=== PATIENT | female | born 1945 | race Caucasian/White ===

== ENCOUNTER 2017-01-01 14:25 | Emergency (ER) | payer OTHER, MEDICARE ==
[~2017-01-01] VITALS: Ht 162.6 cm; Wt 93.3 kg
[~2017-01-01 14:25] MED LIST: ALBINS/ INH; ATV5 PO; AZIT500T26 PO; BECL0.072 INH; BUME1TAB PO; CHOL100027 PO; CYAN10004 PO; DICL50TA3 PO; HYDR5SYP11 PO; LISI-725 PO; METO25TA31 PO; POTA550T4 PO; SIMV10TA5 PO; SNG10 PO
[2017-01-01 14:29] VITALS: TEMP 36.4; Ht 162.6 cm; Wt 93.3 kg
[2017-01-01] MEDS ORDERED: ALBUTEROL 0.083% NEBU SOLN 3 ML VIAL INH STA (15:18)
[2017-01-01] MEDS ORDERED: BENZONATATE 100MG CAP PO ONE (15:30)
--- NOTE | 2017-01-01 15:35 | DIAGNOSTIC IMAGING REPORT ---
SINGLE VIEW CHEST CLINICAL HISTORY: Cough. FINDINGS: An AP, portable, upright chest radiograph is compared to study dated 08/08/2016. Correlation is made with chest CT dated 12/31/2011. The examination is degraded by portable technique and patient rotation. The cardiomediastinal silhouette is unremarkable. There is atherosclerotic calcification of the thoracic aorta. Numerous pulmonary nodules are unchanged in appearance during back to 2011. Chronic interstitial thickening is observed. No airspace consolidation or pleural effusion is identified. No pneumothorax is seen. The skeletal structures are osteopenic. The bony thorax is grossly intact. IMPRESSION: 1. There is no acute cardiopulmonary abnormality. 2. Chronic peripheral changes and multifocal pulmonary nodules have not significantly changed dating back to 2011. Electronically signed by: Rodrigo Alvarenga M.D. 01/01/2017 3:33 PM Dictated Date/Time: 01/01/2017 3:32 PM
[2017-01-01 15:48] VITALS: O2SAT 99
[2017-01-01 16:16] LABS: BUN/CREATININE RATIO 16.6 (10-20); CALCIUM 8.8 mg/dl (8.5-10.1); CREATININE 1.2 mg/dl (0.60-1.20); POTASSIUM 3.9 mmol/L (3.5-5.1)
[2017-01-01] MEDS ORDERED: PRAV20TA PO (16:25)
[2017-01-01] MEDS ORDERED: PANT40TA PO (16:26)
[2017-01-01 16:35] LABS: HEMATOCRIT 36.6 % (37-47); MEAN CELL VOLUME 83.9 fL (80-100); MEAN CORPUSCULAR HEMOGLOBIN 28.2 pg (25-34); MEAN CORPUSCULAR HGB CONC 33.6 g/dl (32-36); PLATELET COUNT 48 K/uL (130-400); RED BLOOD COUNT 4.36 M/uL (4.2-5.4); WHITE BLOOD COUNT 1.68 K/uL (4.8-10.8)
[2017-01-01 16:39] LABS: BASO % 0.6 %; BASO ABS # 0.01 K/uL (0-0.2); COMPLETE YES; EOS % 1.2 %; GIANT PLATELETS 1+; LYMPH % 28.6 %; LYMPH ABS # 0.48 K/uL (1.2-3.4); MONO % 8.9 %; NEUT % 60.7 %
[2017-01-01] MEDS ORDERED: DOXYCYCLINE HYCLATE 100 MG CAP PO STA (17:05)
[2017-01-01] MEDS ORDERED: BENZ100C18 PO (17:08)
[2017-01-01] MEDS ORDERED: PRED20TA PO (17:08)
[2017-01-01] MEDS ORDERED: DOXY100C PO (17:08)
[2017-01-01 17:36] VITALS: BP 158/77; PULSE 103; O2SAT 95
--- NOTE | 2017-01-01 17:38 | EMERGENCY ROOM VISIT NOTE ---
History Report prepared by Kelsi: Davida Roach Under the Supervision of: Dr. Shar Butts D.O. First contact with patient: 15:06 Chief Complaint: RESPIRATORY PROBLEMS Stated Complaint: SEVERE COUGH, RATTLING IN CHEST Nursing Triage Summary: Cough productive of white phlegm. "I have a crackling in my chest when I breathe." per pt. Denies CP. Hx of asthma. History of Present Illness The patient is a 71 year old female who presents to the Emergency Room with complaints of persistent shortness of breath starting 3 days ago. This has been present for the past 3 days and has been associated with a cough with white mucus production. She also has a runny nose and has felt slightly tired. 5-6 days ago she had her pain but this has resolved. She states that she can feel crackles in her chest. She has worsening difficulty breathing with lying down and exertion. She also complains of a runny nose and some tiredness. Pt denies headache, change in vision, fevers, sore throat, chest pain, nausea, vomiting, diarrhea, pain with urination, and melena. She has chronic lower extremity edema. The patient's granddaughter recently had pneumonia with similar symptoms. She received her pneumonia vaccine in August 2016. She has a history of asthma. No recent swelling of her calf. Source of History: patient Onset: 3 days ago Position: other (global) Quality: other (shortness of breath) Timing: other (persistent) Modifying Factors (Worsening): exertion, other (lying down) Associated Symptoms: + cough, No chest pain, No diarrhea, No fevers, No headache, No nausea, No sorethroat, No vomiting Review of Systems See HPI for pertinent positives & negatives. A total of 10 systems reviewed and were otherwise negative. Past Medical & Surgical Medical Problems: (1) Asthma (2) GERD (gastroesophageal reflux disease) (3) Gout (4) HTN (hypertension) (5) Hyperlipidemia (6) Hypertension (7) Lower extremity weakness (8) Lower extremity weakness (9) Osteoarthritis (10) Splenomegaly Family History Patient reports no known family medical history. Social History Smoking Status: Never Smoker Alcohol Use: none Marital Status: Housing Status: lives with family Occupation Status: retired Current/Historical Medications Scheduled Albuterol Sulf (Proventil 0.083% 2.5MG/3ML), 2.5 MG INH PRN Beclomethasone Dipropionate (Qvar), 2 PUFFS INH BID Benzonatate (Tessalon Perles), 1 CAP PO TID Cholecalciferol (Vitamin D 1000 Unit), 2,000 INTER.UNIT PO DAILY Cyanocobalamin (Vitamin B-12 1000 Mcg), 1,000 MCG PO DAILY Doxycycline Hyclate (Vibramycin), 100 MG PO BID Lisinopril (Zestril), 20 MG PO DAILY Lorazepam (Ativan *), 0.5 MG PO TID PRN Metoprolol Tartrate (Metoprolol), 25 MG PO BID Montelukast (Singulair *), 10 MG PO DAILY Pantoprazole (Protonix), 40 MG PO DAILY Pravastatin (Pravachol ), 20 MG PO DAILY Prednisone (Prednisone), 2 TAB PO DAILY Scheduled PRN Bumetanide (Bumex), 1 MG PO DAILY PRN for SWELLING Diclofenac (Voltaren), 50 MG PO BID/UD PRN for GOUT Allergies Coded Allergies: Ciprofloxacin (Unverified Allergy, Unknown, NAUSEA, 08/08/16) Naproxen (Verified Allergy, Unknown, hives, 08/08/16) Physical Exam Vital Signs Date Time Temp Pulse Resp B/P Pulse Ox O2 Delivery O2 Flow Rate FiO2 01/01/17 17:36 103 21 158/77 95 01/01/17 16:59 103 21 158/77 95 Room Air 01/01/17 16:18 104 01/01/17 15:48 99 Room Air 01/01/17 14:31 94 Room Air 01/01/17 14:29 36.4 101 20 150/84 94 Room Air Physical Exam GENERAL: Sitting up at the edge of bed, able to talk in full sentences, in no acute distress, nontoxic. EYE EXAM: normal conjunctiva, PERRL and EOM's grossly intact OROPHARYNX: no exudate, no erythema, lips, buccal mucosa, and tongue normal and mucous membranes are moist NECK: supple, no nuchal rigidity, no adenopathy, non-tender. No JVD. LUNGS: Diffuse wheezing bilaterally. Normal chest wall mechanics HEART: no murmurs, S1 normal and S2 normal ABDOMEN: abdomen soft, non-tender, normo-active bowel sounds, no masses, no rebound or guarding. BACK: Back is symmetrical on inspection and there is no deformity, no midline tenderness, no CVA tenderness. SKIN: no rashes and no bruising UPPER EXTREMITIES: upper extremities are grossly normal. LOWER EXTREMITIES: No pitting edema. Calves are equal bilaterally. NEURO EXAM: Normal sensorium, cranial nerves II-XII grossly intact, normal speech, no gross weakness of arms, no gross weakness of legs. Medical Decision & Procedures ER Provider Diagnostic Interpretation: Xray results per the radiologist and my interpretation. SINGLE VIEW CHEST CLINICAL HISTORY: Cough. FINDINGS: An AP, portable, upright chest radiograph is compared to study dated 08/08/2016. Correlation is made with chest CT dated 12/31/2011. The examination is degraded by portable technique and patient rotation. The cardiomediastinal silhouette is unremarkable. There is atherosclerotic calcification of the thoracic aorta. Numerous pulmonary nodules are unchanged in appearance during back to 2011. Chronic interstitial thickening is observed. No airspace consolidation or pleural effusion is identified. No pneumothorax is seen. The skeletal structures are osteopenic. The bony thorax is grossly intact. IMPRESSION: 1. There is no acute cardiopulmonary abnormality. 2. Chronic peripheral changes and multifocal pulmonary nodules have not significantly changed dating back to 2011. Electronically signed by: Rodrigo Alvarenga M.D. 01/01/2017 3:33 PM Dictated Date/Time: 01/01/2017 3:32 PM Laboratory Results 01/01/17 15:45 Red Blood Count 4.36, Mean Corpuscular Volume 83.9, Mean Corpuscular Hemoglobin 28.2, Mean Corpuscular Hemoglobin Concent 33.6, Mean Platelet Volume 11.0, Neutrophils (%) (Auto) 60.7, Lymphocytes (%) (Auto) 28.6, Monocytes (%) (Auto) 8.9, Eosinophils (%) (Auto) 1.2, Basophils (%) (Auto) 0.6, Neutrophils # (Auto) 1.02, Lymphocytes # (Auto) 0.48, Monocytes # (Auto) 0.15, Eosinophils # (Auto) 0.02, Basophils # (Auto) 0.01 01/01/17 15:45 Test 01/01/17 15:41 01/01/17 15:45 Influenza Type A Antigen Neg for Influ A (NEG) Influenza Type B Antigen Neg for Influ B (NEG) White Blood Count 1.68 K/uL (4.8-10.8) Red Blood Count 4.36 M/uL (4.2-5.4) Hemoglobin 12.3 g/dL (12.0-16.0) Hematocrit 36.6 % (37-47) Mean Corpuscular Volume 83.9 fL (80-100) Mean Corpuscular Hemoglobin 28.2 pg (25-34) Mean Corpuscular Hemoglobin Concent 33.6 g/dl (32-36) Platelet Count 48 K/uL (130-400) Mean Platelet Volume 11.0 fL (7.4-10.4) Neutrophils (%) (Auto) 60.7 % Lymphocytes (%) (Auto) 28.6 % Monocytes (%) (Auto) 8.9 % Eosinophils (%) (Auto) 1.2 % Basophils (%) (Auto) 0.6 % Neutrophils # (Auto) 1.02 K/uL (1.4-6.5) Lymphocytes # (Auto) 0.48 K/uL (1.2-3.4) Monocytes # (Auto) 0.15 K/uL (0.11-0.59) Eosinophils # (Auto) 0.02 K/uL (0-0.5) Basophils # (Auto) 0.01 K/uL (0-0.2) RDW Standard Deviation 46.8 fL (36.4-46.3) RDW Coefficient of Variation 15.1 % (11.5-14.5) Immature Granulocyte % (Auto) 0.0 % Immature Granulocyte # (Auto) 0.00 K/uL (0.00-0.02) Giant Platelets 1+ Anion Gap 10.0 mmol/L (3-11) Est Creatinine Clear Calc Drug Dose 49.0 ml/min Estimated GFR () 53.4 Estimated GFR (Non- 46.1 BUN/Creatinine Ratio 16.6 (10-20) Calcium Level 8.8 mg/dl (8.5-10.1) Laboratory results per my review. Medications Administered Medications (Trade) Dose Ordered Sig/Daria Route Start Time Stop Time Status Last Admin Dose Admin Albuterol Sulfate (Ventolin 0.083% 2.5MG/3ML Neb) 2.5 mg NOW STAT INH 01/01/17 15:18 01/01/17 15:19 DC 01/01/17 15:41 2.5 MG Benzonatate (Tessalon Perles Cap) 100 mg NOW ONCE PO 01/01/17 15:30 01/01/17 15:31 DC 01/01/17 15:41 100 MG Doxycycline Hyclate (Vibramycin Cap) 100 mg NOW STAT PO 01/01/17 17:05 01/01/17 17:06 DC 01/01/17 17:25 100 MG Prednisone (PredniSONE TAB) 20 mg NOW STAT PO 01/01/17 17:05 01/01/17 17:06 DC 01/01/17 17:25 20 MG ECG Indication: SOB/dyspnea Rate (beats per minute): 95 Rhythm: sinus rhythm Findings: RBBB (incomplete), other (normal axis) Comparison ECG Date: August 08, 2016 Change: no significant change ED Course ED COURSE: Vital signs were reviewed and showed tachycardic. The patients medical record was reviewed The above diagnostic studies were performed and reviewed. ED treatments and interventions as stated above. 1506: The patient was evaluated in room A04B. A complete history and physical examination was performed. 1518: Albuterol Sulfate 2.5 mg INH 1530: Benzonatate 100 mg PO 1700: Upon reevaluation, the patient is resting comfortably. She ambulated to the bathroom without difficulty, and wheezing has improved. I discussed my findings with the patient and she understands and agrees with the treatment plan. Based on the patients age, coexisting illnesses, exam and lab findings the decision to treat as an outpatient was made. The patient remained stable while under my care. The patient appeared well at the time of discharge. 1705: Prednisone 20 mg PO, Vibramycin Cap 100 mg PO Medical Decision Differential diagnoses includes but is not limited to pneumonia, bronchitis, COPD/Asthma exacerbation, pneumothorax, pulmonary embolism, congestive heart failure, acute coronary syndrome Patient is a 71-year-old female who presents the ER for productive cough associated with shortness of breath. She also admits to a runny nose and recent ear pain which has resolved. Patient does have sick contacts in the house. She denies any swelling of the legs. There is no JVD. No crackles. She does have diffuse wheezing. She is given a neb treatment with improvement. She has a history of asthma. As her symptoms improved with the neb treatment I did elect treat her with steroids, Tessalon Perles and doxycycline as her EKG did have QT prolongation. EKG was unchanged from her previous. Patient was updated at bedside and was able to ambulate without difficulty. Labs did show a chronic leukopenia and thrombocytopenia which patient notes has been there for several years. Upon review of her chart confirms this. Again I did consider CHF but she had no crackles, no JVD, or no pitting edema. Discussed with Pt concerning signs and symptoms to watch out for. Pt was instructed to follow up with their PCP and discussed with the patient their option to return to the ED at anytime for persistent or worsening symptoms. The appropriate anticipatory guidance and out-patient management, including indications for return to the emergency department, were explained at length to the patient and understood. Impression Primary Impression: Bronchitis Additional Impressions: Chronic leukopenia Chronic idiopathic thrombocytopenia Scribe Attestation The scribe's documentation has been prepared under my direction and personally reviewed by me in its entirety. I confirm that the note above accurately reflects all work, treatment, procedures, and medical decision making performed by me. Departure Information Dispostion Home / Self-Care Prescriptions Doxycycline Hyclate (VIBRAMYCIN) 100 Mg Cap 100 MG PO BID for 7 Days, #14 CAP Prov: Shar Butts, DO 01/01/17 Benzonatate (TESSALON PERLES) 100 Mg Cap 1 CAP PO TID for 10 Days, #30 CAP Prov: Shar Butts, DO 01/01/17 Prednisone (Prednisone) 20 Mg Tab 2 TAB PO DAILY for 5 Days, TAB Prov: Shar Butts, DO 01/01/17 Referrals No Doctor, Assigned (PCP) Forms HOME CARE DOCUMENTATION FORM, IMPORTANT VISIT INFORMATION, WORK / SCHOOL INSTRUCTIONS Patient Instructions My [facility] Additional Instructions Please follow up with your primary care doctor with in the next 24 hours. Any worsening of your symptoms, please return to the ED immediately. This includes any fevers greater than 100.4, worsening shortness breath, passing out, coughing up blood, or any other concerning signs or symptoms from your standpoint. Please take steroids as prescribed. Please take the antibiotics with food. Problem Qualifiers
== END 2017-01-01 17:39 | disposition home or self-care (01) ==
LOC: C.EDB 14:26 → C.EDA 17:39
DX: J40 Bronchitis, not specified as acute or chronic (principal); D72.819 Decreased white blood cell count, unspecified; D69.3 Immune thrombocytopenic purpura; I10 Essential (primary) hypertension; E78.5 Hyperlipidemia, unspecified; K21.9 Gastro-esophageal reflux disease without esophagitis; M10.9 Gout, unspecified; J45.909 Unspecified asthma, uncomplicated; M19.90 Unspecified osteoarthritis, unspecified site; Z79.899 Other long term (current) drug therapy; Z88.2 Allergy status to sulfonamides; Z88.8 Allergy status to other drugs, medicaments and biological substances

== ENCOUNTER → 2017-03-13 | Outpatient (CLI) | payer OTHER, MEDICARE ==
[~2017-03-13] MED LIST changes: -AZIT500T26 PO; -HYDR5SYP11 PO; +PANT40TA PO; -POTA550T4 PO; +PRAV20TA PO; -SIMV10TA5 PO
[2017-03-13 12:21] LABS: INR 1.1 (0.9-1.1); PROTHROMBIN TIME (PATIENT) 12.2 SECONDS (9.0-12.0)
[2017-03-13 12:28] LABS: HEMATOCRIT 36.4 % (37-47); MEAN CELL VOLUME 83.9 fL (80-100); MEAN CORPUSCULAR HEMOGLOBIN 27.6 pg (25-34); MEAN PLATELET VOLUME 11.7 fL (7.4-10.4); PLATELET COUNT 44 K/uL (130-400); RED BLOOD COUNT 4.34 M/uL (4.2-5.4); WHITE BLOOD COUNT 1.32 K/uL (4.8-10.8)
[2017-03-13 13:14] LABS: ANISOCYTOSIS PRESENT; BASO % 0.8 %; BASO ABS # 0.01 K/uL (0-0.2); COMPLETE YES; EOS % 1.5 %; LYMPH % 32.6 %; LYMPH ABS # 0.43 K/uL (1.2-3.4); MONO % 8.3 %; NEUT % 56.8 %; PLT ESTIMATE DECREASED; POIKILOCYTOSIS PRESENT; SMUDGE CELLS PRESENT
[2017-03-13 13:19] LABS: BLOOD UREA NITROGEN 17 mg/dl (7-18); BUN/CREATININE RATIO 15.8 (10-20); CARBON DIOXIDE 27 mmol/L (21-32); CHLORIDE 107 mmol/L (98-107); GLUCOSE 96 mg/dl (70-99); POTASSIUM 3.8 mmol/L (3.5-5.1); SODIUM 142 mmol/L (136-145)
[2017-03-13 13:42] LABS: ALB/GLOB RATIO 0.9 (0.9-2); ALKALINE PHOSPHATASE 72 U/L (45-117); ALT/SGPT 24 U/L (12-78); AST/SGOT 33 U/L (15-37); CHOLESTEROL 170 mg/dl (0-200); CHOLESTEROL/HDL RATIO 3.2; HDL CHOLESTEROL 53 mg/dl; LDL CHOLESTEROL CALCULATED 99 mg/dl; TRIGLYCERIDES 91 mg/dl (0-150); VERY LOW DENSITY LIPOPROT CALC 18 mg/dl
[2017-03-13 13:45] LABS: ESTIMATED AVERAGE GLUCOSE 88 mg/dl; HA1C FLAG Normal (Normal)
[2017-03-13 13:55] LABS: CALCIUM 8.9 mg/dl (8.5-10.1)
== END | disposition home or self-care (01) ==
LOC: C.LABBFT 09:14
PROVIDERS: ATTEND Internal Medicine
DX: D61.818 Other pancytopenia (principal); R73.01 Impaired fasting glucose; E78.00 Pure hypercholesterolemia, unspecified; K74.60 Unspecified cirrhosis of liver

== ENCOUNTER → 2017-03-20 | Outpatient (CLI) | payer OTHER, MEDICARE ==
--- NOTE | 2017-03-20 09:24 | DIAGNOSTIC IMAGING REPORT ---
BILIARY ULTRASOUND CLINICAL HISTORY: Liver disease COMPARISON STUDY: 04/18/2016 FINDINGS: The pancreas appears sonographically normal. The liver demonstrates a coarsened echotexture with a serrated serosal margin. The findings are consistent with cirrhosis. The gallbladder surgically absent. Common bile duct measures 3 mm. There is no right-sided hydronephrosis. There is a 2 cm nodule adjacent kidney likely representing an adrenal nodule. IMPRESSION: 1. Surgically absent gallbladder 2. No evidence of ductal dilatation 3. Cirrhotic morphology of the liver. 4. No focal hepatic masses 5. 2 cm right adrenal nodule Electronically signed by: David Valle M.D. 03/20/2017 9:22 AM Dictated Date/Time: 03/20/2017 9:20 AM
== END | disposition home or self-care (01) ==
LOC: C.ULTR 08:35
PROVIDERS: ATTEND Registered Nurse
DX: K76.9 Liver disease, unspecified (principal); Z90.49 Acquired absence of other specified parts of digestive tract

== ENCOUNTER → 2017-09-16 | Outpatient (CLI) | payer OTHER, MEDICARE ==
--- NOTE | 2017-09-16 10:08 | DIAGNOSTIC IMAGING REPORT ---
ULTRASOUND RIGHT UPPER QUADRANT ABDOMEN CLINICAL HISTORY: Chronic liver disease. COMPARISON STUDY: Abdominal ultrasound dated 03/20/2017. Chest CT dated 12/31/2011. TECHNIQUE: Real-time, grayscale, and color flow sonography of the right upper quadrant of the abdomen was performed. Images are reviewed in the transverse and longitudinal planes. FINDINGS: Liver: The liver is cirrhotic in morphology and heterogeneous in echotexture. There is nodularity of the hepatic surface contour. There is no sonographic evidence of hepatic mass. There is no intrahepatic biliary ductal dilatation. The main portal vein is patent. Gallbladder: The gallbladder is surgically absent. The common bile duct measures up to 0.7 cm in diameter. Pancreas: Visualized portions of the pancreatic head and body are normal in appearance. The splenic vein is patent. Right kidney: Survey images of the right kidney demonstrate mild cortical atrophy. There is no hydronephrosis. There is a 2.0 cm right adrenal nodule. This was characterized as a fat-containing adenoma by chest CT on 12/31/2011. Ascites: None. IMPRESSION: 1. The liver is cirrhotic in morphology and heterogeneous in echotexture. 2. No acute sonographic abnormality is identified. 3. Status post cholecystectomy. 4. There is no sonographic evidence of hepatic mass. Electronically signed by: Rodrigo Alvarenga M.D. 09/16/2017 10:06 AM Dictated Date/Time: 09/16/2017 10:04 AM
== END | disposition home or self-care (01) ==
LOC: C.ULTR 09:23
PROVIDERS: ATTEND Registered Nurse
DX: K76.9 Liver disease, unspecified (principal)

== ENCOUNTER → 2018-03-16 | Outpatient (CLI) | payer OTHER, MEDICARE ==
[~2018-03-16] MED LIST changes: +BENZ100C18 PO; +DOXY100C PO; +FURO-85 PO; +PLMINS25 INH; +PRED20TA PO; +PRFINS INH; +PRLSR20 PO
--- NOTE | 2018-03-16 10:38 | DIAGNOSTIC IMAGING REPORT ---
ABDOMINAL ULTRASOUND, RIGHT UPPER QUADRANT HISTORY: CHRONIC LIVER DISEASE. COMPARISON: Abdominal ultrasound 09/16/2017. FINDINGS: Pancreas: The pancreatic tail is obscured by overlying bowel gas. The remaining portions of the pancreas are within normal limits. Liver: Heterogeneous with a slightly nodular contour consistent with cirrhosis. No hepatic masses identified. Gallbladder: The gallbladder is surgically absent. CBD: 4 mm. Right kidney: No hydronephrosis. No change in 1.9 cm right adrenal gland nodule. IMPRESSION: 1. Cirrhotic liver. 2. Cholecystectomy. 3. No change in 1.9 cm right adrenal gland nodule. Electronically signed by: Avinash Lynn M.D. 03/16/2018 10:37 AM Dictated Date/Time: 03/16/2018 10:36 AM
== END | disposition home or self-care (01) ==
LOC: C.ULTR 09:36
PROVIDERS: ATTEND Registered Nurse
DX: K74.60 Unspecified cirrhosis of liver (principal); K76.9 Liver disease, unspecified; E27.9 Disorder of adrenal gland, unspecified; Z90.49 Acquired absence of other specified parts of digestive tract

== ENCOUNTER 2018-03-25 08:35 | Emergency (ER) | payer OTHER, MEDICARE ==
[~2018-03-25] VITALS: Ht 162.6 cm; Wt 86.3 kg
[~2018-03-25 08:35] MED LIST changes: -BENZ100C18 PO; -DOXY100C PO; -FURO-85 PO; -PLMINS25 INH; -PRED20TA PO; -PRFINS INH; -PRLSR20 PO
[2018-03-25 08:37] VITALS: TEMP 36.7; Ht 162.6 cm; Wt 86.3 kg
[2018-03-25] MEDS ORDERED: ALBUTEROL 0.083% NEBU SOLN 3 ML VIAL INH STA (08:59)
[2018-03-25] MEDS ORDERED: BENZONATATE 100MG CAP PO ONE (09:00)
[2018-03-25] MEDS ORDERED: PRLSR20 PO (09:19)
[2018-03-25] MEDS ORDERED: PRFINS INH (09:19)
[2018-03-25] MEDS ORDERED: PLMINS25 INH (09:19)
[2018-03-25] MEDS ORDERED: FURO-85 PO (09:19)
--- NOTE | 2018-03-25 09:42 | DIAGNOSTIC IMAGING REPORT ---
CHEST ONE VIEW PORTABLE HISTORY: cough COMPARISON: Chest 01/01/2017. FINDINGS: No pneumothorax. No pleural effusions. The heart is stable in size. Coarse interstitial thickening and multiple small scattered nodules are not significantly changed. No new focal lung consolidations to suggest pneumonia. No evidence for pulmonary edema. IMPRESSION: Overall, no significant change compared to the prior study. Diffuse interstitial thickening and scattered pulmonary nodules are again noted. No new focal lung consolidations. Electronically signed by: Avinash Lynn M.D. 03/25/2018 9:41 AM Dictated Date/Time: 03/25/2018 9:39 AM
[2018-03-25 09:47] LABS: HEMATOCRIT 34.3 % (37-47); HEMOGLOBIN 11.5 g/dL (12.0-16.0); MEAN CELL VOLUME 85.5 fL (80-100); MEAN CORPUSCULAR HEMOGLOBIN 28.7 pg (25-34); MEAN CORPUSCULAR HGB CONC 33.5 g/dl (32-36); PLATELET COUNT 32 K/uL (130-400); RED CELL DISTRIBUTION WIDTH CV 15.2 % (11.5-14.5); RED CELL DISTRIBUTION WIDTH SD 47.8 fL (36.4-46.3); WHITE BLOOD COUNT 0.85 K/uL (4.8-10.8)
[2018-03-25 09:50] LABS: CALCIUM 8.5 mg/dl (8.5-10.1); POTASSIUM 3.9 mmol/L (3.5-5.1)
[2018-03-25 10:20] LABS: BASO % 1.2 %; BASO ABS # 0.01 K/uL (0-0.2); EOS % 2.4 %; EOS ABS # 0.02 K/uL (0-0.5); LYMPH % 38.8 %; LYMPH ABS # 0.33 K/uL (1.2-3.4); MONO % 11.8 %; NEUT % 45.8 %; NEUT ABS # 0.39 K/uL (1.4-6.5)
[2018-03-25 10:43] LABS: INFLUENZA B ANTIGEN Neg for Influ B (NEG)
[2018-03-25 10:58] VITALS: BP 137/76; PULSE 103; O2SAT 93
[2018-03-25] MEDS ORDERED: BENZ100C18 PO (11:15)
[2018-03-25] MEDS ORDERED: PRED20TA PO (11:15)
[2018-03-25] MEDS ORDERED: DOXYCYCLINE HYCLATE 100 MG CAP PO ONE (11:15)
[2018-03-25] MEDS ORDERED: DOXY100C PO (11:15)
--- NOTE | 2018-03-25 13:32 | EMERGENCY ROOM VISIT NOTE ---
History Report prepared by Kelsi: Guilherme Rutherford Under the Supervision of: Dr. Shar Butts D.O. First contact with patient: 08:42 Chief Complaint: COUGH Stated Complaint: COUGH,RUNNY NOSE,CHEST HURTS WHEN COUGHING Nursing Triage Summary: Patient c/o of dry cough, nasal congestion, sorethroat and ear pain since Friday. Hx. of asthma. History of Present Illness The patient is a 72 year old female who presents to the Emergency Room with complaints of a persistent cough that began yesterday. The patient states that her symptoms began with a cough yesterday, and she now feels like she is wheezing and she can hear "crackling" when she breathes. She does describe some discomfort in the center of her chest, which is only present with the cough. She currently has no pain as she is not coughing. She also complains of a sorethroat and some pain in her left ear. The patient does have a history of asthma. She denies headache, change in vision, fevers, chest pain, shortness of breath, nausea, vomiting, diarrhea, pain with urination, and melena. Source of History: patient Onset: Yesterday Position: chest Quality: other (cough) Timing: other (persistent) Associated Symptoms: + sorethroat, + chest pain (with cough) Note: Pain in left ear. Review of Systems See HPI for pertinent positives & negatives. A total of 10 systems reviewed and were otherwise negative. Past Medical & Surgical Medical Problems: (1) Asthma (2) GERD (gastroesophageal reflux disease) (3) Gout (4) HTN (hypertension) (5) Hyperlipidemia (6) Hypertension (7) Lower extremity weakness (8) Lower extremity weakness (9) Osteoarthritis (10) Splenomegaly Family History Patient reports no known family medical history. Social History Smoking Status: Never Smoker Alcohol Use: none Marital Status: Housing Status: lives with family Occupation Status: retired Current/Historical Medications Scheduled Benzonatate (Tessalon Perles), 100 MG PO TID Budesonide (Budesonide), 1 DOSE INH Q12 Cholecalciferol (Vitamin D 1000 Unit), 2,000 INTER.UNIT PO DAILY Cyanocobalamin (Vitamin B-12 1000 Mcg), 1,000 MCG PO DAILY Doxycycline Hyclate (Vibramycin), 100 MG PO BID Formoterol Fumarate (Perforomist), 1 DOSE INH Q12 Furosemide (Lasix), 20 MG PO DAILY Lisinopril (Zestril), 20 MG PO DAILY Lorazepam (Ativan *), 0.5 MG PO TID PRN Omeprazole (Prilosec), 20 MG PO DAILY Pantoprazole (Protonix), 40 MG PO DAILY Pravastatin (Pravachol ), 20 MG PO DAILY Prednisone (Prednisone), 1 TAB PO DAILY Scheduled PRN Diclofenac (Voltaren), 50 MG PO BID/UD PRN for GOUT Allergies Coded Allergies: Ciprofloxacin (Unverified Allergy, Unknown, NAUSEA, 03/25/18) Naproxen (Verified Allergy, Unknown, hives, 03/25/18) Physical Exam Vital Signs Date Time Temp Pulse Resp B/P (MAP) Pulse Ox O2 Delivery O2 Flow Rate FiO2 03/25/18 10:58 103 18 137/76 93 03/25/18 08:50 91 Room Air 03/25/18 08:37 36.7 88 18 149/79 91 Room Air Physical Exam GENERAL: Sitting up in bed, alert, with dry cough, talking in full sentences, well appearing, well nourished, no distress, non-toxic EYE EXAM: normal conjunctiva. OROPHARYNX: no exudate, no erythema, lips, buccal mucosa, and tongue normal and mucous membranes are moist NECK: supple, no nuchal rigidity, no adenopathy, non-tender LUNGS: Diffuse wheezing bilaterally. Normal chest wall mechanics HEART: no murmurs, S1 normal and S2 normal ABDOMEN: abdomen soft, non-tender, normo-active bowel sounds, no masses, no rebound or guarding. BACK: Back is symmetrical on inspection and there is no deformity, no midline tenderness, no CVA tenderness. SKIN: no rashes and no bruising UPPER EXTREMITIES: upper extremities are grossly normal. LOWER EXTREMITIES: No pitting edema. Calves are equal bilaterally. NEURO EXAM: Normal sensorium, cranial nerves II-XII grossly intact, normal speech, no gross weakness of arms, no gross weakness of legs. Medical Decision & Procedures ER Provider Diagnostic Interpretation: Radiology results as stated below per my review and the radiologist's interpretation: CHEST ONE VIEW PORTABLE HISTORY: cough COMPARISON: Chest 01/01/2017. FINDINGS: No pneumothorax. No pleural effusions. The heart is stable in size. Coarse interstitial thickening and multiple small scattered nodules are not significantly changed. No new focal lung consolidations to suggest pneumonia. No evidence for pulmonary edema. IMPRESSION: Overall, no significant change compared to the prior study. Diffuse interstitial thickening and scattered pulmonary nodules are again noted. No new focal lung consolidations. Electronically signed by: Avinash Lynn M.D. 03/25/2018 9:41 AM Dictated Date/Time: 03/25/2018 9:39 AM Laboratory Results 03/25/18 09:20 Red Blood Count 4.01, Mean Corpuscular Volume 85.5, Mean Corpuscular Hemoglobin 28.7, Mean Corpuscular Hemoglobin Concent 33.5, Mean Platelet Volume 10.0, Neutrophils (%) (Auto) 45.8, Lymphocytes (%) (Auto) 38.8, Monocytes (%) (Auto) 11.8, Eosinophils (%) (Auto) 2.4, Basophils (%) (Auto) 1.2, Neutrophils # (Auto ) 0.39, Lymphocytes # (Auto) 0.33, Monocytes # (Auto) 0.10, Eosinophils # (Auto ) 0.02, Basophils # (Auto) 0.01 03/25/18 09:20 Test 03/25/18 09:15 03/25/18 09:20 Influenza Type A Antigen Neg for Influ A (NEG) Influenza Type B Antigen Neg for Influ B (NEG) White Blood Count 0.85 K/uL (4.8-10.8) Red Blood Count 4.01 M/uL (4.2-5.4) Hemoglobin 11.5 g/dL (12.0-16.0) Hematocrit 34.3 % (37-47) Mean Corpuscular Volume 85.5 fL (80-100) Mean Corpuscular Hemoglobin 28.7 pg (25-34) Mean Corpuscular Hemoglobin Concent 33.5 g/dl (32-36) Platelet Count 32 K/uL (130-400) Mean Platelet Volume 10.0 fL (7.4-10.4) Neutrophils (%) (Auto) 45.8 % Lymphocytes (%) (Auto) 38.8 % Monocytes (%) (Auto) 11.8 % Eosinophils (%) (Auto) 2.4 % Basophils (%) (Auto) 1.2 % Neutrophils # (Auto) 0.39 K/uL (1.4-6.5) Lymphocytes # (Auto) 0.33 K/uL (1.2-3.4) Monocytes # (Auto) 0.10 K/uL (0.11-0.59) Eosinophils # (Auto) 0.02 K/uL (0-0.5) Basophils # (Auto) 0.01 K/uL (0-0.2) RDW Standard Deviation 47.8 fL (36.4-46.3) RDW Coefficient of Variation 15.2 % (11.5-14.5) Immature Granulocyte % (Auto) 0.0 % Immature Granulocyte # (Auto) 0.00 K/uL (0.00-0.02) Large Platelets 1+ Anion Gap 4.0 mmol/L (3-11) Est Creatinine Clear Calc Drug Dose 55.7 ml/min Estimated GFR () 66.1 Estimated GFR (Non- 57.0 BUN/Creatinine Ratio 13.3 (10-20) Calcium Level 8.5 mg/dl (8.5-10.1) Laboratory results per my review. Medications Administered Medications (Trade) Dose Ordered Sig/Daria Route Start Time Stop Time Status Last Admin Dose Admin Benzonatate (Tessalon Perles Cap) 100 mg NOW ONCE PO 03/25/18 09:00 03/25/18 09:01 DC 03/25/18 09:13 100 MG Albuterol Sulfate (Ventolin 0.083% 2.5MG/3ML Neb) 2.5 mg NOW STAT INH 03/25/18 08:59 03/25/18 09:01 DC 03/25/18 09:13 2.5 MG Doxycycline Hyclate (Vibramycin Cap) 100 mg ONE ONCE PO 03/25/18 11:15 03/25/18 11:16 DC 03/25/18 11:27 100 MG Prednisone (PredniSONE TAB) 20 mg NOW STAT PO 03/25/18 11:12 03/25/18 11:14 DC 03/25/18 11:27 20 MG ED Course ED COURSE: Vital signs were reviewed and showed hypertensive vitals. The patients medical record was reviewed The above diagnostic studies were performed and reviewed. ED treatments and interventions as stated above. 0854: The patient was evaluated in room A9B. A complete history and physical examination was performed. 0859: Ordered Albuterol Sulfate 2.5 mg INH, Benzonatate 100 mg PO. 1112: Ordered Prednisone 20 mg PO. 1115: Ordered Doxycycline 100 mg PO. 1121: Upon reevaluation, the patient is resting comfortably.I discussed my findings with the patient and she understands and agrees with the treatment plan. Based on the patients age, coexisting illnesses, exam and lab findings the decision to treat as an outpatient was made. The patient remained stable while under my care. The patient appeared well at the time of discharge. Medical Decision Differential diagnoses includes but is not limited to pneumonia, bronchitis, COPD/Asthma exacerbation, pneumothorax, pulmonary embolism, congestive heart failure, acute coronary syndrome. Patient is a 72-year-old female who presents the ER for productive cough associated with wheezing and mild shortness of breath. She does have a history of asthma, leukopenia and thrombocytopenia. No fevers. Labs are remarkable for neutropenia of 400 with a WBC of 850. Does have the persistent thrombocytopenia. White count is not far off of her baseline. BMP was unremarkable. She notes that her white count and thrombocytopenia secondary to liver disease but she was not a drinker. She has had this worked up before in the past. Chest x-ray was unremarkable. Vitals are stable. Based on symptoms I do favor that this likely a bronchitis. She was given steroids and neb treatment. She did feel significant better. She was discharged to follow-up with PCP as an outpatient with antibiotic, Tessalon Perles and steroids. Discussed with Pt concerning signs and symptoms to watch out for. Pt was instructed to follow up with their PCP and discussed with the patient their option to return to the ED at anytime for persistent or worsening symptoms. The appropriate anticipatory guidance and out-patient management, including indications for return to the emergency department, were explained at length to the patient and understood. Medication Reconcilliation Current Medication List: was personally reviewed by me Blood Pressure Screening Patient's blood pressure: Elevated blood pressure Blood pressure disposition: Elevated BP felt to be situational Impression Primary Impression: Upper respiratory infection Additional Impressions: Chronic idiopathic thrombocytopenia Chronic leukopenia Scribe Attestation The scribe's documentation has been prepared under my direction and personally reviewed by me in its entirety. I confirm that the note above accurately reflects all work, treatment, procedures, and medical decision making performed by me. Departure Information Dispostion Home / Self-Care Prescriptions Prednisone (Prednisone) 20 Mg Tab 1 TAB PO DAILY for 5 Days, #5 TAB Prov: Shar Butts, DO 03/25/18 Doxycycline Hyclate (VIBRAMYCIN) 100 Mg Cap 100 MG PO BID for 7 Days, #14 CAP Prov: Shar Butts, DO 03/25/18 Benzonatate (TESSALON PERLES) 100 Mg Cap 100 MG PO TID for 7 Days, #21 CAP Prov: Shar Butts, DO 03/25/18 Referrals Kvng Pereira M.D. (PCP) Forms HOME CARE DOCUMENTATION FORM, IMPORTANT VISIT INFORMATION Patient Instructions My [facility] Additional Instructions Please follow up with your primary care doctor with in the next 24 hours. Any worsening of your symptoms, please return to the ED immediately. This includes any fevers greater than 100.4, worsening pain, chest pain, shortness breath, persistent nausea, vomiting, unable to eat or drink, or any other concerning signs or symptoms from your standpoint. You were given medications during this visit that will inhibit your ability to drive, operate machinery and work. Please do NOT drive, operate machinery, drink alcohol or work for the next 12hrs. Please take the antibiotics as prescribed. Please take the steroids as prescribed. Please continue to use your inhaler as previously prescribed to help improve your breathing. Please follow-up with your PCP in regards to your chronic leukopenia/low white blood cell count. Problem Qualifiers Primary Impression: Upper respiratory infection URI type: unspecified URI Qualified Codes: J06.9 - Acute upper respiratory infection, unspecified
== END 2018-03-25 11:31 | disposition home or self-care (01) ==
LOC: C.EDB 08:36 → C.EDA 11:31
DX: J06.9 Acute upper respiratory infection, unspecified (principal); D69.3 Immune thrombocytopenic purpura; D72.819 Decreased white blood cell count, unspecified; J45.909 Unspecified asthma, uncomplicated; K21.9 Gastro-esophageal reflux disease without esophagitis; M10.9 Gout, unspecified; I10 Essential (primary) hypertension; E78.5 Hyperlipidemia, unspecified; M19.90 Unspecified osteoarthritis, unspecified site; Z79.899 Other long term (current) drug therapy; Z88.1 Allergy status to other antibiotic agents; Z88.6 Allergy status to analgesic agent

== ENCOUNTER 2018-03-27 13:09 | Emergency (ER) | payer OTHER, MEDICARE ==
[~2018-03-27] VITALS: Ht 162.6 cm; Wt 86.4 kg
[~2018-03-27 13:09] MED LIST changes: +BENZ100C18 PO; +DOXY100C PO; +FURO-85 PO; +PLMINS25 INH; +PRED20TA PO; +PRFINS INH; +PRLSR20 PO
[2018-03-27 13:13] VITALS: TEMP 36.6; Ht 162.6 cm; Wt 86.4 kg
[2018-03-27] MEDS ORDERED: ALBUT/IPRATROP 3MG/0.5MG NEB 3 ML VIAL INH ONE (13:30)
[2018-03-27] MEDS ORDERED: METHYLPREDNISOLONE 125 MG VIAL IV STA (13:30)
[2018-03-27] MEDS ORDERED: LORA-741 PO (13:31)
[2018-03-27 13:46] VITALS: PULSE 78; O2SAT 96
--- NOTE | 2018-03-27 15:07 | DIAGNOSTIC IMAGING REPORT ---
CHEST 2 VIEWS ROUTINE CLINICAL HISTORY: Persistent cough dyspnea COMPARISON STUDY: 03/25/2018 FINDINGS: Unchanged exam without diffuse increase in ankle markings in the mid to lower lung regions bilaterally. Underlying nodular component is stable. Diaphragms are smooth. There are no consolidative infiltrates. IMPRESSION: 1. No change in the prior exam. 2. Unchanging parenchymal infiltrative and nodular change of the mid to lower lung regions bilaterally. The above report was generated using voice recognition software. It may contain grammatical, syntax or spelling errors. Electronically signed by: Olivier Lopez M.D. 03/27/2018 3:06 PM Dictated Date/Time: 03/27/2018 3:05 PM
[2018-03-27] MEDS ORDERED: HYDR5SYP11 PO (15:35)
[2018-03-27] MEDS ORDERED: PRED20TA2 PO (15:35)
[2018-03-27] MEDS ORDERED: GUAI10TA PO (15:35)
--- NOTE | 2018-03-27 15:36 | EMERGENCY ROOM VISIT NOTE ---
History First contact with patient: 13:17 Chief Complaint: COUGH Stated Complaint: COUGH,NOT EATING MUCH Nursing Triage Summary: Pt reports she was here Friday for Bronchitis. Pt reports worsening congestion in chest and productive cough. Denies fevers. pt states she is taking her inhaler, prednisone, antibiotic, and tesselon perles per order, not eating and "just don't feel better". audible rattling inspirations. pt reports she is coughing up large amounts of phlem. History of Present Illness The patient is a 72 year old female who presents to the Emergency Room with complaints of persistent cough and "rattling in her chest". The patient does have a history of lung disease for which she is on multiple inhalers. She states that she has been using inhalers since being seen in here 3 days ago for the same symptoms. The patient states she is also taking the antibiotics, Tessalon Perles and prednisone as prescribed. The patient states that she has not been able to sleep because she can hear herself "rattling". She thinks she should be feeling better by now. The patient is requesting to be admitted. The patient denies any increased shortness of breath, fevers, head congestion, nausea or vomiting. She states her appetite is decreased. Review of Systems 10 system review was performed and was negative unless stated otherwise history of present illness. Past Medical/Surgical History Medical Problems: (1) Asthma (2) GERD (gastroesophageal reflux disease) (3) Gout (4) HTN (hypertension) (5) Hyperlipidemia (6) Hypertension (7) Lower extremity weakness (8) Lower extremity weakness (9) Osteoarthritis (10) Splenomegaly Family History Patient reports no known family medical history. Social History Smoking Status: Never Smoker Alcohol Use: none Marital Status: Housing Status: lives with family Occupation Status: retired Current/Historical Medications Scheduled Benzonatate (Tessalon Perles), 100 MG PO TID Budesonide (Budesonide), 1 DOSE INH Q12 Cholecalciferol (Vitamin D 1000 Unit), 2,000 INTER.UNIT PO DAILY Cyanocobalamin (Vitamin B-12 1000 Mcg), 1,000 MCG PO DAILY Doxycycline Hyclate (Vibramycin), 100 MG PO BID Formoterol Fumarate (Perforomist), 1 DOSE INH Q12 Furosemide (Lasix), 20 MG PO DAILY Lisinopril (Zestril), 20 MG PO DAILY Omeprazole (Prilosec), 20 MG PO DAILY Pantoprazole (Protonix), 40 MG PO DAILY Pravastatin (Pravachol ), 20 MG PO DAILY Prednisone (Prednisone), 1 TAB PO DAILY Scheduled PRN Diclofenac (Voltaren), 50 MG PO BID/UD PRN for GOUT Lorazepam (Ativan), 0.5 MG PO TID PRN for Anxiety Physical Exam Vital Signs Date Time Temp Pulse Resp B/P (MAP) Pulse Ox O2 Delivery O2 Flow Rate FiO2 03/27/18 15:07 72 22 129/74 93 Room Air 03/27/18 13:46 78 18 96 Room Air 03/27/18 13:23 96 Room Air 03/27/18 13:13 36.6 85 20 134/74 96 Room Air Physical Exam GENERAL: 72-year-old white female appears older than stated age. She is in no acute distress. MENTAL Status: Alert and oriented 3. NECK: Supple, no lymphadenopathy noted. No carotid bruits noted. LUNGS: Patient has diffuse rhonchi and crackles noted throughout both lung deras. CARDIAC: Regular rate and rhythm without murmur. Pulses is full and equal throughout. LOWER EXTREMITIES: No cyanosis or edema noted. Medical Decision & Procedures ER Provider Diagnostic Interpretation: CHEST 2 VIEWS ROUTINE CLINICAL HISTORY: Persistent cough dyspnea COMPARISON STUDY: 03/25/2018 FINDINGS: Unchanged exam without diffuse increase in ankle markings in the mid to lower lung regions bilaterally. Underlying nodular component is stable. Diaphragms are smooth. There are no consolidative infiltrates. IMPRESSION: 1. No change in the prior exam. 2. Unchanging parenchymal infiltrative and nodular change of the mid to lower lung regions bilaterally. The above report was generated using voice recognition software. It may contain grammatical, syntax or spelling errors. Electronically signed by: Olivier Lopez M.D. 03/27/2018 3:06 PM Medications Administered Medications (Trade) Dose Ordered Sig/Daria Route Start Time Stop Time Status Last Admin Dose Admin Methylprednisolone Sodium Succinate (Solu-Medrol IV) 125 mg NOW STAT IV 03/27/18 13:30 03/27/18 13:32 DC 03/27/18 13:44 125 MG Albuterol/ Ipratropium (Duoneb) 12 ml ONE ONCE INH 03/27/18 13:30 03/27/18 13:32 DC 03/27/18 13:45 12 ML ED Course Patient was evaluated. The patient's EMR medication list were reviewed. The patient was just seen here 3 days ago. At that time she had a chest x-ray which revealed no acute findings. Labs were reviewed and were baseline for the patient. IV access was obtained. The patient was given Solu-Medrol 125 mg IV. She was given an hour DuoNeb. Repeat chest x-ray was ordered and interpreted by the radiologist as above no change from prior chest x-ray.. Patient stated she was feeling slightly better after the DuoNeb. On re-auscultation of the patient's lung she was much improved. She still had mild bilateral crackles and rhonchi. I informed her of the x-ray findings. The patient's case was discussed with Dr. garcia who independently evaluated the patient. The patient was discharged home in stable condition. Medical Decision The patient is already on antibiotics and on a low dose of steroids for her current symptoms. I also feel that she needs to discontinue the Tessalon Perles since this is suppressing her cough during the day I feel she needs to expectorate the sputum to help with her chest symptoms. I will increase her steroids and discontinue the Tessalon Perles as well as place the patient on some guaifenesin as an expectorant. I feel this will help her symptoms. [place] Drug Monitoring Program Search Results: patient reviewed within database Medication Reconcilliation Current Medication List: was personally reviewed by me Impression Primary Impression: Upper respiratory infection Additional Impression: Chronic obstructive pulmonary disease Departure Information Dispostion Home / Self-Care Condition GOOD Prescriptions Hydrocodone W/ Homatropine (HYCODAN 5/1.5MG 5 ML) 1 Syp Syp 5-10 ML PO qhs for 10 Days, #100 ML Prov: Galina Lopez PA-C 03/27/18 Guaifenesin (Guaifenesin ER) 1,200 Mg Tab 1 TAB PO BID for 7 Days, #14 TABS Prov: Galina Lopez PA-C 03/27/18 Prednisone (Prednisone Tab) 20 Mg Tab 3 TAB PO DAILY for 5 Days, #15 TAB FOR 4 DAYS Prov: Galina Lopez PA-C 03/27/18 Referrals Kvng Pereira M.D. (PCP) Forms HOME CARE DOCUMENTATION FORM, IMPORTANT VISIT INFORMATION [facility] Instructions [facility] Additional Instructions Continue all your inhalers as prescribed. Discontinue the Tessalon Perles. Discontinue your current dosing of prednisone. Take 60 mg of prednisone daily for 5 days. Take guaifenesin twice daily as directed. This will help you cough up the sputum. Take the Hycodan syrup at night for cough. Do not suppress her cough during the day. Sleep with head elevated. Follow-up with your family doctor next week for recheck. Problem Qualifiers Primary Impression: Upper respiratory infection URI type: unspecified viral URI Qualified Codes: J06.9 - Acute upper respiratory infection, unspecified Additional Impression: Chronic obstructive pulmonary disease COPD type: COPD with acute exacerbation Qualified Codes: J44.1 - Chronic obstructive pulmonary disease with (acute) exacerbation
[2018-03-27 16:00] VITALS: BP 127/65; PULSE 100; O2SAT 92
--- NOTE | 2018-03-27 16:07 | EMERGENCY ROOM VISIT NOTE ---
ED Visit Note First contact with patient: 13:17 I reviewed the patient's past medical history, medications, and visit nursing notes. I discussed the case with the physician scheduling assistant and agree with the findings and plan as documented in the physician assistants note.
== END 2018-03-27 16:01 | disposition home or self-care (01) ==
LOC: C.EDB 13:10
DX: J06.9 Acute upper respiratory infection, unspecified (principal); J44.1 Chronic obstructive pulmonary disease with (acute) exacerbation; J45.909 Unspecified asthma, uncomplicated; K21.9 Gastro-esophageal reflux disease without esophagitis; M10.9 Gout, unspecified; I10 Essential (primary) hypertension; E78.5 Hyperlipidemia, unspecified; M19.90 Unspecified osteoarthritis, unspecified site; Z79.899 Other long term (current) drug therapy

== ENCOUNTER → 2018-04-20 | Outpatient (CLI) | payer OTHER, MEDICARE ==
[~2018-04-20] MED LIST changes: -ALBINS/ INH; -ATV5 PO; -BECL0.072 INH; -BENZ100C18 PO; -BUME1TAB PO; -DOXY100C PO; +GUAI10TA PO; +LORA-741 PO; -METO25TA31 PO; -PRED20TA PO; -SNG10 PO
--- NOTE | 2018-04-21 13:17 | MAMMOGRAPHY REPORT ---
BILATERAL DIGITAL SCREENING MAMMOGRAM TOMOSYNTHESIS WITH CAD: 04/20/2018 CLINICAL HISTORY: Routine screening. Patient has no complaints. TECHNIQUE: Breast tomosynthesis in addition to standard 2D mammography was performed. Current study was also evaluated with a Computer Aided Detection (CAD) system. COMPARISON: Outside mammograms from [facility] dated 03/05/2011, 03/14/2016, 10/08/2016, 04/15/2017 . BREAST COMPOSITION: There are scattered areas of fibroglandular density in both breasts. FINDINGS: There are stable metallic biopsy marker clips in each breast. Scattered rodlike, coarse an d punctate microcalcifications are stable bilaterally. No new suspicious mass, architectural distort ion or cluster of microcalcifications is seen. IMPRESSION: ACR BI-RADS CATEGORY 1: NEGATIVE There is no mammographic evidence of malignancy. A 1 year screening mammogram is recommended. The pa tient will receive written notification of the results. Approximately 10% of breast cancers are not detected with mammography. A negative mammographic report should not delay biopsy if a clinically suggestive mass is present. Colette Portillo M.D. ay/:04/20/2018 15:35:10 Lottery Sales Clerk: Benita CAMEJO(R)([place])([place]), [facility] letter sent: Normal 1/2 BI-RADS Code: ACR BI-RADS Category 1: Negative
== END | disposition home or self-care (01) ==
LOC: C.MAMM 13:30
PROVIDERS: ATTEND Internal Medicine
DX: Z12.31 Encounter for screening mammogram for malignant neoplasm of breast (principal)

== ENCOUNTER 2020-04-16 17:47 | Inpatient (IN) ==
--- NOTE | 2020-04-16 18:52 | Emergency Department Note ---
History of Present Illness General Chief complaint: Back Injury/Pain Stated complaint: BACK PAIN Time Seen by Provider: 04/16/20 18:25 Source: patient Mode of arrival: ambulatory Limitations: no limitations History of Present Illness Provider complaint: sob, chest pain Onset (ago): day(s) 3 Location: chest and back Radiation: non-radiation Severity: moderate Pain Consistency: + constant Maximum Pain Intensity: 10 Current Pain Intensity: 10 Quality: + stabbing Relieved By: + other Exacerbated By: + movement Associated symptoms: no cough, no diaphoresis, no fever/chills, no headaches, no loss of appetite, no nausea/vomiting and no syncope Treatments prior to arrival: heat therapy This is a 74-year-old female presenting from home who states that 3 days ago she began having pain in her right shoulder blade. States yesterday the pain was still there despite applying heat to the area and applying BenGay. Patient states today the pain felt like it was radiating around her side and under her right breast. No overlying rash or sores. Patient denies any recent trauma or change in activity. Patient states she has not been taking her diuretics as prescribed because if she is out of the house there is no place that is open for her to use the restroom. Patient states she has chronic bilateral lower extremity edema, she feels this is unchanged and not worsening. Patient states with the increasing pain she is felt increasingly short of breath as well. Patient denies any dizziness, nausea or vomiting. Patient states she did have a fever Friday evening when the pain first started, however has not had any since. Patient states the pain does feel similar to many years ago when she had pleurisy. Patient denies any other recent cough or cold symptoms. Patient denies any sick contacts or any contact with a known coronavirus positive individual. Patient states she does have a history of asthma, does have MDIs at home. Pt seen during a time of high acuity and national emergency pandemic while wearing PPE. Home Medications Home Medications Medication Instructions Recorded Confirmed Type nebulizer accessories #1 ea 06/05/19 01/05/20 History bumetanide 1 mg tablet 1 mg PO DAILY #90 tab 01/05/20 04/16/20 Rx metoprolol tartrate 25 mg tablet 25 mg PO BID #180 tab 01/05/20 04/16/20 Rx omeprazole 20 mg capsule,delayed 20 mg PO DAILY #90 cap 01/05/20 04/16/20 Rx release pramipexole 0.25 mg tablet 0.25 mg PO DAILY #90 tab 01/05/20 04/16/20 Rx pravastatin 20 mg tablet 20 mg PO HS #90 tab 01/05/20 04/16/20 Rx spironolactone 25 mg tablet 25 mg PO BID #180 tab 01/05/20 04/16/20 Rx albuterol sulfate 2.5 mg INH BID PRN #90 ml 01/20/20 04/16/20 Rx acetaminophen [Tylenol Extra 1,000 mg PO Q6H PRN 04/16/20 04/16/20 History Strength] fluticasone propion-salmeterol 1 inh INHALATION BID 04/16/20 04/16/20 History [Wixela Inhub] Saccharomyces boulardii 250 mg PO DAILY 7 Days #7 cap 04/19/20 Rx cefdinir 300 mg PO BID 7 Days #14 cap 04/19/20 Rx prednisone 10 mg PO DIRECTED #5 tab 04/19/20 Rx Allergies Allergy/AdvReac Type Severity Reaction Status Date / Time ciprofloxacin AdvReac Intermediate Nausea Verified 04/16/20 19:24 naproxen AdvReac Intermediate Hives Verified 04/16/20 19:24 Past Med/Surg History Medical History Asthma (Chronic) C. difficile colitis (Inactive) Chronic idiopathic thrombocytopenia (Acute) Chronic leukopenia (Acute) GERD (gastroesophageal reflux disease) (Resolved) Gout (Resolved) History of postmenopausal bleeding (Inactive) Hyperlipidemia (Chronic) Hypertension (Chronic) Osteoarthritis (Chronic) Splenomegaly (Resolved) Surgical History History of hysterectomy Family History Other Family history non-contributory Denies family history of Crohn's disease Kidney disease Colorectal cancer Social History Preferred Language: [place]an Communication Ability: Effective Resident Care Spec Required: No Beliefs That Will Affect Care: None marital status: Current Living Situation: Spouse and Family current occupational status: retired Feels Safe at Home: Yes Smoking Status: Never smoker Second Hand Exposure: No ; Hx Alcohol Use: No Hx Substance Use: No Review of Systems See HPI for pertinent positives & negatives. and A total of 10 systems reviewed and were otherwise negative Physical Exam Vital Signs Vital Signs - 24 hr 04/16/20 17:54 04/16/20 18:13 04/16/20 18:30 Temperature 37.0 C Temperature Source Oral Pulse Rate 94 H 105 H Pulse Rate [Exercises] Pulse Rate [Recovery] Pulse Rate [Right Finger] Pulse Rate from SpO2 Sensor Pulse Rhythm Regular Pulse Strength Normal Respiratory Rate 20 22 23 Respiratory Rate [Exercises] Respiratory Rate [Recovery] Respiratory Effort / Characteristics Non-Labored Respiratory Depth Shallow Respiratory Pattern Regular Blood Pressure 175/112 H Blood Pressure [Right Arm] Blood Pressure Mean 133 Blood Pressure Mean [Right Arm] Blood Pressure Position Sitting Pulse Oximetry 97 96 98 Pulse Oximetry [Exercises] Pulse Oximetry [Recovery] Oxygen Delivery Method Room Air Sepsis Recent Fever Within 48 Hours No Sepsis Action Taken by Nursing No Action Required 04/16/20 19:00 04/16/20 19:30 04/16/20 20:00 Temperature Temperature Source Pulse Rate 102 H 101 H Pulse Rate [Exercises] Pulse Rate [Recovery] Pulse Rate [Right Finger] Pulse Rate from SpO2 Sensor 101 H Pulse Rhythm Pulse Strength Respiratory Rate 20 23 18 Respiratory Rate [Exercises] Respiratory Rate [Recovery] Respiratory Effort / Characteristics Respiratory Depth Respiratory Pattern Blood Pressure Blood Pressure [Right Arm] Blood Pressure Mean Blood Pressure Mean [Right Arm] Blood Pressure Position Pulse Oximetry 98 98 Pulse Oximetry [Exercises] Pulse Oximetry [Recovery] Oxygen Delivery Method Sepsis Recent Fever Within 48 Hours Sepsis Action Taken by Nursing 04/16/20 20:30 04/16/20 20:51 04/16/20 21:00 Temperature Temperature Source Pulse Rate 102 H 112 H 113 H Pulse Rate [Exercises] 130 H Pulse Rate [Recovery] 96 H Pulse Rate [Right Finger] 96 H Pulse Rate from SpO2 Sensor 102 H 113 H 113 H Pulse Rhythm Pulse Strength Respiratory Rate 19 22 19 Respiratory Rate [Exercises] 26 H Respiratory Rate [Recovery] 18 Respiratory Effort / Characteristics Respiratory Depth Respiratory Pattern Blood Pressure 187/91 H Blood Pressure [Right Arm] 187/91 H Blood Pressure Mean 132 Blood Pressure Mean [Right Arm] 123 Blood Pressure Position Pulse Oximetry 98 98 97 Pulse Oximetry [Exercises] 96 Pulse Oximetry [Recovery] 96 Oxygen Delivery Method Room Air Sepsis Recent Fever Within 48 Hours Sepsis Action Taken by Nursing 04/16/20 21:30 04/16/20 22:00 04/16/20 22:10 Temperature Temperature Source Pulse Rate 105 H 101 H 102 H Pulse Rate [Exercises] Pulse Rate [Recovery] Pulse Rate [Right Finger] Pulse Rate from SpO2 Sensor 105 H 101 H Pulse Rhythm Pulse Strength Respiratory Rate 18 20 20 Respiratory Rate [Exercises] Respiratory Rate [Recovery] Respiratory Effort / Characteristics Respiratory Depth Respiratory Pattern Blood Pressure Blood Pressure [Right Arm] Blood Pressure Mean Blood Pressure Mean [Right Arm] Blood Pressure Position Pulse Oximetry 95 94 95 Pulse Oximetry [Exercises] Pulse Oximetry [Recovery] Oxygen Delivery Method Sepsis Recent Fever Within 48 Hours Sepsis Action Taken by Nursing 04/16/20 22:20 04/16/20 22:30 04/16/20 22:40 Temperature Temperature Source Pulse Rate 106 H 105 H 108 H Pulse Rate [Exercises] Pulse Rate [Recovery] Pulse Rate [Right Finger] Pulse Rate from SpO2 Sensor Pulse Rhythm Pulse Strength Respiratory Rate 18 21 26 H Respiratory Rate [Exercises] Respiratory Rate [Recovery] Respiratory Effort / Characteristics Respiratory Depth Respiratory Pattern Blood Pressure Blood Pressure [Right Arm] Blood Pressure Mean Blood Pressure Mean [Right Arm] Blood Pressure Position Pulse Oximetry Pulse Oximetry [Exercises] Pulse Oximetry [Recovery] Oxygen Delivery Method Sepsis Recent Fever Within 48 Hours Sepsis Action Taken by Nursing 04/16/20 22:50 04/16/20 23:00 04/16/20 23:10 Temperature Temperature Source Pulse Rate 103 H 113 H 112 H Pulse Rate [Exercises] Pulse Rate [Recovery] Pulse Rate [Right Finger] Pulse Rate from SpO2 Sensor Pulse Rhythm Pulse Strength Respiratory Rate 19 26 H 24 Respiratory Rate [Exercises] Respiratory Rate [Recovery] Respiratory Effort / Characteristics Respiratory Depth Respiratory Pattern Blood Pressure Blood Pressure [Right Arm] Blood Pressure Mean Blood Pressure Mean [Right Arm] Blood Pressure Position Pulse Oximetry Pulse Oximetry [Exercises] Pulse Oximetry [Recovery] Oxygen Delivery Method Sepsis Recent Fever Within 48 Hours Sepsis Action Taken by Nursing 04/16/20 23:20 04/16/20 23:30 Temperature Temperature Source Pulse Rate 107 H 116 H Pulse Rate [Exercises] Pulse Rate [Recovery] Pulse Rate [Right Finger] Pulse Rate from SpO2 Sensor 107 H 114 H Pulse Rhythm Pulse Strength Respiratory Rate 17 17 Respiratory Rate [Exercises] Respiratory Rate [Recovery] Respiratory Effort / Characteristics Respiratory Depth Respiratory Pattern Blood Pressure Blood Pressure [Right Arm] Blood Pressure Mean Blood Pressure Mean [Right Arm] Blood Pressure Position Pulse Oximetry 95 94 Pulse Oximetry [Exercises] Pulse Oximetry [Recovery] Oxygen Delivery Method Sepsis Recent Fever Within 48 Hours Sepsis Action Taken by Nursing GENERAL: alert, well appearing, well nourished, no distress, non-toxic EYE EXAM: normal conjunctiva, PERRL and EOM's grossly intact OROPHARYNX: no exudate, no erythema, lips, buccal mucosa, and tongue normal and mucous membranes are moist NECK: supple, no nuchal rigidity, no adenopathy, non-tender LUNGS: Clear to auscultation. Normal chest wall mechanics, no w/r/r HEART: no murmurs, S1 normal and S2 normal, no reproducible chest pain with palpation, no overlying rash or sores ABDOMEN: abdomen soft, non-tender, normo-active bowel sounds, no masses, no rebound or guarding. BACK: Back is symmetrical on inspection and there is no deformity, no midline tenderness, no CVA tenderness. SKIN: no rashes and no bruising, no petechiae UPPER EXTREMITIES: upper extremities are grossly normal. FROM, nml pulses b/l. LOWER EXTREMITIES: 2+ bilateral pitting edema, worst at the ankle and dorsum of the foot. FROM, nml pulses b/l. NEURO EXAM: Normal sensorium, cranial nerves II-XII grossly intact, normal speech, no gross weakness of arms, no gross weakness of legs. Gross sensation intact. Course Course 2201: Pt updated on all results. Pt states she felt very uncomfortable with walking and doesn't feel safe going home. No hypoxia during ambulatory trial though she was tachycardic and tachypneic. 2250: I called and updated the patient's family including daughter Keya, . Administered Medications Discontinued Medications Acetaminophen (Tylenol) 1,000 mg PO Q6H PRN PRN Reason: Pain Stop: 05/17/20 01:29 Last Admin: 04/19/20 00:27 Dose: 1,000 mg Documented by: [id number] Bumetanide (Bumex) 1 mg PO DAILY@0800 RAJI Stop: 05/19/20 07:59 Last Admin: 04/19/20 07:58 Dose: 1 mg Documented by: [id number] Fluticasone/Vilanterol (Breo Ellipta 100/25 Mcg Inh) 1 puffs INH DAILY RAJI Stop: 05/17/20 08:59 Last Admin: 04/17/20 09:29 Dose: 1 puffs Documented by: [id number] Fluticasone/Vilanterol (Breo Ellipta 100/25 Mcg Inh) 1 puffs INH DAILY@0800 RAJI Stop: 05/18/20 07:59 Last Admin: 04/19/20 07:59 Dose: 1 puffs Documented by: [id number] Admin: 04/18/20 07:58 Dose: 1 puffs Documented by: [id number] Guaifenesin (Mucinex) 1,200 mg PO Q12 RAJI Stop: 05/17/20 10:24 Last Admin: 04/17/20 11:33 Dose: Not Given Documented by: [id number] Guaifenesin (Mucinex) 1,200 mg PO Q12H RAJI Stop: 05/17/20 19:59 Last Admin: 04/19/20 07:58 Dose: 1,200 mg Documented by: [id number] Admin: 04/18/20 19:20 Dose: 1,200 mg Documented by: [id number] Admin: 04/18/20 07:59 Dose: Not Given Documented by: [id number] Admin: 04/17/20 20:35 Dose: Not Given Documented by: [id number] Acetaminophen (Ofirmev) 1,000 mg in 100 mls @ 400 mls/hr IV NOW STA Stop: 04/16/20 20:49 Last Infusion: 04/16/20 21:09 Dose: 0 mls/hr Documented by: [id number] Admin: 04/16/20 20:53 Dose: 400 mls/hr Documented by: [id number] Bumetanide 1 mg/ Syringe 4 mls @ 4 mls/min IV NOW RAJI Stop: 05/16/20 21:44 Last Admin: 04/16/20 22:21 Dose: 4 mls/min Documented by: [id number] Bumetanide 1 mg/ Syringe 4 mls @ 4 mls/min IV DAILY RAJI Stop: 05/17/20 08:59 Last Admin: 04/17/20 09:26 Dose: 4 mls/min Documented by: [id number] Methylprednisolone 40 mg/ (Syringe) 0.64 mls @ 1.5 mls/min IV Q12H RAJI Stop: 05/17/20 10:59 Last Admin: 04/18/20 12:08 Dose: 1.5 mls/min Documented by: [id number] Admin: 04/17/20 23:34 Dose: 1.5 mls/min Documented by: [id number] Admin: 04/17/20 12:20 Dose: 1.5 mls/min Documented by: [id number] Bumetanide 1 mg/ Syringe 4 mls @ 4 mls/min IV Q24H RAJI Stop: 05/18/20 07:59 Last Admin: 04/18/20 07:58 Dose: 4 mls/min Documented by: [id number] Ioversol (Optiray 320 125ml) 120 ml IV ONCE PRN PRN Reason: Interaction Checking Stop: 04/23/20 11:58 Last Admin: 04/19/20 11:59 Dose: 120 ml Documented by: [id number] Metoprolol Tartrate (Lopressor) 25 mg PO BID RAJI Stop: 05/17/20 08:59 Last Admin: 04/17/20 09:25 Dose: 25 mg Documented by: [id number] Metoprolol Tartrate (Lopressor) 25 mg PO BID@0800,1999 [facility] Stop: 05/17/20 19:59 Last Admin: 04/19/20 07:58 Dose: 25 mg Documented by: [id number] Admin: 04/18/20 19:20 Dose: 25 mg Documented by: [id number] Admin: 04/18/20 08:01 Dose: 25 mg Documented by: [id number] Admin: 04/17/20 20:35 Dose: 25 mg Documented by: [id number] Pantoprazole Sodium (Protonix) 40 mg PO DAILY RAJI Stop: 05/17/20 08:59 Last Admin: 04/17/20 09:25 Dose: 40 mg Documented by: [id number] Pantoprazole Sodium (Protonix) 40 mg PO DAILY@0800 RAJI Stop: 05/18/20 07:59 Last Admin: 04/19/20 07:59 Dose: 40 mg Documented by: [id number] Admin: 04/18/20 08:00 Dose: 40 mg Documented by: [id number] Pramipexole Dihydrochloride (Mirapex) 0.25 mg PO DAILY [facility] Stop: 05/17/20 08:59 Last Admin: 04/17/20 09:25 Dose: 0.25 mg Documented by: [id number] Pramipexole Dihydrochloride (Mirapex) 0.25 mg PO DAILY@0800 [facility] Stop: 05/18/20 07:59 Last Admin: 04/19/20 07:59 Dose: 0.25 mg Documented by: [id number] Admin: 04/18/20 08:00 Dose: 0.25 mg Documented by: [id number] Pravastatin Sodium (Pravachol) 20 mg PO HS@2000 [facility] Stop: 05/17/20 19:59 Last Admin: 04/18/20 19:20 Dose: 20 mg Documented by: [id number] Admin: 04/17/20 20:34 Dose: 20 mg Documented by: [id number] Prednisone (Prednisone) 30 mg PO DAILY@0800 [facility] Stop: 05/19/20 07:59 Last Admin: 04/19/20 07:58 Dose: 30 mg Documented by: [id number] Spironolactone (Aldactone) 25 mg PO BID17 [facility] Stop: 05/17/20 08:59 Last Admin: 04/17/20 09:25 Dose: 25 mg Documented by: [id number] Spironolactone (Aldactone) 25 mg PO BID@0800,1600 [facility] Stop: 05/17/20 15:59 Last Admin: 04/19/20 07:59 Dose: 25 mg Documented by: [id number] Admin: 04/18/20 15:55 Dose: 25 mg Documented by: [id number] Admin: 04/18/20 08:01 Dose: 25 mg Documented by: [id number] Admin: 04/17/20 17:10 Dose: 25 mg Documented by: [id number] Medical Decision Making Differential Diagnosis Differential diagnoses includes but is not limited to acute coronary syndrome, myocardial infarction, pericarditis, pulmonary embolus, aortic dissection, pneumonia, pneumothorax, musculoskeletal, shingles, esophageal, bronchitis, COPD/Asthma exacerbation, pneumothorax, or congestive heart failure. Medical Records Attestation: I reviewed the patient's medical records. Home Medications Current Medication List: was personally reviewed by me Laboratory Data Attestation: I reviewed the patient's lab results. Result diagrams: 04/19/20 05:45 04/19/20 05:45 Lab Results 04/16/20 04/16/20 04/16/20 Range/Units 19:15 19:15 19:15 WBC 1.87 L (4.8-10.8) K/uL RBC 4.04 L (4.2-5.4) M/uL Hgb 11.3 L (12.0-16.0) g/dL Hct 35.2 L (37-47) % MCV 87.1 (80-100) fL MCH 28.0 (25-34) pg MCHC 32.1 (32-36) g/dL RDW Std Deviation 51.2 H (36.4-46.3) fL RDW Coeff of Flower 15.9 H (11.5-14.5) % Plt Count 47 L (130-400) K/uL MPV 11.9 H (7.4-10.4) fL Immature Gran % (Auto) 0.5 % Neut % (Auto) 68.0 % Lymph % (Auto) 21.4 % [place] % (Auto) 7.5 % Eos % (Auto) 2.1 % Baso % (Auto) 0.5 % Immature Gran # (Auto) 0.01 (0.00-0.02) K/uL Neut # (Auto) 1.27 L (1.4-6.5) K/uL Lymph # (Auto) 0.40 L (1.2-3.4) K/uL [place]verse # (Auto) 0.14 (0.11-0.59) K/uL Eos # (Auto) 0.04 (0-0.5) K/uL Baso # (Auto) 0.01 (0-0.2) K/uL PT 12.4 H (9.0-12.0) Seconds INR 1.2 H (0.9-1.1) Sodium 142 (136-145) mmol/L Potassium 3.8 (3.5-5.1) mmol/L Chloride 107 (98-107) mmol/L Carbon Dioxide 27 (21-32) mmol/L Anion Gap 8.0 (3-11) BUN 16 (7-18) mg/dl Creatinine 0.96 (0.6-1.2) mg/dl Est Cr Clr Drug Dosing 58.3 ml/min Est GFR ( Amer) 68.5 Est GFR (Non-Af Amer) 59.1 BUN/Creatinine Ratio 17.0 (10-20) Glucose 97 (70-99) mg/dl Calcium 8.9 (8.5-10.1) mg/dl Magnesium 1.9 (1.8-2.4) mg/dl Total Bilirubin 1.4 H (0.2-1) mg/dl AST 37 (15-37) U/L ALT 31 (12-78) U/L Alkaline Phosphatase 96 (45-117) U/L Troponin I < 0.015 (0-0.045) ng/ml NT-Pro-B Natriuret Pep 144 (0-900) pg/ml Total Protein 7.4 (6.4-8.2) gm/dl Albumin 2.9 L (3.4-5.0) gm/dl Globulin 4.5 H (2.5-4.0) gm/dl Albumin/Globulin Ratio 0.6 L (0.9-2) Lipase 122 (73-393) U/L Imaging Data Radiologist's Impression: XR chest 1V portable HISTORY: 74 years-old Female sob acute shortness of breath COMPARISON: Chest radiograph 03/21/2019 TECHNIQUE: Portable AP view of the chest FINDINGS: Cardiac silhouette is enlarged, unchanged. Prominence of the bilateral pulmonary arteries suggestive of pulmonary artery hypertension. Pulmonary vascular congestion with mild interstitial coarsening. Trace pleural effusions with mild bibasilar densities. No pneumothorax. Degenerative changes of the shoulders and spine. IMPRESSION: 1. Cardiomegaly with pulmonary vascular congestion and interstitial coarsening suggestive of pulmonary edema. 2. Trace pleural effusions with mild bibasilar densities favoring atelectasis. ACT 112: Negative or not required by law. The above report was generated using voice recognition software. It may contain grammatical, syntax or spelling errors. Electronically signed by: Dwayne Manley M.D. 04/16/2020 7:02 PM ECG Data Attestation: I personally reviewed and interpreted this ECG as follows: Indication: + chest pain Rate (beats per minute): 103 Rhythm: + normal sinus ECG Intervals/blocks: + Right Bundle branch block and + Prolonged QT ECG [place]: + Normal ECG ST segments: + Nonspecific ST abnormalities Comparison ECG Date: from Change: no significant change Blood Pressure Blood Pressure Findings: Elevated blood pressure Blood Pressure Disposition: further management by hospitalist MDM Narrative Pt well appearing at rest despite c/o chest pain and SMITH. Pt with complicated PMHx. Labs sent and reassuring. CXR with possible early CHF. VS stable at rest, but during ambulatory trial pt with significant tachycardia and dyspnea/tachypnea despite no overt hypoxia. 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 Pt admits to noncompliance with diuretics which likely are contributing to symptoms. Pt with leukopenia and thrombocytopenia, but are improved compared to prior. No acute electrolyte abnormalities. I do not suspect infectious etiology. No evidence of ACS. Pt concerned about symptoms and in agreement with the plan for additional evaluation. Pt with stable VS, hypertension noted. I do not suspect hypertensive urgency/emergency. An order was placed for continuous cardiac monitoring. The monitor shows a rate of _70_ with normal sinus rhythm. Impression & Plan Chest pain, Hypertension, Acute dyspnea, Non-compliance Discharge Plan Visit Data *Final* Discharge Date/Time: 04/17/20 00:42 Chief Complaint: Back Injury/Pain Stated Complaint: BACK PAIN ED Provider: Elenita Ratliff Discharge Problem: Chest pain, Hypertension, Acute dyspnea, Non-compliance Patient Disposition: Admitted As Inpatient Discharge Instructions Interventions: ED Discharge Assessment Last Done: 04/17/20 00:42 Discharge Problem: Chest pain Qualifiers: Chest pain type: unspecified Qualified Code(s): R07.9 - Chest pain, unspecified Hypertension Qualifiers: Hypertension type: essential hypertension Qualified Code(s): I10 - Essential (primary) hypertension
--- NOTE | 2020-04-16 19:04 | XRay Report ---
XR chest 1V portable HISTORY: 74 years-old Female sob acute shortness of breath COMPARISON: Chest radiograph 03/21/2019 TECHNIQUE: Portable AP view of the chest FINDINGS: Cardiac silhouette is enlarged, unchanged. Prominence of the bilateral pulmonary arteries suggestive of pulmonary artery hypertension. Pulmonary vascular congestion with mild interstitial coarsening. Tr victoria pleural effusions with mild bibasilar densities. No pneumothorax. Degenerative changes of the sarah ulders and spine. IMPRESSION: 1. Cardiomegaly with pulmonary vascular congestion and interstitial coarsening suggestive of pulmonar y edema. 2. Trace pleural effusions with mild bibasilar densities favoring atelectasis. ACT 112: Negative or not required by law. The above report was generated using voice recognition software. It may contain grammatical, syntax o r spelling errors. Electronically signed by: Dwayne Manley M.D. 04/16/2020 7:02 PM
[2020-04-16 19:48] LABS: INR 1.2 (0.9-1.1); Prothrombin Time 12.4 Seconds (9.0-12.0)
[2020-04-16 19:56] LABS: Alanine Aminotransferase 31 U/L (12-78); Albumin Level 2.9 gm/dl (3.4-5.0); Aspartate Aminotransferase 37 U/L (15-37); Blood Urea Nitrogen 16 mg/dl (7-18); Calcium 8.9 mg/dl (8.5-10.1); Carbon Dioxide 27 mmol/L (21-32); Chloride 107 mmol/L (98-107); Creatinine Clr Calc Pharmacy 58.3 ml/min; Est GFR (African American) 68.5; Est GFR (Non-African American) 59.1; Glucose 97 mg/dl (70-99); Lipase 122 U/L (73-393); Magnesium 1.9 mg/dl (1.8-2.4); Potassium 3.8 mmol/L (3.5-5.1); Sodium 142 mmol/L (136-145)
[2020-04-16 20:01] LABS: Albumin Globulin Ratio 0.6 (0.9-2); Alkaline Phosphatase 96 U/L (45-117); Bilirubin,Total 1.4 mg/dl (0.2-1); Globulin 4.5 gm/dl (2.5-4.0); Hematocrit (blood only) 35.2 % (37-47); Hemoglobin 11.3 g/dL (12.0-16.0); Mean Corpuscular Hgb Conc 32.1 g/dL (32-36); Mean Corpuscular Volume 87.1 fL (80-100); Mean Platelet Volume 11.9 fL (7.4-10.4); NT Pro B Type Natriuretic Pept 144 pg/ml (0-900); Platelet Count 47 K/uL (130-400); RDW Coefficient of Variation 15.9 % (11.5-14.5); RDW Standard Deviation 51.2 fL (36.4-46.3); Red Blood Count 4.04 M/uL (4.2-5.4); Total Protein 7.4 gm/dl (6.4-8.2); Troponin I < 0.015 ng/ml (0-0.045); White Blood Count 1.87 K/uL (4.8-10.8)
[2020-04-16 20:02] LABS: Basophils # (auto) 0.01 K/uL (0-0.2); Basophils % (auto) 0.5 %; Eosinophils # (auto) 0.04 K/uL (0-0.5); Eosinophils % (auto) 2.1 %; Immature Granulocytes # (auto) 0.01 K/uL (0.00-0.02); Immature Granulocytes % (auto) 0.5 %; Lymphocytes % (auto) 21.4 %; Monocytes # (auto) 0.14 K/uL (0.11-0.59); Monocytes % (auto) 7.5 %; Neutrophils # (auto) 1.27 K/uL (1.4-6.5)
[2020-04-16] MEDS ORDERED: ACETAMINOPHEN 1,000 MG/100 ML VIAL IV STA (20:35)
[2020-04-16] MEDS ORDERED: BUMETANIDE 1 MG in SYRINGE 0 ML IV SCH (21:45)
--- NOTE | 2020-04-17 00:26 | History & Physical Report ---
Date of Service April 17, 2020 Assessment & Plan (1) Chest pain: Patient with discomfort in right back radiating under her right breast, worse with deep breathing. States that discomfort is similar to when she had pleurisy. Troponin x 1 negative, EKG with no acute ischemic changes. CXR with bilateral airspace disease, effusions, most likely secondary to volume overload -Cardiac monitoring -Repeat troponin -Tylenol PRN -Heat PRN Present on Admission?: Yes (2) Acute dyspnea: Patient with worsening dyspnea and SOB in setting of medication noncompliance. Per Dr. Pereira's documentation patient had a 2D echo performed in 03/2018 which showed mild and an EF of 65-70%. CXR with possible volume overload. BNP is not elevated and patient's weight is stable. Some concern given recent fever. Patient states that her granddaughter was recently tested for Covid and was negative, states that her granddaughter was not feeling ill. She denies sick contacts or recent travel. -Check SARS-CoV-2 - low clinical suspicion for Covid-19, however, given report of recent fevers, CXR findings as well as minor lab abnormalities will check -Check Pro-calcitonin -Bumex 1mg IV given in ER with increased UOP -Continue Bumex 1mg IV daily -Daily weights -Strict intake/output monitoring -Continue Spirononlactone -Monitor BUN/Cr/electrolytes and UOP Present on Admission?: Yes (3) Hypertension: Blood pressure elevated at present -Continue diuresis as above -Continue Metoprolol 25mg po BID -Continue to monitor Present on Admission?: Yes (4) Anemia: Patient with normochromic/normocytic anemia. Stable H/H with no active bleeding -Continue to monitor CBC Present on Admission?: Yes (5) Chronic kidney disease, stage III (moderate): Near baseline -Continue to monitor BUN/Cr and electrolytes with diuresis -Avoid nephrotoxin -Renal dosing where needed Present on Admission?: Yes (6) Chronic liver disease: Stable. Tbili=1.4, INR=1.2 -Repeat labs in AM -Continue Spironolactone, Bumex Present on Admission?: Yes (7) GERD (gastroesophageal reflux disease): Chronic -Continue Omeprazole 20mg po daily Present on Admission?: Yes (8) Hyperlipidemia: Chronic -Continue Pravastatin Present on Admission?: Yes (9) Chronic idiopathic thrombocytopenia: Chronic. Stable -Continue to monitor CBC Present on Admission?: Yes (10) Chronic leukopenia: Chronic. Stable -Continue to monitor F/E/N - Diuresis as above, monitor electrolytes, Heart Healthy/Low Na diet Ppx - SCDs due to thrombocytopenia Code -Full Dispo - Admit to medical floor with telemetry Present on Admission?: Yes Admission and Anticipated Discharge Date Admission Date: 04/17/20 Anticipated date of discharge: 04/19/20 History of Present Illness Chief Complaint: back pain, SOB Primary Care Provider: Kvng Pereira MD Angelica Calabrese is a pleasant 74yo C female with history of HTN, HLP, mild , GERD, MOBLEY and bicytopenia presenting with right shoulder pain radiating under her right breast x 3 days. Pain is worsened by deep breathing. She has a cough productive for clear phlegm as well as SOB/SMITH/Orthopnea. She had two days of fever, last febrile two days ago, possibly as high as 104 but she is not certain if her thermometer at home is accurate. Patient has used heat and [place] to the area with minimal improvement in pain. She is currently taking Bumex and Spironolactone for her underlying liver disease but has not had these medications for the last 1-2 weeks. She is uncertain if she has gained any weight. She has chronic bilateral LE edema which she states is near baseline. No additional complaints at this time. ER Course: Bumex 1mg IV, Tylenol Allergies Allergy/AdvReac Type Severity Reaction Status Date / Time ciprofloxacin AdvReac Intermediate Nausea Verified 04/16/20 19:24 naproxen AdvReac Intermediate Hives Verified 04/16/20 19:24 Home Medications Home Medications Medication Instructions Recorded Confirmed Type nebulizer accessories #1 ea 06/05/19 01/05/20 History bumetanide 1 mg tablet 1 mg PO DAILY #90 tab 01/05/20 04/16/20 Rx metoprolol tartrate 25 mg tablet 25 mg PO BID #180 tab 01/05/20 04/16/20 Rx omeprazole 20 mg capsule,delayed 20 mg PO DAILY #90 cap 01/05/20 04/16/20 Rx release pramipexole 0.25 mg tablet 0.25 mg PO DAILY #90 tab 01/05/20 04/16/20 Rx pravastatin 20 mg tablet 20 mg PO HS #90 tab 01/05/20 04/16/20 Rx spironolactone 25 mg tablet 25 mg PO BID #180 tab 01/05/20 04/16/20 Rx albuterol sulfate 2.5 mg INH BID PRN #90 ml 01/20/20 04/16/20 Rx acetaminophen [Tylenol Extra 1,000 mg PO Q6H PRN 04/16/20 04/16/20 History Strength] fluticasone propion-salmeterol 1 inh INHALATION BID 04/16/20 04/16/20 History [Wixela Inhub] Past Med/Surg History Medical History Asthma (Chronic) C. difficile colitis (Inactive) Chronic idiopathic thrombocytopenia (Acute) Chronic leukopenia (Acute) GERD (gastroesophageal reflux disease) (Resolved) Gout (Resolved) History of postmenopausal bleeding (Inactive) Hyperlipidemia (Chronic) Hypertension (Chronic) Osteoarthritis (Chronic) Splenomegaly (Resolved) Surgical History History of hysterectomy Family History Other Family history non-contributory Denies family history of Crohn's disease Kidney disease Colorectal cancer Social History Preferred Language: Greenlandic marital status: Current Living Situation: Spouse current occupational status: retired Feels Safe at Home: Yes Smoking Status: Never smoker Review of Systems Review of Systems: All systems reviewed & are unremarkable except as noted in HPI & below Physical Exam Physical Exam: General: patient resting comfortably, NAD, non-toxic in appearance, AA&O x 4 Skin: warm, dry, intact, no rashes or lesions HEENT: NC/AT, PERRL, EOMI, anicteric sclera, conjunctiva without injection, external ear normal to inspection and nontender, nares patent, moist mucus membranes, dentition intact, no oropharyngeal lesions, neck supple, trachea midline, no LAD, no thyromegaly, no JVD Heart: +S1/S2, regular, no m/r/g Lungs: equal air entry bilaterally, no rales/rhonchi/wheezes, slightly diminished in the bases Abd: +BS, soft, NT/ND, no masses/organomegaly/ascites Ext: warm, 2+ pulses in UE/LE bilaterally, no clubbing/cyanosis, 2+ edema of bilateral LE Neuro: nonfocal, patient AA&O x 4, speech intact, no facial droop, moving all extremities on command with equal strength 5/5 Results & Data Results & Data ([facility]) Vital Signs (Past 12 Hours) Vital Signs Temp Pulse Pulse Pulse Pulse Resp Resp 04/17/20 00:03 115 H 24 04/16/20 23:30 116 H 17 04/16/20 23:20 107 H 17 04/16/20 23:10 112 H 24 04/16/20 23:00 113 H 26 H 04/16/20 22:50 103 H 19 04/16/20 22:40 108 H 26 H 04/16/20 22:30 105 H 21 04/16/20 22:20 106 H 18 04/16/20 22:10 102 H 20 04/16/20 22:00 101 H 20 04/16/20 21:30 105 H 18 04/16/20 21:00 113 H 19 04/16/20 20:51 112 H 130 H 96 H 96 H 22 26 H 04/16/20 20:30 102 H 19 04/16/20 20:00 101 H 18 04/16/20 19:30 102 H 23 04/16/20 19:00 20 04/16/20 18:30 23 04/16/20 18:13 105 H 22 04/16/20 17:54 37.0 C 94 H 20 Resp BP BP Pulse Ox Pulse Ox Pulse Ox 04/17/20 00:03 183/107 H 94 04/16/20 23:30 94 04/16/20 23:20 95 04/16/20 23:10 04/16/20 23:00 04/16/20 22:50 04/16/20 22:40 04/16/20 22:30 04/16/20 22:20 04/16/20 22:10 95 04/16/20 22:00 94 04/16/20 21:30 95 04/16/20 21:00 97 04/16/20 20:51 18 187/91 H 187/91 H 98 96 96 04/16/20 20:30 98 04/16/20 20:00 98 04/16/20 19:30 98 04/16/20 19:00 04/16/20 18:30 98 04/16/20 18:13 96 04/16/20 17:54 175/112 H 97 Laboratory Results Lab Results 04/16/20 04/16/20 04/16/20 Range/Units 19:15 19:15 19:15 WBC 1.87 L (4.8-10.8) K/uL RBC 4.04 L (4.2-5.4) M/uL Hgb 11.3 L (12.0-16.0) g/dL Hct 35.2 L (37-47) % MCV 87.1 (80-100) fL MCH 28.0 (25-34) pg MCHC 32.1 (32-36) g/dL RDW Std Deviation 51.2 H (36.4-46.3) fL RDW Coeff of Flower 15.9 H (11.5-14.5) % Plt Count 47 L (130-400) K/uL MPV 11.9 H (7.4-10.4) fL Immature Gran % (Auto) 0.5 % Neut % (Auto) 68.0 % Lymph % (Auto) 21.4 % [place] % (Auto) 7.5 % Eos % (Auto) 2.1 % Baso % (Auto) 0.5 % Immature Gran # (Auto) 0.01 (0.00-0.02) K/uL Neut # (Auto) 1.27 L (1.4-6.5) K/uL Lymph # (Auto) 0.40 L (1.2-3.4) K/uL Baldwin # (Auto) 0.14 (0.11-0.59) K/uL Eos # (Auto) 0.04 (0-0.5) K/uL Baso # (Auto) 0.01 (0-0.2) K/uL PT 12.4 H (9.0-12.0) Seconds INR 1.2 H (0.9-1.1) Sodium 142 (136-145) mmol/L Potassium 3.8 (3.5-5.1) mmol/L Chloride 107 (98-107) mmol/L Carbon Dioxide 27 (21-32) mmol/L Anion Gap 8.0 (3-11) BUN 16 (7-18) mg/dl Creatinine 0.96 (0.6-1.2) mg/dl Est Cr Clr Drug Dosing 58.3 ml/min Est GFR ( Amer) 68.5 Est GFR (Non-Af Amer) 59.1 BUN/Creatinine Ratio 17.0 (10-20) Glucose 97 (70-99) mg/dl Calcium 8.9 (8.5-10.1) mg/dl Magnesium 1.9 (1.8-2.4) mg/dl Total Bilirubin 1.4 H (0.2-1) mg/dl AST 37 (15-37) U/L ALT 31 (12-78) U/L Alkaline Phosphatase 96 (45-117) U/L Troponin I < 0.015 (0-0.045) ng/ml NT-Pro-B Natriuret Pep 144 (0-900) pg/ml Total Protein 7.4 (6.4-8.2) gm/dl Albumin 2.9 L (3.4-5.0) gm/dl Globulin 4.5 H (2.5-4.0) gm/dl Albumin/Globulin Ratio 0.6 L (0.9-2) Lipase 122 (73-393) U/L Diagnostic Findings XR chest 1V portable HISTORY: 74 years-old Female sob acute shortness of breath COMPARISON: Chest radiograph 03/21/2019 TECHNIQUE: Portable AP view of the chest FINDINGS: Cardiac silhouette is enlarged, unchanged. Prominence of the bilateral pulmonary arteries suggestive of pulmonary artery hypertension. Pulmonary vascular congestion with mild interstitial coarsening. Trace pleural effusions with mild bibasilar densities. No pneumothorax. Degenerative changes of the shoulders and spine. IMPRESSION: 1. Cardiomegaly with pulmonary vascular congestion and interstitial coarsening suggestive of pulmonary edema. 2. Trace pleural effusions with mild bibasilar densities favoring atelectasis. ACT 112: Negative or not required by law. The above report was generated using voice recognition software. It may contain grammatical, syntax or spelling errors. Electronically signed by: Dwayne Manley M.D. 04/16/2020 7:02 PM Dictated: 04/16/201900 Transcribed: 05/17/20 1901 ECG Additional Comments: The study shows ST at 103, normal axis, QE=119, AWV=766 with RBBB, QLp=444, no acute ischemic changes, no change from prior study Code Status & VTE Plan Code Status FULL VTE Prophylaxis Plan VTE Prophylaxis will be ordered: Yes PG Care Time/CCT Total # of Minutes Spent Total Time Spent with Patient: Total time spent is greater than 50% in coordi nation of care (as documented) at patient's floor/unit and/or counseling patient: Coding Level of Care Code 97046 Initial Inpt Care Lvl 3 Diagnoses Chest pain R07.9 Chest pain type: unspecified Acute dyspnea R06.00 Hypertension I10 Hypertension type: essential hypertension Anemia D64.9 Anemia type: unspecified type Chronic kidney disease, stage III (moderate) N18.3 Chronic liver disease K76.9 GERD (gastroesophageal reflux disease) K21.9 Esophagitis presence: esophagitis presence not specified Hyperlipidemia E78.5 Hyperlipidemia type: unspecified Chronic idiopathic thrombocytopenia D69.3 Chronic leukopenia D72.819 (1) Chest pain Chest pain type: unspecified Qualified Code(s): R07.9 - Chest pain, unspecified (2) Hypertension Hypertension type: essential hypertension Qualified Code(s): I10 - Essential (primary) hypertension (3) Anemia Anemia type: unspecified type Qualified Code(s): D64.9 - Anemia, unspecified (4) GERD (gastroesophageal reflux disease) Esophagitis presence: esophagitis presence not specified Qualified Code(s): K21.9 - Gastro-esophageal reflux disease without esophagitis (5) Hyperlipidemia Hyperlipidemia type: unspecified Qualified Code(s): E78.5 - Hyperlipidemia, unspecified
[2020-04-17] MEDS ORDERED: ACETAMINOPHEN 500 MG TAB PO PRN (01:30)
[2020-04-17] MEDS ORDERED: DOCUSATE SODIUM 100 MG CAP PO PRN (01:30)
[2020-04-17] MEDS ORDERED: ALBUTEROL HFA 8 GM INHALER INH PRN (03:06)
[2020-04-17 07:58] LABS: Hematocrit (blood only) 32.3 % (37-47); Hemoglobin 10.3 g/dL (12.0-16.0); Mean Corpuscular Hemoglobin 27.4 pg (25-34); Mean Corpuscular Hgb Conc 31.9 g/dL (32-36); Mean Corpuscular Volume 85.9 fL (80-100); RDW Coefficient of Variation 15.7 % (11.5-14.5); RDW Standard Deviation 48.8 fL (36.4-46.3); Red Blood Count 3.76 M/uL (4.2-5.4); White Blood Count 1.37 K/uL (4.8-10.8)
[2020-04-17 08:07] LABS: Mean Platelet Volume 10.6 fL (7.4-10.4); Platelet Count 35 K/uL (130-400)
[2020-04-17 08:21] LABS: Basophils # (auto) 0.01 K/uL (0-0.2); Basophils % (auto) 0.7 %; Eosinophils # (auto) 0.04 K/uL (0-0.5); Eosinophils % (auto) 2.9 %; Giant Platelets 1+; Immature Granulocytes # (auto) 0.01 K/uL (0.00-0.02); Immature Granulocytes % (auto) 0.7 %; Lymphocytes # (auto) 0.28 K/uL (1.2-3.4); Lymphocytes % (auto) 20.4 %; Monocytes # (auto) 0.11 K/uL (0.11-0.59); Neutrophils # (auto) 0.92 K/uL (1.4-6.5); Neutrophils % (auto) 67.3 %
[2020-04-17 08:25] LABS: Alanine Aminotransferase 24 U/L (12-78); Albumin Level 2.5 gm/dl (3.4-5.0); Aspartate Aminotransferase 28 U/L (15-37); BUN Creatinine Ratio 20.7 (10-20); Bilirubin Direct 0.5 mg/dl (0-0.2); Blood Urea Nitrogen 17 mg/dl (7-18); Calcium 8.4 mg/dl (8.5-10.1); Carbon Dioxide 27 mmol/L (21-32); Chloride 107 mmol/L (98-107); Creatinine Clr Calc Pharmacy 68.7 ml/min; Est GFR (African American) 84.1; Est GFR (Non-African American) 72.6; Glucose 91 mg/dl (70-99); Potassium 3.5 mmol/L (3.5-5.1); Sodium 142 mmol/L (136-145)
[2020-04-17 08:29] LABS: Alkaline Phosphatase 71 U/L (45-117); Bilirubin,Total 1.7 mg/dl (0.2-1); Total Protein 6.3 gm/dl (6.4-8.2); Troponin I < 0.015 ng/ml (0-0.045)
[2020-04-17] MEDS ORDERED: PRAMIPEXOLE DIHYDROCHLO 0.25 MG TAB PO SCH (09:00)
[2020-04-17] MEDS ORDERED: METOPROLOL TARTRATE 25 MG TAB PO SCH (09:00)
[2020-04-17] MEDS ORDERED: PANTOprazole 40 MG TAB PO SCH (09:00)
[2020-04-17] MEDS ORDERED: BUMETANIDE 1 MG in SYRINGE 0 ML IV SCH (09:00)
[2020-04-17] MEDS ORDERED: FLUTICASONE/VILANTEROL 100/25MCG 14 PUFFS/INHALER INH SCH (09:00)
[2020-04-17] MEDS ORDERED: SPIRONOLACTONE 25 MG TAB PO SCH (09:00)
[2020-04-17] MEDS ORDERED: guaiFENesin 600 MG TABCR PO SCH (10:25)
--- NOTE | 2020-04-17 10:25 | Hospitalist Progress Note ---
Date of Service April 17, 2020 Assessment & Plan (1) Asthma with exacerbation: Pt has wheezing. This is either asthma exacerbation/bronchitis and/or wheezing due to pulmonary edema. Will Rx for asthma exacerbation (and pleuritic pain) with solumedrol 40mg IV q12h. Schedule combivent 1 puff QID. Add mucinex. Incentive roya and flutter valve. Diurese. of note - due to recent reported fevers at home a COVID-19 test has been sent. keep in airborne isolation until results have come back. (2) Chest pain: This pain is likely pleuritic. D-dimer checked and elevated but unable to obtain CTA chest due to unknown COVID status. Platelets too low to empirically start heparin IV safely. I repeated her chest x-rays today along with right-sided rib films - latter neg for fracture. CXR w/o pneumonia - shows ongoing pulmonary edema. Cont to diurese. Treat pain. CTA chest when able. Trops were neg x 3 - this is not ischemic pain. (3) Acute dyspnea: Likely asthma exacerbation/bronchitis along with pulmonary edema. See above. (4) Hypertension: Cont home BP meds & adjust as needed (5) Anemia: in setting of pancytopenia B12/folate checked - both normal TSH wnl 01/2020 likely due to cirrhosis (6) Chronic kidney disease, stage III (moderate): BMP daily while diuresing Cr thus far stable (7) Chronic liver disease: Suspect due to MOBLEY no prior heavy etoh use no evidence of hepatic encephalopathy cont aldactone BID cont bumex IV for volume overload/decompensation (8) GERD (gastroesophageal reflux disease): cont PPI (9) Hyperlipidemia: Continue Pravastatin (10) Pancytopenia: chronic, likely due to cirrhosis of liver has associated neutropenia - precautions in place cbc in am for stability b12/folate/tsh wnl (11) DVT prophylaxis: SCDs would not use chemical means due to current platelet level attempted to call family - no answer cont airborne isolation; await COVID 19 test Admission and Anticipated Discharge Date Admission Date: April 17, 2020 Subjective patient confirms she had fever at home for a few days late last week but the thermometer she was using was giving variable readings. she has had cough - minimal sputum production at times. also with dyspnea particularly with exertion. teenage grand-daughter was tested for COVID-19 about 2 weeks ago and was negative. denies loss of taste or smell. she reports having stopped her diuretics 2 weeks ago and subsequently developed significant LE edema. has known cirrhosis. appetite has been fair. no travel of late. main complaint is that of right axillary chest pain with deep breaths. initially was in right scapular region, then moved to right axillary region. she had pleurisy years ago and this feels similar. no substernal pain. no left-sided pain. Review of Systems Constitutional: no chills, no body aches and no fatigue Respiratory: + cough and + pain on inspiration Cardiovascular: as per Subjective / HPI and + edema; no orthopnea Gastrointestinal: no abdominal pain, no nausea and no vomiting Physical Exam Constitutional: + acute distress (with coughing she clutches her right axillary area ); no altered mental status ENMT: external ear and nose normal, oropharynx normal Respiratory: no respiratory distress Auscultation: + diminished lung sounds (bases), + crackles (bases, fine) and + wheezes Cardiovascular: Rate/Rhythm: regular rate and regular rhythm Heart Sounds: normal S1 and normal S2; no murmur Vessels: + JVD (mild), posterior tibial pulses present and dorsalis pedis pulses present Extremities: + edema (2+ b/l legs ) Chest (Breasts): Additional Comments: no tenderness over right axillary region to palpation Gastrointestinal (Abdomen): normal bowel sounds, soft, nontender, no hepatosplenomegaly Musculoskeletal: no tenderness over right shoulder or right scapula to palpation Skin: no rash right axillary area Psychiatric: A+Ox3, euthymic affect Results & Data Results & Data ([facility]) Vital Signs (Past 12 Hours) Vital Signs Temp Pulse Pulse Resp BP Pulse Ox 04/17/20 08:00 36.9 C 99 H 16 168/89 H 95 04/17/20 01:00 36.5 C 99 H 20 178/80 H 96 04/17/20 00:42 116 H 24 94 04/17/20 00:03 115 H 24 183/107 H 94 04/16/20 23:30 116 H 17 94 04/16/20 23:20 107 H 17 95 04/16/20 23:10 112 H 24 04/16/20 23:00 113 H 26 H 04/16/20 22:50 103 H 19 05/17/20 22:40 108 H 26 H 04/16/20 22:30 105 H 21 Laboratory Results Laboratory Results - last 24 hr 04/16/20 04/16/20 04/17/20 19:15 19:15 07:48 WBC 1.87 L 1.37 L RBC 4.04 L 3.76 L Hgb 11.3 L 10.3 L Hct 35.2 L 32.3 L MCV 87.1 85.9 MCH 28.0 27.4 MCHC 32.1 31.9 L RDW Std Deviation 51.2 H 48.8 H RDW Coeff of Flower 15.9 H 15.7 H Plt Count 47 L 35 L MPV 11.9 H 10.6 H Immature Gran % (Auto) 0.5 0.7 Neut % (Auto) 68.0 67.3 Lymph % (Auto) 21.4 20.4 [place] % (Auto) 7.5 8.0 Eos % (Auto) 2.1 2.9 Baso % (Auto) 0.5 0.7 Immature Gran # (Auto) 0.01 0.01 Neut # (Auto) 1.27 L 0.92 L* Lymph # (Auto) 0.40 L 0.28 L [place] # (Auto) 0.14 0.11 Eos # (Auto) 0.04 0.04 Baso # (Auto) 0.01 0.01 Giant Platelets 1+ D-Dimer Sodium 142 Potassium 3.8 Chloride 107 Carbon Dioxide 27 Anion Gap 8.0 BUN 16 Creatinine 0.96 Est Cr Clr Drug Dosing 58.3 Est GFR ( Amer) 68.5 Est GFR (Non-Af Amer) 59.1 BUN/Creatinine Ratio 17.0 Glucose 97 Calcium 8.9 Magnesium 1.9 Total Bilirubin 1.4 H Direct Bilirubin AST 37 ALT 31 Alkaline Phosphatase 96 Troponin I < 0.015 C-Reactive Protein NT-Pro-B Natriuret Pep 144 Total Protein 7.4 Albumin 2.9 L Globulin 4.5 H Albumin/Globulin Ratio 0.6 L Lipase 122 Vitamin B12 Folate Procalcitonin SARS-CoV-2 RNA (RT-PCR) 04/17/20 04/17/20 04/17/20 07:48 07:48 13:55 WBC RBC Hgb Hct MCV MCH MCHC RDW Std Deviation RDW Coeff of Flower Plt Count MPV Immature Gran % (Auto) Neut % (Auto) Lymph % (Auto) [place] % (Auto) Eos % (Auto) Baso % (Auto) Immature Gran # (Auto) Neut # (Auto) Lymph # (Auto) [place] # (Auto) Eos # (Auto) Baso # (Auto) Giant Platelets D-Dimer 1350 H* Sodium 142 Potassium 3.5 Chloride 107 Carbon Dioxide 27 Anion Gap 8.0 BUN 17 Creatinine 0.81 Est Cr Clr Drug Dosing 68.7 Est GFR ( Amer) 84.1 Est GFR (Non-Af Amer) 72.6 BUN/Creatinine Ratio 20.7 H Glucose 91 Calcium 8.4 L Magnesium Total Bilirubin 1.7 H Direct Bilirubin 0.5 H AST 28 ALT 24 Alkaline Phosphatase 71 Troponin I < 0.015 C-Reactive Protein NT-Pro-B Natriuret Pep Total Protein 6.3 L Albumin 2.5 L Globulin Albumin/Globulin Ratio Lipase Vitamin B12 Folate Procalcitonin 0.21 SARS-CoV-2 RNA (RT-PCR) 04/17/20 04/17/20 04/17/20 13:55 13:55 Unknown WBC RBC Hgb Hct MCV MCH MCHC RDW Std Deviation RDW Coeff of Flower Plt Count MPV Immature Gran % (Auto) Neut % (Auto) Lymph % (Auto) [place] % (Auto) Eos % (Auto) Baso % (Auto) Immature Gran # (Auto) Neut # (Auto) Lymph # (Auto) [place] # (Auto) Eos # (Auto) Baso # (Auto) Giant Platelets D-Dimer Sodium Potassium Chloride Carbon Dioxide Anion Gap BUN Creatinine Est Cr Clr Drug Dosing Est GFR ( Amer) Est GFR (Non-Af Amer) BUN/Creatinine Ratio Glucose Calcium Magnesium Total Bilirubin Direct Bilirubin AST ALT Alkaline Phosphatase Troponin I < 0.015 C-Reactive Protein 4.52 H NT-Pro-B Natriuret Pep Total Protein Albumin Globulin Albumin/Globulin Ratio Lipase Vitamin B12 656 Folate 14.13 Procalcitonin SARS-CoV-2 RNA (RT-PCR) Cancelled 04/17/20 Unknown WBC RBC Hgb Hct MCV MCH MCHC RDW Std Deviation RDW Coeff of Flower Plt Count MPV Immature Gran % (Auto) Neut % (Auto) Lymph % (Auto) [place] % (Auto) Eos % (Auto) Baso % (Auto) Immature Gran # (Auto) Neut # (Auto) Lymph # (Auto) [place] # (Auto) Eos # (Auto) Baso # (Auto) Giant Platelets D-Dimer Sodium Potassium Chloride Carbon Dioxide Anion Gap BUN Creatinine Est Cr Clr Drug Dosing Est GFR ( Amer) Est GFR (Non-Af Amer) BUN/Creatinine Ratio Glucose Calcium Magnesium Total Bilirubin Direct Bilirubin AST ALT Alkaline Phosphatase Troponin I C-Reactive Protein NT-Pro-B Natriuret Pep Total Protein Albumin Globulin Albumin/Globulin Ratio Lipase Vitamin B12 Folate Procalcitonin SARS-CoV-2 RNA (RT-PCR) Pending PG Care Time/CCT Total # of Minutes Spent Total Time Spent with Patient: Total time spent is greater than 50% in coordination of care (as documented) at patient's floor/unit and/or counseling patient: Coding Level of Care Code 42039 Subseq Hosp Care Lvl 3 Diagnoses Asthma with exacerbation J45.901 Asthma severity: unspecified severity Asthma persistence: unspecified Chest pain R07.9 Chest pain type: unspecified Acute dyspnea R06.00 Hypertension I10 Hypertension type: essential hypertension Anemia D64.9 Anemia type: unspecified type Chronic kidney disease, stage III (moderate) N18.3 Chronic liver disease K76.9 GERD (gastroesophageal reflux disease) K21.9 Esophagitis presence: esophagitis presence not specified Hyperlipidemia E78.5 Hyperlipidemia type: unspecified Pancytopenia D61.818 DVT prophylaxis Z29.9 (1) Anemia Anemia type: unspecified type Qualified Code(s): D64.9 - Anemia, unspecified (2) Hyperlipidemia Hyperlipidemia type: unspecified Qualified Code(s): E78.5 - Hyperlipidemia, unspecified (3) GERD (gastroesophageal reflux disease) Esophagitis presence: esophagitis presence not specified Qualified Code(s): K21.9 - Gastro-esophageal reflux disease without esophagitis (4) Chest pain Chest pain type: unspecified Qualified Code(s): R07.9 - Chest pain, unspecified (5) Hypertension Hypertension type: essential hypertension Qualified Code(s): I10 - Essential (primary) hypertension (6) Asthma with exacerbation Asthma severity: unspecified severity Asthma persistence: unspecified Qualified Code(s): J45.901 - Unspecified asthma with (acute) exacerbation
[2020-04-17] MEDS ORDERED: HYDROCODONE/ACETAMOPHEN 5/325MG TAB PO PRN (10:26)
[2020-04-17] MEDS ORDERED: IPRATROPIUM BROMIDE HFA INHALER INH PRN (10:45)
[2020-04-17] MEDS: methylPREDNISolone 40 MG in SYRINGE 0 ML IV SCH ×2 (12:20→23:34)
[2020-04-17 14:31] LABS: C Reactive Protein 4.52 mg/dl (0-0.29); Troponin I < 0.015 ng/ml (0-0.045)
[2020-04-17 14:42] LABS: Folate (Folic Acid) 14.13 ng/ml (>5.38)
[2020-04-17 14:47] LABS: D Dimer 1350 ug/L FEU (0-500)
--- NOTE | 2020-04-17 16:52 | Electrocardiogram Report ---
Test Reason : Blood Pressure : / mmHG Vent. Rate : 103 BPM Atrial Rate : 103 BPM P-R Int : 162 ms QRS Dur : 128 ms QT Int : 380 ms P-R-T Axes : 049 072 041 degrees QTc Int : 497 ms Poor data quality, interpretation may be adversely affected Sinus tachycardia Right bundle branch block Abnormal ECG When compared with ECG of 21-MAR-2019 16:02, No significant change was found Confirmed by Romero Quach ([id number]) on 04/17/2020 4:51:25 PM Referred By: REFERRED SELF Confirmed By:Wil Quach
[2020-04-17] MEDS: SPIRONOLACTONE 25 MG TAB PO SCH (17:10)
--- NOTE | 2020-04-17 18:53 | XRay Report ---
AP CHEST WITH RIGHT-SIDED RIB SERIES CLINICAL HISTORY: Dyspnea. Wheezing. Right-sided pleuritic pain. FINDINGS: An AP upright chest radiograph with 4 additional views from a right-sided rib series is com pared to study dated 04/16/2020 and correlated with chest CT dated 12/31/2011. The AP views degraded by patient rotation. The heart is enlarged noting atherosclerotic calcification of the thoracic aorta. There is pulmonary vascular congestion with mild interstitial edema. Scarring/atelectasis is noted at the lung bases. There are trace pleural effusions. Numerous tiny pulmonary nodules are likely unchan ged from the [address] These are not well assessed by chest x-ray. No pneumothorax is seen. The skeletal structures are osteopenic. There is no radiographic evidence of acute/distracted right-sided rib fracture on the rib series. The remainder of the bony thorax is grossly intact. Cholecystectomy clips are noted in the right upper quadrant. IMPRESSION: 1. Cardiomegaly with evidence of congestive failure and mild interstitial edema. 2. Trace pleural effusions. 3. There is no radiographic evidence of acute/distracted right-sided rib fracture on the rib series. ACT 112: Negative or not required by law. Electronically signed by: Rodrigo Alvarenga M.D. 04/17/2020 6:52 PM
[2020-04-17] MEDS: PRAVASTATIN SOD 20 MG TAB PO SCH (20:34)
[2020-04-17] MEDS: METOPROLOL TARTRATE 25 MG TAB PO SCH (20:35)
[2020-04-17] MEDS: guaiFENesin 600 MG TABCR PO SCH (20:35)
[2020-04-17] MEDS ORDERED: PRAVASTATIN SOD 20 MG TAB PO SCH (21:00)
[2020-04-18] MEDS: FLUTICASONE/VILANTEROL 100/25MCG 14 PUFFS/INHALER INH SCH (07:58)
[2020-04-18] MEDS: guaiFENesin 600 MG TABCR PO SCH ×2 (07:59→19:20)
[2020-04-18] MEDS ORDERED: BUMETANIDE 1 MG in SYRINGE 0 ML IV SCH (08:00)
[2020-04-18] MEDS: PRAMIPEXOLE DIHYDROCHLO 0.25 MG TAB PO SCH (08:00)
[2020-04-18] MEDS: PANTOprazole 40 MG TAB PO SCH (08:00)
[2020-04-18] MEDS: METOPROLOL TARTRATE 25 MG TAB PO SCH ×2 (08:01→19:20)
[2020-04-18] MEDS: SPIRONOLACTONE 25 MG TAB PO SCH ×2 (08:01→15:55)
[2020-04-18 08:13] LABS: BUN Creatinine Ratio 23.3 (10-20); Calcium 8.6 mg/dl (8.5-10.1); Creatinine Clr Calc Pharmacy 58.2 ml/min; Est GFR (African American) 69.4; Est GFR (Non-African American) 59.8; Potassium 4.1 mmol/L (3.5-5.1)
[2020-04-18 08:33] LABS: Giant Platelets 1+; Hemoglobin 10.7 g/dL (12.0-16.0); Lymphocytes % (auto) 21.3 %; Mean Corpuscular Hemoglobin 27.6 pg (25-34); Mean Corpuscular Hgb Conc 32.4 g/dL (32-36); Mean Corpuscular Volume 85.3 fL (80-100); Mean Platelet Volume 10.7 fL (7.4-10.4); Monocytes # (auto) 0.04 K/uL (0.11-0.59); Monocytes % (auto) 4.3 %; Neutrophils % (auto) 74.4 %; Platelet Count 43 K/uL (130-400); RDW Coefficient of Variation 15.2 % (11.5-14.5); RDW Standard Deviation 47.3 fL (36.4-46.3); Red Blood Count 3.87 M/uL (4.2-5.4)
[2020-04-18 08:39] LABS: White Blood Count 0.94 K/uL (4.8-10.8)
[2020-04-18] MEDS: methylPREDNISolone 40 MG in SYRINGE 0 ML IV SCH (12:08)
--- NOTE | 2020-04-18 14:02 | Hospitalist Progress Note ---
Date of Service April 18, 2020 Assessment & Plan (1) Asthma with exacerbation: resolving. stop IV steroids. change to PO prednisone in am for 3-4 days then stop. cont nebs. cont pulmonary toilet. (2) Volume overload: 2nd to diuretic noncompliance in setting of advanced cirrhosis volume overload resolved (3) Chest pain: pleuritic pain at admission - resolved with steroids. likely pleurisy. no x-ray, however, showed any pneumonia or rib fracture. pleuritic pain from small effusion? I would have suspected that if she had any PE her pain would not have resolved so quickly. either way will wean steroids. defer on CTA imaging of chest. (4) Acute dyspnea: Likely asthma exacerbation/bronchitis along with pulmonary edema. resolved. (5) Hypertension: Cont home BP meds (6) Anemia: in setting of pancytopenia B12/folate checked - both normal TSH wnl 01/2020 likely due to cirrhosis H/H acceptable today (7) Chronic kidney disease, stage III (moderate): Cr remains stable (8) Chronic liver disease: Suspect due to [place] no prior heavy etoh use no evidence of hepatic encephalopathy cont aldactone BID cont bumex but change back to PO in am reinforce importance of compliance with diuretics (9) GERD (gastroesophageal reflux disease): cont PPI (10) Hyperlipidemia: Continue Pravastatin (11) Pancytopenia: chronic, likely due to cirrhosis of liver has associated neutropenia - precautions in place but no fevers or signs of infection repeat cbc in am for stability b12/folate/tsh wnl will recommend she f/u again with outpatient heme/onc post-d/c to follow this (12) DVT prophylaxis: SCDs would not use chemical means due to current platelet level attempted to call family on 04/17 and 04/18 - no answer from both numbers listed in chart COVID 19 test NEGATIVE - stop airborne isolation has murmur - ? will obtain echo anticipate d/c in am tomorrow Admission and Anticipated Discharge Date Admission Date: April 17, 2020 Subjective patient feeling very well today. pleuritic pain on right completely gone. no pain in the shoulder or arm on right. no dyspnea, orthopnea, or cough. good appetite. no new complaints. tele normal overnight. Review of Systems Constitutional: no fever and no chills Respiratory: no cough and no dyspnea Cardiovascular: as per Subjective / HPI; no chest pain Gastrointestinal: no abdominal pain, no nausea, no vomiting, no constipation and no diarrhea/loose stools Physical Exam Constitutional: no acute distress and no altered mental status looks good today ENMT: external ear and nose normal, oropharynx normal Respiratory: no respiratory distress Auscultation: no diminished lung sounds, no crackles and no wheezes Cardiovascular: Rate/Rhythm: regular rate and regular rhythm Heart Sounds: normal S1, normal S2 and + murmur (2/6 RUSB) Vessels: posterior tibial pulses present and dorsalis pedis pulses present; no JVD Extremities: no edema Gastrointestinal (Abdomen): normal bowel sounds, soft, nontender, no hepatosplenomegaly Psychiatric: A+Ox3, euthymic affect Results & Data Results & Data ([facility]) Vital Signs (Past 12 Hours) Vital Signs Temp Pulse Resp BP Pulse Ox 04/18/20 13:10 36.6 C 78 18 146/77 H 04/18/20 12:32 36.5 C 79 20 147/79 H 94 04/18/20 07:34 36.5 C 79 18 135/69 93 04/18/20 04:00 36.9 C 78 16 147/88 H 94 Laboratory Results Laboratory Results - last 24 hr 04/17/20 04/18/20 04/18/20 Unknown 07:24 07:24 WBC 0.94 L* RBC 3.87 L Hgb 10.7 L Hct 33.0 L MCV 85.3 MCH 27.6 MCHC 32.4 RDW Std Deviation 47.3 H RDW Coeff of Flower 15.2 H Plt Count 43 L MPV 10.7 H Immature Gran % (Auto) 0.0 Neut % (Auto) 74.4 Lymph % (Auto) 21.3 [place] % (Auto) 4.3 Eos % (Auto) 0.0 Baso % (Auto) 0.0 Immature Gran # (Auto) 0.00 Neut # (Auto) 0.70 L* Lymph # (Auto) 0.20 L [place] # (Auto) 0.04 L Eos # (Auto) 0.00 Baso # (Auto) 0.00 Giant Platelets 1+ Sodium 140 Potassium 4.1 D Chloride 104 Carbon Dioxide 29 Anion Gap 6.0 BUN 22 H Creatinine 0.95 Est Cr Clr Drug Dosing 58.2 Est GFR ( Amer) 69.4 Est GFR (Non-Af Amer) 59.8 BUN/Creatinine Ratio 23.3 H Glucose 145 H Calcium 8.6 SARS-CoV-2 RNA (RT-PCR) NEGATIVE PG Care Time/CCT Total # of Minutes Spent Total Time Spent with Patient: Total time spent is greater than 50% in coordination of care (as documented) at patient's floor/unit and/or counseling patient: Coding Level of Care Code 74198 Subseq Hosp Care Lvl 2 Diagnoses Asthma with exacerbation J45.901 Asthma persistence: unspecified Asthma severity: unspecified severity Volume overload E87.70 Hypervolemia type: unspecified Chest pain R07.9 Chest pain type: unspecified Acute dyspnea R06.00 Hypertension I10 Hypertension type: essential hypertension Anemia D64.9 Anemia type: unspecified type Chronic kidney disease, stage III (moderate) N18.3 Chronic liver disease K76.9 GERD (gastroesophageal reflux disease) K21.9 Esophagitis presence: esophagitis presence not specified Hyperlipidemia E78.5 Hyperlipidemia type: unspecified Pancytopenia D61.818 DVT prophylaxis Z29.9 (1) Anemia Anemia type: unspecified type Qualified Code(s): D64.9 - Anemia, unspecified (2) Hyperlipidemia Hyperlipidemia type: unspecified Qualified Code(s): E78.5 - Hyperlipidemia, unspecified (3) Asthma with exacerbation Asthma persistence: unspecified Asthma severity: unspecified severity Qualified Code(s): J45.901 - Unspecified asthma with (acute) exacerbation (4) GERD (gastroesophageal reflux disease) Esophagitis presence: esophagitis presence not specified Qualified Code(s): K21.9 - Gastro-esophageal reflux disease without esophagitis (5) Chest pain Chest pain type: unspecified Qualified Code(s): R07.9 - Chest pain, unspecified (6) Hypertension Hypertension type: essential hypertension Qualified Code(s): I10 - Essential (primary) hypertension (7) Volume overload Hypervolemia type: unspecified Qualified Code(s): E87.70 - Fluid overload, unspecified
--- NOTE | 2020-04-18 16:34 | XCELERA ---
[id number]
[2020-04-18] MEDS: PRAVASTATIN SOD 20 MG TAB PO SCH (19:20)
[2020-04-19 05:09] VITALS: PULSE 73; O2SAT 92
[2020-04-19 05:57] LABS: Nucleated RBC # (auto) 0.02 K/uL (0-0); Nucleated RBC % (auto) 0.6 %
[2020-04-19 06:28] LABS: Hematocrit (blood only) 34.9 % (37-47); Hemoglobin 11.4 g/dL (12.0-16.0); Mean Corpuscular Hemoglobin 27.5 pg (25-34); Mean Corpuscular Hgb Conc 32.7 g/dL (32-36); Mean Corpuscular Volume 84.3 fL (80-100); Mean Platelet Volume 10.8 fL (7.4-10.4); Platelet Count 65 K/uL (130-400); RDW Coefficient of Variation 15.3 % (11.5-14.5); RDW Standard Deviation 47.3 fL (36.4-46.3); Red Blood Count 4.14 M/uL (4.2-5.4); White Blood Count 2.79 K/uL (4.8-10.8)
[2020-04-19 06:29] LABS: Lymphocytes # (auto) 0.34 K/uL (1.2-3.4); Lymphocytes % (auto) 12.2 %; Monocytes # (auto) 0.19 K/uL (0.11-0.59); Monocytes % (auto) 6.8 %; Neutrophils # (auto) 2.26 K/uL (1.4-6.5); Platelet Estimate Decreased (Normal)
[2020-04-19 06:33] LABS: BUN Creatinine Ratio 29.2 (10-20); Calcium 8.1 mg/dl (8.5-10.1); Creatinine Clr Calc Pharmacy 47.4 ml/min; Est GFR (African American) 53.9; Est GFR (Non-African American) 46.5; Potassium 4.1 mmol/L (3.5-5.1)
[2020-04-19 07:11] VITALS: BP 129/76; TEMP 97.7
[2020-04-19] MEDS: guaiFENesin 600 MG TABCR PO SCH (07:58)
[2020-04-19] MEDS: METOPROLOL TARTRATE 25 MG TAB PO SCH (07:58)
[2020-04-19] MEDS: PRAMIPEXOLE DIHYDROCHLO 0.25 MG TAB PO SCH (07:59)
[2020-04-19] MEDS: FLUTICASONE/VILANTEROL 100/25MCG 14 PUFFS/INHALER INH SCH (07:59)
[2020-04-19] MEDS: PANTOprazole 40 MG TAB PO SCH (07:59)
[2020-04-19] MEDS: SPIRONOLACTONE 25 MG TAB PO SCH (07:59)
[2020-04-19] MEDS ORDERED: predniSONE 10 MG TABLET PO SCH (08:00)
[2020-04-19] MEDS ORDERED: BUMETANIDE 1 MG TAB PO SCH (08:00)
[2020-04-19] MEDS ORDERED: OPTIRAY 320 125ml IV PRN (11:59)
--- NOTE | 2020-04-19 12:23 | CT Scan Report ---
CHEST CTA for PULMONARY ARTERIES CT DOSE: 562.06 mGy.cm HISTORY: recent R-sided pleuritic chest pain TECHNIQUE: Multiaxial CT images of the chest were performed following the intravenous administration of contrast to evaluate the pulmonary arteries. Maximal intensity projection images were also obtaine d. A dose lowering technique was utilized adhering to the principles of ALARA. COMPARISON STUDY: Chest CT 12/31/2011. FINDINGS: Limited views of the upper abdomen demonstrate a cirrhotic liver and splenomegaly. This is similar to the prior study. A 2.5 cm right adrenal gland nodule contains fat and is consistent with a myelolipoma. Small right pleural effusion. No pericardial effusion. The heart is mildly enlarged. No rmal esophagus. Mild bilateral hilar lymphadenopathy. No mediastinal lymphadenopathy. There is symmet fausto central peribronchial soft tissue thickening. Opacified right upper lobe segmental bronchi. There are few opacified distal bilateral lower lobe bronchi. No pneumothorax. Scattered areas of air carole ing within the lungs most pronounced within the right lung apex and lung bases is likely due to the o pacified distal bronchi. There are innumerable bilateral pulmonary nodules. The majority of these rem ain stable. There is a new area of irregular consolidation within the superior segment of the right l ower lobe on image 147. This measures approximately 2.6 x 1.6 cm. Linear density within the base of t he right lower lobe is also new but favors subsegmental atelectasis. New linear density within the ri ght lung apex may also represent atelectasis given the adjacent opacified bronchi. Dominant nodule wi thin the right lower lobe on image 98 measures 8 mm. No suspicious lytic or blastic osseous lesions. Normal caliber thoracic aorta with no evidence for dissection. No filling defects within the pulmonar y arteries to suggest pulmonary embolus. IMPRESSION: 1. No evidence for pulmonary embolus. 2. Innumerable small bilateral pulmonary nodules measure up to 8 mm. This remains unchanged. Given th e long-term stability, these are likely benign. There is mild bilateral mediastinal hilar lymphadenop athy which could be reactive. However, these findings could also be seen in the setting of sarcoidosi s or additional chronic granulomatous diseases. 3. Scattered opacified distal bronchi. In addition, there is a 2.6 x 1.6 cm focal irregular consolida tion within the superior segment of the right lower lobe. This is new from the prior study and could represent a pneumonia. Short-term chest CT follow-up in 3 months is recommended to ensure resolution. 4. Additional findings as described above. ACT 112: Negative or not required by law. Electronically signed by: Avinash Lynn M.D. 04/19/2020 12:22 PM
--- NOTE | 2020-04-19 13:32 | Discharge Summary ---
Date of Service date of admission - April 17, 2020 date of discharge - April 19, 2020 Admission HPI Per Admitting Provider Angelica Calabrese is a pleasant 74yo C female with history of HTN, HLP, mild , GERD, MOBLEY and bicytopenia presenting with right shoulder pain radiating under her right breast x 3 days. Pain is worsened by deep breathing. She has a cough productive for clear phlegm as well as SOB/SMITH/Orthopnea. She had two days of fever, last febrile two days ago, possibly as high as 104 but she is not certain if her thermometer at home is accurate. Patient has used heat and [place] to the area with minimal improvement in pain. She is currently taking Bumex and Spironolactone for her underlying liver disease but has not had these medications for the last 1-2 weeks. She is uncertain if she has gained any weight. She has chronic bilateral LE edema which she states is near baseline. No additional complaints at this time. ER Course: Bumex 1mg IV, Tylenol Principal Diagnosis pleuritic chest pain 2nd to RLL pneumonia; volume overload 2nd to noncompliance in setting of cirrhosis Discharge Exam Constitutional no acute distress and no altered mental status ENMT external ear and nose normal, oropharynx normal Respiratory no respiratory distress Auscultation: no diminished lung sounds, no crackles and no wheezes Cardiovascular Rate/Rhythm: regular rate and regular rhythm Heart Sounds: normal S1, normal S2 and + murmur (2/6 RUSB) Vessels: posterior tibial pulses present and dorsalis pedis pulses present; no JVD Extremities: no edema Gastrointestinal (Abdomen) normal bowel sounds, soft, nontender, no hepatosplenomegaly Psychiatric A+Ox3, euthymic affect Discharge Data Allergies Allergy/AdvReac Type Severity Reaction Status Date / Time ciprofloxacin AdvReac Intermediate Nausea Verified 04/16/20 19:24 naproxen AdvReac Intermediate Hives Verified 04/16/20 19:24 Consultations Physical therapy Procedures Performed COVID-19 PCR testing --- NEGATIVE Ordered Studies 1. echocardiogram - * EF 60-65% * grade 2 diastolic dysfunction * moderate aortic stenosis 2. CT angio chest PE protocol - IMPRESSION: 1. No evidence for pulmonary embolus. 2. Innumerable small bilateral pulmonary nodules measure up to 8 mm. This remains unchanged. Given the long-term stability, these are likely benign. There is mild bilateral mediastinal hilar lymphadenopathy which could be reactive. However, these findings could also be seen in the setting of sarcoidosis or additional chronic granulomatous diseases. 3. Scattered opacified distal bronchi. In addition, there is a 2.6 x 1.6 cm focal irregular consolidation within the superior segment of the right lower lobe. This is new from the prior study and could represent a pneumonia. Short- term chest CT follow-up in 3 months is recommended to ensure resolution. 4. Additional findings as described above. Hospital Course (1) Chest pain: pleuritic pain at admission - resolved with steroids, then the pain r ecurred. troponins were negative. telemetry was normal. COVID-19 testing was negative. Because her pain recurred a CTA chest was completed on day of hospital discharge. The CTA was negative for PE. However, there was evidence of RLL pneumonia which was the likely cause of her pleuritic pain. She was discharged home on a 7-day course of oral antibiotics for such. Since the infiltrate on CTA was irregular in appearance radiology advised repeat imaging in a few months. (2) RLL pneumonia: As seen on CTA chest. Omnicef x 7 days at time of discharge. (3) Volume overload: 2nd to diuretic noncompliance in setting of advanced cirrhosis volume overload resolved with IV bumex while hospitalized she was counseled on the importance of taking her daily bumex AND twice-daily aldactone, checking daily weights, etc. of note - echo showed preserved EF (4) Asthma with exacerbation: mild flare - resolved with steroids. IV steroids changed to PO prednisone on day of discharge. she will take a short prednisone taper at home. cont nebs. cont pulmonary toilet. (5) Acute dyspnea: Likely asthma exacerbation/bronchitis along with pulmonary edema from diuretic noncompliance as well as RLL pneumonia. resolved prior to discharge. (6) Hypertension: Cont home BP meds (7) Anemia: in setting of pancytopenia B12/folate checked - both normal TSH wnl 01/2020 likely due to cirrhosis H/H acceptable during the visit discharge Hb was 11.4 (8) Chronic kidney disease, stage III (moderate): Cr 1.1 at discharge (9) Chronic liver disease: Suspect due to MOBLEY no prior heavy etoh use no evidence of hepatic encephalopathy while hospitalized cont aldactone BID cont bumex reinforced importance of compliance with diuretics in light of hilar lymphadenopathy on CTA chest consider work-up for sarcoid as outpatient PCP made aware of CTA findings (10) GERD (gastroesophageal reflux disease): cont PPI (11) Hyperlipidemia: Continue Pravastatin (12) Pancytopenia: chronic, likely due to cirrhosis of liver has associated neutropenia - precautions in place no fevers or signs of infection while here b12/folate/tsh wnl will recommend she f/u again with outpatient heme/onc post-d/c to follow this (13) Pulmonary nodules: as seen on CTA chest chronic, these have not progressed over several years arguing for benign etiology (14) Aortic stenosis: moderate on echo this admission needs at least 1 year follow-up for such Total Time Total Time Spent Total Time Spent (In Minutes): 45 Total Time Includes: Examination of the Patient, Discharge Planning, Medication Reconciliation and Communication With Other Providers Discharge Plan Discharge Items Patient Disposition: Home - Home Health Services Reason For Visit: Shortness of breath, right chest pain Discharge Diagnosis: 1. fluid overload (water retention in lungs and legs) due to cirrhosis - improved 2. NEGATIVE COVID-19 testing (coronavirus testing) 3. right sided pneumonia as the cause of your pain 4. no blood clots of the lungs; no heart attack Activity: Resume your previous activity Non-emergency contact: Primary Care Provider and Group Product Manager Call non-emergency contact if: you have any medication questions, your symptoms worsen, your pain is not controlled, your pain is worsening, your pain is unusual for you, your pain is concerning for you and you have a fever Follow-up/Referrals: Kvng Pereira III, MD [Primary Care Provider] - (see Dr Pereira or one of his partners within 1-2 weeks ) Diet: Heart Healthy Addtl Attending Provider Instructions: You were seen for right chest pain that radiated to your back along with recent fever and shortness of breath. Your pains ultimately resolved. We ruled out heart attack and blood clots of the lungs. We found a pneumonia in the bottom of the right lung which was the likely cause of your pain. You also had water retention of the lungs and your legs due to having no diuretics (water pills) for 1-2 weeks. Your water retention resolved with use of IV diuretics. Recommendations - 1. for pneumonia - take antibiotics for 7 days (cefdinir twice a day). Start this upon return home. 2. for asthma - take prednisone for 3 more days; start this tomorrow AM, 04/20. 3. RESUME your diuretics. Do not stop them unless your doctors advise you to do so. Take bumetanide every morning. Take spironolactone twice a day. 4. weight yourself every morning on the same scale. If you gain more than 2-3 pounds in 1-2 days this is likely fluid retention. If this happens please call Dr Pereira for advice on what to do. 5. follow-up - * see Dr Pereira within 1-2 weeks * see Dr Badillo (gastroenterology) in the next 3-4 weeks 6. the radiologist is recommending a repeat CAT scan of your lungs in 3 months. You can schedule this through Dr Pereira's office. 7. you have a condition called aortic stenosis. This is when calcium builds up on the valve. Right now it is not causing trouble for you. I would recommend a repeat heart ultrasound (echocardiogram) in 1 year to follow the valve. RETURN to [facility] if - * you have fevers over 100.5 degrees * you develop recurrent chest pains * you have worsening shortness of breath * you develop severe diarrhea * any other concerns Addtl Mig Tig Welder Provider Instructions: General Information about the Coronavirus-- Coronavirus disease 2019 (COVID-19) is a virus that causes a respiratory illness. It is caused by a coronavirus called 2019 novel coronavirus (2019- nCoV). There are many types of coronavirus. Coronaviruses are a very common cause of bronchitis. They may sometimes cause lung infection(pneumonia). Symptoms can range from mild to severe respiratory illness. These viruses are also foundin some animals. COVID-19 was first found in people in [facility], in late 2019. In 2020, several cases of COVID-19 have been confirmed in the [place] Public health officials are working to find the source. How the virus spreads is not yet fully known. It may be spread through droplets of fluid that a person coughs or sneezes into the air. It may be spread if you touch a surface with virus on it, such as a handle or object, and then touch your mouth. What are the symptoms of COVID-19? Some people have no symptoms or mild symptoms. Symptoms may appear 2 to 14 days after contact with the virus. Symptoms can include: Fever Coughing Trouble breathing What are possible complications from COVID-19? In many cases, this virus can cause infection (pneumonia) in both lungs. In some cases, this can cause . How is COVID-19 diagnosed? Your healthcare provider will ask about your symptoms. He or she will also ask about your recent travel and contact with sick people. Testing for the virus is only done through the CDC. If yourhealthcare provider thinks you may have COVID- 19, he or she will work with your local health department and the CDC on testing. Follow all instructions from your healthcare provider. COVID-19 is diagnosed by: Nasal and throat swab. A cotton-tipped swab is wiped inside your nose or throat. This is done to check for viruses in your nasal mucus. Sputum culture. A small sample of mucus coughed from your lungs (sputum) is collected if you have a cough. It is checked for the virus. How is COVID-19 treated? There is currently no medicine to treat the virus. Treatment is done to help your body while it fights the virus. This is known as supportive care. Supportive care may include: Pain medicine. These include acetaminophen and ibuprofen. They are used to help ease pain and reduce fever. Bed rest. This helps your body fight the illness. For severe illness, you may need to stay in the hospital. Care during severe illness may include: IV (intravenous) fluids.These are given through a vein to help keep your body hydrated. Oxygen. Supplemental oxygen or ventilation with a breathing machine (ventilator) may be given. This is done to keep enough oxygen in your body. Are you at risk for COVID-19? If youve been to a place where people have been sick with this virus, you are at risk for infection. You are at risk if you: Recently traveled to an affected area Had contact with a sick person who recently traveled to this area Had contact with a person who was diagnosed with COVID-19 How can COVID-19 be prevented? There is no vaccine yet. The best prevention is to not have contact with the virus. The CDC advises that people should not travel to areas where there are COVID-19 outbreaks right now for any reason that is not urgent. To help prevent spreading the infection, wash your hands often, or use an alcohol-basedhand manager community development. If you are in an area with COVID-19: Wash your hands often. Or use an alcohol-based hand manager community development often. Only touch your eyes, nose, or mouth with clean hands. Dont have contact with people who are sick. Follow local instructions about being in public. For example, you may be told to not use public transport for a period of time. Stay away from markets that have live or animals. Wash your hands after touching any animals. Don't touch animals that may be sick. Dont share eating or drinking tools with sick people. Dont kiss someone who is sick. Clean surfaces often with disinfectant. If you were in an area with COVID-19 in the last 14 days: Call your healthcare provider. He or she can talk with local health staff to see what action may be needed. Follow all instructions from your provider. Take your temperature every morning and evening for at least 14 days. This is to check for fever. Keep a record of the readings. Keep watch for symptoms of the virus. Tell your provider right away if you have symptoms. If you were in an area with COVID-19 and have a fever or other symptoms: Dont panic. Keep in mind that other illnesses can cause similar symptoms. Stay away from work, school, and public places. Limit physical contact with family members. Don't kiss anyone or share eating or drinking utensils. Clean surfaces you touch with disinfectant. This is to help prevent the virus from spreading. Call your healthcare provider. Explain that you have been exposed to COVID-19 and have symptoms. Do this before going to any hospital. Wait for instructions. Keep in mind that healthcare staff may wear protective equipment such as masks, gowns, gloves, and eye protection. You may be put in a separate room. This is to prevent the possible virus from spreading. Tell the healthcare staff about recent travel. This includes local travel on public transport. Staff may need to find other people you have been in contact with. Follow all instructions the healthcare staff give you. If you have been diagnosed with COVID-19 Follow all instructions from your healthcare provider. Dont leave your home, except to get medical care. Call your healthcare providers office before going. They can prepare and give you instructions. This will help prevent the virus from spreading. Dont go to work, school, or public areas. Dont use public transport or taxis. Stay away from other people in your home. Have them wear face masks around you. Dont share household items or food. Wear a face mask if you can. This includes at home or in a medical facility. Cover your face with a tissue when you cough or sneeze. Throw the tissue away. Wash your hands. Wash your hands often. Caregivers should: Follow all instructions from healthcare staff. Wear a face mask and protective clothing as advised. Wash hands often. Keep track of the sick persons symptoms. Clean surfaces, fabrics, and laundry thoroughly. Keep other people away from the sick person. When to call your healthcare provider Call your healthcare provider: If youve recently traveled and have symptoms If you have been diagnosed with COVID-19 and your symptoms are worse To learn more To find out more about COVID-19, visit the CDC website at www.cdc.gov/coronavirus/2019-ncov/index.html. 6193-7581 [employer]. [address] [place] [address]. All rights reserved. This information is not intended as a substitute for professional medical care. Always follow your healthcare professional's instructions. This information has been adapted from [employer] Pending Studies at Discharge: No Stand-Alone Forms: [facility] Traditional Medicinals, Smoking Cessation Medications and DC Order Prescriptions: New prednisone 10 mg Tablet 10 mg PO DIRECTED Qty: 5 RF: 0 cefdinir 300 mg capsule 300 mg PO BID 7 Days Qty: 14 RF: 0 Saccharomyces boulardii 250 mg capsule 250 mg PO DAILY 7 Days Qty: 7 RF: 0 Continued albuterol sulfate 2.5 mg /3 mL (0.083 %) solution for nebulization 2.5 mg INH BID PRN (Reason: shortness of breath or wheezing) Qty: 90 RF: 3 bumetanide 1 mg tablet 1 mg PO DAILY Qty: 90 RF: 3 metoprolol tartrate 25 mg tablet 25 mg PO BID Qty: 180 RF: 3 pramipexole 0.25 mg tablet 0.25 mg PO DAILY Qty: 90 RF: 3 omeprazole 20 mg capsule,delayed release(DR/EC) 20 mg PO DAILY Qty: 90 RF: 3 pravastatin 20 mg tablet 20 mg PO HS Qty: 90 RF: 3 spironolactone 25 mg tablet 25 mg PO BID Qty: 180 RF: 3 (DME) nebulizer accessories kit See Dose Instructions .ROUTE .MEDSUPPLY Qty: 1 RF: 0 fluticasone propion-salmeterol [Wixela Inhub] 250-50 mcg/dose blister with device 1 inh INHALATION BID RF: 0 acetaminophen [Tylenol Extra Strength] 500 mg Tablet 1,000 mg PO Q6H PRN (Reason: Pain) RF: 0 No Action (DME) Briefs, Adult-Extra Large Misc See Rx Instructions .ROUTE .MEDSUPPLY Qty: 14 RF: 0 Discharge Orders: Discharge Order (Routine); Ordered 04/19/20 Ordered By: Rogelio Sears Admission Data Admit Date/Time: 04/17/20 00:04 Attending Provider: Rogelio Sears Admit Provider: Geraldine Gallego Primary Care Provider: Kvng Pereira III Other Providers: Geraldine Gallego ; [place] Other Interventions: Discharge Summary Assessment (RN) Last Done: 04/19/20 14:35 DC Date/Time DO NOT enter until pt leaves facility: 04/19/20 14:35 Coding Level of Care Code D/C Day Management >30 mins Diagnoses Chest pain R07.9 Chest pain type: unspecified RLL pneumonia J18.9 Volume overload E87.70 Hypervolemia type: unspecified Asthma with exacerbation J45.901 Asthma persistence: unspecified Asthma severity: unspecified severity Acute dyspnea R06.00 Hypertension I10 Hypertension type: essential hypertension Anemia D64.9 Anemia type: unspecified type Chronic kidney disease, stage III (moderate) N18.3 Chronic liver disease K76.9 GERD (gastroesophageal reflux disease) K21.9 Esophagitis presence: esophagitis presence not specified Hyperlipidemia E78.5 Hyperlipidemia type: unspecified Pancytopenia D61.818 Pulmonary nodules R91.8 Aortic stenosis I35.0
== END 2020-04-19 14:35 | disposition home health service (06) | DRG 194 ==
LOC: ED 17:47 → 2S 04-17 00:04 → SUATTDRO 04-17 00:04 → 2S 04-17 00:42 → 2W 04-18 12:11

== ENCOUNTER 2020-08-18 17:11 | Inpatient (IN) ==
--- NOTE | 2020-08-18 17:53 | Emergency Department Note ---
History of Present Illness General Chief complaint: Cough Stated complaint: DRY COUGH Time Seen by Provider: 08/18/20 17:32 Source: patient History of Present Illness Provider complaint: Cough Onset (ago): week(s) Location: chest Severity: moderate Pain Consistency: + intermittent Quality: + other (Cough) Relieved By: + none Associated symptoms: + nausea/vomiting (Nausea without vomiting) and + shortness of breath; no chest pain, no fever/chills and no malaise This is a 75-year-old female who presents with a cough for the past 3 weeks. She was seen by her PCP who told her to take Claritin. The Claritin has not been working. Her cough has been sometimes productive of clear phlegm but today she noticed a streak of brownish-black sputum when she coughed. She said it was very small and it did not look like blood. She does complain of shortness of breath but denies any chest discomfort or pain. She states the shortness of breath started about a month ago when she started radiation therapy for breast cancer. She has had some nausea but no vomiting. She states her upper abdomen sometimes hurts when she coughs very hard but she also has a history of liver disease. She has had chronic swelling to her legs for years which got worse about a month ago when she fell. She states she was seen here and had Doppler ultrasounds of the lower extremities without evidence of DVT. She has had no known exposure to COVID-19, no loss of taste or smell, no fevers or malaise or myalgias. Home Medications Home Medications Medication Instructions Recorded Confirmed Type bumetanide 1 mg tablet 1 mg PO DAILY #90 tab 01/05/20 08/18/20 Rx metoprolol tartrate 25 mg tablet 25 mg PO BID #180 tab 01/05/20 08/18/20 Rx omeprazole 20 mg capsule,delayed 20 mg PO DAILY #90 cap 01/05/20 08/18/20 Rx release pramipexole 0.25 mg tablet 0.25 mg PO DAILY #90 tab 01/05/20 08/18/20 Rx albuterol sulfate 2.5 mg INH BID PRN #90 ml 01/20/20 08/18/20 Rx fluticasone propion-salmeterol 1 inh INHALATION BID 04/16/20 08/18/20 History [Wixela Inhub] lorazepam 0.5 mg tablet 0.5 mg PO BID PRN #30 tab 05/30/20 08/18/20 Rx pravastatin 20 mg tablet 20 mg PO HS 05/30/20 08/18/20 History spironolactone 25 mg tablet 25 mg PO BID 05/30/20 08/18/20 History potassium chloride 10 mEq 10 meq PO BID #180 tab 08/09/20 08/18/20 Rx tablet,extended release loratadine 10 mg tablet 10 mg PO DAILY 08/14/20 08/18/20 History Allergies Allergy/AdvReac Type Severity Reaction Status Date / Time naproxen Allergy Intermediate Hives Verified 08/18/20 19:59 adhesive AdvReac Mild SKIN Verified 08/18/20 19:59 IRRITATION ciprofloxacin AdvReac Mild Nausea Verified 08/18/20 19:59 Past Med/Surg History Medical History Anemia Anxiety Anxiety Aortic stenosis Moderate per 03/2020 echo Asthma USED INHALER YESTERDAY Cardiac murmur Moderate Chronic idiopathic thrombocytopenia Chronic kidney disease, stage III (moderate) Chronic leukopenia Chronic liver disease GERD (gastroesophageal reflux disease) Gout Hyperlipidemia Hypertension Multiple pulmonary nodules Neurologic gait dysfunction Non-alcoholic cirrhosis Obesity Osteoarthritis Osteoporosis Pancytopenia Peripheral neuropathy Restless leg syndrome Secondary hyperparathyroidism Spinal stenosis Surgical History History of breast biopsy + CANCER History of delivery X 1 History of cholecystectomy History of dilatation and curettage History of hysterectomy History of surgery CYST REMOVED LEFT WRIST History of tooth extraction Family History Grandmother (Maternal) , Passed age 66 of Stomach Cancer No problems noted. Grandfather (Maternal) , Passed in 70's of Stomach Cancer No problems noted. Mother , Passed age 76 of Alzheimer's Disease Complications Family history of diabetes mellitus Father , Passed in 90's of Alzheimer's Disease Complications No problems noted. Daughter No problems noted. Son No problems noted. Son No problems noted. Social History Smoking Status: Never smoker Second Hand Exposure: No; Hx Alcohol Use: No Hx Substance Use: No Preferred Language: Montserratian Communication Ability: Effective Visual Impairment: Limited Hearing Ability: Normal Senior Planning Manager Required: No Beliefs That Will Affect Care: None marital status: Current Living Situation: Spouse current occupational status: retired current occupation: Retired Caregiver Feels Safe at Home: Yes Childhood Exposure to Second-Hand Smoke: Yes (Father ) caffeine: Yes (2 cups of coffee/day ) during the past year weight has: increased > 10 lbs Dental Care, Regularly: No Review of Systems See HPI for pertinent positives & negatives. and A total of 10 systems reviewed and were otherwise negative Physical Exam Vital Signs Vital Signs - 24 hr 08/18/20 17:23 08/18/20 18:12 08/18/20 18:15 Temperature 36.4 C L Temperature Source Oral Pulse Rate 115 H 102 H Pulse Rate from SpO2 Sensor Respiratory Rate 20 20 Blood Pressure 168/82 H Blood Pressure Mean 110 Blood Pressure Position Sitting Pulse Oximetry 97 Oxygen Delivery Method Room Air Room Air Sepsis Recent Fever Within 48 Hours No Sepsis New/Unexplained Change in Mental Status No Sepsis Action Taken by Nursing No Action Required 08/18/20 18:20 08/18/20 18:30 08/18/20 18:41 Temperature Temperature Source Pulse Rate 101 H 100 H Pulse Rate from SpO2 Sensor 108 H Respiratory Rate 18 20 Blood Pressure 157/89 H Blood Pressure Mean 101 Blood Pressure Position Pulse Oximetry 95 Oxygen Delivery Method Sepsis Recent Fever Within 48 Hours Sepsis New/Unexplained Change in Mental Status Sepsis Action Taken by Nursing 08/18/20 19:00 08/18/20 19:20 08/18/20 19:30 Temperature Temperature Source Pulse Rate 100 H 100 H 101 H Pulse Rate from SpO2 Sensor 100 H 101 H 100 H Respiratory Rate 18 23 20 Blood Pressure 128/74 124/70 Blood Pressure Mean 106 94 Blood Pressure Position Pulse Oximetry 96 96 100 Oxygen Delivery Method Sepsis Recent Fever Within 48 Hours Sepsis New/Unexplained Change in Mental Status Sepsis Action Taken by Nursing 08/18/20 19:31 08/18/20 19:51 08/18/20 20:00 Temperature Temperature Source Pulse Rate 100 H 101 H 100 H Pulse Rate from SpO2 Sensor 100 H 100 H Respiratory Rate 19 16 17 Blood Pressure 129/70 Blood Pressure Mean 100 Blood Pressure Position Pulse Oximetry 99 97 Oxygen Delivery Method Sepsis Recent Fever Within 48 Hours Sepsis New/Unexplained Change in Mental Status Sepsis Action Taken by Nursing 08/18/20 20:01 08/18/20 20:10 08/18/20 20:30 Temperature Temperature Source Pulse Rate 99 H 100 H 98 H Pulse Rate from SpO2 Sensor 100 H 100 H 98 H Respiratory Rate 18 16 15 Blood Pressure 134/64 Blood Pressure Mean 81 Blood Pressure Position Pulse Oximetry 98 98 98 Oxygen Delivery Method Room Air Sepsis Recent Fever Within 48 Hours Sepsis New/Unexplained Change in Mental Status Sepsis Action Taken by Nursing 08/18/20 20:40 08/18/20 20:50 08/18/20 21:00 Temperature Temperature Source Pulse Rate 101 H 101 H 98 H Pulse Rate from SpO2 Sensor 101 H 101 H 99 H Respiratory Rate 18 16 18 Blood Pressure 120/64 Blood Pressure Mean 79 Blood Pressure Position Pulse Oximetry 99 100 97 Oxygen Delivery Method Sepsis Recent Fever Within 48 Hours Sepsis New/Unexplained Change in Mental Status Sepsis Action Taken by Nursing 08/18/20 21:01 08/18/20 21:10 Temperature Temperature Source Pulse Rate 101 H 99 H Pulse Rate from SpO2 Sensor 101 H 98 H Respiratory Rate 17 17 Blood Pressure Blood Pressure Mean Blood Pressure Position Pulse Oximetry 98 100 Oxygen Delivery Method Sepsis Recent Fever Within 48 Hours Sepsis New/Unexplained Change in Mental Status Sepsis Action Taken by Nursing Constitutional: Vital signs reviewed. Eyes: Pupils are equal round reactive to light. Conjunctiva are noninjected. ENT: Pharynx is clear without erythema or exudate. Mucous membranes are moist. Neck supple without meningeal signs. Respiratory: Clear to auscultation bilaterally. Breath sounds are equal bilaterally. Cardiovascular: Regular rate and rhythm. No rubs or gallops. Early systolic murmur heard in the right ICS. GI: Soft, nondistended and nontender. Bowel sounds are present. Musculoskeletal: Diffuse bilateral pitting edema. Integumentary: No cyanosis. or jaundice. Neurological: The patient is awake and alert. No focal deficits. Psychiatric: Normal affect. Not anxious appearing. Course Administered Medications Heparin Sodium/Dextrose (Heparin Sodium/Dextrose) 25,000 units in 500 mls @ 17 mls/hr IV .Q24H [facility]; Protocol Stop: 09/17/20 20:44 Last Admin: 08/18/20 21:08 Dose: 850 units/hr, 17 mls/hr Documented by: [id number] Cosigned by: [id number] Discontinued Medications Heparin Sodium (Porcine) (Heparin Sod (Porcine) 1000 Unit/Ml 10 Ml Vial) Confirm Administered Dose 10,000 units .ROUTE .STK-MED ONE Stop: 08/18/20 21:06 Last Admin: 08/18/20 21:07 Dose: 3,000 units Documented by: [id number] Cosigned by: [id number] Heparin Sodium/Dextrose (Heparin Iv Low Dose With Bolus) 1 ea IV NOW STA; Protocol Stop: 08/18/20 20:44 Last Admin: 08/18/20 21:08 Dose: Not Given Documented by: [id number] Ioversol (Optiray 320 125ml) 119 ml IV ONCE ONE Stop: 08/18/20 19:40 Last Admin: 08/18/20 19:39 Dose: 119 ml Documented by: [id number] Critical Care Time Critical Care Time: Yes Total Critical Care Time: 40 I have personally spent approximately 40 minutes of critical care time in the direct management of this patient. This includes bedside care, interpretation of diagnostic studies, and testing, discussion with consultants, patient, and family members, and other required patient management activities. These minutes are in excess of all separately billable procedures. Medical Decision Making Differential Diagnosis Bronchitis, pneumonia, malignancy, pulmonary embolism, CHF Medical Records Attestation: I reviewed the patient's medical records. Patient was seen for cough August 10 by her PCP. She had a negative Doppler ultrasound of the left leg July 31. Home Medications Current Medication List: was personally reviewed by me Laboratory Data Attestation: I reviewed the patient's lab results. Result diagrams: 08/18/20 18:15 08/18/20 18:15 Lab Results 08/18/20 08/18/20 08/18/20 Range/Units 18:15 18:15 18:15 WBC 2.72 L (4.8-10.8) K/uL RBC 4.07 L (4.2-5.4) M/uL Hgb 11.1 L (12.0-16.0) g/dL Hct 34.8 L (37-47) % MCV 85.5 (80-100) fL MCH 27.3 (25-34) pg MCHC 31.9 L (32-36) g/dL RDW Std Deviation 52.6 H (36.4-46.3) fL RDW Coeff of Flower 16.7 H (11.5-14.5) % Plt Count 80 L (130-400) K/uL MPV 9.7 (7.4-10.4) fL Immature Gran % (Auto) 0.0 % Neut % (Auto) 69.1 % Lymph % (Auto) 18.0 % [place] % (Auto) 10.7 % Eos % (Auto) 1.8 % Baso % (Auto) 0.4 % Neut # (Auto) 1.88 (1.4-6.5) K/uL Lymph # (Auto) 0.49 L (1.2-3.4) K/uL [place] # (Auto) 0.29 (0.11-0.59) K/uL Eos # (Auto) 0.05 (0-0.5) K/uL Baso # (Auto) 0.01 (0-0.2) K/uL Immature Gran # (Auto) 0.00 (0.00-0.02) K/uL Absolute Nucleated RBC 0.02 H (0-0) K/uL Nucleated RBC % (auto) 0.7 % PT 14.2 H (9.0-12.0) Seconds INR 1.4 H (0.9-1.1) APTT 28.9 (21.0-31.0) Seconds PTT Ratio 1.0 Sodium 140 (136-145) mmol/L Potassium 3.1 L (3.5-5.1) mmol/L Chloride 101 (98-107) mmol/L Carbon Dioxide 30 (21-32) mmol/L Anion Gap 9.0 (3-11) BUN 15 (7-18) mg/dl Creatinine 1.32 H (0.6-1.2) mg/dl Est Cr Clr Drug Dosing 43.4 ml/min Est GFR ( Amer) 46.3 Est GFR (Non-Af Amer) 39.9 BUN/Creatinine Ratio 11.2 (10-20) Glucose 95 (70-99) mg/dl Calcium 8.2 L (8.5-10.1) mg/dl Total Bilirubin 2.3 H (0.2-1) mg/dl AST 35 (15-37) U/L ALT 22 (12-78) U/L Alkaline Phosphatase 106 (45-117) U/L Troponin I < 0.015 (0-0.045) ng/ml Total Protein 6.6 (6.4-8.2) gm/dl Albumin 2.4 L (3.4-5.0) gm/dl Globulin 4.2 H (2.5-4.0) gm/dl Albumin/Globulin Ratio 0.6 L (0.9-2) Imaging Data Radiologist's Impression: ABDOMEN AND PELVIS CT WITH IV CONTRAST CT DOSE: HISTORY: upper abd pain TECHNIQUE: Multiaxial CT images of the abdomen and pelvis were performed following the use of intravenous contrast. A dose lowering technique was utilized adhering to the principles of ALARA. COMPARISON STUDY: Abdomen and pelvis CT 07/23/2020. FINDINGS: Please refer to the same day abdomen and pelvis CT for further evaluation of the lung bases. No pneumoperitoneum. No pneumatosis. No suspicious lytic or blastic osseous lesions. Mild to moderate body wall edema which has progressed. Small duodenal diverticulum. Cholecystectomy. Atrophic and cirrhotic liver with splenomegaly. This is similar to the prior study. Nonocclusive thrombus seen within the portal and splenic veins. This is new compared to the prior study. Multiple small abdominal varicosities are again noted. Moderate calcified plaque within the normal caliber thoracic aorta. The IVC appears patent. The bladder is unremarkable. The uterus is surgically absent. Small to moderate amount of ascites which has slightly progressed. Colonic diverticulosis. No evidence for acute diverticulitis. No bowel wall thickening or obstruction. Normal appendix. Questionable thickened loops of small bowel is likely due to a combination of underdistention and the patient's diffuse edematous state. These are similar to the prior study. The kidneys enhance normally. There is contrast within the bilateral renal collecting systems and ureters. Normal pancreas and left adrenal gland. Stable right adrenal gland nodule which favors a benign adenoma. IMPRESSION: 1. Nonocclusive thrombus within the portal and splenic vein which is new compared to the prior study. 2. Cirrhosis, splenomegaly, body wall edema, and ascites is again noted. 3. No definite bowel wall thickening or obstruction. 4. Normal appendix. ACT 112: Negative or not required by law. Electronically signed by: Avinash Lynn M.D. 08/18/2020 8:17 PM CHEST CTA for PULMONARY ARTERIES CT DOSE: 1643.40 mGy.cm HISTORY: dyspnea eval for PE TECHNIQUE: Multiaxial CT images of the chest were performed following the intravenous administration of contrast to evaluate the pulmonary arteries. Maximal intensity projection images were also obtained. A dose lowering technique was utilized adhering to the principles of ALARA. COMPARISON STUDY: Chest CTA 04/19/2020. FINDINGS: Normal caliber thoracic aorta with no evidence for dissection. The heart is normal in size. Postoperative changes are noted within the right lateral breast. No axillary lymphadenopathy. Normal caliber thoracic aorta. Small hiatus hernia. Right lower lobe segmental and subsegmental pulmonary emboli. No evidence for right-sided heart strain. Prominent bilateral hilar lymph nodes. These remain unchanged. There is a single mildly enlarged distal right paraesophageal lymph node. This is decreased in size in the interval. No suspicious lytic or blastic osseous lesions. No pneumothorax. Opacified right upper lobe bronchi, unchanged. Linear density at the right lung apex also remains unchanged. Mosaic attenuation within the lungs consistent with air trapping. Innumerable small bilateral pulmonary nodules are again noted measuring up to 8 mm. These remain unchanged. Consolidation within the superior segment of the right lower lobe has resolved. A few bibasilar linear densities are noted. Tiny subpleural nodules noted within the lung bases abutting the pleura are also not significantly changed. Please refer to the same day abdomen and pelvis CT for further evaluation of the abdominal structures. IMPRESSION: 1. Right lower lobe pulmonary emboli. 2. Mild bilateral hilar lymphadenopathy, unchanged. 3. Opacified right upper lobe bronchi, unchanged. 4. Innumerable small bilateral pulmonary nodules are again noted. The long-term stability favors a benign process and could be seen in the setting of sarcoidosis or chronic granulomatous disease. 5. Interval postoperative changes within the right breast. ACT 112: Negative or not required by law. Electronically signed by: Avinash Lynn M.D. 08/18/2020 8:09 PM ECG Data Attestation: I personally reviewed and interpreted this ECG as follows: Indication: + SOB/dyspnea Rate (beats per minute): 100 Rhythm: + normal sinus ECG Intervals/blocks: + Incomplete right bundle branch block ECG ST segments: no ST elevation ECG Findings: no PVCs Comparison ECG Date: from (Apr 16 2020) Change: no significant change Blood Pressure Blood Pressure Findings: Elevated blood pressure Blood Pressure Disposition: Referred to patients primary care provider [facility] Narrative I did evaluate the patient as noted above. The patient is presenting with a cough productive of brown and blackish sputum. I was concerned this may be hemoptysis. Given her mild tachycardia and history of neoplasm I was concerned about pulmonary embolism. IV access was established. I did place an order for continuous cardiac monitoring. The monitor showed normal sinus rhythm and mild sinus tachycardia. Rate is between 98-1 05. I did order and personally review the patient's 12-lead EKG as described above. She has normal sinus rhythm with an incomplete right bundle branch block. No change from prior EKG. I did order and review the patient's blood work as noted in the electronic medical record. She has chronic pancytopenia with a platelet count of 80. She also has hypokalemia and an elevated creatinine of 1.3. I did order a CT angiogram of the chest, abdomen and pelvis. I did review the images myself as well as the radiology report as described above. She does have multiple pulmonary emboli on the right side. She also has nonocclusive thrombosis in the splenic and portal veins. I did discuss the test results with the patient. I did discuss case with Dr. Ahuja who recommended starting heparin at a low dose with bolus.. I did discuss risks and benefits of IV heparin with the patient. She is agreeable with treatment and I did start her on a continuous IV heparin drip with a low-dose bolus. Impression & Plan Pulmonary emboli, Pancytopenia, Hypokalemia, Portal vein thrombosis, Splenic vein thrombosis Discharge Plan Visit Data Chief Complaint: Cough Stated Complaint: DRY COUGH ED Provider: Ezequiel Jesus Discharge Problem: Pulmonary emboli, Pancytopenia, Hypokalemia, Portal vein thrombosis, Splenic vein thrombosis Patient Disposition: Being Evaluated by Hospitalist Forms Stand Alone Forms: My [facility] Prescriptions Prescriptions: No Action loratadine [Claritin] 10 mg tablet 10 mg PO DAILY RF: 0 albuterol sulfate 2.5 mg /3 mL (0.083 %) solution for nebulization 2.5 mg INH BID PRN (Reason: shortness of breath or wheezing) Qty: 90 RF: 3 lorazepam 0.5 mg tablet 0.5 mg PO BID PRN (Reason: anxiety) Qty: 30 RF: 0 potassium chloride 10 mEq tablet extended release 10 meq PO BID Qty: 180 RF: 0 bumetanide 1 mg tablet 1 mg PO DAILY Qty: 90 RF: 3 metoprolol tartrate 25 mg tablet 25 mg PO BID Qty: 180 RF: 3 pramipexole 0.25 mg tablet 0.25 mg PO DAILY Qty: 90 RF: 3 omeprazole 20 mg capsule,delayed release(DR/EC) 20 mg PO DAILY Qty: 90 RF: 3 pravastatin 20 mg tablet 20 mg PO HS RF: 0 spironolactone 25 mg tablet 25 mg PO BID RF: 0 fluticasone propion-salmeterol [Wixela Inhub] 250-50 mcg/dose blister with device 1 inh INHALATION BID RF: 0 Referrals Referrals: Kvng Pereira III, MD [Primary Care Provider] -
[2020-08-18 18:26] LABS: Hematocrit (blood only) 34.8 % (37-47); Hemoglobin 11.1 g/dL (12.0-16.0); Mean Corpuscular Hemoglobin 27.3 pg (25-34); Mean Corpuscular Hgb Conc 31.9 g/dL (32-36); Mean Corpuscular Volume 85.5 fL (80-100); Nucleated RBC # (auto) 0.02 K/uL (0-0); Nucleated RBC % (auto) 0.7 %; RDW Coefficient of Variation 16.7 % (11.5-14.5); RDW Standard Deviation 52.6 fL (36.4-46.3); Red Blood Count 4.07 M/uL (4.2-5.4); White Blood Count 2.72 K/uL (4.8-10.8)
[2020-08-18 18:29] LABS: Mean Platelet Volume 9.7 fL (7.4-10.4); Platelet Count 80 K/uL (130-400)
[2020-08-18 18:36] LABS: INR 1.4 (0.9-1.1); Partial Thromboplastin Time 28.9 Seconds (21.0-31.0); Prothrombin Time 14.2 Seconds (9.0-12.0)
[2020-08-18 18:42] LABS: Alanine Aminotransferase 22 U/L (12-78); Albumin Level 2.4 gm/dl (3.4-5.0); Aspartate Aminotransferase 35 U/L (15-37); BUN Creatinine Ratio 11.2 (10-20); Blood Urea Nitrogen 15 mg/dl (7-18); Calcium 8.2 mg/dl (8.5-10.1); Carbon Dioxide 30 mmol/L (21-32); Chloride 101 mmol/L (98-107); Creatinine Clr Calc Pharmacy 43.4 ml/min; Est GFR (African American) 46.3; Est GFR (Non-African American) 39.9; Glucose 95 mg/dl (70-99); Potassium 3.1 mmol/L (3.5-5.1); Sodium 140 mmol/L (136-145)
[2020-08-18 18:47] LABS: Albumin Globulin Ratio 0.6 (0.9-2); Alkaline Phosphatase 106 U/L (45-117); Bilirubin,Total 2.3 mg/dl (0.2-1); Globulin 4.2 gm/dl (2.5-4.0); Total Protein 6.6 gm/dl (6.4-8.2); Troponin I < 0.015 ng/ml (0-0.045)
[2020-08-18 18:49] LABS: Basophils # (auto) 0.01 K/uL (0-0.2); Basophils % (auto) 0.4 %; Eosinophils # (auto) 0.05 K/uL (0-0.5); Eosinophils % (auto) 1.8 %; Lymphocytes # (auto) 0.49 K/uL (1.2-3.4); Monocytes # (auto) 0.29 K/uL (0.11-0.59); Monocytes % (auto) 10.7 %; Neutrophils # (auto) 1.88 K/uL (1.4-6.5); Neutrophils % (auto) 69.1 %
[2020-08-18] MEDS ORDERED: OPTIRAY 320 125ml IV ONE (19:39)
--- NOTE | 2020-08-18 20:10 | CT Scan Report ---
CHEST CTA for PULMONARY ARTERIES CT DOSE: 1643.40 mGy.cm HISTORY: dyspnea eval for PE TECHNIQUE: Multiaxial CT images of the chest were performed following the intravenous administration of contrast to evaluate the pulmonary arteries. Maximal intensity projection images were also obtaine d. A dose lowering technique was utilized adhering to the principles of ALARA. COMPARISON STUDY: Chest CTA 04/19/2020. FINDINGS: Normal caliber thoracic aorta with no evidence for dissection. The heart is normal in size. Postoperative changes are noted within the right lateral breast. No axillary lymphadenopathy. Normal caliber thoracic aorta. Small hiatus hernia. Right lower lobe segmental and subsegmental pulmonary e mboli. No evidence for right-sided heart strain. Prominent bilateral hilar lymph nodes. These remain unchanged. There is a single mildly enlarged distal right paraesophageal lymph node. This is decrease d in size in the interval. No suspicious lytic or blastic osseous lesions. No pneumothorax. Opacified right upper lobe bronchi, unchanged. Linear density at the right lung apex also remains unchanged. M osaic attenuation within the lungs consistent with air trapping. Innumerable small bilateral pulmonar y nodules are again noted measuring up to 8 mm. These remain unchanged. Consolidation within the supe rior segment of the right lower lobe has resolved. A few bibasilar linear densities are noted. Tiny s ubpleural nodules noted within the lung bases abutting the pleura are also not significantly changed. Please refer to the same day abdomen and pelvis CT for further evaluation of the abdominal structure s. IMPRESSION: 1. Right lower lobe pulmonary emboli. 2. Mild bilateral hilar lymphadenopathy, unchanged. 3. Opacified right upper lobe bronchi, unchanged. 4. Innumerable small bilateral pulmonary nodules are again noted. The long-term stability favors a be nign process and could be seen in the setting of sarcoidosis or chronic granulomatous disease. 5. Interval postoperative changes within the right breast. ACT 112: Negative or not required by law. Electronically signed by: Avinash Lynn M.D. 08/18/2020 8:09 PM
--- NOTE | 2020-08-18 20:18 | CT Scan Report ---
ABDOMEN AND PELVIS CT WITH IV CONTRAST CT DOSE: HISTORY: upper abd pain TECHNIQUE: Multiaxial CT images of the abdomen and pelvis were performed following the use of intrave nous contrast. A dose lowering technique was utilized adhering to the principles of ALARA. COMPARISON STUDY: Abdomen and pelvis CT 07/23/2020. FINDINGS: Please refer to the same day abdomen and pelvis CT for further evaluation of the lung bases . No pneumoperitoneum. No pneumatosis. No suspicious lytic or blastic osseous lesions. Mild to modera te body wall edema which has progressed. Small duodenal diverticulum. Cholecystectomy. Atrophic and c irrhotic liver with splenomegaly. This is similar to the prior study. Nonocclusive thrombus seen with in the portal and splenic veins. This is new compared to the prior study. Multiple small abdominal va ricosities are again noted. Moderate calcified plaque within the normal caliber thoracic aorta. The I VC appears patent. The bladder is unremarkable. The uterus is surgically absent. Small to moderate am ount of ascites which has slightly progressed. Colonic diverticulosis. No evidence for acute divertic ulitis. No bowel wall thickening or obstruction. Normal appendix. Questionable thickened loops of sma ll bowel is likely due to a combination of underdistention and the patient's diffuse edematous state. These are similar to the prior study. The kidneys enhance normally. There is contrast within the savanah ateral renal collecting systems and ureters. Normal pancreas and left adrenal gland. Stable right adr enal gland nodule which favors a benign adenoma. IMPRESSION: 1. Nonocclusive thrombus within the portal and splenic vein which is new compared to the prior study. 2. Cirrhosis, splenomegaly, body wall edema, and ascites is again noted. 3. No definite bowel wall thickening or obstruction. 4. Normal appendix. ACT 112: Negative or not required by law. Electronically signed by: Avinash Lynn M.D. 08/18/2020 8:17 PM
[2020-08-18] MEDS ORDERED: Heparin IV Low Dose WITH Bolus IV STA (20:43)
[2020-08-18] MEDS ORDERED: HEPARIN SODIUM/DEXTROSE 25,000 UNITS/500 ML BAG IV SCH ×2 (20:45→22:15)
[2020-08-18] MEDS ORDERED: HEPARIN SOD (PORCINE) 1000 UNIT/ML 10 ML VIAL ONE (21:05)
[2020-08-18] MEDS ORDERED: Heparin IV Low Dose *NO* Bolus ONE (22:11)
--- NOTE | 2020-08-18 22:24 | History & Physical Report ---
Date of Service August 18, 2020 Assessment & Plan (1) Pulmonary emboli: RLL pulmonary emboli/splenic vein thrombosis/portal vein thrombosis- New diagnoses since the CT of 07/23/2020. Placed on heparin drip per protocol. Follow thrombocytopenia closely while anticoagulated. Consult heme-onc Dr. Melton Present on Admission?: Yes (2) Cirrhosis: Cirrhosis/splenomegaly/splenic vein thrombosis/portal vein thr ombosis/portal hypertension/MOBLEY/ascites- Starting anticoagulation as noted above. Consult gastroenterology Continue Bumex, spironolactone. Present on Admission?: Yes (3) Splenic vein thrombosis: See above Present on Admission?: Yes (4) Portal vein thrombosis: See above Present on Admission?: Yes (5) MOBLEY (nonalcoholic steatohepatitis): See above Present on Admission?: Yes (6) Hypertension: See above Present on Admission?: Yes (7) Splenomegaly: See above Present on Admission?: Yes (8) Hyperlipidemia: Continue pravastatin Present on Admission?: Yes (9) Hypokalemia: We will supplement and retest in a.m. Present on Admission?: Yes (10) Pulmonary nodules/lesions, multiple: Radiology interpretation suggest chronic granulomatous disease or sarcoidosis since they have been stable over time. Question whether metastases may be present as well. Present on Admission?: Yes History of Present Illness Chief Complaint: The patient presents to the emergency department with a dry cough, nausea without vomiting, and shortness of breath Primary Care Provider: Kvng Pereira MD The patient is a 75-year-old female with a past medical history including pancytopenia, MOBLEY, hypertension, hyperlipidemia, ambulatory dysfunction, aortic stenosis, restless leg syndrome, GERD, anxiety, allergic rhinitis, CHF, and ductal carcinoma of breast on radiation therapy. She reports that she had a cough for the past 3 weeks, and had been advised by her PCP to take Claritin, which has not helped at this time. She reports that she was initially coughing up clear phlegm, but more recently had noted some occasional brownish-black sputum. Cough initially began shortly after she began radiation therapy for breast cancer. She also complains of abdominal discomfort when she coughs. Presents on chronic lower extremity edema, which she reports has been worsening over the past month. At ED visit on 07/23/2020, patient had a CT of abdomen the pelvis performed, which showed cirrhosis with manifestations of portal hypertension including small to moderate ascites, splenomegaly and varices formation. CT of abdomen and pelvis today again notes cirrhosis, splenomegaly, body wall edema and ascites, but today also notes nonocclusive thrombus within the portal and splenic vein which is new compared to previous study. CTA PE protocol today shows new right lower lobe pulmonary emboli. There is unchanged mild bilateral hilar lymphadenopathy, opacified right upper lobe bronchi, and innumerable small bilateral pulmonary nodules noted. The pulmonary nodules are suggested to be benign, and considerations include sarcoidosis or chronic granulomatous disease Allergies Allergy/AdvReac Type Severity Reaction Status Date / Time naproxen Allergy Intermediate Hives Verified 08/18/20 19:59 adhesive AdvReac Mild SKIN Verified 08/18/20 19:59 IRRITATION ciprofloxacin AdvReac Mild Nausea Verified 08/18/20 19:59 Home Medications Home Medications Medication Instructions Recorded Confirmed Type bumetanide 1 mg tablet 1 mg PO DAILY #90 tab 01/05/20 08/18/20 Rx metoprolol tartrate 25 mg tablet 25 mg PO BID #180 tab 01/05/20 08/18/20 Rx omeprazole 20 mg capsule,delayed 20 mg PO DAILY #90 cap 01/05/20 08/18/20 Rx release pramipexole 0.25 mg tablet 0.25 mg PO DAILY #90 tab 01/05/20 08/18/20 Rx albuterol sulfate 2.5 mg INH BID PRN #90 ml 01/20/20 08/18/20 Rx fluticasone propion-salmeterol 1 inh INHALATION BID 04/16/20 08/18/20 History [[facility] In[facility]] lorazepam 0.5 mg tablet 0.5 mg PO BID PRN #30 tab 05/30/20 08/18/20 Rx pravastatin 20 mg tablet 20 mg PO HS 05/30/20 08/18/20 History spironolactone 25 mg tablet 25 mg PO BID 05/30/20 08/18/20 History potassium chloride 10 mEq 10 meq PO BID #180 tab 08/09/20 08/18/20 Rx tablet,extended release loratadine 10 mg tablet 10 mg PO DAILY 08/14/20 08/18/20 History Past Med/Surg History Medical History Anemia Anxiety Anxiety Aortic stenosis Moderate per 03/2020 echo Asthma USED INHALER YESTERDAY Cardiac murmur Moderate Chronic idiopathic thrombocytopenia Chronic kidney disease, stage III (moderate) Chronic leukopenia Chronic liver disease GERD (gastroesophageal reflux disease) Gout Hyperlipidemia Hypertension Multiple pulmonary nodules Neurologic gait dysfunction Non-alcoholic cirrhosis Obesity Osteoarthritis Osteoporosis Pancytopenia Peripheral neuropathy Restless leg syndrome Secondary hyperparathyroidism Spinal stenosis Surgical History History of breast biopsy + CANCER History of delivery X 1 History of cholecystectomy History of dilatation and curettage History of hysterectomy History of surgery CYST REMOVED LEFT WRIST History of tooth extraction Family History Grandmother (Maternal) , Passed age 66 of Stomach Cancer No problems noted. Grandfather (Maternal) , Passed in 70's of Stomach Cancer No problems noted. Mother , Passed age 76 of Alzheimer's Disease Complications Family history of diabetes mellitus Father , Passed in 90's of Alzheimer's Disease Complications No problems noted. Daughter No problems noted. Son No problems noted. Son No problems noted. Social History Smoking Status: Never smoker Second Hand Exposure: No; Hx Alcohol Use: No Hx Substance Use: No Preferred Language: [place] Communication Ability: Effective Visual Impairment: Limited Hearing Ability: Normal Training Facilitator Required: No Beliefs That Will Affect Care: None marital status: Current Living Situation: Spouse current occupational status: retired current occupation: Retired Caregiver Other Information That Helps Us Care for You: No Feels Safe at Home: Yes Safety Concerns: Feels Safe At This Time Childhood Exposure to Second-Hand Smoke: Yes (Father ) caffeine: Yes (2 cups of coffee/day ) during the past year weight has: increased > 10 lbs Dental Care, Regularly: No Review of Systems Review of Systems: The patient denies chest palpitations, sore throat, fevers, chills, sweats, vomiting, diarrhea , constipation, abdominal pain, pelvic pain, blood in urine or stool, dysuria, urinary frequency or urgency, lightheadedness, dizziness, headache, memory loss, loss of consciousness, rash, abnormal bruising or bleeding, focal eakness, numbness or tingling in arms or legs, generalized arthralgias or myalgias, back or neck pain, or night sweats. The review of systems is otherwise negative other than for that already noted above, and at least 10 systems have been reviewed. Physical Exam Physical Exam: The patient is awake, alert and oriented 3, normocephalic and atraumatic, lying in bed and in no acute distress. HEENT--PERRL, EOMI, mucous membranes and oropharynx dry. Neck--supple. No JVD. No bruits. Thyroid normal, trachea midline, no adenopathy. Heart--normal S1 and S2. No murmurs, rubs or gallops. Lungs--clear bilaterally, no respiratory distress, no accessory muscle use. Abdomen--normal bowel sounds and soft. Nontender. Nondistended. Extremities--no cyanosis or clubbing. 2+ bilateral pretibial pitting edema. Dermatologic--normal skin turgor, normal color, no abnormal lymph nodes, no rash. Neurologic--cranial nerves II through XII grossly intact. Rheumatologic--limited exam Psychiatric--normal affect. Results & Data Results & Data ([facility]) Vital Signs (Past 12 Hours) Vital Signs Temp Pulse Resp BP Pulse Ox 08/18/20 21:10 99 H 17 100 08/18/20 21:01 101 H 17 98 08/18/20 21:00 98 H 18 120/64 97 08/18/20 20:50 101 H 16 100 08/18/20 20:40 101 H 18 99 08/18/20 20:30 98 H 15 134/64 98 08/18/20 20:10 100 H 16 98 08/18/20 20:01 99 H 18 98 08/18/20 20:00 100 H 17 129/70 97 08/18/20 19:51 101 H 16 08/18/20 19:31 100 H 19 99 08/18/20 19:30 101 H 20 124/70 100 08/18/20 19:20 100 H 23 96 08/18/20 19:00 100 H 18 128/74 96 08/18/20 18:41 157/89 H 95 08/18/20 18:30 100 H 20 08/18/20 18:20 101 H 18 08/18/20 18:15 102 H 20 08/18/20 17:23 97.5 F L 115 H 20 168/82 H 97 Laboratory Results Laboratory Results WBC 1.43 K/uL (4.8-10.8) L 08/19/20 03:14 RBC 3.45 M/uL (4.2-5.4) L 08/19/20 03:14 Hgb 9.4 g/dL (12.0-16.0) L 08/19/20 03:14 Hct 29.8 % (37-47) L 08/19/20 03:14 MCV 86.4 fL (80-100) 08/19/20 03:14 MCH 27.2 pg (25-34) 08/19/20 03:14 MCHC 31.5 g/dL (32-36) L 08/19/20 03:14 RDW Std Deviation 53.3 fL (36.4-46.3) H 08/19/20 03:14 RDW Coeff of Flower 16.8 % (11.5-14.5) H 08/19/20 03:14 Plt Count 52 K/uL (130-400) L 08/19/20 03:14 MPV 9.7 fL (7.4-10.4) 08/19/20 03:14 Immature Gran % (Auto) 0.0 % 08/19/20 03:14 Neut % (Auto) 51.0 % 08/19/20 03:14 Lymph % (Auto) 32.2 % 08/19/20 03:14 Coffee % (Auto) 14.7 % 08/19/20 03:14 Eos % (Auto) 2.1 % 08/19/20 03:14 Baso % (Auto) 0.0 % 08/19/20 03:14 Neut # (Auto) 0.73 K/uL (1.4-6.5) L* 08/19/20 03:14 Lymph # (Auto) 0.46 K/uL (1.2-3.4) L 08/19/20 03:14 Coffee # (Auto) 0.21 K/uL (0.11-0.59) 08/19/20 03:14 Eos # (Auto) 0.03 K/uL (0-0.5) 08/19/20 03:14 Baso # (Auto) 0.00 K/uL (0-0.2) 08/19/20 03:14 Immature Gran # (Auto) 0.00 K/uL (0.00-0.02) 08/19/20 03:14 Absolute Nucleated RBC 0.02 K/uL (0-0) H 08/18/20 18:15 Nucleated RBC % (auto) 0.7 % 08/18/20 18:15 PT 14.2 Seconds (9.0-12.0) H 08/18/20 18:15 INR 1.4 (0.9-1.1) H 08/18/20 18:15 APTT 101.1 Seconds (21.0-31.0) H* 08/19/20 03:14 PTT Ratio 3.6 08/19/20 03:14 Sodium 140 mmol/L (136-145) 08/19/20 03:14 Potassium 3.2 mmol/L (3.5-5.1) L 08/19/20 03:14 Chloride 103 mmol/L (98-107) 08/19/20 03:14 Carbon Dioxide 33 mmol/L (21-32) H 08/19/20 03:14 Anion Gap 4.0 (3-11) 08/19/20 03:14 BUN 14 mg/dl (7-18) 08/19/20 03:14 Creatinine 1.18 mg/dl (0.6-1.2) 08/19/20 03:14 Est Cr Clr Drug Dosing 48.5 ml/min 08/19/20 03:14 Est GFR ( Amer) 53.0 08/19/20 03:14 Est GFR (Non-Af Amer) 45.7 08/19/20 03:14 BUN/Creatinine Ratio 12.0 (10-20) 08/19/20 03:14 Glucose 95 mg/dl (70-99) 08/19/20 03:14 Calcium 7.5 mg/dl (8.5-10.1) L 08/19/20 03:14 Magnesium 1.8 mg/dl (1.8-2.4) 08/19/20 03:14 Total Bilirubin 2.0 mg/dl (0.2-1) H 08/19/20 03:14 AST 25 U/L (15-37) 08/19/20 03:14 ALT 19 U/L (12-78) 08/19/20 03:14 Alkaline Phosphatase 70 U/L (45-117) 08/19/20 03:14 Troponin I < 0.015 ng/ml (0-0.045) 08/19/20 03:14 Total Protein 5.2 gm/dl (6.4-8.2) L D 08/19/20 03:14 Albumin 1.9 gm/dl (3.4-5.0) L 08/19/20 03:14 Globulin 3.3 gm/dl (2.5-4.0) 08/19/20 03:14 Albumin/Globulin Ratio 0.6 (0.9-2) L 08/19/20 03:14 Diagnostic Findings [place], [place] [phone] CT Scan Report Patient: ANNE STILES AAdmit Date: 08/18/20 MR#: [id number]: [address] [facility] Acct ID:[id number]: Date: 1945[facility] Zip: [place] [address] Age: 75Location: ED Sex: FRoom/Bed: Att Phy:Diagnosis: DRY COUGH Natalie Phy: Kvng Pereira III, MDService Date: 08/18/20 Fam Phy: Kvng Pereira III, MDInterpreting Phy: Avinash Lynn MD Admit Phy: Ordering Phy: Ezequiel Jesus MD cc: ~ CHEST CTA for PULMONARY ARTERIES CT DOSE: 1643.40 mGy.cm HISTORY: dyspnea eval for PE TECHNIQUE: Multiaxial CT images of the chest were performed following the intravenous administration of contrast to evaluate the pulmonary arteries. Maximal intensity projection images were also obtained. A dose lowering technique was utilized adhering to the principles of ALARA. COMPARISON STUDY: Chest CTA 04/19/2020. FINDINGS: Normal caliber thoracic aorta with no evidence for dissection. The he art is normal in size. Postoperative changes are noted within the right lateral breast. No axillary lymphadenopathy. Normal caliber thoracic aorta. Small hiatus hernia. Right lower lobe segmental and subsegmental pulmonary emboli. No evidence for right-sided heart strain. Prominent bilateral hilar lymph nodes. These remain unchanged. There is a single mildly enlarged distal right paraesophageal lymph node. This is decreased in size in the interval. No suspicious lytic or blastic osseous lesions. No pneumothorax. Opacified right upper lobe bronchi, unchanged. Linear density at the right lung apex also remains unchanged. Mosaic attenuation within the lungs consistent with air trapping. Innumerable small bilateral pulmonary nodules are again noted measuring up to 8 mm. These remain unchanged. Consolidation within the superior segment of the right lower lobe has resolved. A few bibasilar linear densities are noted. Tiny subpleural nodules noted within the lung bases abutting the pleura are also not significantly changed. Please refer to the same day abdomen and pelvis CT for further evaluation of the abdominal structures. IMPRESSION: 1. Right lower lobe pulmonary emboli. 2. Mild bilateral hilar lymphadenopathy, unchanged. 3. Opacified right upper lobe bronchi, unchanged. 4. Innumerable small bilateral pulmonary nodules are again noted. The long-term stability favors a benign process and could be seen in the setting of sarcoidosis or chronic granulomatous disease. 5. Interval postoperative changes within the right breast. ACT 112: Negative or not required by law. Electronically signed by: Avinash Lynn M.D. 08/18/2020 8:09 PM Dictated: 08/18/202001 Transcribed: 08/18/202001 [place], [place] [phone] CT Scan Report Patient: ANNE STILES AAdmit Date: 08/18/20 MR#: [id number]: [address] [facility] Acct ID:[id number]: Date: 1945[facility] Zip: [place] [address] Age: 75Location: ED Sex: FRoom/Bed: Att Phy:Diagnosis: DRY COUGH Natalie Phy: Kvng Pereira III, SNOWervice Date: 08/18/20 Fam Phy: Kvng Pereira III, MDInterpreting Phy: Avinash Lynn MD Admit Phy: Ordering Phy: Ezequiel Jesus MD cc: ~ ABDOMEN AND PELVIS CT WITH IV CONTRAST CT DOSE: HISTORY: upper abd pain TECHNIQUE: Multiaxial CT images of the abdomen and pelvis were performed following the use of intravenous contrast. A dose lowering technique was utilized adhering to the principles of ALARA. COMPARISON STUDY: Abdomen and pelvis CT 07/23/2020. FINDINGS: Please refer to the same day abdomen and pelvis CT for further evaluation of the lung bases. No pneumoperitoneum. No pneumatosis. No suspicious lytic or blastic osseous lesions. Mild to moderate body wall edema which has progressed. Small duodenal diverticulum. Cholecystectomy. Atrophic and cirrhotic liver with splenomegaly. This is similar to the prior study. Nonocclusive thrombus seen within the portal and splenic veins. This is new compared to the prior study. Multiple small abdominal varicosities are again noted. Moderate calcified plaque within the normal caliber thoracic aorta. The IVC appears patent. The bladder is unremarkable. The uterus is surgically absent. Small to moderate amount of ascites which has slightly progressed. Colonic diverticulosis. No evidence for acute diverticulitis. No bowel wall thickening o r obstruction. Normal appendix. Questionable thickened loops of small bowel is likely due to a combination of underdistention and the patient's diffuse edematous state. These are similar to the prior study. The kidneys enhance normally. There is contrast within the bilateral renal collecting systems and ureters. Normal pancreas and left adrenal gland. Stable right adrenal gland nodule which favors a benign adenoma. IMPRESSION: 1. Nonocclusive thrombus within the portal and splenic vein which is new compared to the prior study. 2. Cirrhosis, splenomegaly, body wall edema, and ascites is again noted. 3. No definite bowel wall thickening or obstruction. 4. Normal appendix. ACT 112: Negative or not required by law. Electronically signed by: Avinash Lynn M.D. 08/18/2020 8:17 PM Dictated: 08/18/202008 Transcribed: 08/18/202008 Code Status & VTE Plan Code Status Full code VTE Prophylaxis Plan VTE Prophylaxis will be ordered: Yes PG Care Time/CCT Total # of Minutes Spent Total Time Spent with Patient: Total time spent is greater than 50% in coordination of care (as documented) at patient's floor/unit and/or counseling patient: Coding Level of Care Code 97488 Initial Inpt Care Lvl 3 Diagnoses Pulmonary emboli I26.99 Acute cor pulmonale presence: unspecified Chronicity: acute Pulmonary embolism type: other Cirrhosis K74.60 Splenic vein thrombosis I82.890 Portal vein thrombosis I81 MOBLEY (nonalcoholic steatohepatitis) K75.81 Hypertension I10 Hypertension type: essential hypertension Splenomegaly R16.1 Hyperlipidemia E78.5 Hyperlipidemia type: unspecified Hypokalemia E87.6 Pulmonary nodules/lesions, multiple R91.8 (1) Pulmonary emboli Acute cor pulmonale presence: unspecified Chronicity: acute Pulmonary embolism type: other Qualified Code(s): I26.99 - Other pulmonary embolism without acute cor pulmonale (2) Hypertension Hypertension type: essential hypertension Qualified Code(s): I10 - Essential (primary) hypertension (3) Hyperlipidemia Hyperlipidemia type: unspecified Qualified Code(s): E78.5 - Hyperlipidemia, unspecified
[2020-08-18] MEDS ORDERED: LORazepam 0.5 MG TAB PO PRN (23:35)
[2020-08-18] MEDS ORDERED: ACETAMINOPHEN 325 MG TAB PO PRN (23:35)
[2020-08-18] MEDS ORDERED: ALUMINUM/MAGNESIUM SUSP 30 ML UDC PO PRN (23:35)
[2020-08-18] MEDS ORDERED: ONDANSETRON INJ 2 MG/ML 2 ML VIAL IV PRN (23:35)
[2020-08-18] MEDS ORDERED: POTASSIUM CHLORIDE 10 MEQ TABCR PO SCH (23:35)
[2020-08-18] MEDS ORDERED: MAGNESIUM HYDROXIDE SUSP 30 ML UDC PO PRN (23:35)
[2020-08-19] MEDS: METOPROLOL TARTRATE 25 MG TAB PO SCH ×2 (00:54→08:15)
[2020-08-19] MEDS: SPIRONOLACTONE 25 MG TAB PO SCH ×2 (00:54→08:15)
[2020-08-19] MEDS: FLUTICASONE/VILANTEROL 100/25MCG 14 PUFFS/INHALER INH SCH ×2 (00:54→08:17)
[2020-08-19] MEDS: POTASSIUM CHLORIDE 20 MEQ/15 ML UDC PO SCH ×2 (01:33→08:21)
[2020-08-19 03:56] LABS: Hematocrit (blood only) 29.8 % (37-47); Hemoglobin 9.4 g/dL (12.0-16.0); Mean Corpuscular Hemoglobin 27.2 pg (25-34); Mean Corpuscular Hgb Conc 31.5 g/dL (32-36); Mean Corpuscular Volume 86.4 fL (80-100); RDW Coefficient of Variation 16.8 % (11.5-14.5); RDW Standard Deviation 53.3 fL (36.4-46.3); Red Blood Count 3.45 M/uL (4.2-5.4); White Blood Count 1.43 K/uL (4.8-10.8)
[2020-08-19 04:13] LABS: Partial Thromboplastin Ratio 3.6
[2020-08-19 04:21] LABS: Mean Platelet Volume 9.7 fL (7.4-10.4); Platelet Count 52 K/uL (130-400)
[2020-08-19 04:22] LABS: Alanine Aminotransferase 19 U/L (12-78); Albumin Level 1.9 gm/dl (3.4-5.0); Aspartate Aminotransferase 25 U/L (15-37); Blood Urea Nitrogen 14 mg/dl (7-18); Calcium 7.5 mg/dl (8.5-10.1); Carbon Dioxide 33 mmol/L (21-32); Chloride 103 mmol/L (98-107); Creatinine Clr Calc Pharmacy 48.5 ml/min; Est GFR (Non-African American) 45.7; Glucose 95 mg/dl (70-99); Magnesium 1.8 mg/dl (1.8-2.4); Potassium 3.2 mmol/L (3.5-5.1); Sodium 140 mmol/L (136-145)
[2020-08-19 04:38] LABS: Albumin Globulin Ratio 0.6 (0.9-2); Alkaline Phosphatase 70 U/L (45-117); Globulin 3.3 gm/dl (2.5-4.0); Total Protein 5.2 gm/dl (6.4-8.2); Troponin I < 0.015 ng/ml (0-0.045)
[2020-08-19 04:43] LABS: Eosinophils # (auto) 0.03 K/uL (0-0.5); Eosinophils % (auto) 2.1 %; Lymphocytes # (auto) 0.46 K/uL (1.2-3.4); Lymphocytes % (auto) 32.2 %; Monocytes # (auto) 0.21 K/uL (0.11-0.59); Monocytes % (auto) 14.7 %; Neutrophils # (auto) 0.73 K/uL (1.4-6.5); Partial Thromboplastin Time 101.1 Seconds (21.0-31.0)
--- NOTE | 2020-08-19 06:44 | Hospitalist Progress Note ---
Date of Service August 19, 2020 Assessment & Plan Admission and Anticipated Discharge Date Admission Date: August 18, 2020 Results & Data Results & Data ([facility]) Vital Signs (Past 12 Hours) Vital Signs Temp Pulse Pulse Resp BP BP Pulse Ox 08/19/20 04:06 36.4 C L 75 18 107/67 99 08/18/20 23:00 36.7 C 107 H 20 139/78 98 08/18/20 22:20 102 H 20 08/18/20 22:10 106 H 20 97 08/18/20 22:01 104 H 25 H 100 08/18/20 22:00 104 H 19 126/75 98 08/18/20 21:50 104 H 18 100 08/18/20 21:40 104 H 14 97 08/18/20 21:31 103 H 19 99 08/18/20 21:30 103 H 18 129/62 99 08/18/20 21:20 104 H 21 100 08/18/20 21:10 99 H 17 100 08/18/20 21:01 101 H 17 98 08/18/20 21:00 98 H 18 120/64 97 08/18/20 20:50 101 H 16 100 08/18/20 20:40 101 H 18 99 08/18/20 20:30 98 H 15 134/64 98 08/18/20 20:10 100 H 16 98 08/18/20 20:01 99 H 18 98 08/18/20 20:00 100 H 17 129/70 97 08/18/20 19:51 101 H 16 08/18/20 19:31 100 H 19 99 08/18/20 19:30 101 H 20 124/70 100 08/18/20 19:20 100 H 23 96 08/18/20 19:00 100 H 18 128/74 96
[2020-08-19] MEDS ORDERED: POTASSIUM CHLORIDE 20 MEQ TABCR PO STA (07:43)
[2020-08-19] MEDS ORDERED: POTASSIUM CHLORIDE 20 MEQ/15 ML UDC PO STA (08:32)
[2020-08-19] MEDS ORDERED: LORATADINE 10 MG TAB PO SCH (09:00)
[2020-08-19] MEDS ORDERED: PRAMIPEXOLE DIHYDROCHLO 0.25 MG TAB PO SCH (09:00)
[2020-08-19] MEDS ORDERED: BUMETANIDE 1 MG TAB PO SCH (09:00)
[2020-08-19] MEDS ORDERED: PANTOprazole 40 MG TAB PO SCH (09:00)
[2020-08-19] MEDS ORDERED: ENOXAPARIN 150 MG/ML SYR SQ SCH (09:00)
[2020-08-19 11:47] VITALS: BP 126/80; TEMP 98.1; O2SAT 98
[2020-08-19 13:14] VITALS: PULSE 75
--- NOTE | 2020-08-19 13:41 | Discharge Summary ---
Date of Service August 19, 2020 Admission HPI Per Admitting Provider The patient is a 75-year-old female with a past medical history including pancytopenia, MOBLEY, hypertension, hyperlipidemia, ambulatory dysfunction, aortic stenosis, restless leg syndrome, GERD, anxiety, allergic rhinitis, CHF, and ductal carcinoma of breast on radiation therapy. She reports that she had a cough for the past 3 weeks, and had been advised by her PCP to take Claritin, which has not helped at this time. She reports that she was initially coughing up clear phlegm, but more recently had noted some occasional brownish-black sputum. Cough initially began shortly after she began radiation therapy for breast cancer. She also complains of abdominal discomfort when she coughs. Presents on chronic lower extremity edema, which she reports has been worsening over the past month. At ED visit on 07/23/2020, patient had a CT of abdomen the pelvis performed, which showed cirrhosis with manifestations of portal hypertension including small to moderate ascites, splenomegaly and varices formation. CT of abdomen and pelvis today again notes cirrhosis, splenomegaly, body wall edema and ascites, but today also notes nonocclusive thrombus within the portal and splenic vein which is new compared to previous study. CTA PE protocol today shows new right lower lobe pulmonary emboli. There is unchanged mild bilateral hilar lymphadenopathy, opacified right upper lobe bronchi, and innumerable small bilateral pulmonary nodules noted. The pulmonary nodules are suggested to be benign, and considerations include sarcoidosis or chronic granulomatous disease Admission Exam Per Admitting Provider The patient is awake, alert and oriented 3, normocephalic and atraumatic, lying in bed and in no acute distress. HEENT--PERRL, EOMI, mucous membranes and oropharynx dry. Neck--supple. No JVD. No bruits. Thyroid normal, trachea midline, no adenopathy. Heart--normal S1 and S2. No murmurs, rubs or gallops. Lungs--clear bilaterally, no respiratory distress, no accessory muscle use. Abdomen--normal bowel sounds and soft. Nontender. Nondistended. Extremities--no cyanosis or clubbing. 2+ bilateral pretibial pitting edema. Dermatologic--normal skin turgor, normal color, no abnormal lymph nodes, no rash. Neurologic--cranial nerves II through XII grossly intact. Rheumatologic--limited exam Psychiatric--normal affect. Principal Diagnosis PE Discharge Exam Constitutional well developed and well nourished; no acute distress Respiratory normal respiratory effort; no respiratory distress and no cough Auscultation: + wheezes (minimal wheeze in LLL) Cardiovascular Rate/Rhythm: regular rate and regular rhythm Heart Sounds: no murmur Extremities: + edema (+2 to knees b/l ) Gastrointestinal (Abdomen) normal bowel sounds, soft, nontender, no hepatosplenomegaly Discharge Data Allergies Allergy/AdvReac Type Severity Reaction Status Date / Time naproxen Allergy Intermediate Hives Verified 08/18/20 19:59 adhesive AdvReac Mild SKIN Verified 08/18/20 19:59 IRRITATION ciprofloxacin AdvReac Mild Nausea Verified 08/18/20 19:59 Consultations 08/18/20 20:43 ED Decision to Admit Stat 08/18/20 23:35 Consult Case Management - Discharge Planning Routine 08/19/20 13:25 Consult [facility] ground school instructor Routine Ordered Studies 08/18/20 17:48 CT angio chest PE protocol Stat 08/18/20 19:47 CT abd pelvis IV con only Stat Hospital Course (1) Pulmonary emboli: The patient is a 75-year-old female with a past medical history including pancytopenia, MOBLEY, hypertension, hyperlipidemia, ambulatory dysfunction, aortic stenosis, restless leg syndrome, GERD, anxiety, allergic rhinitis, CHF, and ductal carcinoma of breast on radiation therapy that presented with 3 week history of worsening cough with yellow/brown sputum production. Pulmonary Emboli, Portal Vein Thrombosis, Splenic Vein Thrombosis -RLL PE and thrombi noted in portal and splenic veins on CTA, a new finding from previous CT on 07/23/20 -Initially started on Heparin gtt -Due to patients current cancer status and MOBLEY related liver cirrhosis, concern for use of DOAC only for treatment -Transitioned from Hep gtt to Lovenox 150mg QD, continue after discharge -Discussed with nurse navigator to set patient up with Anticoagulation clinic for further monitoring and management after discharge Liver Cirrhosis -MOBLEY -Continued Spironolactone -Continued Bumex Hypokalemia -Repleted with K-Elixer -Patient noted she was unable to take the pills -Discharged patient with K-elixer QD HLD -Continued Pravastatin Pulmonary Nodules on CT -?Chronic vs Mets -Suspect sarcoidosis vs chronic granulomatous disease HTN -Continued metoprolol Asthma -Continued Breo Ellipta (2) Portal vein thrombosis: (3) Splenic vein thrombosis: Total Time Total Time Spent Total Time Spent (In Minutes): <30 Discharge Plan Discharge Items Patient Disposition: Home - Self-Care Reason For Visit: PE, ANASARCA Discharge Diagnosis: Right Lung lower lobe Pulmonary Embolus, Thrombus in Portal and Splenic veins Activity: Per Instructions section Non-emergency contact: Primary Care Provider Call non-emergency contact if: you have any medication questions and your symptoms worsen Follow-up/Referrals: Kvng Pereira III, MD [Primary Care Provider] - Diet: Regular Addtl Attending Provider Instructions: Ms. Calabrese, It was a pleasure caring for you at [facility] from 08/18- 08/19/20 for your pulmonary embolus. Please see below for a summary of your care and future instructions. Pulmonary Emboli / Splenic Vein and Portal Vein Thrombosis -Blood clots were noted in your right lung, splenic vein, and portal vein on CT scan -You were placed on a heparin initially to help thin your blood -Your blood thinning medication was transition to Lovenox, which you will need to continue to take daily until your blood clots resolve -Please continuous pickling line pickler and continue to take your Lovenox as prescribed -Lovenox 150mg syringe, 1 injection subcutaneous daily -Due to the nature of your blood clots, we would also like you to follow up in our Anticoagulation Clinic, our nurse navigator has been contacted to assist you in getting an appointment. -Lastly, please follow up with your family doctor Dr. Pereira in the next 3-5 days Hypokalemia -Your potassium levels were noted to be low during your admission -You were given potassium for repletion. -You had noted that you were unable to swallow the pills and preferred the elixer -Potassium elixer has been prescribed to you, please pick this up at your pharmacy and take as prescribed. Post-nasal Drip -Discontinue Claritin -Recommend Flonase OTC as directed on the box Please continue all of your remaining home medications as prescribed. Pending Studies at Discharge: No Stand-Alone Forms: My [facility] [place], Smoking Cessation Medications and DC Order Prescriptions: New potassium chloride 20 mEq/15 mL Liquid 10 meq PO DAILY 30 Days Qty: 225 RF: 2 enoxaparin [Lovenox] 150 mg/mL Syringe 150 mg subcut Q24H Qty: 30 RF: 1 Continued albuterol sulfate 2.5 mg /3 mL (0.083 %) solution for nebulization 2.5 mg INH BID PRN (Reason: shortness of breath or wheezing) Qty: 90 RF: 3 lorazepam 0.5 mg tablet 0.5 mg PO BID PRN (Reason: anxiety) Qty: 30 RF: 0 potassium chloride 10 mEq tablet extended release 10 meq PO BID Qty: 180 RF: 0 bumetanide 1 mg tablet 1 mg PO DAILY Qty: 90 RF: 3 metoprolol tartrate 25 mg tablet 25 mg PO BID Qty: 180 RF: 3 pramipexole 0.25 mg tablet 0.25 mg PO DAILY Qty: 90 RF: 3 omeprazole 20 mg capsule,delayed release(DR/EC) 20 mg PO DAILY Qty: 90 RF: 3 pravastatin 20 mg tablet 20 mg PO HS RF: 0 spironolactone 25 mg tablet 25 mg PO BID RF: 0 fluticasone propion-salmeterol [Wixela Inhub] 250-50 mcg/dose blister with device 1 inh INHALATION BID RF: 0 Discontinued loratadine [Claritin] 10 mg tablet 10 mg PO DAILY RF: 0 Discharge Orders: Discharge Order (Routine); Ordered 08/19/20 Ordered By: Ezequiel Sanabria Admission Data Admit Date/Time: 08/18/20 22:09 Attending Provider: Shar Cardenas Admit Provider: Karlos Lee Primary Care Provider: Kvng Pereira III Other Providers: Karlos Lee Other Interventions: Discharge Summary Assessment (RN) Last Done: 08/19/20 13:09 Supervising Physician Co-Signing Physician Notes I personally examined the patient and verified all guzmán points of history and exam, discussed case, and agree with decision making with Dr Sanabria feeling better extensive discussion on situation w pt and and answered all questions to the best of my ability vitals noted nad heent nc at mmm breathing unlabored no accessory muscles good effort VTE/PE - cancer creating hypercoag state, cirrhossi slow flwo through liver -lovenox -stable for home -ongoing f/u heme/onc and PCP otherwise as above Resident Activity Tracking Resident Involvement: Resident Care Provided Care Provided: Adult Hospital Medicine
--- NOTE | 2020-08-19 16:58 | Electrocardiogram Report ---
Test Reason : Blood Pressure : / mmHG Vent. Rate : 100 BPM Atrial Rate : 100 BPM P-R Int : 154 ms QRS Dur : 116 ms QT Int : 386 ms P-R-T Axes : 043 064 036 degrees QTc Int : 497 ms Poor data quality, interpretation may be adversely affected Normal sinus rhythm Right bundle branch block Nonspecific ST and T wave abnormality Prolonged QT Abnormal ECG When compared with ECG of 16-APR-2020 18:09, No significant change was found Confirmed by Romero Quach ([id number]) on 08/19/2020 4:58:46 PM Referred By: REFERRED SELF Confirmed By:Wil Quach
[2020-08-19] MEDS ORDERED: PRAVASTATIN SOD 20 MG TAB PO SCH (21:00)
== END 2020-08-19 16:59 | disposition home or self-care (01) | DRG 175 ==
LOC: ED 17:11 → 2S 22:09 → SUATTDRO 22:09 → 2S 22:29

== ENCOUNTER 2020-09-13 01:32 | Inpatient (IN) ==
[2020-09-13 02:15] LABS: Basophils # (auto) 0.04 K/uL (0-0.2); Basophils % (auto) 0.8 %; Eosinophils # (auto) 0.14 K/uL (0-0.5); Eosinophils % (auto) 2.8 %; Hematocrit (blood only) 29.7 % (37-47); Hemoglobin 9.4 g/dL (12.0-16.0); Lymphocytes # (auto) 0.65 K/uL (1.2-3.4); Lymphocytes % (auto) 13.2 %; Mean Corpuscular Hemoglobin 26.9 pg (25-34); Mean Corpuscular Hgb Conc 31.6 g/dL (32-36); Mean Corpuscular Volume 85.1 fL (80-100); Mean Platelet Volume 9.5 fL (7.4-10.4); Monocytes # (auto) 0.47 K/uL (0.11-0.59); Monocytes % (auto) 9.5 %; Neutrophils # (auto) 3.64 K/uL (1.4-6.5); Neutrophils % (auto) 73.7 %; Platelet Count 107 K/uL (130-400); RDW Coefficient of Variation 16.7 % (11.5-14.5); RDW Standard Deviation 51.9 fL (36.4-46.3); Red Blood Count 3.49 M/uL (4.2-5.4); White Blood Count 4.94 K/uL (4.8-10.8)
--- NOTE | 2020-09-13 02:19 | Emergency Department Note ---
Impression & Plan Fluid overload, Hypoalbuminemia ED Provider Note Name: ANNE STILES Age: 75 Sex: F Arrives Via: Walk-In Informant: Patient ED Provider: South Vick MD Chief Complaint: Swelling Impression: Fluid overload Hypoalbuminemia Medical Decision Makin yr old female with history of MOBLEY Cirrhosis, PE, Breast cancer, aortic stenosis arrives for evaluation of worsening swelling. She is so edematous with fluid that she is to point where she can not ambulate nor lay flat. Mild hypotension noted thus no emergent lasix started, but stable thus did not given fluid bolus. Labs consistent with her liver failure and pancytopenic with low albumen. UA dirty though I suspect this is due to bili as no UTI symptoms will hold off on abx for now. Contacted hospitalist for further management. Prior Medical Record and Triage/Nursing Notes reviewed by Me Additional history obtained from chart Differentials:Infection, dehydration, metabolic abnormality, hypo/hyperglycemia, electrolyte disturbance, anemia, hypoxia, cardiac sources, intracerebral event, toxicologic, neurologic, as well as other pathologies. Vital Signs: reviewed and remarkable for no significant abnormalities Labs:Reviewed and remarkable for low albumen, pancytopenia Imaging:X ray results are stated below per my interpretation: Chest: 1 view: No infiltrate, no effusion, normal cardiac border. EKG:Per My Interpretation: Indication weakness: NSR 78 bpm, qtc 499 with RBBB. No Ectopy. No Ischemia. Compared to EKG 08/18/20, no significant changes. Cardiac/Tele Monitoring: Cardiac Monitoring: An Order was placed for continuous cardiac monitoring. The monitor shows a rate of 75 with a normal sinus rhythm. Consults:Dr Rosa AMAYA Hospitalist Plan: Disposition:Hospitalization. Condition: Fair Prescriptions:none PDMP: n/a History of Present Illness:75 yr old female arrives for evaluation of swelling. Patient notes history of MOBLEY with increasing swelling of legs and abdomen over the last week. She notes tonight she was unable to lay flat without becoming severely short of breath. Worse with exertion as well. Feels better with sitting up at an angle. She has associated drainage from both legs. He abdomin is hurting throughout, worse on left but not severe. She has had diarrhea for several weeks now. Denies cough, fevers, chills, nausea, vomiting, syncope, rashes, headache, neck pain, nor other symptoms. She has been taking her normal medications. History of PE and is on coumadin. History fluid overload on Spironolactone. Denies trauma/injury. States she can no longer even walk at home with these symptoms. ROS: See above HPI for pertinent positives & negatives. A total of 10 systems reviewed and were otherwise negative. Past Medical History:PE, MOBLEY, HTN, DLP, Breast CA, Aortic Stenosis, Portal Vein Thrombosis, asthma, anxiety, gerd, gout, pancytopenia, osteoporosis Past Surgical History:breast surgery, hysterectomy, c section, chol ecystectomy Family History:Stomach CA and DMII in multiple Social History:Lives with , no smoking, no alcohol, retired Home Medications:See Below Allergies:naproxen, adhesive, cipro Vitals:Blood Pressure: 113/56, Pulse 77, RR 20, T 37.1C, O2 98% on RA Physical Exam: GENERAL: Patient is unwell appearing and in mild distress. EYES: No scleral icterus, unremarkable pupils. ENT: Mucous membranes moist, no nasal congestion. NECK: No masses appreciated, nomeningismus, trachea is midline. RESPIRATORY: No dyspnea. Clear to auscultation and equal bilaterally. No wheeze, no rhonchi. CARDIOVASCULAR: Regular rate and rhythm.No murmurs, rubs, gallops appreciated. GASTROINTESTINAL: large distended abdomen with fluid wave, no peritonitis. Distant bowel sounds, nontender BACK: No midline tenderness, no CVA tenderness EXTREMITIES: 4+ pitting edema with mild draining legs bilaterally. Scabs right lower leg mild warm though no overt cellulitis appreciated. Weak but normal motion all extremities, no cyanosis, no edema. NEUROLOGIC: Alert and oriented, no acute motor or sensory deficits, no focal weakness, cranial nerves grossly intact. SKIN: No rash, no jaundice, no diaphoresis. PSYCH: Appropriate GCS: 15 ED Course: Times/Reassessments: stable throughout South Vick MD Past Med/Surg History Medical History (Updated 09/13/20 @ 06:18 by South Vick MD) Anemia Anxiety Anxiety Aortic stenosis Moderate per 03/2020 echo Ascites Asthma USED INHALER YESTERDAY Cardiac murmur Moderate Chronic idiopathic thrombocytopenia Chronic kidney disease, stage III (moderate) Chronic leukopenia Chronic liver disease GERD (gastroesophageal reflux disease) Gout Hyperlipidemia Hypertension Multiple pulmonary nodules Neurologic gait dysfunction Non-alcoholic cirrhosis Obesity Osteoarthritis Osteoporosis Pancytopenia Peripheral neuropathy Restless leg syndrome Secondary hyperparathyroidism Spinal stenosis Surgical History History of breast biopsy + CANCER History of delivery X 1 History of cholecystectomy History of dilatation and curettage History of hysterectomy History of surgery CYST REMOVED LEFT WRIST History of tooth extraction Family History Grandmother (Maternal) , Passed age 66 of Stomach Cancer No problems noted. Grandfather (Maternal) , Passed in 70's of Stomach Cancer No problems noted. Mother , Passed age 76 of Alzheimer's Disease Complications Family history of diabetes mellitus Father , Passed in 90's of Alzheimer's Disease Complications No problems noted. Daughter No problems noted. Son No problems noted. Son No problems noted. Social History Smoking Status: Never smoker Second Hand Exposure: No; Hx Alcohol Use: No Hx Substance Use: No Preferred Language: Swazi Communication Ability: Effective Visual Impairment: Limited Hearing Ability: Normal Biological Engineer Required: No Beliefs That Will Affect Care: None marital status: Current Living Situation: Spouse current occupational status: retired current occupation: Retired Caregiver How many Children do You have: 3 Feels Safe at Home: Yes Childhood Exposure to Second-Hand Smoke: Yes (Father ) caffeine: Yes (2 cups of coffee/day ) during the past year weight has: increased > 10 lbs Dental Care, Regularly: No Assistive Devices: Walker Allergies Allergies Allergy/AdvReac Type Severity Reaction Status Date / Time naproxen Allergy Intermediate Hives Verified 08/29/20 10:19 adhesive AdvReac Mild SKIN Verified 08/29/20 10:19 IRRITATION ciprofloxacin AdvReac Mild Nausea Verified 08/29/20 10:19 Home Meds Home Medications Medication Instructions Recorded Confirmed fluticasone propion-salmeterol 1 inh INHALATION BID 04/16/20 09/08/20 [Nikolasela Inhub] pravastatin 20 mg tablet 20 mg PO HS 05/30/20 09/08/20 spironolactone 25 mg tablet 25 mg PO BID 05/30/20 09/08/20 loperamide 2 mg tablet 2 mg PO Q6H PRN 08/28/20 09/08/20 warfarin 3 mg tablet See Rx Instructions PO DAILY tab 09/04/20 09/08/20 Previous Rx's Medication Instructions Recorded bumetanide 1 mg tablet 1 mg PO DAILY #90 tab 01/05/20 metoprolol tartrate 25 mg tablet 25 mg PO BID #180 tab 01/05/20 omeprazole 20 mg capsule,delayed 20 mg PO DAILY #90 cap 01/05/20 release pramipexole 0.25 mg tablet 0.25 mg PO DAILY #90 tab 01/05/20 albuterol sulfate 2.5 mg INH BID PRN #90 ml 01/20/20 lorazepam 0.5 mg tablet 0.5 mg PO BID PRN #30 tab 05/30/20 potassium chloride 10 meq PO DAILY 30 Days #225 ml 08/19/20 oxycodone 5 mg tablet 5 mg PO Q4H #10 tab 08/29/20 Results & Data (ED) Vital Signs Vital Signs - 24 hr 09/13/20 01:34 09/13/20 02:29 09/13/20 02:31 Temperature 37.1 C Temperature Source Oral Pulse Rate 80 76 77 Pulse Rate from SpO2 Sensor 77 77 Respiratory Rate 18 17 20 Respiratory Effort / Characteristics Non-Labored Spontaneous Respiratory Depth Normal Respiratory Pattern Regular Blood Pressure 146/82 H 120/65 113/56 L Blood Pressure Mean 103 80 69 Blood Pressure Position Sitting Pulse Oximetry 98 99 98 Oxygen Delivery Method Room Air Sepsis Recent Fever Within 48 Hours No Sepsis New/Unexplained Change in Mental Status No Sepsis Action Taken by Nursing No Action Required 09/13/20 03:00 09/13/20 03:30 Temperature Temperature Source Pulse Rate 75 76 Pulse Rate from SpO2 Sensor 75 76 Respiratory Rate 17 18 Respiratory Effort / Characteristics Respiratory Depth Respiratory Pattern Blood Pressure 114/60 123/61 Blood Pressure Mean 76 76 Blood Pressure Position Pulse Oximetry 96 98 Oxygen Delivery Method Sepsis Recent Fever Within 48 Hours Sepsis New/Unexplained Change in Mental Status Sepsis Action Taken by Nursing Laboratory Data Result diagrams: 09/13/20 02:00 09/13/20 02:00 Lab Results 09/13/20 09/13/20 09/13/20 Range/Units 02:00 02:00 02:00 WBC 4.94 (4.8-10.8) K/uL RBC 3.49 L (4.2-5.4) M/uL Hgb 9.4 L (12.0-16.0) g/dL Hct 29.7 L (37-47) % MCV 85.1 (80-100) fL MCH 26.9 (25-34) pg MCHC 31.6 L (32-36) g/dL RDW Std Deviation 51.9 H (36.4-46.3) fL RDW Coeff of Flower 16.7 H (11.5-14.5) % Plt Count 107 L (130-400) K/uL MPV 9.5 (7.4-10.4) fL Immature Gran % (Auto) 0.0 % Neut % (Auto) 73.7 % Lymph % (Auto) 13.2 % Cole % (Auto) 9.5 % Eos % (Auto) 2.8 % Baso % (Auto) 0.8 % Neut # (Auto) 3.64 (1.4-6.5) K/uL Lymph # (Auto) 0.65 L (1.2-3.4) K/uL Cole # (Auto) 0.47 (0.11-0.59) K/uL Eos # (Auto) 0.14 (0-0.5) K/uL Baso # (Auto) 0.04 (0-0.2) K/uL Immature Gran # (Auto) 0.00 (0.00-0.02) K/uL RBC Morphology Unremarkable PT 31.9 H (9.0-12.0) Seconds INR 3.2 H (0.9-1.1) APTT 44.4 H (21.0-31.0) Seconds PTT Ratio 1.6 Sodium 138 (136-145) mmol/L Potassium 4.0 (3.5-5.1) mmol/L Chloride 104 (98-107) mmol/L Carbon Dioxide 32 (21-32) mmol/L Anion Gap 2.0 L (3-11) BUN 22 H (7-18) mg/dl Creatinine 1.31 H (0.6-1.2) mg/dl Est Cr Clr Drug Dosing Not Reportable Est GFR ( Amer) 46.7 Est GFR (Non-Af Amer) 40.3 BUN/Creatinine Ratio 16.9 (10-20) Glucose 109 H (70-99) mg/dl Calcium 8.0 L (8.5-10.1) mg/dl Magnesium 2.1 (1.8-2.4) mg/dl Total Bilirubin 2.0 H (0.2-1) mg/dl Direct Bilirubin 0.7 H (0-0.2) mg/dl AST 34 (15-37) U/L ALT 24 (12-78) U/L Alkaline Phosphatase 91 (45-117) U/L Ammonia (11-32) umol/L Total Protein 7.0 (6.4-8.2) gm/dl Albumin 1.9 L (3.4-5.0) gm/dl Urine Color Urine Appearance (Clear) Urine pH (4.5-7.5) Ur Specific [place] (1.000-1.030) Urine Protein (Negative) Urine Glucose (UA) (Negative) Urine Ketones (Negative) Urine Blood (Negative) Urine Nitrite (Negative) Urine Bilirubin (Negative) Urine Urobilinogen (Negative) Ur Leukocyte Esterase (Negative) Urine WBC (Auto) (0-5) /hpf Urine RBC (Auto) (0-4) /hpf U Hyaline Cast (Auto) (0-5) /lpf U Epithel Cells (Auto) (0-5) /lpf Urine Bacteria (Auto) (Negative) Urine Yeast (None Prsent) 09/13/20 09/13/20 Range/Units 02:00 02:30 WBC (4.8-10.8) K/uL RBC (4.2-5.4) M/uL Hgb (12.0-16.0) g/dL Hct (37-47) % MCV (80-100) fL MCH (25-34) pg MCHC (32-36) g/dL RDW Std Deviation (36.4-46.3) fL RDW Coeff of Flower (11.5-14.5) % Plt Count (130-400) K/uL MPV (7.4-10.4) fL Immature Gran % (Auto) % Neut % (Auto) % Lymph % (Auto) % Cole % (Auto) % Eos % (Auto) % Baso % (Auto) % Neut # (Auto) (1.4-6.5) K/uL Lymph # (Auto) (1.2-3.4) K/uL Cole # (Auto) (0.11-0.59) K/uL Eos # (Auto) (0-0.5) K/uL Baso # (Auto) (0-0.2) K/uL Immature Gran # (Auto) (0.00-0.02) K/uL RBC Morphology PT (9.0-12.0) Seconds INR (0.9-1.1) APTT (21.0-31.0) Seconds PTT Ratio Sodium (136-145) mmol/L Potassium (3.5-5.1) mmol/L Chloride (98-107) mmol/L Carbon Dioxide (21-32) mmol/L Anion Gap (3-11) BUN (7-18) mg/dl Creatinine (0.6-1.2) mg/dl Est Cr Clr Drug Dosing Est GFR ( Amer) Est GFR (Non-Af Amer) BUN/Creatinine Ratio (10-20) Glucose (70-99) mg/dl Calcium (8.5-10.1) mg/dl Magnesium (1.8-2.4) mg/dl Total Bilirubin (0.2-1) mg/dl Direct Bilirubin (0-0.2) mg/dl AST (15-37) U/L ALT (12-78) U/L Alkaline Phosphatase (45-117) U/L Ammonia 15.0 (11-32) umol/L Total Protein (6.4-8.2) gm/dl Albumin (3.4-5.0) gm/dl Urine Color [place] Urine Appearance Cloudy A (Clear) Urine pH 5.0 (4.5-7.5) Ur Specific [place] 1.030 (1.000-1.030) Urine Protein Trace H (Negative) Urine Glucose (UA) Negative (Negative) Urine Ketones Trace H (Negative) Urine Blood Negative (Negative) Urine Nitrite Positive A (Negative) Urine Bilirubin 1+ H (Negative) Urine Urobilinogen Negative (Negative) Ur Leukocyte Esterase 1+ H (Negative) Urine WBC (Auto) 10-30 H (0-5) /hpf Urine RBC (Auto) 0-4 (0-4) /hpf U Hyaline Cast (Auto) 5-10 H (0-5) /lpf U Epithel Cells (Auto) >30 H (0-5) /lpf Urine Bacteria (Auto) Negative (Negative) Urine Yeast Budding A (None Prsent) Administered Medications Discontinued Medications Albumin Human (Albumin Human 25% 12.5 Gm/50 Ml Vial) Confirm Administered Dose 12.5 gm IV .STK-MED ONE Stop: 09/13/20 03:33 Last Admin: 09/13/20 04:06 Dose: Not Given Documented by: [id number] Furosemide (Furosemide 10 Mg/Ml 10 Ml Vial) Confirm Administered Dose 10 mg IV .STK-MED ONE Stop: 09/13/20 03:33 Last Admin: 09/13/20 04:07 Dose: Not Given Documented by: [id number] Furosemide 40 mg/ Albumin (Human) 54 mls @ 54 mls/hr IV ONE ONE Stop: 09/13/20 04:25 Last Infusion: 09/13/20 05:11 Dose: 0 mls/hr Documented by: [id number] Admin: 09/13/20 04:03 Dose: 54 mls/hr Documented by: [id number] Discharge Plan Visit Data Chief Complaint: Abdominal Pain Stated Complaint: ABD PAIN,LEFT LEG DISCHARGE ED Provider: South Vick Discharge Problem: Fluid overload, Hypoalbuminemia Patient Disposition: Admitted As Inpatient Discharge Instructions Interventions: ED Discharge Assessment Last Done: 09/13/20 04:53 Discharge Problem: Fluid overload Qualifiers: Hypervolemia type: unspecified Qualified Code(s): E87.70 - Fluid overload, unspecified
[2020-09-13 02:33] LABS: Alanine Aminotransferase 24 U/L (12-78); Albumin Level 1.9 gm/dl (3.4-5.0); Aspartate Aminotransferase 34 U/L (15-37); BUN Creatinine Ratio 16.9 (10-20); Bilirubin Direct 0.7 mg/dl (0-0.2); Blood Urea Nitrogen 22 mg/dl (7-18); Carbon Dioxide 32 mmol/L (21-32); Chloride 104 mmol/L (98-107); Est GFR (African American) 46.7; Est GFR (Non-African American) 40.3; Glucose 109 mg/dl (70-99); Magnesium 2.1 mg/dl (1.8-2.4); Sodium 138 mmol/L (136-145)
[2020-09-13 02:36] LABS: Alkaline Phosphatase 91 U/L (45-117)
[2020-09-13 02:39] LABS: INR 3.2 (0.9-1.1); Partial Thromboplastin Ratio 1.6; Partial Thromboplastin Time 44.4 Seconds (21.0-31.0); Prothrombin Time 31.9 Seconds (9.0-12.0)
[2020-09-13 02:40] LABS: RBC Morphology Unremarkable
[2020-09-13 02:49] LABS: Appearance Urine Cloudy (Clear); Bacteria Urine Automated Negative (Negative); Blood Urine Negative (Negative); Color Urine Orange; Epithelial Cell Urine Auto >30 /lpf (0-5); Glucose Urine UA Negative (Negative); Ketones Urine Trace (Negative); Leukocyte Esterase Urine 1+ (Negative); Nitrite Urine Positive (Negative); Protein Urine Trace (Negative); Urobilinogen Urine Negative (Negative)
[2020-09-13 02:50] LABS: Bilirubin Urine 1+ (Negative); Ictotest Urine Positive (Negative)
[2020-09-13 02:58] LABS: RBC Urine Automated 0-4 /hpf (0-4)
[2020-09-13] MEDS ORDERED: ALBUMIN 25% 50 ML with FUROSEMIDE 40 MG IV ONE (03:26)
[2020-09-13] MEDS ORDERED: FUROSEMIDE 10 MG/ML 10 ML VIAL IV ONE (03:32)
[2020-09-13] MEDS ORDERED: ALBUMIN HUMAN 25% 12.5 GM/50 ML VIAL IV ONE (03:32)
--- NOTE | 2020-09-13 04:44 | History & Physical Report ---
Date of Service September 13, 2020 Assessment & Plan (1) Non-alcoholic cirrhosis: MOBLEY/cirrhosis/ascites/anasarca- Give albumin with Lasix IV x1 now, then every 6 hours x4 doses. Hold oral bumetanide 1 mg daily. Continue metoprolol tartrate 25 mg p.o. twice daily, and spironolactone 25 mg p.o. twice daily. Increase potassium chloride to 20 mEq p.o. twice daily with increased diuresis. Would benefit from paracentesis. Discuss with radiology in a.m. whether they would want the INR to be reversed to do a diagnostic/therapeutic paracentesis Present on Admission?: Yes (2) Anasarca: See above Present on Admission?: Yes (3) Ascites: See above Present on Admission?: Yes (4) Splenomegaly: See above Platelets upon admission 107, with range 35-89 Present on Admission?: Yes (5) Malignant neoplasm of upper-outer quadrant of right breast in female, estrogen receptor positive: Completed radiation on 09/11/2020. Consult Dr. Melton Present on Admission?: Yes (6) Pulmonary emboli: Pulmonary emboli/splenic vein thrombosis/portal vein thrombosis- Presently on warfarin, with INR 3.2. Hold warfarin today and adjust as needed depending upon timing of paracentesis Present on Admission?: Yes (7) Splenic vein thrombosis: See above Present on Admission?: Yes (8) Portal vein thrombosis: See above Present on Admission?: Yes (9) MOBLEY (nonalcoholic steatohepatitis): See above Present on Admission?: Yes (10) Aortic stenosis: Monitor platelet closely as diuresing Present on Admission?: Yes (11) Hypertension: See above Present on Admission?: Yes (12) Hyperlipidemia: Pravastatin 20 mg at bedtime Present on Admission?: Yes History of Present Illness Chief Complaint: The patient presents to the emergency department with increasing abdominal distention, worsening lower extremity edema and worsening shortness of breath at rest and dyspnea on exertion. Primary Care Provider: Kvng Pereira MD The patient is a 75-year-old female with a past medical history including right breast estrogen receptor positive breast cancer status post radiation treatments, multiple pulmonary nodules, splenomegaly, MOBLEY, pulmonary emboli, pancytopenia, portal vein thrombosis, splenic vein thrombosis, lower extremity edema, hypertension, hyperlipidemia, ambulatory dysfunction and aortic stenosis. She completed radiation therapy for breast cancer on 09/11/2020. She presents with the above symptoms. She also notes that her legs have been weeping. Allergies Allergy/AdvReac Type Severity Reaction Status Date / Time naproxen Allergy Intermediate Hives Verified 08/29/20 10:19 adhesive AdvReac Mild SKIN Verified 08/29/20 10:19 IRRITATION ciprofloxacin AdvReac Mild Nausea Verified 08/29/20 10:19 Home Medications Home Medications Medication Instructions Recorded Confirmed Type bumetanide 1 mg tablet 1 mg PO DAILY #90 tab 01/05/20 09/08/20 Rx metoprolol tartrate 25 mg tablet 25 mg PO BID #180 tab 01/05/20 09/08/20 Rx omeprazole 20 mg capsule,delayed 20 mg PO DAILY #90 cap 01/05/20 09/08/20 Rx release pramipexole 0.25 mg tablet 0.25 mg PO DAILY #90 tab 01/05/20 09/08/20 Rx albuterol sulfate 2.5 mg INH BID PRN #90 ml 01/20/20 09/08/20 Rx fluticasone propion-salmeterol 1 inh INHALATION BID 04/16/20 09/08/20 History [[facility] Inhub] lorazepam 0.5 mg tablet 0.5 mg PO BID PRN #30 tab 05/30/20 09/08/20 Rx pravastatin 20 mg tablet 20 mg PO HS 05/30/20 09/08/20 History spironolactone 25 mg tablet 25 mg PO BID 05/30/20 09/08/20 History potassium chloride 10 meq PO DAILY 30 Days #225 ml 08/19/20 09/08/20 Rx loperamide 2 mg tablet 2 mg PO Q6H PRN 08/28/20 09/08/20 History oxycodone 5 mg tablet 5 mg PO Q4H #10 tab 08/29/20 09/08/20 Rx warfarin 3 mg tablet See Rx Instructions PO DAILY tab 09/04/20 09/08/20 History Past Med/Surg History Medical History (Updated 09/13/20 @ 04:36 by Karlos Lee MD) Anemia Anxiety Anxiety Aortic stenosis Moderate per 03/2020 echo Ascites Asthma USED INHALER YESTERDAY Cardiac murmur Moderate Chronic idiopathic thrombocytopenia Chronic kidney disease, stage III (moderate) Chronic leukopenia Chronic liver disease GERD (gastroesophageal reflux disease) Gout Hyperlipidemia Hypertension Multiple pulmonary nodules Neurologic gait dysfunction Non-alcoholic cirrhosis Obesity Osteoarthritis Osteoporosis Pancytopenia Peripheral neuropathy Restless leg syndrome Secondary hyperparathyroidism Spinal stenosis Surgical History History of breast biopsy + CANCER History of delivery X 1 History of cholecystectomy History of dilatation and curettage History of hysterectomy History of surgery CYST REMOVED LEFT WRIST History of tooth extraction Family History Grandmother (Maternal) , Passed age 66 of Stomach Cancer No problems noted. Grandfather (Maternal) , Passed in 70's of Stomach Cancer No problems noted. Mother , Passed age 76 of Alzheimer's Disease Complications Family history of diabetes mellitus Father , Passed in 90's of Alzheimer's Disease Complications No problems noted. Daughter No problems noted. Son No problems noted. Son No problems noted. Social History Smoking Status: Never smoker Second Hand Exposure: No; Hx Alcohol Use: No Hx Substance Use: No Preferred Language: Dutch Communication Ability: Effective Visual Impairment: Limited Hearing Ability: Normal Assistant Finance Manager Required: No Beliefs That Will Affect Care: None marital status: Current Living Situation: Spouse current occupational status: retired current occupation: Retired Caregiver How many Children do You have: 3 Feels Safe at Home: Yes Childhood Exposure to Second-Hand Smoke: Yes (Father ) caffeine: Yes (2 cups of coffee/day ) during the past year weight has: increased > 10 lbs Dental Care, Regularly: No Assistive Devices: Walker Review of Systems Review of Systems: The patient denies chest pain, palpitations, cough, sore throat, fevers, chills, sweats, nausea, vomiting, diarrhea , constipation, abdominal pain, pelvic pain, blood in urine or stool, dysuria, urinary frequency or urgency, lightheadedness, dizziness, headache, memory loss, loss of consciousness, imbalance, focal weakness, numbness or tingling in arms or legs, generalized arthralgias or myalgias, back or neck pain, or night sweats. The review of systems is otherwise negative other than for that already noted above, and at least 10 systems have been reviewed. Physical Exam Physical Exam: The patient is awake, alert and oriented 3, normocephalic and atraumatic, lying in bed and in mild distress secondary to shortness of breath due to abdominal distention. HEENT--PERRL, EOMI, mucous membranes and oropharynx normal. Neck--supple. No JVD. No bruits. Thyroid normal, trachea midline, no adenopathy. Heart--normal S1 and S2. No murmurs, rubs or gallops. Lungs--clear bilaterally, no respiratory distress, no accessory muscle use. Abdomen--normal bowel sounds and soft. Nontender. Very distended and taut. Extremities--no cyanosis or clubbing. 3+ bilateral pretibial pitting edema. Dermatologic--normal skin turgor, normal color. Neurologic--cranial nerves II through XII grossly intact. Rheumatologic--limited range of motion due to anasarca Psychiatric--normal affect. Results & Data Results & Data ([facility]) Vital Signs (Past 12 Hours) Vital Signs Temp Pulse Resp BP Pulse Ox 09/13/20 04:10 75 18 98 09/13/20 04:01 74 20 102/65 98 09/13/20 03:30 76 18 123/61 98 09/13/20 03:00 75 17 114/60 96 09/13/20 02:31 77 20 113/56 L 98 09/13/20 02:29 76 17 120/65 99 09/13/20 01:34 98.8 F 80 18 146/82 H 98 Laboratory Results Laboratory Results WBC 4.94 K/uL (4.8-10.8) 09/13/20 02:00 RBC 3.49 M/uL (4.2-5.4) L 09/13/20 02:00 Hgb 9.4 g/dL (12.0-16.0) L 09/13/20 02:00 Hct 29.7 % (37-47) L 09/13/20 02:00 MCV 85.1 fL (80-100) 09/13/20 02:00 MCH 26.9 pg (25-34) 09/13/20 02:00 MCHC 31.6 g/dL (32-36) L 09/13/20 02:00 RDW Std Deviation 51.9 fL (36.4-46.3) H 09/13/20 02:00 RDW Coeff of [place]lower 16.7 % (11.5-14.5) H 09/13/20 02:00 Plt Count 107 K/uL (130-400) L 09/13/20 02:00 MPV 9.5 fL (7.4-10.4) 09/13/20 02:00 Immature Gran % (Auto) 0.0 % 09/13/20 02:00 Neut % (Auto) 73.7 % 09/13/20 02:00 Lymph % (Auto) 13.2 % 09/13/20 02:00 [place] % (Auto) 9.5 % 09/13/20 02:00 Eos % (Auto) 2.8 % 09/13/20 02:00 Baso % (Auto) 0.8 % 09/13/20 02:00 Neut # (Auto) 3.64 K/uL (1.4-6.5) 09/13/20 02:00 Lymph # (Auto) 0.65 K/uL (1.2-3.4) L 09/13/20 02:00 [place] # (Auto) 0.47 K/uL (0.11-0.59) 09/13/20 02:00 Eos # (Auto) 0.14 K/uL (0-0.5) 09/13/20 02:00 Baso # (Auto) 0.04 K/uL (0-0.2) 09/13/20 02:00 Immature Gran # (Auto) 0.00 K/uL (0.00-0.02) 09/13/20 02:00 RBC Morphology Unremarkable 09/13/20 02:00 PT 31.9 Seconds (9.0-12.0) H 09/13/20 02:00 INR 3.2 (0.9-1.1) H 09/13/20 02:00 APTT 44.4 Seconds (21.0-31.0) H 09/13/20 02:00 PTT Ratio 1.6 09/13/20 02:00 Sodium 138 mmol/L (136-145) 09/13/20 02:00 Potassium 4.0 mmol/L (3.5-5.1) 09/13/20 02:00 Chloride 104 mmol/L (98-107) 09/13/20 02:00 Carbon Dioxide 32 mmol/L (21-32) 09/13/20 02:00 Anion Gap 2.0 (3-11) L 09/13/20 02:00 BUN 22 mg/dl (7-18) H 09/13/20 02:00 Creatinine 1.31 mg/dl (0.6-1.2) H 09/13/20 02:00 Est Cr Clr Drug Dosing Not Reportable 09/13/20 02:00 Est GFR ( Amer) 46.7 09/13/20 02:00 Est GFR (Non-Af Amer) 40.3 09/13/20 02:00 BUN/Creatinine Ratio 16.9 (10-20) 09/13/20 02:00 Glucose 109 mg/dl (70-99) H 09/13/20 02:00 Calcium 8.0 mg/dl (8.5-10.1) L 09/13/20 02:00 Magnesium 2.1 mg/dl (1.8-2.4) 09/13/20 02:00 Total Bilirubin 2.0 mg/dl (0.2-1) H 09/13/20 02:00 Direct Bilirubin 0.7 mg/dl (0-0.2) H 09/13/20 02:00 AST 34 U/L (15-37) 09/13/20 02:00 ALT 24 U/L (12-78) 09/13/20 02:00 Alkaline Phosphatase 91 U/L (45-117) 09/13/20 02:00 Ammonia 15.0 umol/L (11-32) 09/13/20 02:00 Total Protein 7.0 gm/dl (6.4-8.2) 09/13/20 02:00 Albumin 1.9 gm/dl (3.4-5.0) L 09/13/20 02:00 Urine Color [place] 09/13/20 02:30 Urine Appearance Cloudy (Clear) A 09/13/20 02:30 Urine pH 5.0 (4.5-7.5) 09/13/20 02:30 Ur Specific [place] 1.030 (1.000-1.030) 09/13/20 02:30 Urine Protein Trace (Negative) H 09/13/20 02:30 Urine Glucose (UA) Negative (Negative) 09/13/20 02:30 Urine Ketones Trace (Negative) H 09/13/20 02:30 Urine Blood Negative (Negative) 09/13/20 02:30 Urine Nitrite Positive (Negative) A 09/13/20 02:30 Urine Bilirubin 1+ (Negative) H 09/13/20 02:30 Urine Urobilinogen Negative (Negative) 09/13/20 02:30 Ur Leukocyte Esterase 1+ (Negative) H 09/13/20 02:30 Urine WBC (Auto) 10-30 /hpf (0-5) H 09/13/20 02:30 Urine RBC (Auto) 0-4 /hpf (0-4) 09/13/20 02:30 U Hyaline Cast (Auto) 5-10 /lpf (0-5) H 09/13/20 02:30 U Epithel Cells (Auto) >30 /lpf (0-5) H 09/13/20 02:30 Urine Bacteria (Auto) Negative (Negative) 09/13/20 02:30 Urine Yeast Budding (None Prsent) A 09/13/20 02:30 Code Status & VTE Plan Code Status DNR/DNI VTE Prophylaxis Plan VTE Prophylaxis will be ordered: Yes PG Care Time/CCT Total # of Minutes Spent Total Time Spent with Patient: Total time spent is greater than 50% in coordination of care (as documented) at patient's floor/unit and/or counseling patient: Coding Level of Care Code 90441 Initial Inpt Care Lvl 3 Diagnoses Non-alcoholic cirrhosis K74.60 Anasarca R60.1 Ascites R18.8 Splenomegaly R16.1 Malignant neoplasm of upper-outer quadrant of right breast in female, estrogen receptor positive C50.411; Z17.0 Pulmonary emboli I26.99 Acute cor pulmonale presence: unspecified Chronicity: acute Pulmonary embolism type: other Splenic vein thrombosis I82.890 Portal vein thrombosis I81 MOBLEY (nonalcoholic steatohepatitis) K75.81 Aortic stenosis I35.0 Hypertension I10 Hypertension type: essential hypertension Hyperlipidemia E78.5 Hyperlipidemia type: unspecified (1) Pulmonary emboli Acute cor pulmonale presence: unspecified Chronicity: acute Pulmonary embolism type: other Qualified Code(s): I26.99 - Other pulmonary embolism without acute cor pulmonale (2) Hypertension Hypertension type: essential hypertension Qualified Code(s): I10 - Essential (primary) hypertension (3) Hyperlipidemia Hyperlipidemia type: unspecified Qualified Code(s): E78.5 - Hyperlipidemia, unspecified
[2020-09-13] MEDS ORDERED: LORazepam 0.5 MG TAB PO PRN (06:20)
[2020-09-13] MEDS ORDERED: ONDANSETRON INJ 2 MG/ML 2 ML VIAL IV PRN (06:20)
--- NOTE | 2020-09-13 07:55 | XRay Report ---
XR chest 1V portable CLINICAL HISTORY: weakness COMPARISON STUDY: Chest radiograph July 01, 2020. Chest CT August 18, 2020. FINDINGS: There is no pneumothorax or pleural effusion. A hiatal hernia is noted. Mild cardiomegaly i s unchanged. Reticulonodular interstitial thickening is similar to prior exam. Bilateral hilar enlarg ement is also similar to prior exam. IMPRESSION: No acute findings. No change in appearance of the chest. Stable reticulonodular intersti tial thickening and bilateral hilar enlargement, better depicted on prior chest CT. ACT 112: Negative or not required by law. Electronically signed by: Garett Rousseau M.D. 09/13/2020 7:54 AM
[2020-09-13] MEDS: ALBUMIN 25% 50 ML with FUROSEMIDE 40 MG IV SCH ×3 (08:57→20:30)
[2020-09-13] MEDS: KETOCONAZOLE 2% CR 15 GM TUBE EXT SCH ×4 (08:58→20:38)
[2020-09-13] MEDS: PRAMIPEXOLE DIHYDROCHLO 0.25 MG TAB PO SCH (08:58)
[2020-09-13] MEDS: POTASSIUM CHLORIDE 20 MEQ/15 ML UDC PO SCH ×2 (08:58→20:35)
[2020-09-13] MEDS: METOPROLOL TARTRATE 25 MG TAB PO SCH ×2 (08:58→20:38)
[2020-09-13] MEDS: SPIRONOLACTONE 25 MG TAB PO SCH ×2 (08:58→16:18)
[2020-09-13] MEDS: PANTOprazole 40 MG TAB PO SCH (08:58)
[2020-09-13] MEDS: FLUTICASONE/VILANTEROL 100/25MCG 14 PUFFS/INHALER INH SCH (08:59)
--- NOTE | 2020-09-13 13:15 | Electrocardiogram Report ---
Test Reason : Blood Pressure : / mmHG Vent. Rate : 078 BPM Atrial Rate : 078 BPM P-R Int : 180 ms QRS Dur : 088 ms QT Int : 438 ms P-R-T Axes : 045 066 037 degrees QTc Int : 499 ms Normal sinus rhythm Low voltage QRS RSR' or QR pattern in V1 suggests right ventricular conduction delay Prolonged QT Abnormal ECG When compared with ECG of 18-AUG-2020 18:00, No significant change Confirmed by Aldo Huddleston ([id number]) on 09/13/2020 1:15:17 PM Referred By: REFERRED SELF Confirmed By:Aldo Huddleston
--- NOTE | 2020-09-13 13:32 | History & Physical Bridge Note ---
Date of Service September 13, 2020 History & Physical Bridge Note I have examined the patient, reviewed the History & Physical and in the interval since the performance of the History & Physical I have noted the following changes of clinical significance: patient is doing okay, no major issues, she is hungry due to NPO status, will give her a diet INR is 3.2, will give Vitamin K 5mg IV order paracentesis for tomorrow but will check INR in the morning she says she has never had this much ascites, will consult GI for recommendations
[2020-09-13] MEDS ORDERED: PHYTONADIONE 5 MG in SODIUM CHLORIDE 0.9% 50 ML IV ONE (13:45)
[2020-09-13] MEDS: PRAVASTATIN SOD 20 MG TAB PO SCH (20:38)
[2020-09-14] MEDS: ALBUMIN 25% 50 ML with FUROSEMIDE 40 MG IV SCH (02:01)
[2020-09-14 07:04] LABS: Prothrombin Time 19.9 Seconds (9.0-12.0)
[2020-09-14 07:07] LABS: Hematocrit (blood only) 21.7 % (37-47); Hemoglobin 6.7 g/dL (12.0-16.0); Mean Corpuscular Hemoglobin 26.3 pg (25-34); Mean Corpuscular Hgb Conc 30.9 g/dL (32-36); Mean Corpuscular Volume 85.1 fL (80-100); Mean Platelet Volume 9.6 fL (7.4-10.4); Platelet Count 54 K/uL (130-400); RDW Coefficient of Variation 16.7 % (11.5-14.5); RDW Standard Deviation 51.5 fL (36.4-46.3); Red Blood Count 2.55 M/uL (4.2-5.4); White Blood Count 1.57 K/uL (4.8-10.8)
[2020-09-14 07:16] LABS: Basophils # (auto) 0.01 K/uL (0-0.2); Basophils % (auto) 0.6 %; Eosinophils # (auto) 0.06 K/uL (0-0.5); Eosinophils % (auto) 3.8 %; Lymphocytes % (auto) 25.5 %; Monocytes % (auto) 12.7 %; Neutrophils % (auto) 57.4 %
[2020-09-14 07:21] LABS: BUN Creatinine Ratio 15.3 (10-20); Calcium 8.1 mg/dl (8.5-10.1); Creatinine Clr Calc Pharmacy 40.3 ml/min; Est GFR (Non-African American) 35.3; Potassium 3.6 mmol/L (3.5-5.1)
[2020-09-14 07:34] LABS: Albumin Globulin Ratio 0.5 (0.9-2); Bilirubin,Total 2.7 mg/dl (0.2-1); Globulin 3.7 gm/dl (2.5-4.0); Total Protein 5.7 gm/dl (6.4-8.2)
--- NOTE | 2020-09-14 10:22 | Ultrasound Report ---
ULTRASOUND GUIDED THERAPEUTIC AND DIAGNOSTIC PARACENTESIS CLINICAL HISTORY: Ascites COMPARISON STUDY: CT of the abdomen and pelvis August 18, 2020. PROCEDURE: The risks, benefits, and alternatives to the procedure were discussed with the patient inc luding the risk of bleeding, infection and injury to adjacent structures. The patient agreed to the procedure and informed written consent was obtained. Following real-time ultrasound localization, the skin of the right lower quadrant was prepped and draped. Following local anesthesia with Xylocaine, the sheath paracentesis needle was inserted and approximately 3.6 liters of straw-colored fluid was r emoved by vacuum suction. After initial insertion, a small amount residual fluid was noted and theref ore catheter was repositioned. The patient tolerated the procedure well and no immediate complication s were evident. IMPRESSION: Ultrasound-guided paracentesis with removal of 3.6 liters of ascites. 1 L of ascites was sent to the laboratory for analysis as ordered. ACT 112: Negative or not required by law. Electronically signed by: Garett Rousseau M.D. 09/14/2020 10:20 AM
[2020-09-14] MEDS: KETOCONAZOLE 2% CR 15 GM TUBE EXT SCH ×4 (10:25→20:44)
[2020-09-14] MEDS: METOPROLOL TARTRATE 25 MG TAB PO SCH ×2 (10:26→20:44)
[2020-09-14] MEDS: SPIRONOLACTONE 25 MG TAB PO SCH ×2 (10:26→17:05)
[2020-09-14] MEDS: FLUTICASONE/VILANTEROL 100/25MCG 14 PUFFS/INHALER INH SCH (10:26)
[2020-09-14] MEDS: PANTOprazole 40 MG TAB PO SCH (10:26)
[2020-09-14] MEDS: PRAMIPEXOLE DIHYDROCHLO 0.25 MG TAB PO SCH (10:26)
[2020-09-14] MEDS: POTASSIUM CHLORIDE 20 MEQ/15 ML UDC PO SCH ×2 (10:26→20:44)
[2020-09-14 11:12] LABS: Appearance Peritoneal Fluid CLEAR; Basophils, Fluid 0 %; Color Peritoneal Fluid AMBER. STRAW; Eosinophils, Fluid 0 %; Lymphocytes, Fluid 28 %; Mono,Macrophage,Mesothelial 38 %; Neutrophils, Fluid 34 %; RBC Peritoneal Fluid (A) < 3000 /uL; WBC Peritoneal Fluid (A) 148 /ul (0-300)
[2020-09-14 11:16] LABS: Albumin Peritoneal Fluid < 0.6 g/dl; Glucose Peritoneal Fluid 94 mg/dl
[2020-09-14 11:25] LABS: LDH Peritoneal Fluid 43 U/L; Total Protein Peritoneal Fluid 0.9 g/dl
[2020-09-14] MEDS ORDERED: SODIUM CHLORIDE 0.9% 250 ML IV PRN (15:18)
--- NOTE | 2020-09-14 16:01 | Hospitalist Progress Note ---
Date of Service September 14, 2020 Assessment & Plan (1) Fluid overload: paracentesis today for 3.5 liters still with significant volume overload due to cirrhosis place on lasix 80mg BID and spironolactone 25mg BID (2) Non-alcoholic cirrhosis: MOBLEY/cirrhosis/ascites/anasarca- Lasix 80mg BID Continue metoprolol tartrate 25 mg p.o. twice daily, and spironolactone 25 mg p.o. twice daily. Increase potassium chloride to 20 mEq p.o. twice daily with increased diuresis. paracentesis for 3.5 liters today, low albumin suggesting it is all due to cirrhosis sent for cytology with her history of breast CA sent for gram stain and culture WBC < 200, no concerns for SBP (3) Pancytopenia: neutropenic and Hb is down to 6.7 patient agrees to blood transfusion, no signs of bleeding, give one unit today, repeat H/H in the morning place on neutropenic precautions, no fever or signs of infection so hold on antibiotics confirmed that she has never had chemotherapy, only radiation which she completed some time ago suspect her low counts are due to cirrhosis (4) Anasarca: See above (5) Ascites: See above (6) Splenomegaly: See above Platelets down below 100k today (7) Malignant neoplasm of upper-outer quadrant of right breast in female, estrogen receptor positive: Completed radiation on 09/11/2020. discussed with Dr. Melton, no role for consult at this time (8) Pulmonary emboli: Pulmonary emboli/splenic vein thrombosis/portal vein thrombosis- Presently on warfarin, with INR 3.2. gave her Vitamin K to set up for paracentesis, INR is 2.0 today resume Coumadin tomorrow (9) Splenic vein thrombosis: See above (10) Portal vein thrombosis: See above (11) MOBLEY (nonalcoholic steatohepatitis): See above (12) Aortic stenosis: (13) Hypertension: See above (14) Hyperlipidemia: Pravastatin 20 mg at bedtime Admission and Anticipated Discharge Date Admission Date: September 13, 2020 Subjective patient with pancytopenia this morning, neutropenia, unclear why confirmed with her that she has never had chemotherapy, she only had surgery and then radiation for her breast cancer Her hb is low at 6.7, she denies any dark/tarry stools, no hematemesis, no bruising she agrees to a unit of PRBC, placed on neutropenic precautions she is eating well she had US guided paracentesis this morning with radiology, tolerated well, fluid sent for analysis 3.5 liters removed we discussed using higher doses of Lasix to try to remove fluid, she agrees I reviewed the outpatient notes from PCP and oncology, she has not been doing well, suffering from edema and ascites Review of Systems Review of Systems: All systems reviewed & are unremarkable except as noted in Subjective Constitutional: + fatigue and + weakness; no fever, no chills and no sweats Respiratory: + dyspnea on exertion; no cough and no dyspnea Cardiovascular: + edema; no chest pain, no palpitations, no lightheadedness and no syncope Gastrointestinal: no abdominal pain, no nausea, no vomiting, no constipation, no diarrhea/loose stools, no blood in stools and no melena Physical Exam Constitutional: WD/WN, vitals as above Eyes: PERRL, conjunctivae normal, anicteric sclerae ENMT: external ear and nose normal, oropharynx normal Neck: trachea midline, no thyromegaly Respiratory: normal respiratory effort, lungs clear to auscultation Cardiovascular: Rate/Rhythm: regular rate and regular rhythm Heart Sounds: normal S1 and normal S2; no murmur Vessels: no JVD Extremities: + edema (pitting edema entire leg) Gastrointestinal (Abdomen): Inspection/Auscultation: + abdomen distended, normal bowel sounds and + abdominal edema Percussion/Palpation: + ascites; abdomen nontender, no guarding, abdomen not rigid and no hernia Musculoskeletal: no cyanosis or clubbing, extremities motor strength 5/5 Skin: no rashes, warm and dry Neurologic: patellar DTR's 2+ bilat, sensation intact and PERRL, EOMI, accommodation nl, no face palsy, no dysarthria Psychiatric: A+Ox3, euthymic affect Lymphatic: no cervical or axillary lymphadenopathy Results & Data Results & Data ([facility]) Vital Signs (Past 12 Hours) Vital Signs Temp Pulse Pulse Resp BP Pulse Ox 09/14/20 15:13 36.4 C L 75 20 93/61 L 96 09/14/20 13:53 86 09/14/20 11:23 36.4 C L 78 20 99/64 L 97 09/14/20 08:00 36.6 C 81 20 107/65 97 Laboratory Results Laboratory Results - last 24 hr 09/14/20 09/14/20 09/14/20 06:23 06:23 06:23 WBC 1.57 L RBC 2.55 L Hgb 6.7 L* Hct 21.7 L MCV 85.1 MCH 26.3 MCHC 30.9 L RDW Std Deviation 51.5 H RDW Coeff of Flower 16.7 H Plt Count 54 L MPV 9.6 Immature Gran % (Auto) 0.0 Neut % (Auto) 57.4 Lymph % (Auto) 25.5 [place] % (Auto) 12.7 Eos % (Auto) 3.8 Baso % (Auto) 0.6 Neut # (Auto) 0.90 L* Lymph # (Auto) 0.40 L [place] # (Auto) 0.20 Eos # (Auto) 0.06 Baso # (Auto) 0.01 Immature Gran # (Auto) 0.00 PT 19.9 H INR 2.0 H Sodium 138 Potassium 3.6 Chloride 103 Carbon Dioxide 32 Anion Gap 4.0 BUN 22 H Creatinine 1.46 H Est Cr Clr Drug Dosing 40.3 Est GFR ( Amer) 41.0 Est GFR (Non-Af Amer) 35.3 BUN/Creatinine Ratio 15.3 Glucose 84 Calcium 8.1 L Magnesium 2.0 Total Bilirubin 2.7 H AST 20 ALT 18 Alkaline Phosphatase 62 Total Protein 5.7 L Albumin 2.0 L Globulin 3.7 Albumin/Globulin Ratio 0.5 L Fluid Neutrophils % Fluid Lymphocytes % Fluid Eosinophils % Fluid Basophils % Fluid Meso/Macro/[place] % Peritoneal Color Peritoneal Appearance Peritoneal WBC Peritoneal RBC Peritoneal Tot Protein Peritoneal Albumin Peritoneal LDH Peritoneal Glucose Blood Type Antibody Screen Crossmatch 09/14/20 09/14/20 10:00 15:37 WBC RBC Hgb Hct MCV MCH MCHC RDW Std Deviation RDW Coeff of Flower Plt Count MPV Immature Gran % (Auto) Neut % (Auto) Lymph % (Auto) [place] % (Auto) Eos % (Auto) Baso % (Auto) Neut # (Auto) Lymph # (Auto) [place] # (Auto) Eos # (Auto) Baso # (Auto) Immature Gran # (Auto) PT INR Sodium Potassium Chloride Carbon Dioxide Anion Gap BUN Creatinine Est Cr Clr Drug Dosing Est GFR ( Amer) Est GFR (Non-Af Amer) BUN/Creatinine Ratio Glucose Calcium Magnesium Total Bilirubin AST ALT Alkaline Phosphatase Total Protein Albumin Globulin Albumin/Globulin Ratio Fluid Neutrophils % 34 Fluid Lymphocytes % 28 Fluid Eosinophils % 0 Fluid Basophils % 0 Fluid Meso/Macro/[place] % 38 Peritoneal Color OJNES. STRAW Peritoneal Appearance CLEAR Peritoneal WBC 148 Peritoneal RBC < 3000 Peritoneal Tot Protein 0.9 Peritoneal Albumin < 0.6 Peritoneal LDH 43 Peritoneal Glucose 94 Blood Type Pending Antibody Screen Pending Crossmatch See Detail Medications Administered Current Inpatient Medications Fluticasone/Vilanterol (Fluticasone/Vilanterol 100/25mcg 14 Puffs/Inhaler) 1 puffs INH DAILY RAJI Stop: 10/13/20 08:59 Last Admin: 09/14/20 10:26 Dose: 1 puffs Documented by: Furosemide (Furosemide 80 Mg Tab) 80 mg PO BID17 [facility] Stop: 10/14/20 16:59 Sodium Chloride (Nss) 250 mls @ 15 mls/hr IV .[id number] PRN PRN Reason: For Transfusion Stop: 09/15/20 01:18 Ketoconazole (Ketoconazole 2% Cr 15 Gm Tube) 1 appln EXT QID RAJI Stop: 09/23/20 08:59 Last Admin: 09/14/20 11:54 Dose: Not Given Documented by: Lorazepam (Lorazepam 0.5 Mg Tab) 0.5 mg PO BID PRN PRN Reason: anxiety Stop: 10/13/20 06:19 Metoprolol Tartrate (Metoprolol Tartrate 25 Mg Tab) 25 mg PO BID RAJI Stop: 10/13/20 08:59 Last Admin: 09/14/20 10:26 Dose: 25 mg Documented by: Ondansetron HCl (Ondansetron Inj 2 Mg/Ml 2 Ml Vial) 4 mg IV Q6H PRN PRN Reason: Nausea Stop: 10/13/20 06:19 Pantoprazole Sodium (Pantoprazole 40 Mg Tab) 40 mg PO DAILY RAJI Stop: 10/13/20 08:59 Last Admin: 09/14/20 10:26 Dose: 40 mg Documented by: Potassium Chloride (Potassium Chloride 20 Meq/15 Ml Udc) 20 meq PO BID RAJI Stop: 10/13/20 08:59 Last Admin: 09/14/20 10:26 Dose: 20 meq Documented by: Pramipexole Dihydrochloride (Pramipexole Dihydrochlo 0.25 Mg Tab) 0.25 mg PO DAILY RAJI Stop: 10/13/20 08:59 Last Admin: 09/14/20 10:26 Dose: 0.25 mg Documented by: Pravastatin Sodium (Pravastatin Sod 20 Mg Tab) 20 mg PO HS RAJI Stop: 10/13/20 20:59 Last Admin: 09/13/20 20:38 Dose: 20 mg Documented by: Spironolactone (Spironolactone 25 Mg Tab) 25 mg PO BID17 RAJI Stop: 10/13/20 08:59 Last Admin: 09/14/20 10:26 Dose: 25 mg Documented by: PG Care Time/CCT Total # of Minutes Spent Total Time Spent with Patient: Total time spent is greater than 50% in coordination of care (as documented) at patient's floor/unit and/or counseling patient: Coding Level of Care Code 96555 Subseq Hosp Care Lvl 3 Diagnoses Fluid overload E87.70 Hypervolemia type: unspecified Non-alcoholic cirrhosis K74.60 Pancytopenia D61.818 Anasarca R60.1 Ascites R18.8 Splenomegaly R16.1 Malignant neoplasm of upper-outer quadrant of right breast in female, estrogen receptor positive C50.411; Z17.0 Pulmonary emboli I26.99 Acute cor pulmonale presence: unspecified Chronicity: acute Pulmonary embolism type: other Splenic vein thrombosis I82.890 Portal vein thrombosis I81 MOBLEY (nonalcoholic steatohepatitis) K75.81 Aortic stenosis I35.0 Hypertension I10 Hypertension type: essential hypertension Hyperlipidemia E78.5 Hyperlipidemia type: unspecified (1) Hyperlipidemia Hyperlipidemia type: unspecified Qualified Code(s): E78.5 - Hyperlipidemia, unspecified (2) Pulmonary emboli Acute cor pulmonale presence: unspecified Chronicity: acute Pulmonary embolism type: other Qualified Code(s): I26.99 - Other pulmonary embolism without acute cor pulmonale (3) Hypertension Hypertension type: essential hypertension Qualified Code(s): I10 - Essential (primary) hypertension (4) Fluid overload Hypervolemia type: unspecified Qualified Code(s): E87.70 - Fluid overload, unspecified
[2020-09-14] MEDS: FUROSEMIDE 80 MG TAB PO SCH (17:08)
[2020-09-14] MEDS: PRAVASTATIN SOD 20 MG TAB PO SCH (20:44)
[2020-09-15 06:13] LABS: Hematocrit (blood only) 25.1 % (37-47); Hemoglobin 8.1 g/dL (12.0-16.0); Mean Corpuscular Hemoglobin 26.2 pg (25-34); Mean Corpuscular Hgb Conc 32.3 g/dL (32-36); Mean Corpuscular Volume 81.2 fL (80-100); RDW Coefficient of Variation 18.9 % (11.5-14.5); RDW Standard Deviation 55.4 fL (36.4-46.3); Red Blood Count 3.09 M/uL (4.2-5.4); White Blood Count 1.77 K/uL (4.8-10.8)
[2020-09-15 06:14] LABS: Mean Platelet Volume 10.3 fL (7.4-10.4); Platelet Count 61 K/uL (130-400)
[2020-09-15 06:28] LABS: INR 1.6 (0.9-1.1); Prothrombin Time 16.2 Seconds (9.0-12.0)
[2020-09-15 06:41] LABS: BUN Creatinine Ratio 14.8 (10-20); Creatinine Clr Calc Pharmacy 41.8 ml/min; Est GFR (African American) 43.5; Est GFR (Non-African American) 37.5; Magnesium 1.9 mg/dl (1.8-2.4); Potassium 3.9 mmol/L (3.5-5.1)
[2020-09-15 06:43] LABS: Basophils # (auto) 0.02 K/uL (0-0.2); Basophils % (auto) 1.1 %; Eosinophils # (auto) 0.06 K/uL (0-0.5); Eosinophils % (auto) 3.4 %; Lymphocytes # (auto) 0.58 K/uL (1.2-3.4); Lymphocytes % (auto) 32.8 %; Monocytes # (auto) 0.21 K/uL (0.11-0.59); Monocytes % (auto) 11.9 %; Neutrophils % (auto) 50.8 %; Ovalocytes 1+
[2020-09-15 06:54] LABS: Albumin Globulin Ratio 0.5 (0.9-2); Globulin 3.7 gm/dl (2.5-4.0); Total Protein 5.7 gm/dl (6.4-8.2)
[2020-09-15] MEDS: FLUTICASONE/VILANTEROL 100/25MCG 14 PUFFS/INHALER INH SCH (08:43)
[2020-09-15] MEDS: SPIRONOLACTONE 25 MG TAB PO SCH ×2 (08:44→16:41)
[2020-09-15] MEDS: FUROSEMIDE 80 MG TAB PO SCH ×2 (08:44→16:41)
[2020-09-15] MEDS: KETOCONAZOLE 2% CR 15 GM TUBE EXT SCH ×4 (08:44→20:24)
[2020-09-15] MEDS: POTASSIUM CHLORIDE 20 MEQ/15 ML UDC PO SCH ×2 (08:44→20:25)
[2020-09-15] MEDS: PANTOprazole 40 MG TAB PO SCH (08:45)
[2020-09-15] MEDS: PRAMIPEXOLE DIHYDROCHLO 0.25 MG TAB PO SCH (08:45)
[2020-09-15] MEDS: METOPROLOL TARTRATE 25 MG TAB PO SCH ×2 (08:45→20:23)
[2020-09-15] MEDS: WARFARIN SOD 3 MG TAB PO SCH (16:41)
[2020-09-15] MEDS: PRAVASTATIN SOD 20 MG TAB PO SCH (20:24)
--- NOTE | 2020-09-15 21:48 | Hospitalist Progress Note ---
Date of Service September 15, 2020 Assessment & Plan (1) Fluid overload: paracentesis 09/14 for 3.5 liters still with significant volume overload due to cirrhosis place on lasix 80mg BID and spironolactone 25mg BID increase the spironolactone to 50mg BID (2) Non-alcoholic cirrhosis: MOBLEY/cirrhosis/ascites/anasarca- Lasix 80mg BID Continue metoprolol tartrate 25 mg p.o. twice daily, and spironolactone 50 mg p.o. twice daily. Increase potassium chloride to 20 mEq p.o. twice daily with increased diuresis, K is 3.9 paracentesis for 3.5 liters 09/14, low albumin suggesting it is all due to cirrhosis sent for cytology with her history of breast CA sent for gram stain and culture WBC < 200, no concerns for SBP (3) Pancytopenia: neutropenic and Hb is down to 6.7 on 09/14 patient agrees to blood transfusion, no signs of bleeding, give one unit 09/14, repeat H/H today up to 8.1 place on neutropenic precautions, no fever or signs of infection so hold on antibiotics confirmed that she has never had chemotherapy, only radiation which she completed some time ago suspect her low counts are due to cirrhosis with splenomegaly (4) Anasarca: See above (5) Ascites: See above (6) Splenomegaly: See above causing pancytopenia (7) Malignant neoplasm of upper-outer quadrant of right breast in female, estrogen receptor positive: Completed radiation on 09/11/2020. discussed with Dr. Melton, no role for consult at this time (8) Pulmonary emboli: Pulmonary emboli/splenic vein thrombosis/portal vein thrombosis- Presently on warfarin, with INR 3.2. gave her Vitamin K to set up for paracentesis, INR is 1.6, Coumadin resumed (9) Splenic vein thrombosis: See above (10) Portal vein thrombosis: See above (11) MOBLEY (nonalcoholic steatohepatitis): See above (12) Aortic stenosis: Monitor platelet closely as diuresing (13) Hypertension: See above (14) Hyperlipidemia: Pravastatin 20 mg at bedtime Admission and Anticipated Discharge Date Admission Date: September 13, 2020 Subjective patient doing well, no acute changes unsure if she is making more urine with the Lasix 80mg BID and the spironolactone 25mg BID will increase the spironolactone Hb up after transfusion, WBC up slightly, plts low patient eating well she feels her fluid in abdomen is increasing, no pain discussed being here through weekend updated her family at the bedside Review of Systems Review of Systems: All systems reviewed & are unremarkable except as noted in Subjective Constitutional: no fever, no chills and no sweats Respiratory: no cough and no dyspnea Cardiovascular: + edema; no chest pain Physical Exam Constitutional: WD/WN, vitals as above Eyes: PERRL, conjunctivae normal, anicteric sclerae ENMT: external ear and nose normal, oropharynx normal Neck: trachea midline, no thyromegaly Respiratory: normal respiratory effort, lungs clear to auscultation Cardiovascular: Rate/Rhythm: regular rate and regular rhythm Heart Sounds: normal S1 and normal S2; no murmur Vessels: no JVD Extremities: + edema (pitting edema entire leg) Gastrointestinal (Abdomen): Inspection/Auscultation: + abdomen distended, normal bowel sounds and + abdominal edema Percussion/Palpation: + ascites; abdomen nontender, no guarding, abdomen not rigid and no hernia Musculoskeletal: no cyanosis or clubbing, extremities motor strength 5/5 Skin: no rashes, warm and dry Neurologic: patellar DTR's 2+ bilat, sensation intact and PERRL, EOMI, accommodation nl, no face palsy, no dysarthria Psychiatric: A+Ox3, euthymic affect Lymphatic: no cervical or axillary lymphadenopathy Results & Data Results & Data ([facility]) Vital Signs (Past 12 Hours) Vital Signs Temp Pulse Pulse Resp BP Pulse Ox 09/15/20 20:22 36.6 C 91 H 20 127/69 96 09/15/20 17:09 92 H 09/15/20 11:34 36.5 C 91 H 20 112/70 94 Laboratory Results Laboratory Results - last 24 hr 09/14/20 09/15/20 09/15/20 15:37 05:48 05:48 WBC 1.77 L RBC 3.09 L Hgb 8.1 L Hct 25.1 L MCV 81.2 MCH 26.2 MCHC 32.3 RDW Std Deviation 55.4 H RDW Coeff of Flower 18.9 H Plt Count 61 L MPV 10.3 Immature Gran % (Auto) 0.0 Neut % (Auto) 50.8 Lymph % (Auto) 32.8 [place] % (Auto) 11.9 Eos % (Auto) 3.4 Baso % (Auto) 1.1 Neut # (Auto) 0.90 L* Lymph # (Auto) 0.58 L [place] # (Auto) 0.21 Eos # (Auto) 0.06 Baso # (Auto) 0.02 Immature Gran # (Auto) 0.00 Ovalocytes 1+ PT INR Sodium 137 Potassium 3.9 Chloride 102 Carbon Dioxide 30 Anion Gap 5.0 BUN 21 H Creatinine 1.39 H Est Cr Clr Drug Dosing 41.8 Est GFR ( Amer) 43.5 Est GFR (Non-Af Amer) 37.5 BUN/Creatinine Ratio 14.8 Glucose 80 Calcium 8.0 L Magnesium 1.9 Total Bilirubin 3.0 H AST 24 ALT 20 Alkaline Phosphatase 60 Total Protein 5.7 L Albumin 2.0 L Globulin 3.7 Albumin/Globulin Ratio 0.5 L Crossmatch See Detail 09/15/20 05:48 WBC RBC Hgb Hct MCV MCH MCHC RDW Std Deviation RDW Coeff of Flower Plt Count MPV Immature Gran % (Auto) Neut % (Auto) Lymph % (Auto) [place] % (Auto) Eos % (Auto) Baso % (Auto) Neut # (Auto) Lymph # (Auto) [place] # (Auto) Eos # (Auto) Baso # (Auto) Immature Gran # (Auto) Ovalocytes PT 16.2 H INR 1.6 H Sodium Potassium Chloride Carbon Dioxide Anion Gap BUN Creatinine Est Cr Clr Drug Dosing Est GFR ( Amer) Est GFR (Non-Af Amer) BUN/Creatinine Ratio Glucose Calcium Magnesium Total Bilirubin AST ALT Alkaline Phosphatase Total Protein Albumin Globulin Albumin/Globulin Ratio Crossmatch Medications Administered Current Inpatient Medications Fluticasone/Vilanterol (Fluticasone/Vilanterol 100/25mcg 14 Puffs/Inhaler) 1 puffs INH DAILY RAJI Stop: 10/13/20 08:59 Last Admin: 09/15/20 08:43 Dose: 1 puffs Documented by: Furosemide (Furosemide 80 Mg Tab) 80 mg PO BID17 RAJI Stop: 10/14/20 16:59 Last Admin: 09/15/20 16:41 Dose: 80 mg Documented by: Ketoconazole (Ketoconazole 2% Cr 15 Gm Tube) 1 appln EXT QID RAJI Stop: 09/23/20 08:59 Last Admin: 09/15/20 20:24 Dose: 1 appln Documented by: Lorazepam (Lorazepam 0.5 Mg Tab) 0.5 mg PO BID PRN PRN Reason: anxiety Stop: 10/13/20 06:19 Metoprolol Tartrate (Metoprolol Tartrate 25 Mg Tab) 25 mg PO BID RAJI Stop: 10/13/20 08:59 Last Admin: 09/15/20 20:23 Dose: Not Given Documented by: Ondansetron HCl (Ondansetron Inj 2 Mg/Ml 2 Ml Vial) 4 mg IV Q6H PRN PRN Reason: Nausea Stop: 10/13/20 06:19 Pantoprazole Sodium (Pantoprazole 40 Mg Tab) 40 mg PO DAILY RAJI Stop: 10/13/20 08:59 Last Admin: 09/15/20 08:45 Dose: 40 mg Documented by: Potassium Chloride (Potassium Chloride 20 Meq/15 Ml Udc) 20 meq PO BID RAJI Stop: 10/13/20 08:59 Last Admin: 09/15/20 20:25 Dose: 20 meq Documented by: Pramipexole Dihydrochloride (Pramipexole Dihydrochlo 0.25 Mg Tab) 0.25 mg PO DAILY RAJI Stop: 10/13/20 08:59 Last Admin: 09/15/20 08:45 Dose: 0.25 mg Documented by: Pravastatin Sodium (Pravastatin Sod 20 Mg Tab) 20 mg PO HS RAJI Stop: 10/13/20 20:59 Last Admin: 09/15/20 20:24 Dose: 20 mg Documented by: Spironolactone (Spironolactone 25 Mg Tab) 50 mg PO BID17 RAJI Stop: 10/15/20 16:59 Last Admin: 09/15/20 16:41 Dose: 50 mg Documented by: Warfarin Sodium (Warfarin Sod 3 Mg Tab) 3 mg PO DAILY@1600 [facility] Stop: 10/15/20 15:59 Last Admin: 09/15/20 16:41 Dose: 3 mg Documented by: PG Care Time/CCT Total # of Minutes Spent Total Time Spent with Patient: Total time spent is greater than 50% in coordination of care (as documented) at patient's floor/unit and/or counseling patient: Coding Level of Care Code 43864 Subseq Hosp Care Lvl 2 Diagnoses Fluid overload E87.70 Hypervolemia type: unspecified Non-alcoholic cirrhosis K74.60 Pancytopenia D61.818 Anasarca R60.1 Ascites R18.8 Splenomegaly R16.1 Malignant neoplasm of upper-outer quadrant of right breast in female, estrogen receptor positive C50.411; Z17.0 Pulmonary emboli I26.99 Acute cor pulmonale presence: unspecified Chronicity: acute Pulmonary embolism type: other Splenic vein thrombosis I82.890 Portal vein thrombosis I81 MOBLEY (nonalcoholic steatohepatitis) K75.81 Aortic stenosis I35.0 Hypertension I10 Hypertension type: essential hypertension Hyperlipidemia E78.5 Hyperlipidemia type: unspecified (1) Hyperlipidemia Hyperlipidemia type: unspecified Qualified Code(s): E78.5 - Hyperlipidemia, unspecified (2) Pulmonary emboli Acute cor pulmonale presence: unspecified Chronicity: acute Pulmonary embolism type: other Qualified Code(s): I26.99 - Other pulmonary embolism without acute cor pulmonale (3) Hypertension Hypertension type: essential hypertension Qualified Code(s): I10 - Essential (primary) hypertension (4) Fluid overload Hypervolemia type: unspecified Qualified Code(s): E87.70 - Fluid overload, unspecified
[2020-09-16 06:18] LABS: Hematocrit (blood only) 24.5 % (37-47); Hemoglobin 7.7 g/dL (12.0-16.0); Mean Corpuscular Hemoglobin 25.8 pg (25-34); Mean Corpuscular Hgb Conc 31.4 g/dL (32-36); Mean Corpuscular Volume 81.9 fL (80-100); RDW Coefficient of Variation 19.1 % (11.5-14.5); RDW Standard Deviation 56.4 fL (36.4-46.3); Red Blood Count 2.99 M/uL (4.2-5.4); White Blood Count 1.53 K/uL (4.8-10.8)
[2020-09-16 06:26] LABS: INR 1.6 (0.9-1.1); Prothrombin Time 16.7 Seconds (9.0-12.0)
[2020-09-16 06:50] LABS: BUN Creatinine Ratio 12.5 (10-20); Calcium 7.7 mg/dl (8.5-10.1); Creatinine Clr Calc Pharmacy 44.5 ml/min; Est GFR (African American) 47.1; Est GFR (Non-African American) 40.7; Magnesium 2.2 mg/dl (1.8-2.4); Potassium 3.9 mmol/L (3.5-5.1)
[2020-09-16 06:58] LABS: Platelet Count 62 K/uL (130-400)
[2020-09-16] MEDS ORDERED: SIMETHICONE 80 MG CHEW PO PRN (07:20)
[2020-09-16] MEDS: FUROSEMIDE 80 MG TAB PO SCH ×2 (07:42→16:25)
[2020-09-16] MEDS: PANTOprazole 40 MG TAB PO SCH (07:43)
[2020-09-16] MEDS: SPIRONOLACTONE 25 MG TAB PO SCH ×2 (07:43→16:25)
[2020-09-16] MEDS: METOPROLOL TARTRATE 25 MG TAB PO SCH ×2 (07:44→20:42)
[2020-09-16] MEDS: PRAMIPEXOLE DIHYDROCHLO 0.25 MG TAB PO SCH (07:44)
[2020-09-16] MEDS: KETOCONAZOLE 2% CR 15 GM TUBE EXT SCH ×4 (07:45→20:43)
[2020-09-16] MEDS: POTASSIUM CHLORIDE 20 MEQ/15 ML UDC PO SCH ×2 (07:46→20:43)
[2020-09-16] MEDS: FLUTICASONE/VILANTEROL 100/25MCG 14 PUFFS/INHALER INH SCH (07:46)
[2020-09-16] MEDS: WARFARIN SOD 3 MG TAB PO SCH (16:24)
--- NOTE | 2020-09-16 18:55 | Hospitalist Progress Note ---
Date of Service September 16, 2020 Assessment & Plan (1) Fluid overload: paracentesis 09/14 for 3.5 liters still with significant volume overload due to cirrhosis place on lasix 80mg BID and spironolactone 25mg BID increase the spironolactone to 50mg BID on 09/15 weight down slightly, difficult to get accurate output per patient, she is urinating a lot more place on 1500mL fluid restriction (2) Non-alcoholic cirrhosis: MOBLEY/cirrhosis/ascites/anasarca- Lasix 80mg BID Continue metoprolol tartrate 25 mg p.o. twice daily, and spironolactone 50 mg p.o. twice daily. Increase potassium chloride to 20 mEq p.o. twice daily with increased diuresis, K is 3.9 paracentesis for 3.5 liters 09/14, low albumin suggesting it is all due to cirrhosis sent for cytology with her history of breast CA - no malignant cells sent for gram stain and culture - no growth WBC < 200, no concerns for SBP (3) Pancytopenia: neutropenic and Hb is down to 6.7 on 09/14 patient agrees to blood transfusion, no signs of bleeding, give one unit 09/14, repeat H/H up to 8.[address] on neutropenic precautions, no fever or signs of infection so hold on antibiotics confirmed that she has never had chemotherapy, only radiation which she completed some time ago suspect her low counts are due to cirrhosis with splenomegaly (4) Anasarca: See above (5) Ascites: See above (6) Splenomegaly: See above causing pancytopenia (7) Malignant neoplasm of upper-outer quadrant of right breast in female, estrogen receptor positive: Completed radiation on 09/11/2020. discussed with Dr. Melton, no role for consult at this time (8) Pulmonary emboli: Pulmonary emboli/splenic vein thrombosis/portal vein thrombosis- Presently on warfarin, with INR 3.2. gave her Vitamin K to set up for paracentesis, INR is still 1.6, Coumadin resumed (9) Splenic vein thrombosis: See above (10) Portal vein thrombosis: See above (11) MOBLEY (nonalcoholic steatohepatitis): See above (12) Aortic stenosis: Monitor platelet closely as diuresing (13) Hypertension: See above (14) Hyperlipidemia: Pravastatin 20 mg at bedtime Admission and Anticipated Discharge Date Admission Date: September 13, 2020 Subjective patient without any issues tolerating Lasix and Spironolactone, making more urine, went to the bathroom 3 times over night eating well will order PT/OT explained that she [facility], she understands Review of Systems Review of Systems: All systems reviewed & are unremarkable except as noted in Subjective Cardiovascular: + edema (pitting, into thighs and hips) Physical Exam Constitutional: WD/WN, vitals as above Neck: trachea midline, no thyromegaly Respiratory: normal respiratory effort, lungs clear to auscultation Cardiovascular: Rate/Rhythm: regular rate and regular rhythm Heart Sounds: normal S1 and normal S2; no murmur Vessels: no JVD Extremities: + edema (pitting edema entire leg) Gastrointestinal (Abdomen): Inspection/Auscultation: + abdomen distended, normal bowel sounds and + abdominal edema Percussion/Palpation: + ascites; abdomen nontender, no guarding, abdomen not rigid and no hernia Musculoskeletal: no cyanosis or clubbing, extremities motor strength 5/5 Skin: no rashes, warm and dry Neurologic: patellar DTR's 2+ bilat, sensation intact and PERRL, EOMI, accommodation nl, no face palsy, no dysarthria Psychiatric: A+Ox3, euthymic affect Lymphatic: no cervical or axillary lymphadenopathy Results & Data Results & Data ([facility]) Vital Signs (Past 12 Hours) Vital Signs Temp Pulse Pulse Resp BP Pulse Ox 09/16/20 15:34 36.5 C 81 18 109/61 94 09/16/20 15:01 78 09/16/20 11:43 36.5 C 77 18 124/76 98 09/16/20 09:22 97 H 09/16/20 07:39 36.6 C 98 H 18 116/61 94 Laboratory Results Laboratory Results - last 24 hr 09/16/20 09/16/20 09/16/20 05:57 05:57 05:57 WBC 1.53 L RBC 2.99 L Hgb 7.7 L Hct 24.5 L MCV 81.9 MCH 25.8 MCHC 31.4 L RDW Std Deviation 56.4 H RDW Coeff of Flower 19.1 H Plt Count 62 L MPV 10.0 PT 16.7 H INR 1.6 H Sodium 137 Potassium 3.9 Chloride 102 Carbon Dioxide 29 Anion Gap 6.0 BUN 16 Creatinine 1.30 H Est Cr Clr Drug Dosing 44.5 Est GFR ( Amer) 47.1 Est GFR (Non-Af Amer) 40.7 BUN/Creatinine Ratio 12.5 Glucose 89 Calcium 7.7 L Magnesium 2.2 Medications Administered Current Inpatient Medications Fluticasone/Vilanterol (Fluticasone/Vilanterol 100/25mcg 14 Puffs/Inhaler) 1 puffs INH DAILY RAJI Stop: 10/13/20 08:59 Last Admin: 09/16/20 07:46 Dose: 1 puffs Documented by: Furosemide (Furosemide 80 Mg Tab) 80 mg PO BID17 RAJI Stop: 10/14/20 16:59 Last Admin: 09/16/20 16:25 Dose: 80 mg Documented by: Ketoconazole (Ketoconazole 2% Cr 15 Gm Tube) 1 appln EXT QID RAJI Stop: 09/23/20 08:59 Last Admin: 09/16/20 16:26 Dose: 1 appln Documented by: Lorazepam (Lorazepam 0.5 Mg Tab) 0.5 mg PO BID PRN PRN Reason: anxiety Stop: 10/13/20 06:19 Metoprolol Tartrate (Metoprolol Tartrate 25 Mg Tab) 25 mg PO BID RAJI Stop: 10/13/20 08:59 Last Admin: 09/16/20 07:44 Dose: 25 mg Documented by: Ondansetron HCl (Ondansetron Inj 2 Mg/Ml 2 Ml Vial) 4 mg IV Q6H PRN PRN Reason: Nausea Stop: 10/13/20 06:19 Pantoprazole Sodium (Pantoprazole 40 Mg Tab) 40 mg PO DAILY RAJI Stop: 10/13/20 08:59 Last Admin: 09/16/20 07:43 Dose: 40 mg Documented by: Potassium Chloride (Potassium Chloride 20 Meq/15 Ml Udc) 20 meq PO BID RAJI Stop: 10/13/20 08:59 Last Admin: 09/16/20 07:46 Dose: 20 meq Documented by: Pramipexole Dihydrochloride (Pramipexole Dihydrochlo 0.25 Mg Tab) 0.25 mg PO DAILY RAJI Stop: 10/13/20 08:59 Last Admin: 09/16/20 07:44 Dose: 0.25 mg Documented by: Pravastatin Sodium (Pravastatin Sod 20 Mg Tab) 20 mg PO HS RAJI Stop: 10/13/20 20:59 Last Admin: 09/15/20 20:24 Dose: 20 mg Documented by: Simethicone (Simethicone 80 Mg Chew) 80 mg PO Q6H PRN PRN Reason: Gas or Constipation Stop: 10/16/20 07:19 Spironolactone (Spironolactone 25 Mg Tab) 50 mg PO BID17 RAJI Stop: 10/15/20 16:59 Last Admin: 09/16/20 16:25 Dose: 50 mg Documented by: Warfarin Sodium (Warfarin Sod 3 Mg Tab) 3 mg PO DAILY@1600 RAJI Stop: 10/15/20 15:59 Last Admin: 09/16/20 16:24 Dose: 3 mg Documented by: PG Care Time/CCT Total # of Minutes Spent Total Time Spent with Patient: Total time spent is greater than 50% in co ordination of care (as documented) at patient's floor/unit and/or counseling patient: Coding Level of Care Code 48991 Subseq Hosp Care Lvl 2 Diagnoses Fluid overload E87.70 Hypervolemia type: unspecified Non-alcoholic cirrhosis K74.60 Pancytopenia D61.818 Anasarca R60.1 Ascites R18.8 Splenomegaly R16.1 Malignant neoplasm of upper-outer quadrant of right breast in female, estrogen receptor positive C50.411; Z17.0 Pulmonary emboli I26.99 Acute cor pulmonale presence: unspecified Chronicity: acute Pulmonary embolism type: other Splenic vein thrombosis I82.890 Portal vein thrombosis I81 MOBLEY (nonalcoholic steatohepatitis) K75.81 Aortic stenosis I35.0 Hypertension I10 Hypertension type: essential hypertension Hyperlipidemia E78.5 Hyperlipidemia type: unspecified (1) Hyperlipidemia Hyperlipidemia type: unspecified Qualified Code(s): E78.5 - Hyperlipidemia, unspecified (2) Pulmonary emboli Acute cor pulmonale presence: unspecified Chronicity: acute Pulmonary embolism type: other Qualified Code(s): I26.99 - Other pulmonary embolism without acute cor pulmonale (3) Hypertension Hypertension type: essential hypertension Qualified Code(s): I10 - Essential (primary) hypertension (4) Fluid overload Hypervolemia type: unspecified Qualified Code(s): E87.70 - Fluid overload, unspecified
[2020-09-16] MEDS: PRAVASTATIN SOD 20 MG TAB PO SCH (20:42)
[2020-09-17] MEDS: KETOCONAZOLE 2% CR 15 GM TUBE EXT SCH ×4 (07:52→21:26)
[2020-09-17] MEDS: METOPROLOL TARTRATE 25 MG TAB PO SCH ×2 (07:52→21:26)
[2020-09-17] MEDS: SPIRONOLACTONE 25 MG TAB PO SCH ×2 (07:53→17:06)
[2020-09-17] MEDS: PANTOprazole 40 MG TAB PO SCH (07:53)
[2020-09-17] MEDS: FUROSEMIDE 80 MG TAB PO SCH ×2 (07:53→17:07)
[2020-09-17] MEDS: PRAMIPEXOLE DIHYDROCHLO 0.25 MG TAB PO SCH (07:53)
[2020-09-17] MEDS: FLUTICASONE/VILANTEROL 100/25MCG 14 PUFFS/INHALER INH SCH (07:56)
[2020-09-17] MEDS: POTASSIUM CHLORIDE 20 MEQ/15 ML UDC PO SCH ×2 (07:56→21:25)
[2020-09-17 08:48] LABS: Hematocrit (blood only) 29.8 % (37-47); Hemoglobin 9.4 g/dL (12.0-16.0); Mean Corpuscular Hemoglobin 26.1 pg (25-34); Mean Corpuscular Hgb Conc 31.5 g/dL (32-36); Mean Corpuscular Volume 82.8 fL (80-100); Mean Platelet Volume 9.8 fL (7.4-10.4); Platelet Count 89 K/uL (130-400); RDW Coefficient of Variation 19.3 % (11.5-14.5); RDW Standard Deviation 57.4 fL (36.4-46.3)
[2020-09-17 08:56] LABS: INR 1.8 (0.9-1.1); Prothrombin Time 18.7 Seconds (9.0-12.0)
[2020-09-17 09:04] LABS: BUN Creatinine Ratio 12.3 (10-20); Calcium 8.7 mg/dl (8.5-10.1); Creatinine Clr Calc Pharmacy 42.8 ml/min; Est GFR (Non-African American) 38.9; Potassium 3.8 mmol/L (3.5-5.1)
[2020-09-17 09:09] LABS: Platelet Estimate Decreased (Normal)
[2020-09-17] MEDS: WARFARIN SOD 3 MG TAB PO SCH (17:05)
[2020-09-17] MEDS: PRAVASTATIN SOD 20 MG TAB PO SCH (21:26)
--- NOTE | 2020-09-17 22:46 | Hospitalist Progress Note ---
Date of Service September 17, 2020 Assessment & Plan (1) Fluid overload: paracentesis 09/14 for 3.5 liters still with significant volume overload due to cirrhosis continue lasix 80mg BID and spironolactone 50mg BID anticipate being able to titrate up on dose as outpatient weight down slightly, difficult to get accurate output per patient, she is urinating a lot more place on 1500mL fluid restriction, would continue this on discharge likely okay to return home tomorrow, follow up on PT/OT recommendations needs close follow up with PCP (2) Non-alcoholic cirrhosis: MOBLEY/cirrhosis/ascites/anasarca- Lasix 80mg BID Continue metoprolol tartrate 25 mg p.o. twice daily, and spironolactone 50 mg p.o. twice daily. Increase potassium chloride to 20 mEq p.o. twice daily with increased diuresis, K is 3.8 continue Pot Chloride 20 BID on discharge paracentesis for 3.5 liters 09/14, low albumin suggesting it is all due to cirrhosis sent for cytology with her history of breast CA - no malignant cells sent for gram stain and culture - no growth WBC < 200, no concerns for SBP ascites is slowly re-accumulating, no need for repeat tap at this time (3) Pancytopenia: neutropenic and Hb was down to 6.7 on 09/14 patient agreed to blood transfusion, no signs of bleeding, give one unit 09/14, Hb up to 9.[address] on neutropenic precautions, no fever or signs of infection so hold on antibiotics confirmed that she has never had chemotherapy, only radiation which she completed some time ago suspect her low counts are due to cirrhosis with splenomegaly (4) Anasarca: See above (5) Ascites: See above (6) Splenomegaly: See above causing pancytopenia (7) Malignant neoplasm of upper-outer quadrant of right breast in female, estrogen receptor positive: Completed radiation on 09/11/2020. discussed with Dr. Melton, no role for consult at this time (8) Pulmonary emboli: Pulmonary emboli/splenic vein thrombosis/portal vein thrombosis- Presently on warfarin, with INR 3.2. gave her Vitamin K to set up for paracentesis, INR is up to 1.8, Coumadin resumed three days ago, 3mg daily (9) Splenic vein thrombosis: See above (10) Portal vein thrombosis: See above (11) MOBLEY (nonalcoholic steatohepatitis): See above (12) Aortic stenosis: Monitor platelet closely as diapriling (13) Hypertension: See above (14) Hyperlipidemia: Pravastatin 20 mg at bedtime Admission and Anticipated Discharge Date Admission Date: September 13, 2020 Subjective patient is doing well, she is pleased that she is making more urine, difficult to tell on exam she likely has 30 lbs of fluid at least she is eating well, no fever/chills, no dyspnea, no chest pain reviewed labs, Cr remains stable at 1.35, K is 3.8, INR up to 1.8, Hb is 9.4 patient hoping to go home tomorrow PT/OT ordered Review of Systems Review of Systems: All systems reviewed & are unremarkable except as noted in Subjective Constitutional: no fever Respiratory: no cough and no dyspnea Cardiovascular: + edema; no chest pain Gastrointestinal: no abdominal pain, no nausea, no vomiting, no constipation and no diarrhea/loose stools Physical Exam Constitutional: WD/WN, vitals as above Neck: trachea midline, no thyromegaly Respiratory: normal respiratory effort, lungs clear to auscultation Cardiovascular: Rate/Rhythm: regular rate and regular rhythm Heart Sounds: normal S1 and normal S2; no murmur Vessels: no JVD Extremities: + edema (pitting edema entire leg) Gastrointestinal (Abdomen): Inspection/Auscultation: + abdomen distended, normal bowel sounds and + abdominal edema Percussion/Palpation: + ascites; abdomen nontender, no guarding, abdomen not rigid and no hernia Musculoskeletal: no cyanosis or clubbing, extremities motor strength 5/5 Skin: no rashes, warm and dry Neurologic: patellar DTR's 2+ bilat, sensation intact and PERRL, EOMI, accommodation nl, no face palsy, no dysarthria Psychiatric: A+Ox3, euthymic affect Lymphatic: no cervical or axillary lymphadenopathy Results & Data Results & Data ([facility]) Vital Signs (Past 12 Hours) Vital Signs Temp Pulse Resp BP Pulse Ox 09/17/20 15:28 36.4 C L 80 18 136/78 97 Laboratory Results Laboratory Results - last 24 hr 09/14/20 09/17/20 09/17/20 15:37 08:10 08:10 WBC 1.90 L RBC 3.60 L Hgb 9.4 L Hct 29.8 L MCV 82.8 MCH 26.1 MCHC 31.5 L RDW Std Deviation 57.4 H RDW Coeff of Flower 19.3 H Plt Count 89 L MPV 9.8 Platelet Estimate Decreased L PT 18.7 H INR 1.8 H Sodium Potassium Chloride Carbon Dioxide Anion Gap BUN Creatinine Est Cr Clr Drug Dosing Est GFR ( Amer) Est GFR (Non-Af Amer) BUN/Creatinine Ratio Glucose Calcium Crossmatch See Detail 09/17/20 08:10 WBC RBC Hgb Hct MCV MCH MCHC RDW Std Deviation RDW Coeff of Flower Plt Count MPV Platelet Estimate PT INR Sodium 136 Potassium 3.8 Chloride 100 Carbon Dioxide 32 Anion Gap 4.0 BUN 17 Creatinine 1.35 H Est Cr Clr Drug Dosing 42.8 Est GFR ( Amer) 45.0 Est GFR (Non-Af Amer) 38.9 BUN/Creatinine Ratio 12.3 Glucose 83 Calcium 8.7 Crossmatch Medications Administered Current Inpatient Medications Fluticasone/Vilanterol (Fluticasone/Vilanterol 100/25mcg 14 Puffs/Inhaler) 1 puffs INH DAILY RAJI Stop: 10/13/20 08:59 Last Admin: 09/17/20 07:56 Dose: 1 puffs Documented by: Furosemide (Furosemide 80 Mg Tab) 80 mg PO BID17 [facility] Stop: 10/14/20 16:59 Last Admin: 09/17/20 17:07 Dose: 80 mg Documented by: Ketoconazole (Ketoconazole 2% Cr 15 Gm Tube) 1 appln EXT QID RAJI Stop: 09/23/20 08:59 Last Admin: 09/17/20 21:26 Dose: 1 appln Documented by: Lorazepam (Lorazepam 0.5 Mg Tab) 0.5 mg PO BID PRN PRN Reason: anxiety Stop: 10/13/20 06:19 Metoprolol Tartrate (Metoprolol Tartrate 25 Mg Tab) 25 mg PO BID [facility] Stop: 10/13/20 08:59 Last Admin: 09/17/20 21:26 Dose: 25 mg Documented by: Ondansetron HCl (Ondansetron Inj 2 Mg/Ml 2 Ml Vial) 4 mg IV Q6H PRN PRN Reason: Nausea Stop: 10/13/20 06:19 Pantoprazole Sodium (Pantoprazole 40 Mg Tab) 40 mg PO DAILY RAJI Stop: 10/13/20 08:59 Last Admin: 09/17/20 07:53 Dose: 40 mg Documented by: Potassium Chloride (Potassium Chloride 20 Meq/15 Ml Udc) 20 meq PO BID RAJI Stop: 10/13/20 08:59 Last Admin: 09/17/20 21:25 Dose: 20 meq Documented by: Pramipexole Dihydrochloride (Pramipexole Dihydrochlo 0.25 Mg Tab) 0.25 mg PO DAILY RAJI Stop: 10/13/20 08:59 Last Admin: 09/17/20 07:53 Dose: 0.25 mg Documented by: Pravastatin Sodium (Pravastatin Sod 20 Mg Tab) 20 mg PO HS RAJI Stop: 10/13/20 20:59 Last Admin: 09/17/20 21:26 Dose: 20 mg Documented by: Simethicone (Simethicone 80 Mg Chew) 80 mg PO Q6H PRN PRN Reason: Gas or Constipation Stop: 10/16/20 07:19 Spironolactone (Spironolactone 25 Mg Tab) 50 mg PO BID17 RAJI Stop: 10/15/20 16:59 Last Admin: 09/17/20 17:06 Dose: 50 mg Documented by: Warfarin Sodium (Warfarin Sod 3 Mg Tab) 3 mg PO DAILY@1600 RAJI Stop: 10/15/20 15:59 Last Admin: 09/17/20 17:05 Dose: 3 mg Documented by: PG Care Time/CCT Total # of Minutes Spent Total Time Spent with Patient: Total time spent is greater than 50% in coordination of care (as documented) at patient's floor/unit and/or counseling patient: Coding Level of Care Code 75590 Subseq Hosp Care Lvl 2 Diagnoses Fluid overload E87.70 Hypervolemia type: unspecified Non-alcoholic cirrhosis K74.60 Pancytopenia D61.818 Anasarca R60.1 Ascites R18.8 Splenomegaly R16.1 Malignant neoplasm of upper-outer quadrant of right breast in female, estrogen receptor positive C50.411; Z17.0 Pulmonary emboli I26.99 Acute cor pulmonale presence: unspecified Chronicity: acute Pulmonary embolism type: other Splenic vein thrombosis I82.890 Portal vein thrombosis I81 MOBLEY (nonalcoholic steatohepatitis) K75.81 Aortic stenosis I35.0 Hypertension I10 Hypertension type: essential hypertension Hyperlipidemia E78.5 Hyperlipidemia type: unspecified (1) Fluid overload Hypervolemia type: unspecified Qualified Code(s): E87.70 - Fluid overload, unspecified (2) Pulmonary emboli Acute cor pulmonale presence: unspecified Chronicity: acute Pulmonary embolism type: other Qualified Code(s): I26.99 - Other pulmonary embolism without acute cor pulmonale (3) Hypertension Hypertension type: essential hypertension Qualified Code(s): I10 - Essential (primary) hypertension (4) Hyperlipidemia Hyperlipidemia type: unspecified Qualified Code(s): E78.5 - Hyperlipidemia, unspecified
[2020-09-18] MEDS: POTASSIUM CHLORIDE 20 MEQ/15 ML UDC PO SCH (08:12)
[2020-09-18] MEDS: KETOCONAZOLE 2% CR 15 GM TUBE EXT SCH ×2 (08:12→12:08)
[2020-09-18] MEDS: METOPROLOL TARTRATE 25 MG TAB PO SCH (08:13)
[2020-09-18] MEDS: PANTOprazole 40 MG TAB PO SCH (08:13)
[2020-09-18] MEDS: FLUTICASONE/VILANTEROL 100/25MCG 14 PUFFS/INHALER INH SCH (08:13)
[2020-09-18] MEDS: PRAMIPEXOLE DIHYDROCHLO 0.25 MG TAB PO SCH (08:13)
[2020-09-18] MEDS: FUROSEMIDE 80 MG TAB PO SCH (08:13)
[2020-09-18] MEDS: SPIRONOLACTONE 25 MG TAB PO SCH (08:13)
[2020-09-18 09:55] LABS: Hematocrit (blood only) 30.9 % (37-47); Hemoglobin 9.9 g/dL (12.0-16.0); Mean Corpuscular Hemoglobin 26.3 pg (25-34); Mean Corpuscular Volume 82.2 fL (80-100); RDW Coefficient of Variation 19.3 % (11.5-14.5); RDW Standard Deviation 56.4 fL (36.4-46.3); Red Blood Count 3.76 M/uL (4.2-5.4)
[2020-09-18 10:02] LABS: Mean Platelet Volume 9.5 fL (7.4-10.4); Platelet Count 97 K/uL (130-400)
[2020-09-18 10:06] LABS: INR 2.3 (0.9-1.1)
[2020-09-18 10:21] LABS: BUN Creatinine Ratio 11.2 (10-20); Calcium 8.5 mg/dl (8.5-10.1); Creatinine Clr Calc Pharmacy 41.1 ml/min; Est GFR (African American) 43.1; Est GFR (Non-African American) 37.2; Magnesium 2.1 mg/dl (1.8-2.4); Potassium 3.5 mmol/L (3.5-5.1)
[2020-09-18 10:24] LABS: Anisocytosis Present; Basophils # (auto) 0.02 K/uL (0-0.2); Basophils % (auto) 0.7 %; Eosinophils # (auto) 0.05 K/uL (0-0.5); Eosinophils % (auto) 1.9 %; Lymphocytes # (auto) 0.53 K/uL (1.2-3.4); Lymphocytes % (auto) 19.6 %; Monocytes # (auto) 0.21 K/uL (0.11-0.59); Monocytes % (auto) 7.8 %; Neutrophils # (auto) 1.89 K/uL (1.4-6.5)
[2020-09-18 11:55] VITALS: PULSE 89; TEMP 97.2; O2SAT 100
--- NOTE | 2020-09-18 13:41 | Discharge Summary ---
Date of Service September 18, 2020 Admission HPI Per Admitting Provider The patient is a 75-year-old female with a past medical history including right breast estrogen receptor positive breast cancer status post radiation treatments, multiple pulmonary nodules, splenomegaly, MOBLEY, pulmonary emboli, pancytopenia, portal vein thrombosis, splenic vein thrombosis, lower extremity edema, hypertension, hyperlipidemia, ambulatory dysfunction and aortic stenosis. She completed radiation therapy for breast cancer on 09/11/2020. She presents with the above symptoms. She also notes that her legs have been weeping. Principal Diagnosis Anasarca, ascites, cirrhosis, volume overload Discharge Exam Constitutional WD/WN, vitals as above + obese Eyes + anicteric sclerae Neck trachea midline, no thyromegaly Respiratory normal respiratory effort, lungs clear to auscultation Cardiovascular Rate/Rhythm: regular rate and regular rhythm Heart Sounds: + murmur (3/6 ALVARO at the RUSB) Extremities: + edema (3+ pitting edema to the thighs bilaterally) Chest (Breasts) Chest: normal inspection of chest Gastrointestinal (Abdomen) normal bowel sounds, soft, nontender, no hepatosplenomegaly Inspection/Auscultation: + abdomen distended (Mild distention) Musculoskeletal Extremities: no cyanosis and no clubbing Skin no rashes, warm and dry Neurologic moves all extremities and awake; no focal motor deficits Psychiatric A+Ox3, euthymic affect Lymphatic no lymphedema Discharge Data Allergies Allergy/AdvReac Type Severity Reaction Status Date / Time naproxen Allergy Intermediate Hives Verified 08/29/20 10:19 adhesive AdvReac Mild SKIN Verified 08/29/20 10:19 IRRITATION ciprofloxacin AdvReac Mild Nausea Verified 08/29/20 10:19 Consultations 09/13/20 02:54 ED Decision to Admit Stat 09/13/20 06:20 Consult Case Management - Discharge Planning Routine Ordered Studies 09/14/20 09:00 US paracentesis abd w/image Routine Chest x-ray Hospital Course (1) Fluid overload: paracentesis 09/14 for 3.5 liters still with significant volume overload due to cirrhosis but overall improved, has lost 4.4 kg this admission continue lasix 80mg BID and spironolactone 50mg BID anticipate being able to titrate up on dose as outpatient-needs close follow- up with PCP and/or GI weight down slightly, difficult to get accurate output per patient, she is urinating a lot more place on 1500mL fluid restriction, would continue this on discharge (2) Non-alcoholic cirrhosis: MOBLEY/cirrhosis/ascites/anasarca- Converted home Bumex 1 mg daily to Lasix 80mg BID Continue metoprolol tartrate 25 mg p.o. twice daily, and spironolactone 50 mg p.o. twice daily which is an increased dose from home. Increase potassium chloride to 20 mEq p.o. twice daily with increased diuresis, K is 3.5 on the day of discharge on this dose continue Pot Chloride 20 BID on discharge paracentesis for 3.5 liters 09/14, low albumin suggesting it is all due to cirrhosis sent for cytology with her history of breast CA - no malignant cells sent for gram stain and culture - no growth WBC < 200, no concerns for SBP ascites is slowly re-accumulating, no need for repeat tap at this time but should be watched closely as an outpatient -Low-sodium diet and fluid restriction upon discharge Needs close follow-up with GI as an outpatient (3) Pancytopenia: neutropenic and Hb was down to 6.7 on 09/14 patient agreed to blood transfusion, no signs of bleeding, give one unit 09/14, Hb up to 9.9 on the day of discharge WBC count remains low but a little higher than previous at 2.7-place on neutrope carisa precautions, no fever or signs of infection so no need for antibiotics confirmed that she has never had chemotherapy, only radiation which she completed some time ago suspect her low counts are due to cirrhosis with splenomegaly Follow CBC as an outpatient with oncology (4) Anasarca: See above (5) Ascites: See above (6) Splenomegaly: See above causing pancytopenia (7) Malignant neoplasm of upper-outer quadrant of right breast in female, estrogen receptor positive: Completed radiation on 09/11/2020. discussed with Dr. Melton, no role for consult at this time (8) Pulmonary emboli: Pulmonary emboli/splenic vein thrombosis/portal vein thrombosis- Presently on warfarin, with INR therapeutic She was given Vitamin K to set up for paracentesis, INR now up to 2.3 on the day of discharge after resuming Coumadin at a higher dose Will continue usual Coumadin dose of 1.5 mg daily and follow-up with anticoagulation clinic after discharge She needs to remain on Coumadin indefinitely as she has active breast cancer (9) Splenic vein thrombosis: See above (10) Portal vein thrombosis: See above (11) MOBLEY (nonalcoholic steatohepatitis): See above (12) Aortic stenosis: Moderate Should follow-up with cardiology as an outpatient (13) Hypertension: Blood pressures are controlled Continue medications as above (14) Hyperlipidemia: Continue pravastatin 20 mg at bedtime Stable for discharge to home Total Time Total Time Spent Total Time Spent (In Minutes): 35 minutes Total Time Includes: Examination of the Patient, Discharge Planning and Medication Reconciliation Discharge Plan Discharge Items Patient Disposition: Home - Home Health Services Reason For Visit: ANASARCA, ASCITES, CIRRHOSIS Discharge Diagnosis: Anasarca, ascites, cirrhosis, volume overload Condition on Discharge: Fair Activity: Resume your previous activity Non-emergency contact: Primary Care Provider and Dictaphone Mechanic Call non-emergency contact if: you have any medication questions, your symptoms worsen and your pain is not controlled Follow-up/Referrals: Kvng Pereira III, MD [Primary Care Provider] - 09/22/20 2:00 pm (Please follow-up within 2 weeks) Diet: Low Sodium (2gm) Pending Studies at Discharge: No Stand-Alone Forms: [facility] Medications and DC Order Prescriptions: New spironolactone 50 mg tablet 50 mg PO BID Qty: 60 RF: 0 furosemide 80 mg Tablet 80 mg PO BID17 Qty: 60 RF: 0 ketoconazole 2 % Cream 1 applic EXT QID Qty: 15 RF: 0 Continued warfarin 3 mg tablet See Rx Instructions PO DAILY RF: 0 albuterol sulfate 2.5 mg /3 mL (0.083 %) solution for nebulization 2.5 mg INH BID PRN (Reason: shortness of breath or wheezing) Qty: 90 RF: 3 lorazepam 0.5 mg tablet 0.5 mg PO BID PRN (Reason: anxiety) Qty: 30 RF: 0 metoprolol tartrate 25 mg tablet 25 mg PO BID Qty: 180 RF: 3 pramipexole 0.25 mg tablet 0.25 mg PO DAILY Qty: 90 RF: 3 omeprazole 20 mg capsule,delayed release(DR/EC) 20 mg PO DAILY Qty: 90 RF: 3 pravastatin 20 mg tablet 20 mg PO HS RF: 0 fluticasone propion-salmeterol [Wixela Inhub] 250-50 mcg/dose blister with device 1 inh INHALATION BID RF: 0 Changed potassium chloride 20 mEq/15 mL Liquid 20 meq PO BID Qty: 473 RF: 0 Discontinued loperamide [Imodium A-D] 2 mg tablet 2 mg PO Q6H PRN (Reason: Diarrhea) RF: 0 bumetanide 1 mg tablet 1 mg PO DAILY Qty: 90 RF: 3 spironolactone 25 mg tablet 25 mg PO BID RF: 0 oxycodone 5 mg tablet 5 mg PO Q4H Qty: 10 RF: 0 Discharge Orders: Discharge Order (Routine); Ordered 09/18/20 Ordered By: Audrey Schulz Admission Data Admit Date/Time: 09/13/20 03:54 Attending Provider: Audrey Schulz Admit Provider: Karlos Lee Primary Care Provider: Kvng Pereira III Other Providers: Karlos Lee Coding Level of Care Code D/C Day Management >30 mins Diagnoses Fluid overload E87.70 Hypervolemia type: unspecified Non-alcoholic cirrhosis K74.60 Pancytopenia D61.818 Anasarca R60.1 Ascites R18.8 Splenomegaly R16.1 Malignant neoplasm of upper-outer quadrant of right breast in female, estrogen receptor positive C50.411; Z17.0 Pulmonary emboli I26.99 Acute cor pulmonale presence: unspecified Chronicity: acute Pulmonary embolism type: other Splenic vein thrombosis I82.890 Portal vein thrombosis I81 MOBLEY (nonalcoholic steatohepatitis) K75.81 Aortic stenosis I35.0 Hypertension I10 Hypertension type: essential hypertension Hyperlipidemia E78.5 Hyperlipidemia type: unspecified
[2020-09-18 14:10] VITALS: BP 128/75
== END 2020-09-18 15:43 | disposition home health service (06) | DRG 441 ==
LOC: ED 01:32 → 2N 03:54 → SUATTDRO 03:54 → 2N 04:53

== ENCOUNTER 2020-10-04 15:06 | Inpatient (IN) ==
[2020-10-04] MEDS ORDERED: SODIUM CHLORIDE 0.9% 1000ML 1,000 ML IV SCH (15:45)
--- NOTE | 2020-10-04 15:56 | XRay Report ---
XR chest 1V portable HISTORY: 75 years-old Female weakness acute weakness COMPARISON: Chest radiograph 09/13/2020 TECHNIQUE: Portable AP view of the chest FINDINGS: Cardiomediastinal and hilar silhouettes appear stable. Mild linear subsegmental bibasilar atelectasis /scarring is unchanged. No pneumothorax, pleural effusion, airspace consolidation or overt pulmonary edema. Mild chronic interstitial coarsening. Degenerative changes of the shoulders and spine. IMPRESSION: Chronic findings as above without acute process. ACT 112: Negative or not required by law. The above report was generated using voice recognition software. It may contain grammatical, syntax o r spelling errors. Electronically signed by: Dwayne Manley M.D. 10/04/2020 3:55 PM
--- NOTE | 2020-10-04 16:05 | Emergency Department Note ---
Impression & Plan Anasarca, Ambulatory dysfunction, AMS (altered mental status) ED Provider Note INFORMANT: [Patient] ED PROVIDER(S): Ruslan Stringer MD CHIEF COMPLAINT: :Leg swelling PLAN: Disposition: Admitted Condition: [Good] MEDICAL DECISION MAKING: Pt presented with anasarca. She was found to be anemic, had a large rectus hematoma and supratherapeutic INR. She was gently hydrated due to the low BP and IV and oral vitamin K given. Cultures done. With the extremely high INR and bleeding further management in the hospital is necessary. Triage Nursing notes reviewed and agree them. [Prior medical records reviewed] regarding recent admission. Vital Signs: reviewed and remarkable for mildly low BP Differential diagnosis: Infection, hypoglycemia, electrolyte abnormalities, overdose, toxicologic, cardiac sources, intracerebral event, neurologic, trauma, as well as other pathologies. Diagnostics interpreted by me: ECG: Rate:80 Rhythm:Normal sinus [place]:Normal QRS:RBBB ST segements:No elevation or depression Other:No PACs or PVCs Imaging studies: Head CT neg CXR neg CT abd/pelvis- 1. Interval development of an 11.8 x 5.0 x 3.4 cm left rectus sheath hematoma. 2. Cirrhotic liver, splenomegaly, and a small amount of ascites. This is similar to the prior study. 3. 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 4. Mild thickening of the ascending colon which favors a chronic portal colopath y. A mild infectious/inflammatory colitis could also have a similar appearance but is considered less likely. Consultation(s): Dr. Gambino, [facility] Hospitalist HPI: The patient is a 75 year old female with history of Nayak and anasarca who presents to the Emergency Room with complaints of increased leg swelling. This started since discharge from the hospital last week and is getting worse. The patient states she cannot walk on her own at this point. Her legs are weeping. Patient was also reported to be somewhat confused by home health. The patient also notes the following associated symptoms, lower abdominal pain and burning with urination. The patient has found no relieving factors. Current pain is rated as 8/10. Patient states she lives with and is now having significant difficulty getting around her house due to the above problems. Pt denies LOC, headache, fevers, chills, diaphoresis, visual changes, neck pain, chest pain, breathing difficulties, nausea, vomiting, back pain, melena, hematochezia, numbness, weakness, lymphadenopathy, rash, or other complaints. ROS: See above HPI for pertinent positives & negatives. A total of [10] systems reviewed and were otherwise negative. PAST MEDICAL HISTORY:[See Below] , Nayak PAST SURGICAL HISTORY:[See Below] FAMILY HISTORY:[See Below] SOCIAL HISTORY:[See Below], HOME MEDICATIONS:[See Below] ALLERGIES:[See Below] VITALS:[See Below] PHYSICAL EXAMINATION: GENERAL: Awake, tired-appearing, in no distress HENT: Normocephalic, atraumatic. Oropharynx unremarkable. EYES: Normal conjunctiva. Sclera non-icteric. NECK: Inspection normal. Non-tender. Supple. No nuchal rigidity. FROM. No masses. RESPIRATORY: Clear to auscultation. No wheezes. No rales. Normal respiratory effort. CARDIAC: Normal rate. Normal rhythm. No murmurs. No rubs. Extremities warm and well perfused. Pulses equal. No JVD. GI: Soft, non-distended. Mild lower tenderness to palpation. Firmness noted on the left side. No rebound or guarding. Positive fluid wave. RECTAL: Deferred. MUSCULOSKELETAL: Atraumatic. Chest examination reveals no tenderness. The back is symmetrical on inspection without obvious abnormality. There is no CVA tenderness to palpation. No joint edema. LOWER EXTREMITIES: Calves are equal size bilaterally and non-tender. 4+ pitting edema. Weeping clear serous fluid. No discoloration. NEURO: Normal sensorium. Slow to answer questions. No sensory or motor deficits noted. SKIN: No rash or jaundice noted. Ruslan Stringer MD Past Med/Surg History Medical History Anemia Anxiety Anxiety Aortic stenosis Moderate per 03/2020 echo Ascites Asthma USED INHALER YESTERDAY Breast cancer Cardiac murmur Moderate Chronic idiopathic thrombocytopenia Chronic kidney disease, stage III (moderate) Chronic leukopenia Chronic liver disease GERD (gastroesophageal reflux disease) Gout Hyperlipidemia Hypertension Multiple pulmonary nodules Neurologic gait dysfunction Non-alcoholic cirrhosis Obesity Osteoarthritis Osteoporosis Palliative care encounter Peripheral neuropathy Restless leg syndrome Secondary hyperparathyroidism Spinal stenosis Surgical History History of breast biopsy + CANCER History of delivery X 1 History of cholecystectomy History of dilatation and curettage History of hysterectomy History of surgery CYST REMOVED LEFT WRIST History of tooth extraction Family History Grandmother (Maternal) , Passed age 66 of Stomach Cancer No problems noted. Grandfather (Maternal) , Passed in 70's of Stomach Cancer No problems noted. Mother , Passed age 76 of Alzheimer's Disease Complications Family history of diabetes mellitus Father , Passed in 90's of Alzheimer's Disease Complications No problems noted. Daughter No problems noted. Son No problems noted. Son No problems noted. Social History Smoking Status: Never smoker Second Hand Exposure: No; Hx Alcohol Use: No Hx Substance Use: No Preferred Language: Thai Communication Ability: Effective Visual Impairment: Limited Hearing Ability: Normal Staff Respiratory Therapist Required: No Beliefs That Will Affect Care: None marital status: Current Living Situation: Spouse current occupational status: retired current occupation: Retired Caregiver How many Children do You have: 3 Other Information That Helps Us Care for You: No Feels Safe at Home: Yes Safety Concerns: Feels Safe At This Time Childhood Exposure to Second-Hand Smoke: Yes (Father ) caffeine: Yes (2 cups of coffee/day ) during the past year weight has: increased > 10 lbs Dental Care, Regularly: No Assistive Devices: Walker Assistive Devices Comment: does not wear dentures Allergies Allergies Allergy/AdvReac Type Severity Reaction Status Date / Time naproxen Allergy Intermediate Hives Verified 10/06/20 09:47 adhesive AdvReac Mild SKIN Verified 10/06/20 09:47 IRRITATION ciprofloxacin AdvReac Mild Nausea Verified 10/06/20 09:47 Home Meds Home Medications Medication Instructions Recorded Confirmed albuterol sulfate 2.5 mg INHALATION BID PRN 10/08/20 10/08/20 fluticasone propion-salmeterol 1 inh INHALATION BID 10/08/20 10/08/20 [Wixela Inhub] furosemide 80 mg PO BID 10/08/20 10/08/20 ketoconazole 1 applic TOPICAL BID 10/08/20 10/08/20 lorazepam 0.5 mg PO BID PRN 10/08/20 10/08/20 metoprolol tartrate 25 mg PO BID 10/08/20 10/08/20 omeprazole 20 mg PO QAM 10/08/20 10/08/20 potassium chloride 20 meq PO BID 10/08/20 10/08/20 pramipexole 0.25 mg PO HS 10/08/20 10/08/20 pravastatin 20 mg PO HS 10/08/20 10/08/20 spironolactone 50 mg PO BID 10/08/20 10/08/20 warfarin 1.5 mg PO QPM 10/08/20 10/08/20 Results & Data (ED) Vital Signs Vital Signs - 24 hr 10/04/20 15:19 Temperature 36.6 C Temperature Source Oral Pulse Rate 77 Respiratory Rate 18 Blood Pressure 111/73 Blood Pressure Mean 85 Pulse Oximetry 99 Oxygen Delivery Method Room Air Sepsis Recent Fever Within 48 Hours No Sepsis New/Unexplained Change in Mental Status No Sepsis Action Taken by Nursing No Action Required Laboratory Data Result diagrams: 10/10/20 07:28 10/10/20 07:28 Lab Results 10/04/20 10/04/20 10/04/20 Range/Units 16:25 16:25 16:46 WBC 5.30 (4.8-10.8) K/uL RBC 3.10 L (4.2-5.4) M/uL Hgb 8.3 L (12.0-16.0) g/dL Hct 25.6 L (37-47) % MCV 82.6 (80-100) fL MCH 26.8 (25-34) pg MCHC 32.4 (32-36) g/dL RDW Std Deviation 61.2 H (36.4-46.3) fL RDW Coeff of [place]lower 21.7 H (11.5-14.5) % Plt Count 160 (130-400) K/uL MPV 9.9 (7.4-10.4) fL Immature Gran % (Auto) 1.5 % Neut % (Auto) 81.2 % Lymph % (Auto) 9.8 % [place] % (Auto) 6.4 % Eos % (Auto) 0.9 % Baso % (Auto) 0.2 % Neut # (Auto) 4.30 (1.4-6.5) K/uL Lymph # (Auto) 0.52 L (1.2-3.4) K/uL [place] # (Auto) 0.34 (0.11-0.59) K/uL Eos # (Auto) 0.05 (0-0.5) K/uL Baso # (Auto) 0.01 (0-0.2) K/uL Immature Gran # (Auto) 0.08 H (0.00-0.02) K/uL Polychromasia 1+ Anisocytosis Present PT (9.0-12.0) Seconds INR (0.9-1.1) Sodium 128 L (136-145) mmol/L Potassium (3.5-5.1) mmol/L Chloride 92 L (98-107) mmol/L Carbon Dioxide 29 (21-32) mmol/L Anion Gap 7.0 (3-11) BUN 60 H (7-18) mg/dl Creatinine 1.95 H (0.6-1.2) mg/dl Est Cr Clr Drug Dosing 29.4 ml/min Est GFR ( Amer) 28.9 Est GFR (Non-Af Amer) 24.9 BUN/Creatinine Ratio 30.6 H (10-20) Glucose 89 (70-99) mg/dl Calcium 7.9 L (8.5-10.1) mg/dl Magnesium (1.8-2.4) mg/dl Total Bilirubin 2.4 H (0.2-1) mg/dl AST (15-37) U/L ALT 25 (12-78) U/L Alkaline Phosphatase 114 (45-117) U/L Ammonia (11-32) umol/L Troponin I < 0.015 (0-0.045) ng/ml Total Protein 7.3 (6.4-8.2) gm/dl Albumin 1.8 L (3.4-5.0) gm/dl Globulin 5.5 H (2.5-4.0) gm/dl Albumin/Globulin Ratio 0.3 L (0.9-2) TSH 3.960 (0.300-4.500) uIu/ml Urine Color Urine Appearance (Clear) Urine pH (4.5-7.5) Ur Specific [place] (1.000-1.030) Urine Protein (Negative) Urine Glucose (UA) (Negative) Urine Ketones (Negative) Urine Blood (Negative) Urine Nitrite (Negative) Urine Bilirubin (Negative) Urine Urobilinogen (Negative) Ur Leukocyte Esterase (Negative) Urine WBC (Auto) (0-5) /hpf Urine RBC (Auto) (0-4) /hpf U Hyaline Cast (Auto) (0-5) /lpf U Epithel Cells (Auto) (0-5) /lpf Urine Bacteria (Auto) (Negative) Ur Renal Epithelial Cell 10/04/20 10/04/20 10/04/20 Range/Units 16:46 16:47 18:08 WBC (4.8-10.8) K/uL RBC (4.2-5.4) M/uL Hgb (12.0-16.0) g/dL Hct (37-47) % MCV (80-100) fL MCH (25-34) pg MCHC (32-36) g/dL RDW Std Deviation (36.4-46.3) fL RDW Coeff of [place] (11.5-14.5) % Plt Count (130-400) K/uL MPV (7.4-10.4) fL Immature Gran % (Auto) % Neut % (Auto) % Lymph % (Auto) % [place] % (Auto) % Eos % (Auto) % Baso % (Auto) % Neut # (Auto) (1.4-6.5) K/uL Lymph # (Auto) (1.2-3.4) K/uL [place] # (Auto) (0.11-0.59) K/uL Eos # (Auto) (0-0.5) K/uL Baso # (Auto) (0-0.2) K/uL Immature Gran # (Auto) (0.00-0.02) K/uL Polychromasia Anisocytosis PT > 90.0 H (9.0-12.0) Seconds INR > 9.7 H* (0.9-1.1) Sodium (136-145) mmol/L Potassium 4.3 (3.5-5.1) mmol/L Chloride (98-107) mmol/L Carbon Dioxide (21-32) mmol/L Anion Gap (3-11) BUN (7-18) mg/dl Creatinine (0.6-1.2) mg/dl Est Cr Clr Drug Dosing ml/min Est GFR ( Amer) Est GFR (Non-Af Amer) BUN/Creatinine Ratio (10-20) Glucose (70-99) mg/dl Calcium (8.5-10.1) mg/dl Magnesium 2.6 H (1.8-2.4) mg/dl Total Bilirubin (0.2-1) mg/dl AST 33 (15-37) U/L ALT (12-78) U/L Alkaline Phosphatase (45-117) U/L Ammonia (11-32) umol/L Troponin I (0-0.045) ng/ml Total Protein (6.4-8.2) gm/dl Albumin (3.4-5.0) gm/dl Globulin (2.5-4.0) gm/dl Albumin/Globulin Ratio (0.9-2) TSH (0.300-4.500) uIu/ml Urine Color Urine Appearance (Clear) Urine pH (4.5-7.5) Ur Specific [place] (1.000-1.030) Urine Protein (Negative) Urine Glucose (UA) (Negative) Urine Ketones (Negative) Urine Blood (Negative) Urine Nitrite (Negative) Urine Bilirubin (Negative) Urine Urobilinogen (Negative) Ur Leukocyte Esterase (Negative) Urine WBC (Auto) (0-5) /hpf Urine RBC (Auto) (0-4) /hpf U Hyaline Cast (Auto) (0-5) /lpf U Epithel Cells (Auto) (0-5) /lpf Urine Bacteria (Auto) (Negative) Ur Renal Epithelial Cell 10/04/20 10/04/20 Range/Units 18:08 18:30 WBC (4.8-10.8) K/uL RBC (4.2-5.4) M/uL Hgb (12.0-16.0) g/dL Hct (37-47) % MCV (80-100) fL MCH (25-34) pg MCHC (32-36) g/dL RDW Std Deviation (36.4-46.3) fL RDW Coeff of [place] (11.5-14.5) % Plt Count (130-400) K/uL MPV (7.4-10.4) fL Immature Gran % (Auto) % Neut % (Auto) % Lymph % (Auto) % [place] % (Auto) % Eos % (Auto) % Baso % (Auto) % Neut # (Auto) (1.4-6.5) K/uL Lymph # (Auto) (1.2-3.4) K/uL [place] # (Auto) (0.11-0.59) K/uL Eos # (Auto) (0-0.5) K/uL Baso # (Auto) (0-0.2) K/uL Immature Gran # (Auto) (0.00-0.02) K/uL Polychromasia Anisocytosis PT (9.0-12.0) Seconds INR (0.9-1.1) Sodium (136-145) mmol/L Potassium (3.5-5.1) mmol/L Chloride (98-107) mmol/L Carbon Dioxide (21-32) mmol/L Anion Gap (3-11) BUN (7-18) mg/dl Creatinine (0.6-1.2) mg/dl Est Cr Clr Drug Dosing ml/min Est GFR ( Amer) Est GFR (Non-Af Amer) BUN/Creatinine Ratio (10-20) Glucose (70-99) mg/dl Calcium (8.5-10.1) mg/dl Magnesium (1.8-2.4) mg/dl Total Bilirubin (0.2-1) mg/dl AST (15-37) U/L ALT (12-78) U/L Alkaline Phosphatase (45-117) U/L Ammonia 19.0 (11-32) umol/L Troponin I (0-0.045) ng/ml Total Protein (6.4-8.2) gm/dl Albumin (3.4-5.0) gm/dl Globulin (2.5-4.0) gm/dl Albumin/Globulin Ratio (0.9-2) TSH (0.300-4.500) uIu/ml Urine Color Yellow Urine Appearance Clear (Clear) Urine pH 7.5 (4.5-7.5) Ur Specific [place] 1.010 (1.000-1.030) Urine Protein Negative (Negative) Urine Glucose (UA) Negative (Negative) Urine Ketones Negative (Negative) Urine Blood Negative (Negative) Urine Nitrite Negative (Negative) Urine Bilirubin Negative (Negative) Urine Urobilinogen Negative (Negative) Ur Leukocyte Esterase 1+ H (Negative) Urine WBC (Auto) 10-30 H (0-5) /hpf Urine RBC (Auto) 0-4 (0-4) /hpf U Hyaline Cast (Auto) 1-5 (0-5) /lpf U Epithel Cells (Auto) >30 H (0-5) /lpf Urine Bacteria (Auto) 1+ H (Negative) Ur Renal Epithelial Cell Not Reportable Administered Medications Acetaminophen (Acetaminophen 325 Mg Tab) 650 mg PO Q6H PRN PRN Reason: pain/fever Stop: 11/03/20 21:33 Last Admin: 10/10/20 08:50 Dose: 650 mg Documented by: [id number] Admin: 10/09/20 08:45 Dose: 650 mg Documented by: [id number] Admin: 10/08/20 14:37 Dose: 650 mg Documented by: [id number] Cephalexin HCl (Cephalexin 500 Mg Cap) 500 mg PO BID [facility]; Protocol Stop: 10/15/20 20:59 Last Admin: 10/10/20 20:18 Dose: 500 mg Documented by: [id number] Admin: 10/10/20 08:46 Dose: 500 mg Documented by: [id number] Admin: 10/09/20 21:53 Dose: 500 mg Documented by: [id number] Fluticasone/Vilanterol (Fluticasone/Vilanterol 200/25mcg 14 Puffs/Inhaler) 1 puffs INH DAILY [facility] Stop: 11/08/20 08:59 Last Admin: 10/10/20 08:45 Dose: 1 puffs Documented by: [id number] Admin: 10/09/20 08:34 Dose: 1 puffs Documented by: [id number] Furosemide (Furosemide 40 Mg Tab) 40 mg PO [id number] [facility] Stop: 11/05/20 16:59 Last Admin: 10/10/20 16:13 Dose: 40 mg Documented by: [id number] Admin: 10/10/20 08:46 Dose: 40 mg Documented by: [id number] Admin: 10/09/20 16:37 Dose: 40 mg Documented by: [id number] Admin: 10/09/20 08:35 Dose: 40 mg Documented by: [id number] Admin: 10/08/20 17:30 Dose: 40 mg Documented by: [id number] Admin: 10/08/20 09:27 Dose: 40 mg Documented by: [id number] Admin: 10/07/20 17:33 Dose: 40 mg Documented by: [id number] Admin: 10/07/20 09:58 Dose: 40 mg Documented by: [id number] Admin: 10/06/20 17:14 Dose: 40 mg Documented by: [id number] Metoprolol Tartrate (Metoprolol Tartrate 25 Mg Tab) 25 mg PO BID [facility] Stop: 11/08/20 08:59 Last Admin: 10/10/20 20:17 Dose: 25 mg Documented by: [id number] Admin: 10/10/20 08:47 Dose: 25 mg Documented by: [id number] Admin: 10/09/20 21:53 Dose: 25 mg Documented by: [id number] Admin: 10/09/20 08:39 Dose: 25 mg Documented by: [id number] Miconazole Nitrate (Miconazole Nitrate Powder 43 Gm) 1 appln EXT PRN PRN PRN Reason: Affected Skin Folds Stop: 11/06/20 05:52 Last Admin: 10/09/20 10:47 Dose: 1 appln Documented by: [id number] Pantoprazole Sodium (Pantoprazole 40 Mg Tab) [facility] Stop: 11/05/20 13:44 Last Admin: 10/10/20 08:46 Dose: 40 mg Documented by: [id number] Admin: 10/09/20 08:36 Dose: 40 mg Documented by: [id number] Admin: 10/08/20 09:27 Dose: 40 mg Documented by: [id number] Admin: 10/07/20 09:58 Dose: 40 mg Documented by: [id number] Admin: 10/06/20 15:10 Dose: 40 mg Documented by: [id number] Polyethylene Glycol (Polyethylene (Miralax) 17 Gm Pack) 17 gm PO DAILY PRN PRN Reason: Constipation Stop: 11/05/20 20:38 Last Admin: 10/06/20 21:41 Dose: 17 gm Documented by: [id number] Pramipexole Dihydrochloride (Pramipexole Dihydrochlo 0.25 Mg Tab) 0.25 mg PO HS [facility] Stop: 11/08/20 20:59 Last Admin: 10/10/20 20:17 Dose: 0.25 mg Documented by: [id number] Admin: 10/09/20 21:53 Dose: 0.25 mg Documented by: [id number] Pravastatin Sodium (Pravastatin Sod 20 Mg Tab) 20 mg PO HS RAJI Stop: 11/08/20 20:59 Last Admin: 10/10/20 20:16 Dose: 20 mg Documented by: [id number] Admin: 10/09/20 21:53 Dose: 20 mg Documented by: [id number] Spironolactone (Spironolactone 25 Mg Tab) 50 mg PO BID17 RAJI Stop: 11/07/20 16:59 Last Admin: 10/10/20 16:13 Dose: 50 mg Documented by: [id number] Admin: 10/10/20 08:46 Dose: 50 mg Documented by: [id number] Admin: 10/09/20 16:37 Dose: 50 mg Documented by: [id number] Admin: 10/09/20 08:35 Dose: 50 mg Documented by: [id number] Admin: 10/08/20 17:31 Dose: 50 mg Documented by: [id number] Discontinued Medications Cephalexin HCl (Cephalexin 500 Mg Cap) 500 mg PO TID RAJI Stop: 10/15/20 20:59 Last Admin: 10/09/20 08:36 Dose: 500 mg Documented by: [id number] Admin: 10/08/20 22:08 Dose: 500 mg Documented by: [id number] Glycopyrrolate (Glycopyrrolate 0.2 Mg/Ml Vial) Confirm Administered Dose 0.4 mg .ROUTE .STK-MED ONE Stop: 10/06/20 10:32 Last Admin: 10/06/20 17:14 Dose: Not Given Documented by: [id number] Sodium Chloride (Nss 1000ml) 1,000 mls @ 125 mls/hr IV .Q8H RAJI Stop: 10/04/20 23:44 Last Infusion: 10/04/20 22:06 Dose: 0 mls/hr Documented by: [id number] Admin: 10/04/20 17:43 Dose: 125 mls/hr Documented by: [id number] Sodium Chloride (Nss 1000ml) 500 mls @ 999 mls/hr IV .Q31M ONE Stop: 10/04/20 18:55 Last Infusion: 10/04/20 19:54 Dose: 0 mls/hr Documented by: [id number] Admin: 10/04/20 18:52 Dose: 999 mls/hr Documented by: [id number] Phytonadione 10 mg/ Sodium (Chloride) 51 mls @ 102 mls/hr IV ONE ONE Stop: 10/04/20 18:54 Last Infusion: 10/04/20 19:54 Dose: 0 mls/hr Documented by: [id number] Admin: 10/04/20 19:06 Dose: 102 mls/hr Documented by: [id number] Prothrombin Complex Concent ( (Human) 5,000 units/ Syringe) 200 mls @ 10 mls/min IV ONE ONE; Protocol Stop: 10/04/20 20:49 Last Admin: 10/04/20 20:41 Dose: 10 mls/min Documented by: [id number] Pantoprazole Sodium 40 mg/ (Syringe) 10 mls @ 5 mls/min IV NOW ONE Stop: 10/04/20 21:51 Last Admin: 10/04/20 22:40 Dose: 5 mls/min Documented by: [id number] Pantoprazole Sodium 40 mg/ (Dextrose) 100 mls @ 20 mls/hr IV Q5H RAJI Stop: 11/03/20 21:59 Last Admin: 10/06/20 20:06 Dose: Not Given Documented by: [id number] Infusion: 10/06/20 10:00 Dose: 0 mg/hr, 0 mls/hr Documented by: [id number] Admin: 10/06/20 04:56 Dose: 8 mg/hr, 20 mls/hr Documented by: [id number] Infusion: 10/06/20 04:56 Dose: 8 mg/hr, 20 mls/hr Documented by: [id number] Admin: 10/06/20 00:27 Dose: 8 mg/hr, 20 mls/hr Documented by: [id number] Infusion: 10/06/20 00:27 Dose: 8 mg/hr, 20 mls/hr Documented by: [id number] Admin: 10/05/20 19:41 Dose: 8 mg/hr, 20 mls/hr Documented by: [id number] Infusion: 10/05/20 19:20 Dose: 8 mg/hr, 20 mls/hr Documented by: [id number] Admin: 10/05/20 14:20 Dose: 8 mg/hr, 20 mls/hr Documented by: [id number] Infusion: 10/05/20 14:20 Dose: 8 mg/hr, 20 mls/hr Documented by: [id number] Infusion: 10/05/20 10:13 Dose: 8 mg/hr, 20 mls/hr Documented by: [id number] Infusion: 10/05/20 09:44 Dose: 0 mg/hr, 0 mls/hr Documented by: [id number] Admin: 10/05/20 09:09 Dose: 8 mg/hr, 20 mls/hr Documented by: [id number] Infusion: 10/05/20 09:09 Dose: 8 mg/hr, 20 mls/hr Documented by: [id number] Admin: 10/05/20 04:31 Dose: 8 mg/hr, 20 mls/hr Documented by: [id number] Infusion: 10/05/20 04:23 Dose: 0 mg/hr, 0 mls/hr Documented by: [id number] Infusion: 10/05/20 00:35 Dose: 8 mg/hr, 20 mls/hr Documented by: [id number] Infusion: 10/05/20 00:05 Dose: 0 mg/hr, 0 mls/hr Documented by: [id number] Admin: 10/04/20 22:41 Dose: 8 mg/hr, 20 mls/hr Documented by: [id number] Octreotide Acetate 500 mcg/ (Sodium Chloride) 105 mls @ 10.5 mls/hr IV .Q10H RAJI Stop: 11/03/20 21:59 Last Infusion: 10/06/20 11:42 Dose: 0 mcg/hr, 0 mls/hr Documented by: [id number] Admin: 10/06/20 00:27 Dose: 50 mcg/hr, 10.5 mls/hr Documented by: [id number] Infusion: 10/06/20 00:27 Dose: 50 mcg/hr, 10.5 mls/hr Documented by: [id number] Admin: 10/05/20 16:27 Dose: 50 mcg/hr, 10.5 mls/hr Documented by: [id number] Infusion: 10/05/20 14:31 Dose: 0 mcg/hr, 0 mls/hr Documented by: [id number] Admin: 10/05/20 09:09 Dose: Not Given Documented by: [id number] Infusion: 10/05/20 06:32 Dose: 0 mcg/hr, 0 mls/hr Documented by: [id number] Admin: 10/05/20 01:29 Dose: 50 mcg/hr, 10.5 mls/hr Documented by: [id number] Ceftriaxone Sodium 2,000 mg/ (Dextrose) 70 mls @ 100 mls/hr IV Q24H RAJI; Protocol Stop: 10/11/20 21:59 Last Infusion: 10/07/20 23:13 Dose: 0 mls/hr Documented by: [id number] Admin: 10/07/20 22:03 Dose: 100 mls/hr Documented by: [id number] Infusion: 10/06/20 21:58 Dose: 0 mls/hr Documented by: [id number] Admin: 10/06/20 21:09 Dose: 100 mls/hr Documented by: [id number] Infusion: 10/05/20 21:40 Dose: 0 mls/hr Documented by: [id number] Admin: 10/05/20 20:54 Dose: 100 mls/hr Documented by: [id number] Infusion: 10/04/20 23:43 Dose: 0 mls/hr Documented by: [id number] Admin: 10/04/20 22:41 Dose: 100 mls/hr Documented by: [id number] Parenteral Electrolytes (Normosol-R) 1,000 mls @ 80 mls/hr IV .[id number] RAJI Stop: 11/03/20 21:33 Last Admin: 10/05/20 01:20 Dose: Not Given Documented by: [id number] Sodium Chloride (Nss 1000ml) 1,000 mls @ 80 mls/hr IV .[id number] RAJI Stop: 10/06/20 01:29 Last Infusion: 10/05/20 08:54 Dose: 0 mls/hr Documented by: [id number] Infusion: 10/05/20 06:41 Dose: 0 mls/hr Documented by: [id number] Admin: 10/05/20 01:29 Dose: 80 mls/hr Documented by: [id number] Lidocaine HCl (Lidocaine Hcl 2% 2 Ml Vial/Amp(20mg/Ml)) Confirm Administered Dose 4 ml INFIL .STK-MED ONE Stop: 10/06/20 10:32 Last Admin: 10/06/20 17:15 Dose: Not Given Documented by: [id number] Octreotide Acetate (Octreotide Bolus From Bag) 50 mcg IV ONE ONE Stop: 10/04/20 21:35 Last Admin: 10/05/20 01:29 Dose: 50 mcg Documented by: [id number] Ondansetron HCl (Ondansetron Inj 2 Mg/Ml 2 Ml Vial) Confirm Administered Dose 4 mg .ROUTE .STK-MED ONE Stop: 10/06/20 10:32 Last Admin: 10/06/20 17:15 Dose: Not Given Documented by: [id number] Phytonadione (Phytonadione 5 Mg Tab) 5 mg PO NOW STA Stop: 10/04/20 18:26 Last Admin: 10/04/20 18:52 Dose: 5 mg Documented by: [id number] Propofol (Propofol Iv Emulsion 10 Mg/Ml 20 Ml Vial) Confirm Administered Dose 200 mg IV .STK-MED ONE Stop: 10/06/20 10:32 Last Admin: 10/06/20 17:14 Dose: Not Given Documented by: [id number] Spironolactone (Spironolactone 25 Mg Tab) 25 mg PO [id number] [facility] Stop: 11/05/20 16:59 Last Admin: 10/08/20 09:27 Dose: 25 mg Documented by: [id number] Admin: 10/07/20 17:33 Dose: 25 mg Documented by: [id number] Admin: 10/07/20 09:58 Dose: 25 mg Documented by: [id number] Admin: 10/06/20 17:14 Dose: 25 mg Documented by: [id number] Discharge Plan Visit Data Chief Complaint: Edema To Extremity Stated Complaint: AB PAIN, LEG EDEMA, URINARY SX ED Provider: Ruslan Stringer Discharge Problem: Anasarca, Ambulatory dysfunction, AMS (altered mental status) Patient Disposition: Admitted As Inpatient Discharge Instructions Interventions: ED Discharge Assessment Last Done: 10/04/20 21:06
[2020-10-04 16:32] LABS: Basophils # (auto) 0.01 K/uL (0-0.2); Basophils % (auto) 0.2 %; Eosinophils # (auto) 0.05 K/uL (0-0.5); Eosinophils % (auto) 0.9 %; Hematocrit (blood only) 25.6 % (37-47); Hemoglobin 8.3 g/dL (12.0-16.0); Immature Granulocytes # (auto) 0.08 K/uL (0.00-0.02); Immature Granulocytes % (auto) 1.5 %; Lymphocytes # (auto) 0.52 K/uL (1.2-3.4); Lymphocytes % (auto) 9.8 %; Mean Corpuscular Hemoglobin 26.8 pg (25-34); Mean Corpuscular Hgb Conc 32.4 g/dL (32-36); Mean Corpuscular Volume 82.6 fL (80-100); Mean Platelet Volume 9.9 fL (7.4-10.4); Monocytes # (auto) 0.34 K/uL (0.11-0.59); Monocytes % (auto) 6.4 %; Neutrophils % (auto) 81.2 %; Platelet Count 160 K/uL (130-400); RDW Coefficient of Variation 21.7 % (11.5-14.5); RDW Standard Deviation 61.2 fL (36.4-46.3)
[2020-10-04 17:08] LABS: Anisocytosis Present; Polychromasia 1+
[2020-10-04 17:15] LABS: Prothrombin Time > 90.0 Seconds (9.0-12.0)
[2020-10-04 17:21] LABS: Alanine Aminotransferase 25 U/L (12-78); Albumin Level 1.8 gm/dl (3.4-5.0); BUN Creatinine Ratio 30.6 (10-20); Blood Urea Nitrogen 60 mg/dl (7-18); Calcium 7.9 mg/dl (8.5-10.1); Carbon Dioxide 29 mmol/L (21-32); Chloride 92 mmol/L (98-107); Creatinine Clr Calc Pharmacy 29.4 ml/min; Est GFR (African American) 28.9; Est GFR (Non-African American) 24.9; Glucose 89 mg/dl (70-99); Sodium 128 mmol/L (136-145)
[2020-10-04 17:23] LABS: INR > 9.7 (0.9-1.1)
[2020-10-04 17:31] LABS: Albumin Globulin Ratio 0.3 (0.9-2); Alkaline Phosphatase 114 U/L (45-117); Bilirubin,Total 2.4 mg/dl (0.2-1); Globulin 5.5 gm/dl (2.5-4.0); Total Protein 7.3 gm/dl (6.4-8.2); Troponin I < 0.015 ng/ml (0-0.045)
--- NOTE | 2020-10-04 17:37 | CT Scan Report ---
ABDOMEN AND PELVIS CT WITHOUT CONTRAST CT DOSE: HISTORY: Altered mental status. Abdominal distension, hx of cirrhosis TECHNIQUE: Multiaxial CT images of the abdomen and pelvis were performed without contrast. A dose lo wering technique was utilized adhering to the principles of ALARA. COMPARISON STUDY: Abdomen and pelvis CT 08/18/2020. FINDINGS: Scattered subcentimeter pulmonary nodules again noted within the lung bases. These are not significantly changed. A few bibasilar linear densities consistent with subsegmental atelectasis. No pneumoperitoneum. No pneumatosis. No suspicious lytic or blastic osseous lesions. Nodular contour to the liver consistent with cirrhosis. No definite hepatic masses on this noncontrast study. Prior chol ecystectomy. The spleen remains enlarged. There is a small amount of abdominal ascites. This is simil ar to the prior study. Moderate body wall edema. Small diverticulum within the duodenum. The bladder is unremarkable. The uterus is surgically absent. Interval development of a left rectus sheath hemato ma. This measures 5.9 x 3.4 x 11.8 cm. Colonic diverticulosis. No evidence for acute diverticulitis. Suboptimal evaluation for bowel pathology due to the lack of intravenous and oral contrast. However, no evidence for bowel obstruction. Mild bowel wall thickening involving the ascending colon. This rem ains unchanged and favors a chronic portal colopathy. A mild infectious/inflammatory colitis could al so a similar appearance but is considered less likely. The visualized appendix is unremarkable. The p atient's known portal and splenic vein partial thrombosis is better appreciated on the prior CT exami [facility]. This is not well visualized due to the lack of intravenous contrast. Stable right adrenal gla nd nodule. Normal kidneys, pancreas, left adrenal gland. IMPRESSION: 1. Interval development of an 11.8 x 5.0 x 3.4 cm left rectus sheath hematoma. 2. Cirrhotic liver, splenomegaly, and a small amount of ascites. This is similar to the prior study. 3. 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 4. Mild thickening of the ascending colon which favors a chronic portal colopathy. A mild infectious/ inflammatory colitis could also have a similar appearance but is considered less likely. 5. Additional findings as described above. ACT 112: Negative or not required by law. Electronically signed by: Avinash Lynn M.D. 10/04/2020 5:36 PM
--- NOTE | 2020-10-04 17:41 | CT Scan Report ---
HEAD CT NONCONTRAST CT DOSE: 2222.76 mGy.cm HISTORY: Altered mental status. TECHNIQUE: Multiaxial CT images of the head were performed without the use of intravenous contrast. A utomated exposure control was utilized for this study. A dose lowering technique was utilized adheri ng to the principles of ALARA. Comparison: Head CT 07/23/2020. Findings: The paranasal sinuses and mastoid air cells are clear. The calvarium and skull base are int act. There is no mass, hematoma, midline shift, acute infarct. White matter hypodensity is nonspecifi c but suggestive of microvascular ischemic change. The ventricles and sulci demonstrate mild age-rela ramy involutional changes. Impression: No significant change compared to the prior study. No acute intracranial abnormality. ACT 112: Negative or not required by law. Electronically signed by: Avinash Lynn M.D. 10/04/2020 5:40 PM
[2020-10-04] MEDS ORDERED: PHYTONADIONE 5 MG TAB PO STA (18:25)
[2020-10-04] MEDS ORDERED: SODIUM CHLORIDE 0.9% 1000ML 500 ML IV ONE (18:25)
[2020-10-04] MEDS ORDERED: PHYTONADIONE 10 MG in SODIUM CHLORIDE 0.9% 50 ML IV ONE (18:25)
[2020-10-04 18:31] LABS: Potassium 4.3 mmol/L (3.5-5.1)
[2020-10-04 18:36] LABS: Magnesium 2.6 mg/dl (1.8-2.4)
[2020-10-04 18:44] LABS: Appearance Urine Clear (Clear); Bacteria Urine Automated 1+ (Negative); Bilirubin Urine Negative (Negative); Blood Urine Negative (Negative); Color Urine Yellow; Epithelial Cell Urine Auto >30 /lpf (0-5); Glucose Urine UA Negative (Negative); Ketones Urine Negative (Negative); Leukocyte Esterase Urine 1+ (Negative); Nitrite Urine Negative (Negative); Protein Urine Negative (Negative); RBC Urine Automated 0-4 /hpf (0-4); Urobilinogen Urine Negative (Negative); pH Urine 7.5 (4.5-7.5)
--- NOTE | 2020-10-04 19:11 | History & Physical Report ---
Date of Service October 04, 2020 Assessment & Plan (1) Rectus sheath hematoma: CT a/p on 10/04 showed development of an 11.8 x 5.0 x 3.4 cm left rectus sheath hematoma. - Hgb down from 9.9 on discharge to now 8.3. BP soft initially at 80/50s, but overall stable now at 105/55. - Monitor hgb closely (2) Hematemesis: Stools have been darker over the last few days, and daughter reports a single episode of possible coffee-ground emesis (dark emesis, but not black and they did not notice specks per se). With hx of cirrhosis, concern for variceal bleed, though hemoglobin stability would point against that. Patient and family do not know who their GI doctor is, and she has not had any GI consult inpatient in our charts. - PPI bolus and gtt - Octreotide bolus and gtt - PCC ordered - Discussed with pharmacy - Ceftriaxone for SBP prophylaxis - GI consulted - Close hemoglobin monitoring (3) AMS (altered mental status): Patient with slow speech. Quickly nods off. Per daughter, this is relatively new for her (last few days). - Ammonia only 19. - Likely metabolic encephalopathy - Monitor (4) Hyponatremia: Baseline normal Na. Hypovolemic hyponatremia. Likely due to diuretic use or low-solute. - Monitor after IV fluids (5) Left leg cellulitis: Left heel has a small ulcer with broken skin. Left ankle and puri are warmer and tender to palpations. - Ceftriaxone for cellulitis; given no purulence will defer MRSA coverage at this time. (6) Supratherapeutic INR: INR was 3.1 on 09/29, but now >9.7. - Vitamin K oral and IV given by the ED - PCC ordered - Discussed with pharmacy - Monitor INR (7) Acute kidney failure: Baseline Cr ~1.4, CKD Stage III. - Now with Cr up to 1.9, likely from overdiuresis. - Monitor with IV fluids (8) Fluid overload: Ongoing issue due to her cirrhosis. Still total body overloaded (significant edema in lower body); however, presently seems intravascularly deplete (likely from bleed). - Will hold further diuresis at this point. - Gentle IV fluids given low BP on presentation (9) Non-alcoholic cirrhosis: Recently admitted for anasarca/volume overload. - Patient and family do not know who her GI doctor is, and I do not see a prior consult in our hospital system. - Hold home Bumex and spironolactone (10) Pulmonary emboli: CTA chest in 08/2020 showed RLL PE. 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 - As above (12) DVT prophylaxis: SCDs - Must defer heparin or anticoagulation at this time due to bleeding. Restart therapeutic anticoagulation when stable. Patient is conditional code - Confirmed with patient with daughter present and & son on the phone. Would like compressions and shocks, but no intubation or breathing tube. History of Present Illness Primary Care Provider: Kvng Pereira MD 75yo w/ hx of MOBLEY cirrhosis and pulmonary emboli who presents with rectus sheath hematoma and supratherapeutic INR. Per the patient and daughter, she has been a bit "off" over the last few days. She also has had some abdominal pain. She was discharged from the hospital on 09/18/2020 and saw her PCP shortly afterward. She had volume overload from her cirrhosis and had been put on diuretics. She also had a PE and was put on warfa rin. She went to her anticoagulation clinic visit on 09/29 with an INR of 3.1. Her warfarin was kept the same at that time to try to keep things straightforward; however, today her INR is >9. Allergies Allergy/AdvReac Type Severity Reaction Status Date / Time naproxen Allergy Intermediate Hives Verified 10/04/20 19:16 adhesive AdvReac Mild SKIN Verified 10/04/20 19:16 IRRITATION ciprofloxacin AdvReac Mild Nausea Verified 10/04/20 19:16 Home Medications Home Medications Medication Instructions Recorded Confirmed Type Unobtainable 10/04/20 10/04/20 History Past Med/Surg History Medical History Anemia Anxiety Anxiety Aortic stenosis Moderate per 03/2020 echo Ascites Asthma USED INHALER YESTERDAY Breast cancer Cardiac murmur Moderate Chronic idiopathic thrombocytopenia Chronic kidney disease, stage III (moderate) Chronic leukopenia Chronic liver disease GERD (gastroesophageal reflux disease) Gout Hyperlipidemia Hypertension Multiple pulmonary nodules Neurologic gait dysfunction Non-alcoholic cirrhosis Obesity Osteoarthritis Osteoporosis Peripheral neuropathy Restless leg syndrome Secondary hyperparathyroidism Spinal stenosis Surgical History History of breast biopsy + CANCER History of delivery X 1 History of cholecystectomy History of dilatation and curettage History of hysterectomy History of surgery CYST REMOVED LEFT WRIST History of tooth extraction Family History Grandmother (Maternal) , Passed age 66 of Stomach Cancer No problems noted. Grandfather (Maternal) , Passed in 70's of Stomach Cancer No problems noted. Mother , Passed age 76 of Alzheimer's Disease Complications Family history of diabetes mellitus Father , Passed in 90's of Alzheimer's Disease Complications No problems noted. Daughter No problems noted. Son No problems noted. Son No problems noted. Social History Smoking Status: Never smoker Second Hand Exposure: No; Hx Alcohol Use: No Hx Substance Use: No Preferred Language: Greenlandic Communication Ability: Effective Visual Impairment: Limited Hearing Ability: Normal Triage Rn Required: No Beliefs That Will Affect Care: None marital status: Current Living Situation: Spouse current occupational status: retired current occupation: Retired Caregiver How many Children do You have: 3 Feels Safe at Home: Yes Childhood Exposure to Second-Hand Smoke: Yes (Father ) caffeine: Yes (2 cups of coffee/day ) during the past year weight has: increased > 10 lbs Dental Care, Regularly: No Assistive Devices: Walker Review of Systems Review of Systems: All systems reviewed & are unremarkable except as noted in HPI & below Physical Exam Constitutional: WD/WN, vitals as above + acute distress and + obese Eyes: EOM intact bilaterally; no conjunctival abnormality ENMT: external ear and nose normal, oropharynx normal Neck: trachea midline, no thyromegaly normal visual inspection Respiratory: normal respiratory effort, lungs clear to auscultation no respiratory distress Cardiovascular: RRR, no murmur, no edema Gastrointestinal (Abdomen): Inspection/Auscultation: normal bowel sounds; + abdomen abnormal to inspection and abdomen not distended Percussion/Palpation: + abdomen tender and abdomen soft; no guarding and abdomen not rigid Musculoskeletal: no cyanosis or clubbing, extremities motor strength 5/5 Skin: no rashes, warm and dry Neurologic: moves all extremities and awake Psychiatric: Orientation: alert, oriented to person and cooperative Results & Data Results & Data ([facility]) Vital Signs (Past 12 Hours) Vital Signs Temp Pulse Resp BP Pulse Ox 10/04/20 18:31 77 15 95/49 L 98 10/04/20 18:30 77 16 98/53 L 10/04/20 18:04 76 17 97 10/04/20 18:03 77 19 89/53 L 99 10/04/20 18:01 80 19 79/47 L 98 10/04/20 18:00 77 13 98 10/04/20 17:31 77 18 100 10/04/20 17:30 77 14 104/55 L 100 10/04/20 17:01 75 14 99/46 L 98 10/04/20 17:00 77 16 97 10/04/20 16:40 98 10/04/20 16:30 79 13 97 10/04/20 16:00 78 13 97 10/04/20 15:32 78 17 99 10/04/20 15:19 36.6 C 77 18 111/73 99 10/04/20 15:11 78 15 111/73 98 PG Care Time/CCT Total # of Minutes Spent Total Time Spent with Patient: Total time spent is greater than 50% in coordination of care (as documented) at patient's floor/unit and/or counseling patient: Coding Level of Care Code 93033 Initial Inpt Care Lvl 3 Diagnoses Rectus sheath hematoma S30.1XXA Hematemesis K92.0 AMS (altered mental status) R41.82 Hyponatremia E87.1 Left leg cellulitis L03.116 Supratherapeutic INR R79.1 Acute kidney failure N17.9 Fluid overload E87.70 Hypervolemia type: unspecified Non-alcoholic cirrhosis K74.60 Pulmonary emboli I26.99 Acute cor pulmonale presence: unspecified Chronicity: acute Pulmonary embolism type: other Splenic vein thrombosis I82.890 DVT prophylaxis Z29.9 (1) Pulmonary emboli Acute cor pulmonale presence: unspecified Chronicity: acute Pulmonary embolism type: other Qualified Code(s): I26.99 - Other pulmonary embolism without acute cor pulmonale (2) Fluid overload Hypervolemia type: unspecified Qualified Code(s): E87.70 - Fluid overload, unspecified
[2020-10-04] MEDS ORDERED: PROTHROMBIN COMP KCENTRA IV STA ×2 (20:02→20:07)
[2020-10-04] MEDS ORDERED: PROTHROMBIN COMP CONC- KCENTRA 5,000 UNITS in SYRINGE 0 ML IV ONE (20:30)
[2020-10-04] MEDS ORDERED: NORMOSOL-R 1,000 ML IV SCH (21:34)
[2020-10-04] MEDS ORDERED: OCTREOTIDE BOLUS FROM BAG IV ONE (21:34)
[2020-10-04] MEDS ORDERED: ONDANSETRON INJ 2 MG/ML 2 ML VIAL IV PRN (21:34)
[2020-10-04] MEDS ORDERED: PANTOprazole 40 MG in SYRINGE 0 ML IV ONE (21:50)
[2020-10-04] MEDS: PANTOprazole 40 MG in DEXTROSE 5% 100 ML IV SCH (22:41)
[2020-10-04] MEDS: cefTRIAXone SODIUM 2,000 MG in DEXTROSE 5% 50 ML IV SCH (22:41)
[2020-10-04 23:13] LABS: Hematocrit (blood only) 24.1 % (37-47); Hemoglobin 7.8 g/dL (12.0-16.0)
[2020-10-05] MEDS ORDERED: SODIUM CHLORIDE 0.9% 1000ML 1,000 ML IV SCH (00:30)
[2020-10-05] MEDS: OCTREOTIDE ACETATE 500 MCG in 0.9 % SODIUM CHLORIDE 100 ML IV SCH ×3 (01:29→16:27)
--- NOTE | 2020-10-05 01:50 | Communication Note ---
Date of Service: October 05, 2020 Called to bedside for concern of IV self-contained catheter guidewire malfunction and possible loss of guidewire during IV placement procedure. Patient clinically stable on assessment, with tourniquet. Endurance catheter was attempted to place an IV line, distal tip of self-contained wire was not able to be observed by IV team nurse following use. Concern was raised for potential detachment and loss of distal guidewire thread at left antecubital access site. Left arm x-ray did not reveal any radiopaque material, chest x-ray did not reveal any radiopaque material. Case was discussed with vascular surgery who did not feel emergent management was necessary and would be able to see the patient in the morning. Tourniquet was removed. On further review of endurance catheter device, device was noted to jam on the thumb slide actuator. Device was carefully disabled with the IV nurse, resident, and attending provider along with a new endurance catheter in new condition for comparison. Distal tip of the malfunctioning guidewire was found to have been coiled abnormally within the device. Total length of guidewire was compared with the t otal length of the guidewire from a disassembled new device. Both wires matched in length and appearance, and was consistent with a device malfunction without retraction of the wire into the medical consultant, and no deployment or retainment of any foreign material by the patient was suspected following this investigation. Vascular consult for the morning was deferred. Patient was updated on the events noted above, and was in stable condition. Resident Activity Tracking Resident Involvement: Resident Care Provided Care Provided: [facility]
[2020-10-05] MEDS: PANTOprazole 40 MG in DEXTROSE 5% 100 ML IV SCH ×4 (04:31→19:41)
[2020-10-05 04:35] LABS: Hematocrit (blood only) 21.2 % (37-47); Hemoglobin 6.8 g/dL (12.0-16.0); Mean Corpuscular Hemoglobin 26.4 pg (25-34); Mean Corpuscular Hgb Conc 32.1 g/dL (32-36); Mean Corpuscular Volume 82.2 fL (80-100); Mean Platelet Volume 9.4 fL (7.4-10.4); Platelet Count 93 K/uL (130-400); RDW Coefficient of Variation 21.7 % (11.5-14.5); RDW Standard Deviation 61.9 fL (36.4-46.3); Red Blood Count 2.58 M/uL (4.2-5.4); White Blood Count 2.73 K/uL (4.8-10.8)
[2020-10-05 04:44] LABS: INR 1.3 (0.9-1.1)
[2020-10-05] MEDS ORDERED: SODIUM CHLORIDE 0.9% 250 ML IV PRN (04:46)
[2020-10-05 04:58] LABS: Albumin Level 1.5 gm/dl (3.4-5.0); BUN Creatinine Ratio 34.2 (10-20); Calcium 7.2 mg/dl (8.5-10.1); Creatinine Clr Calc Pharmacy 33.3 ml/min; Est GFR (African American) 35.9; Est GFR (Non-African American) 30.9; Magnesium 2.2 mg/dl (1.8-2.4); Potassium 3.8 mmol/L (3.5-5.1)
[2020-10-05 05:04] LABS: Albumin Globulin Ratio 0.4 (0.9-2); Bilirubin,Total 1.8 mg/dl (0.2-1); Globulin 4.2 gm/dl (2.5-4.0); Total Protein 5.7 gm/dl (6.4-8.2)
--- NOTE | 2020-10-05 07:28 | XRay Report ---
XR chest 1V portable CLINICAL HISTORY: Lost guidewire. COMPARISON STUDY: Chest radiograph October 04, 2020. FINDINGS: No linear radiopaque foreign bodies are identified. There is cardiomegaly without evidence for pulmonary edema. Minimal bibasilar opacities favor atelectasis. No pneumothorax or pleural effusi on is present. IMPRESSION: No radiopaque foreign bodies identified within the chest. ACT 112: Negative or not required by law. Electronically signed by: Garett Rousseau M.D. 10/05/2020 7:26 AM
--- NOTE | 2020-10-05 07:29 | XRay Report ---
XR humerus LT 2V CLINICAL HISTORY: Lost guidewire. COMPARISON: None FINDINGS: A tourniquet is noted on the initial image. No radiopaque foreign body within the left upp er arm is noted. There is no osseous abnormality of the left humerus. IMPRESSION: No radiopaque foreign body within the left upper arm. ACT 112: Negative or not required by law. Electronically signed by: Garett Rousseau M.D. 10/05/2020 7:27 AM
--- NOTE | 2020-10-05 08:00 | XRay Report ---
XR forearm LT 2V CLINICAL HISTORY: lost guidewire COMPARISON: None FINDINGS: No unexpected radiopaque foreign body within the left forearm is identified. An IV is inci dentally noted. Degenerative changes within the left wrist are suboptimally assessed on this exam. IMPRESSION: No unexpected radiopaque foreign body within the left forearm. ACT 112: Negative or not required by law. Electronically signed by: Garett Rousseau M.D. 10/05/2020 7:58 AM
--- NOTE | 2020-10-05 10:19 | Gastrointestinal Consultation ---
Date of Consultation October 05, 2020 Assessment & Plan (1) Hematemesis: With melena. Patient's INR was >9.7 upon admission (now 1.3) and she is on chronic anticoagulation. She also has a history of MOBLEY cirrhosis and has refused variceal surveillance in the past. -Continue Octreotide gtt for now -Continue Protonix gtt -Continue to monitor H/H -Offered EGD for further evaluation; Patient is not ready to agree to this at the present. She reports she is unsure if she wants to pursue further tests and interventions but notes she feels guilt because of her daughter. She asks my opinion regarding her daughter potentially becoming a living donor for a liver transplant. I have explained that I am not a transplant polysomnographic tech and questions of this nature could only be answered by them, however I discussed with her that her age and multiple medical comorbidities make her likelihood of being approved and/or recovering from a transplant unfavorable. She is very unsure of whether she wishes to end all further care or aggressively proceed. -I agree with Dr. Pereira (patient's PCP). I think a conversation with a senior technical specialist would be helpful to outline the patient's goals of care given her multiple medical issues and multiple readmissions as of late. Thank you for allowing us to participate in the care of this patient. If you should have any further questions or concerns, do not hesitate to contact us at extension [phone] or [phone]. Supervising Physician Co-Signing Physician Notes Agree with ROBEL Sunshine Gen: Chronic ill-appearing Abd: Soft, NT Continue supportive care Patient does not wish to undergo EGD at present History of Present Illness Reason for Consultation: Melena, Anemia Attending Physician: Audrey Schulz MD History of Present Illness Patient is a 75 yo female with a PMH of MOBLEY cirrhosis last seen in our outpatient clinic by Rachael EM in 2017. After that time, the patient had reported that she "had too much going on" and did not wish to pursue further GI evaluation at the time. She was brought to the ED with complaints of increased leg swellling. She was recently hospitalized with anasarca. She underwent a paracentesis during her last admission. Her cirrhosis is not her only medical issue; she has other diagnoses including HTN, aortic stenosis, hyperlipidemia, pulmonary emboli, portal and splenic vein thrombosis on anticoagulation. She also has a rectus sheath hematoma. Her INR on admission was >9.7. It is now 1.3. Per outpatient notes, it appears that she has historically been noncompliant with her diuretic therapy. Of note, per documentation from [facility], she has refused EGDs in the past for variceal surveillance. Patient's mental status is altered from baseline. There are complaints of dark stool x several days as well as a questionable episode of hematemesis. Patient lives with her at home. Her H/H is 6.8/21.2. She has no current overt GI bleeding noted during my evaluation. Ammonia is 19. BUN/Cr is 56/1.63. She is presently on an Octreotide gtt along with a Pantoprazole gtt. Of note, it appears that on 09/21/20, her primary care provider initiated the conversation regarding palliative care. Patient tells me today her daughter wants to be a living donor for a liver transplant but she notes that she isn't sure if she wants to go through with any further testing. Allergies Allergy/AdvReac Type Severity Reaction Status Date / Time naproxen Allergy Intermediate Hives Verified 10/04/20 19:16 adhesive AdvReac Mild SKIN Verified 10/04/20 19:16 IRRITATION ciprofloxacin AdvReac Mild Nausea Verified 10/04/20 19:16 Home Medications Home Medications Medication Instructions Recorded Confirmed Type Unobtainable 10/04/20 10/04/20 History Patient History Medical History Anemia Anxiety Anxiety Aortic stenosis Moderate per 03/2020 echo Ascites Asthma USED INHALER YESTERDAY Breast cancer Cardiac murmur Moderate Chronic idiopathic thrombocytopenia Chronic kidney disease, stage III (moderate) Chronic leukopenia Chronic liver disease GERD (gastroesophageal reflux disease) Gout Hyperlipidemia Hypertension Multiple pulmonary nodules Neurologic gait dysfunction Non-alcoholic cirrhosis Obesity Osteoarthritis Osteoporosis Palliative care encounter Peripheral neuropathy Restless leg syndrome Secondary hyperparathyroidism Spinal stenosis Surgical History History of breast biopsy + CANCER History of delivery X 1 History of cholecystectomy History of dilatation and curettage History of hysterectomy History of surgery CYST REMOVED LEFT WRIST History of tooth extraction Family History Grandmother (Maternal) , Passed age 66 of Stomach Cancer No problems noted. Grandfather (Maternal) , Passed in 70's of Stomach Cancer No problems noted. Mother , Passed age 76 of Alzheimer's Disease Complications Family history of diabetes mellitus Father , Passed in 90's of Alzheimer's Disease Complications No problems noted. Daughter No problems noted. Son No problems noted. Son No problems noted. 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 You have: 3 Other Information That Helps Us Care for You: No Feels Safe at Home: Yes Safety Concerns: Feels Safe At This Time Childhood Exposure to Second-Hand Smoke: Yes (Father ) caffeine: Yes (2 cups of coffee/day ) during the past year weight has: increased > 10 lbs Dental Care, Regularly: No Assistive Devices: Denture - Upper, Glasses and Walker Assistive Devices Comment: does not wear dentures Review of Systems Review of Systems: Participation limited Constitutional: no fever and no chills Eyes: no problem reported Respiratory: no cough and no dyspnea Cardiovascular: no chest pain Gastrointestinal: + melena; no abdominal pain Physical Exam Constitutional: + ill appearing Eyes: no conjunctival abnormality Neck: normal visual inspection Respiratory: no respiratory distress Cardiovascular: Extremities: + edema Gastrointestinal (Abdomen): Percussion/Palpation: abdomen soft; abdomen nontender Musculoskeletal: Head/Neck/Chest: normocephalic Skin: no rashes, warm and dry Psychiatric: A+Ox3, euthymic affect Results & Data ([facility]) Vital Signs (Past 12 Hours) Vital Signs Temp Pulse Pulse Resp BP BP Pulse Ox 10/05/20 09:58 36.3 C L 82 14 109/69 98 10/05/20 09:54 36.3 C L 82 14 109/69 98 10/05/20 09:32 36.5 C 80 14 99/65 L 97 10/05/20 09:10 36.5 C 79 14 93/57 L 99 10/05/20 08:30 36.9 C 76 18 103/66 98 10/05/20 07:30 36.5 C 77 16 93/54 L 99 10/05/20 07:00 36.4 C L 78 18 101/63 99 10/05/20 06:45 36.3 C L 79 18 106/67 98 10/05/20 06:26 36.3 C L 76 18 92/53 L 96 10/05/20 03:45 36.6 C 74 19 95/63 L 96 10/05/20 01:22 36.3 C L 77 20 88/52 L 98 PG Care Time/CCT Total # of Minutes Spent Total Time Spent with Patient: Total time spent is greater than 50% in coordination of care (as documented) at patient's floor/unit and/or counseling patient: Coding Level of Care Code 41300 Initial Inpt Care Lvl 3 Diagnoses Hematemesis K92.0 Nausea presence: without nausea (1) Hematemesis Nausea presence: without nausea Qualified Code(s): K92.0 - Hematemesis
--- NOTE | 2020-10-05 13:36 | Palliative Care Consultation ---
Date of Consultation October 05, 2020 Assessment & Plan (1) Palliative care encounter: This is a complex 75 year old who presented to the [facility] with abdominal pain. She unfortunately had a recent hospitalization on 09/18/20. On admission through the ED it was discovered that she rectus sheath hematoma and subtherapeutic INR of 9.7, requiring Vitamin K and IV Insulin, bringing it down to therapeutic range. The patient has an extensive PMH that includes MOBLEY liver cirrhosis. She has historically had volume overload from her cirrhosis and has requires diuretics; however, apparently has been historically non-compliant. She experienced some hemoptysis and she was started on Octreotide and Protonix gtts. Her Hgb was 6.4 and she was given 2UPRBCs. An EGD was discussed with the patient to determine the extent of the likely varicies, but she stated she was unsure she wanted to pursue further investigation. Vascular was consulted to discuss the possibility of placing an IVC filter in order to forgo restarting her Coumadin; however, was advised this would not be recommended and she should start her Coumadin in one weeks time. Palliative Care was consulted to discuss goals of care and code status. I met with the patient in room [address] Schulz from the hospitalists. When I entered the room, the patients daughter Keya, was at her bedside. The patient was in no apparent distress. Repeat CBC was being obtained when I entered the room. Lengthy conversation held regarding goals of care. She reports she is unsure if she wants to pursue further tests and interventions but said she does feel guilty about leaving her kids and . Her son, Joshua, was on the phone during our conversation. We discussed a lot of restrictions regarding her care in various ways with explaining anticoagulation and volume resuscitation in correlation with difficulties of her becoming volume overloaded. The patient had questions regarding liver transplantation. She is a outpatient of Dr. Christiansen and she requested to talk with him. I think this is a good idea as it will provide insight regarding EGD risk vs benefits and comment on liver transplant candidacy which would help moving forward with decision making. Due to her age and multiple medical comorbidities, I think she has an unfavorable outcome if transplant was even a possibility. I discussed the aggressive and conservative treatment option paths and short term solutions. Code status was discussed in detail. She understands that she unlikely would improve with CPR or cardioversion. Conversation was leading towards a DNR, but think it would be best to have a family meeting prior to moving forward with officially changing this status. The patient did say in front of her kids that she is not afraid of dying and knows she will be taken care of in [facility]. I said that her saying that is a gift that many patients children do not get to hear. Palliative Care will continue to follow. I suggested that after GI sees the family, that we arrange a family meeting to continue to evolve her goals of care and decision making. Ultimately, it sounds like the patient will eventually want to return home with additional caregiver services once goals are established. (2) Non-alcoholic cirrhosis: (3) Supratherapeutic INR: (4) Rectus sheath hematoma: (5) Splenomegaly: History of Present Illness Reason for Consultation: Goals of Care Requesting Physician: Dr. Schulz Attending Physician: Audrey Schulz MD History of Present Illness This is a complex 75 year old who presented to the [facility] with abdominal pain. She unfortunately had a recent hospitalization on 09/18/20. On admission through the ED it was discovered that she rectus sheath hematoma and subtherapeutic INR of 9.7, requiring Vitamin K and IV Insulin, bringing it down to therapeutic range. The patient has an extensive PMH that includes MOBLEY liver cirrhosis. She has historically had volume overload from her cirrhosis and has requires diuretics; however, apparently has been historically non-compliant. She experienced some hemoptysis and she was started on Octreotide and Protonix gtts. Her Hgb was 6.4 and she was given 2UPRBCs. An EGD was discussed with the patient to determine the extent of the likely varicies, but she stated she was unsure she wanted to pursue further investigation. Palliative Care was consulted to discuss goals of care and code status. Please see A/P for further details. Thank you kindly for involving the palliative care consultation service with this patient and her family. We will follow. Allergies Allergy/AdvReac Type Severity Reaction Status Date / Time naproxen Allergy Intermediate Hives Verified 10/04/20 19:16 adhesive AdvReac Mild SKIN Verified 10/04/20 19:16 IRRITATION ciprofloxacin AdvReac Mild Nausea Verified 10/04/20 19:16 Home Medications Home Medications Medication Instructions Recorded Confirmed Type Unobtainable 10/04/20 10/04/20 History Patient History Medical History Anemia Anxiety Anxiety Aortic stenosis Moderate per 03/2020 echo [facility] Asthma USED INHALER YESTERDAY Breast cancer Cardiac murmur Moderate Chronic idiopathic thrombocytopenia Chronic kidney disease, stage III (moderate) Chronic leukopenia Chronic liver disease GERD (gastroesophageal reflux disease) Gout Hyperlipidemia Hypertension Multiple pulmonary nodules Neurologic gait dysfunction Non-alcoholic cirrhosis Obesity Osteoarthritis Osteoporosis Palliative care encounter Peripheral neuropathy Restless leg syndrome Secondary hyperparathyroidism Spinal stenosis Surgical History History of breast biopsy + CANCER History of delivery X 1 History of cholecystectomy History of dilatation and curettage History of hysterectomy History of surgery CYST REMOVED LEFT WRIST History of tooth extraction Family History Grandmother (Maternal) , Passed age 66 of Stomach Cancer No problems noted. Grandfather (Maternal) , Passed in 70's of Stomach Cancer No problems noted. Mother , Passed age 76 of Alzheimer's Disease Complications Family history of diabetes mellitus Father , Passed in 90's of Alzheimer's Disease Complications No problems noted. Daughter No problems noted. Son No problems noted. Son No problems noted. Social History Smoking Status: Never smoker Second Hand Exposure: No; Hx Alcohol Use: No Hx Substance Use: No Preferred Language: Hebrew Communication Ability: Effective Visual Impairment: Limited Hearing Ability: Normal Consumer Science Teacher Required: No Beliefs That Will Affect Care: None marital status: Current Living Situation: Spouse current occupational status: retired current occupation: Retired Caregiver How many Children do You have: 3 Other Information That Helps Us Care for You: No Feels Safe at Home: Yes Safety Concerns: Feels Safe At This Time Childhood Exposure to Second-Hand Smoke: Yes (Father ) caffeine: Yes (2 cups of coffee/day ) during the past year weight has: increased > 10 lbs Dental Care, Regularly: No Assistive Devices: Denture - Upper, Glasses and Walker Assistive Devices Comment: does not wear dentures Review of Systems Review of Systems: [place] Symptom Assessment System Revised (ESAS-r) Pain: 1/3 Lack of Appetite: 0/3 SOB: 0/3 Depression: 0/3 Anxiety: 1/3 Nausea: 1/3 Physical Exam Constitutional: + ill appearing, cooperative and comfortable; no acute distress Respiratory: normal respiratory effort; no labored breathing and does not use accessory muscles Auscultation: + diminished lung sounds Cardiovascular: Rate/Rhythm: regular rate and regular rhythm Heart Sounds: normal S1 and normal S2 Vessels: dorsalis pedis pulses present and radial pulses present Extremities: normal capillary refill and + edema Gastrointestinal (Abdomen): Percussion/Palpation: + abdomen tender, abdomen soft and + hepatosplenomegaly Skin: + skin tightening, + jaundice and + brittle hair Psychiatric: A+Ox3, euthymic affect Insight: good insight Judgement: good judgement Results & Data ([facility]) Vital Signs (Past 12 Hours) Vital Signs Temp Pulse Pulse Resp BP BP Pulse Ox 10/05/20 12:23 36.5 C 83 14 103/67 95 10/05/20 11:39 36.6 C 77 16 90/58 L 96 10/05/20 11:10 36.5 C 76 16 99/59 L 10/05/20 10:39 36.5 C 76 16 96/58 L 96 10/05/20 10:09 36.4 C L 79 14 104/66 97 10/05/20 09:58 36.3 C L 82 14 109/69 98 10/05/20 09:54 36.3 C L 82 14 109/69 98 10/05/20 09:32 36.5 C 80 14 99/65 L 97 10/05/20 09:10 36.5 C 79 14 93/57 L 99 10/05/20 08:30 36.9 C 76 18 103/66 98 10/05/20 07:30 36.5 C 77 16 93/54 L 99 10/05/20 07:00 36.4 C L 78 18 101/63 99 10/05/20 06:45 36.3 C L 79 18 106/67 98 10/05/20 06:26 36.3 C L 76 18 92/53 L 96 10/05/20 03:45 36.6 C 74 19 95/63 L 96 PG Care Time/CCT Total # of Minutes Spent Total Time Spent with Patient: Total time spent is greater than 50% in coordination of care (as documented) at patient's floor/unit and/or counseling patient: 70 Coding Level of Care Code 58409 Inpt Consult Level 3 Diagnoses Palliative care encounter Z51.5 Non-alcoholic cirrhosis K74.60 Supratherapeutic INR R79.1 Rectus sheath hematoma S30.1XXA Splenomegaly R16.1 Time Spent (min) 70 Time Spent Midlevel Total time spent 70 minutes with > 50% of that time spent assessing the patient, discussing goals of care with the family and patient, along with collaboration with the IDT
[2020-10-05 14:04] LABS: Hematocrit (blood only) 27.8 % (37-47); Hemoglobin 9.2 g/dL (12.0-16.0); Mean Corpuscular Hemoglobin 27.4 pg (25-34); Mean Corpuscular Hgb Conc 33.1 g/dL (32-36); Mean Corpuscular Volume 82.7 fL (80-100); RDW Coefficient of Variation 19.8 % (11.5-14.5); RDW Standard Deviation 56.5 fL (36.4-46.3); Red Blood Count 3.36 M/uL (4.2-5.4); White Blood Count 3.06 K/uL (4.8-10.8)
[2020-10-05 14:24] LABS: Basophils # (auto) 0.01 K/uL (0-0.2); Basophils % (auto) 0.3 %; Eosinophils # (auto) 0.05 K/uL (0-0.5); Eosinophils % (auto) 1.6 %; Immature Granulocytes # (auto) 0.04 K/uL (0.00-0.02); Immature Granulocytes % (auto) 1.3 %; Lymphocytes # (auto) 0.47 K/uL (1.2-3.4); Lymphocytes % (auto) 15.4 %; Mean Platelet Volume 9.6 fL (7.4-10.4); Monocytes # (auto) 0.18 K/uL (0.11-0.59); Monocytes % (auto) 5.9 %; Neutrophils # (auto) 2.31 K/uL (1.4-6.5); Neutrophils % (auto) 75.5 %; Platelet Count 92 K/uL (130-400)
--- NOTE | 2020-10-05 14:30 | Consultation ---
Date of Consultation October 05, 2020 Assessment & Plan (1) Rectus sheath hematoma: This point agree with stopping and reversing her Coumadin. I do not think she would benefit for the insertion of a vena cava filter being that she has no documentation of lower extremity clots. If she should develop acute deep venous thrombosis lower extremity then reconsideration for filter may be indicated. Once her rectus sheath hematoma is stable and there is no further bleeding for 48 hours then I would restart her anticoagulation. Thank you very much for letting us participate in the care of this patient. History of Present Illness Reason for Consultation: History of pulmonary emboli and cirrhosis with the rectus sheath hematoma Attending Physician: Audrey Schulz MD History of Present Illness I had the pleasure of seeing this 75-year-old female who has a history of cirrhosis of the liver. She was on Coumadin for pulmonary emboli which occurred in August of this year. She has not had any documentation of DVT of the lower extremity. She was found to have a thrombosed splenic vein and portal vein during her last admission. She was admitted at this time for hematemesis. She claims it was chocolate in appearance. She is complaining of the massive anemic she has in the lower extremities which is gotten worse over the last few months. They do weep on occasion. Allergies Allergy/AdvReac Type Severity Reaction Status Date / Time naproxen Allergy Intermediate Hives Verified 10/04/20 19:16 adhesive AdvReac Mild SKIN Verified 10/04/20 19:16 IRRITATION ciprofloxacin AdvReac Mild Nausea Verified 10/04/20 19:16 Home Medications Home Medications Medication Instructions Recorded Confirmed Type Unobtainable 10/04/20 10/04/20 History Patient History Medical History Anemia Anxiety Anxiety Aortic stenosis Moderate per 03/2020 echo [facility] Asthma USED INHALER YESTERDAY Breast cancer Cardiac murmur Moderate Chronic idiopathic thrombocytopenia Chronic kidney disease, stage III (moderate) Chronic leukopenia Chronic liver disease GERD (gastroesophageal reflux disease) Gout Hyperlipidemia Hypertension Multiple pulmonary nodules Neurologic gait dysfunction Non-alcoholic cirrhosis Obesity Osteoarthritis Osteoporosis Palliative care encounter Peripheral neuropathy Restless leg syndrome Secondary hyperparathyroidism Spinal stenosis Surgical History History of breast biopsy + CANCER History of delivery X 1 History of cholecystectomy History of dilatation and curettage History of hysterectomy History of surgery CYST REMOVED LEFT WRIST History of tooth extraction Family History Grandmother (Maternal) , Passed age 66 of Stomach Cancer No problems noted. Grandfather (Maternal) , Passed in 70's of Stomach Cancer No problems noted. Mother , Passed age 76 of Alzheimer's Disease Complications Family history of diabetes mellitus Father , Passed in 90's of Alzheimer's Disease Complications No problems noted. Daughter No problems noted. Son No problems noted. Son No problems noted. 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 do You have: 3 Other Information That Helps Us Care for You: No Feels Safe at Home: Yes Safety Concerns: Feels Safe At This Time Childhood Exposure to Second-Hand Smoke: Yes (Father ) caffeine: Yes (2 cups of coffee/day ) during the past year weight has: increased > 10 lbs Dental Care, Regularly: No Assistive Devices: Denture - Upper, Glasses and Walker Assistive Devices Comment: does not wear dentures Review of Systems Review of Systems: All systems reviewed & are unremarkable except as noted in HPI & below Physical Exam 2 Constitutional: WD/WN, vitals as above Respiratory: normal respiratory effort; no respiratory distress Auscultation: lungs clear to auscultation bilaterally Cardiovascular: Rate/Rhythm: regular rate and regular rhythm Extremities: + edema (both lower extremities, massive) Gastrointestinal (Abdomen): Inspection/Auscultation: + abdomen distended Percussion/Palpation: abdomen soft; abdomen nontender Neurologic: CN's II-XI intact bilaterally and moves all extremities Psychiatric: Orientation: alert and oriented x 3 Affect: + depressed affect Results & Data ([facility]) Vital Signs (Past 12 Hours) Vital Signs Temp Pulse Pulse Resp BP BP Pulse Ox 10/05/20 12:23 36.5 C 83 14 103/67 95 10/05/20 11:39 36.6 C 77 16 90/58 L 96 10/05/20 11:10 36.5 C 76 16 99/59 L 10/05/20 10:39 36.5 C 76 16 96/58 L 96 10/05/20 10:09 36.4 C L 79 14 104/66 97 10/05/20 09:58 36.3 C L 82 14 109/69 98 10/05/20 09:54 36.3 C L 82 14 109/69 98 10/05/20 09:32 36.5 C 80 14 99/65 L 97 10/05/20 09:10 36.5 C 79 14 93/57 L 99 10/05/20 08:30 36.9 C 76 18 103/66 98 10/05/20 07:30 36.5 C 77 16 93/54 L 99 10/05/20 07:00 36.4 C L 78 18 101/63 99 10/05/20 06:45 36.3 C L 79 18 106/67 98 10/05/20 06:26 36.3 C L 76 18 92/53 L 96 10/05/20 03:45 36.6 C 74 19 95/63 L 96
--- NOTE | 2020-10-05 16:17 | Hospitalist Progress Note ---
Date of Service October 05, 2020 Assessment & Plan (1) Rectus sheath hematoma: CT a/p on 10/04 showed development of an 11.8 x 5.0 x 3.4 cm left rectus sheath hematoma. Occurred possibly secondary to being lifted by waxer operator at home versus retching from vomiting 2 days prior to admission - Hgb down from 9.9 to 6.8. BP soft initially at 80/50s, but overall stable Transfused 2 units PRBCs on 10/05 Monitor for signs of infection of hematoma No need for surgical intervention unless signs of infection or enlargement (2) Non-alcoholic cirrhosis: Recently admitted for anasarca/volume overload. She is not a candidate for liver transplant which she was asking about today She follows with Dr. Badillo of [facility] who is consulted today -Holding home spironolactone 50 mg p.o. twice daily and furosemide 80 mg p.o. twice daily for acute kidney injury and hypotension -Consider adding on rifaximin or lactulose EGD planned for tomorrow to look for varices (3) Anasarca: With massive lower extremity edema and anasarca in the abdomen as well Holding home diuretics for hypotension as above Restart when possible Encouraged p.o. intake of high protein diet (4) Acute blood loss anemia: Hemorrhagic discord due to intrinsic circulating anticoagulants in the setting of coumadin use and vitamin K reversal agent Hemoglobin drop as above down to 6.8 today secondary to GI bleeding with hematemesis as well as rectus sheath hematoma with INR 9.6 on admission With hypotension Transfused 2 units PRBCs on 10/05 Repeat hemoglobin up to 9.2 which is a good improvement Coumadin reversed with vitamin K and Kcentra on admission, INR 1.3 today Follow CBC in the morning Going for EGD in the morning (5) Hematemesis: Stools have been darker over the last few days, and daughter reports a single episode of possible coffee-ground emesis (dark emesis, but not black and they did not notice specks per se). With hx of cirrhosis, concern for variceal bleed versus PUD No further hematemesis since admission Hemoglobin did drop as above which could be combination of GI bleeding and rectus sheath hematoma -Continue PPI gtt -Continue octreotide gtt -Continue ceftriaxone for SBP prophylaxis - GI consulted-plan for EGD tomorrow-patient and family discussed this quite a bit this evening with myself and patient is now agreeable to EGD - Close hemoglobin monitoring (6) AMS (altered mental status): Acute metabolic encephalopathy upon admission likely due to hypotension from acute blood loss anemia - Ammonia only 19. Now resolved with volume resuscitation (7) Acute kidney failure: Baseline Cr ~1.4, CKD Stage III. - with Cr up to 1.9, likely from overdiuresis. Creatinine down to 1.6 today with IV fluids DC IV fluids, received 2 units PRBCs today May be able to restart diuretics tomorrow (8) Supratherapeutic INR: INR was 3.1 on 09/29, but now >9.7 upon admission Family brought in medication list from home and as per nursing report, Coumadin was listed as being taken twice daily-this may have been the reason for the significant elevation in INR - Vitamin K oral and IV given by the ED - PCC given - Monitor INR-down to 1.3 Follow INR in the morning (9) Hyponatremia: Baseline normal Na. Hypovolemic hyponatremia. Likely due to diuretic use or low-solute. Sodium improved with volume resuscitation 131 Follow BMP (10) Left leg cellulitis: Left heel has a small ulcer with broken skin. Left ankle and puri are warmer and tender to palpation along with mild erythema -Continue ceftriaxone for cellulitis; given no purulence will defer MRSA coverage at this time. (11) Pulmonary emboli: CTA chest in 08/2020 showed RLL PE. -As above, reversing warfarin due to rectus sheath hematoma and GI bleeding - Vascular surgery consult for possible IVC filter-recommends only placing filter if has evidence of DVTs Checking bilateral lower extremity venous Dopplers for DVT If restarting anticoagulation without IVC filter, will wait at least several days due to rectus sheath hematoma (12) Splenic vein thrombosis: Also diagnosed in 08/2020. - As above, anticoagulation on hold (13) Aortic stenosis: Moderate on echocardiogram Follow as an outpatient (14) Portal vein thrombosis: Anticoagulation on hold as above (15) Pancytopenia: Pancytopenia secondary to cirrhosis and splenomegaly Follow CBC (16) DVT prophylaxis: SCDs - Must defer heparin or anticoagulation at this time due to bleeding. Restart therapeutic anticoagulation when stable. Patient is conditional code -previously confirmed with patient with daughter present and & son on the phone. Would like compressions and shocks, but no intubation or breathing tube. Palliative care consultation appreciated Admission and Anticipated Discharge Date Admission Date: October 04, 2020 Subjective Patient was seen on 2 occasions today. The first was this morning from [phone]. The second was in the evening from [phone] with her and son at the bedside and her daughter on speaker phone for a family meeting. I also discussed her case with the end trimmer and the vascular surgeon today as well as with palliative care. Patient reports still having some lower abdominal pain at the site of her hematoma. Her son and the patient recall that her nephew did give her a bear hug to help lift her 2 days ago. She also may have strained her abdomen when she was vomiting 2 days ago. No further hematemesis or melena, no bowel movement at all today. No nausea or vomiting. Review of Systems Review of Systems: All systems reviewed & are unremarkable except as noted in HPI & below Denies any bleeding from anywhere else. No lightheadedness Telemetry with normal sinus rhythm with rates in the 70s. Physical Exam Constitutional: WD/WN, vitals as above + obese Eyes: + anicteric sclerae Neck: trachea midline, no thyromegaly Respiratory: normal respiratory effort, lungs clear to auscultation Cardiovascular: Rate/Rhythm: regular rate and regular rhythm Heart Sounds: + murmur (3/6 at the RUSB systolic) Extremities: + edema (Massive lower extremity edema bilaterally 4+) Chest (Breasts): Chest: normal inspection of chest Gastrointestinal (Abdomen): Inspection/Auscultation: + abdomen distended (Mild) and normal bowel sounds Percussion/Palpation: + abdomen tender (Mild in the left lower quadrant); no guarding (No rebound tenderness) Musculoskeletal: Extremities: no cyanosis and no clubbing Skin: + erythema (Mild erythema and warmth of the left leg from the knee down) Neurologic: moves all extremities and awake; no focal motor deficits Psychiatric: A+Ox3, euthymic affect Results & Data Results & Data ([facility]) Vital Signs (Past 12 Hours) Vital Signs Temp Pulse Pulse Resp BP BP Pulse Ox 10/05/20 15:00 36.5 C 79 20 113/68 98 10/05/20 12:23 36.5 C 83 14 103/67 95 10/05/20 11:39 36.6 C 77 16 90/58 L 96 10/05/20 11:10 36.5 C 76 16 99/59 L 10/05/20 10:39 36.5 C 76 16 96/58 L 96 10/05/20 10:09 36.4 C L 79 14 104/66 97 10/05/20 09:58 36.3 C L 82 14 109/69 98 10/05/20 09:54 36.3 C L 82 14 109/69 98 10/05/20 09:32 36.5 C 80 14 99/65 L 97 10/05/20 09:10 36.5 C 79 14 93/57 L 99 10/05/20 08:30 36.9 C 76 18 103/66 98 10/05/20 07:30 36.5 C 77 16 93/54 L 99 10/05/20 07:00 36.4 C L 78 18 101/63 99 10/05/20 06:45 36.3 C L 79 18 106/67 98 10/05/20 06:26 36.3 C L 76 18 92/53 L 96 Laboratory Results 10/05/20 10/05/20 10/05/20 Range/Units 13:43 04:17 04:17 WBC 3.06 L (4.8-10.8) K/uL RBC 3.36 L (4.2-5.4) M/uL Hgb 9.2 L (12.0-16.0) g/dL Hct 27.8 L (37-47) % MCV 82.7 (80-100) fL MCH 27.4 (25-34) pg MCHC 33.1 (32-36) g/dL RDW Std Deviation 56.5 H (36.4-46.3) fL RDW Coeff of Flower 19.8 H (11.5-14.5) % Plt Count 92 L (130-400) K/uL MPV 9.6 (7.4-10.4) fL Immature Gran % (Auto) 1.3 % Neut % (Auto) 75.5 % Lymph % (Auto) 15.4 % [place] % (Auto) 5.9 % Eos % (Auto) 1.6 % Baso % (Auto) 0.3 % Neut # (Auto) 2.31 (1.4-6.5) K/uL Lymph # (Auto) 0.47 L (1.2-3.4) K/uL [place] # (Auto) 0.18 (0.11-0.59) K/uL Eos # (Auto) 0.05 (0-0.5) K/uL Baso # (Auto) 0.01 (0-0.2) K/uL Immature Gran # (Auto) 0.04 H (0.00-0.02) K/uL PT 14.0 H (9.0-12.0) Seconds INR 1.3 H (0.9-1.1) Sodium 131 L (136-145) mmol/L Potassium 3.8 (3.5-5.1) mmol/L Chloride 98 (98-107) mmol/L Carbon Dioxide 27 (21-32) mmol/L Anion Gap 6.0 (3-11) BUN 56 H (7-18) mg/dl Creatinine 1.63 H D (0.6-1.2) mg/dl Est Cr Clr Drug Dosing 33.3 ml/min Est GFR ( Amer) 35.9 Est GFR (Non-Af Amer) 30.9 BUN/Creatinine Ratio 34.2 H (10-20) Glucose 102 H (70-99) mg/dl Calcium 7.2 L (8.5-10.1) mg/dl Magnesium 2.2 (1.8-2.4) mg/dl Total Bilirubin 1.8 H (0.2-1) mg/dl AST 27 (15-37) U/L ALT 17 (12-78) U/L Alkaline Phosphatase 89 (45-117) U/L Total Protein 5.7 L D (6.4-8.2) gm/dl Albumin 1.5 L (3.4-5.0) gm/dl Globulin 4.2 H (2.5-4.0) gm/dl Albumin/Globulin Ratio 0.4 L (0.9-2) Blood Type Antibody Screen Crossmatch 10/05/20 10/04/20 10/04/20 Range/Units 04:17 22:49 22:49 WBC 2.73 L (4.8-10.8) K/uL RBC 2.58 L (4.2-5.4) M/uL Hgb 6.8 L* 7.8 L (12.0-16.0) g/dL Hct 21.2 L 24.1 L (37-47) % MCV 82.2 (80-100) fL MCH 26.4 (25-34) pg MCHC 32.1 (32-36) g/dL RDW Std Deviation 61.9 H (36.4-46.3) fL RDW Coeff of Flower 21.7 H (11.5-14.5) % Plt Count 93 L (130-400) K/uL MPV 9.4 (7.4-10.4) fL Immature Gran % (Auto) % Neut % (Auto) % Lymph % (Auto) % [place] % (Auto) % Eos % (Auto) % Baso % (Auto) % Neut # (Auto) (1.4-6.5) K/uL Lymph # (Auto) (1.2-3.4) K/uL [place] # (Auto) (0.11-0.59) K/uL Eos # (Auto) (0-0.5) K/uL Baso # (Auto) (0-0.2) K/uL Immature Gran # (Auto) (0.00-0.02) K/uL PT (9.0-12.0) Seconds INR (0.9-1.1) Sodium (136-145) mmol/L Potassium (3.5-5.1) mmol/L Chloride (98-107) mmol/L Carbon Dioxide (21-32) mmol/L Anion Gap (3-11) BUN (7-18) mg/dl Creatinine (0.6-1.2) mg/dl Est Cr Clr Drug Dosing ml/min Est GFR ( Amer) Est GFR (Non-Af Amer) BUN/Creatinine Ratio (10-20) Glucose (70-99) mg/dl Calcium (8.5-10.1) mg/dl Magnesium (1.8-2.4) mg/dl Total Bilirubin (0.2-1) mg/dl AST (15-37) U/L ALT (12-78) U/L Alkaline Phosphatase (45-117) U/L Total Protein (6.4-8.2) gm/dl Albumin (3.4-5.0) gm/dl Globulin (2.5-4.0) gm/dl Albumin/Globulin Ratio (0.9-2) Blood Type A Positive Antibody Screen NEGATIVE Crossmatch See Detail PG Care Time/CCT Total # of Minutes Spent Total Time Spent with Patient: Total time spent is greater than 50% in coordination of care (as documented) at patient's floor/unit and/or counseling patient: Prolonged Care Time Prolonged Care Time: Yes Total Prolonged Care Time: 65 Coding Level of Care Code 14570 Subseq Hosp Care Lvl 3 (25 - SIGNIFICANT, SEPARATELY IDENTIFIABLE ) Diagnoses Rectus sheath hematoma S30.1XXA Non-alcoholic cirrhosis K74.60 Anasarca R60.1 Acute blood loss anemia D62 Hematemesis K92.0 Nausea presence: without nausea AMS (altered mental status) R41.82 Acute kidney failure N17.9 Supratherapeutic INR R79.1 Hyponatremia E87.1 Left leg cellulitis L03.116 Pulmonary emboli I26.99 Acute cor pulmonale presence: unspecified Chronicity: acute Pulmonary embolism type: other Splenic vein thrombosis I82.890 Aortic stenosis I35.0 Portal vein thrombosis I81 Pancytopenia D61.818 DVT prophylaxis Z29.9 Additional Codes Prolonged Care Time - Prolonged Care Time: Yes ([id number]) (1) Pulmonary emboli Acute cor pulmonale presence: unspecified Chronicity: acute Pulmonary embolism type: other Qualified Code(s): I26.99 - Other pulmonary embolism without acute cor pulmonale (2) Hematemesis Nausea presence: without nausea Qualified Code(s): K92.0 - Hematemesis
--- NOTE | 2020-10-05 16:54 | Electrocardiogram Report ---
Test Reason : Blood Pressure : / mmHG Vent. Rate : 080 BPM Atrial Rate : 080 BPM P-R Int : 186 ms QRS Dur : 122 ms QT Int : 432 ms P-R-T Axes : 034 052 026 degrees QTc Int : 498 ms Normal sinus rhythm Right bundle branch block Borderline ECG When compared with ECG of 13-SEP-2020 02:22, RSR' pattern in V1 is now Present Confirmed by Romero Quach ([id number]) on 10/05/2020 4:54:16 PM Referred By: REFERRED SELF Confirmed By:Wil Quach
--- NOTE | 2020-10-05 16:54 | Electrocardiogram Report ---
Test Reason : Blood Pressure : / mmHG Vent. Rate : 074 BPM Atrial Rate : 074 BPM P-R Int : 194 ms QRS Dur : 124 ms QT Int : 448 ms P-R-T Axes : 038 055 030 degrees QTc Int : 497 ms Normal sinus rhythm Right bundle branch block Abnormal ECG When compared with ECG of 04-OCT-2020 15:13, (unconfirmed) No significant change was found Confirmed by Romero Quach ([id number]) on 10/05/2020 4:53:42 PM Referred By: REFERRED SELF Confirmed By:Wil Quach
--- NOTE | 2020-10-05 20:15 | Ultrasound Report ---
US venous doppler LE BI CLINICAL HISTORY: Leg swelling COMPARISON STUDY: July 31, 2020 FINDINGS: Real-time and color flow Doppler imaging were performed. Flow was seen within the femoral, popliteal and calf veins with no intraluminal thrombus demonstrated. The saphenous vein is patent. Th e examination was somewhat limited due to the patient's severe edema. IMPRESSION: No evidence of lower extremity DVT. ACT 112: Negative or not required by law. Electronically signed by: David Valle M.D. 10/05/2020 8:14 PM
[2020-10-05] MEDS: cefTRIAXone SODIUM 2,000 MG in DEXTROSE 5% 50 ML IV SCH (20:54)
[2020-10-06] MEDS: OCTREOTIDE ACETATE 500 MCG in 0.9 % SODIUM CHLORIDE 100 ML IV SCH (00:27)
[2020-10-06] MEDS: PANTOprazole 40 MG in DEXTROSE 5% 100 ML IV SCH ×3 (00:27→20:06)
[2020-10-06 08:09] LABS: Hematocrit (blood only) 30.5 % (37-47); Mean Corpuscular Hemoglobin 27.2 pg (25-34); Mean Corpuscular Hgb Conc 32.8 g/dL (32-36); Mean Corpuscular Volume 82.9 fL (80-100); RDW Coefficient of Variation 20.5 % (11.5-14.5); RDW Standard Deviation 58.9 fL (36.4-46.3); Red Blood Count 3.68 M/uL (4.2-5.4); White Blood Count 3.47 K/uL (4.8-10.8)
[2020-10-06 08:14] LABS: Mean Platelet Volume 9.4 fL (7.4-10.4); Platelet Count 91 K/uL (130-400)
[2020-10-06 08:17] LABS: INR 1.3 (0.9-1.1); Prothrombin Time 13.7 Seconds (9.0-12.0)
[2020-10-06 08:37] LABS: Anisocytosis Present; Basophils # (auto) 0.01 K/uL (0-0.2); Basophils % (auto) 0.3 %; Eosinophils # (auto) 0.03 K/uL (0-0.5); Eosinophils % (auto) 0.9 %; Immature Granulocytes # (auto) 0.04 K/uL (0.00-0.02); Immature Granulocytes % (auto) 1.2 %; Lymphocytes # (auto) 0.41 K/uL (1.2-3.4); Lymphocytes % (auto) 11.8 %; Monocytes # (auto) 0.27 K/uL (0.11-0.59); Monocytes % (auto) 7.8 %; Neutrophils # (auto) 2.71 K/uL (1.4-6.5)
[2020-10-06 08:43] LABS: Albumin Level 1.7 gm/dl (3.4-5.0); BUN Creatinine Ratio 26.9 (10-20); Bilirubin Direct 1.2 mg/dl (0-0.2); Calcium 7.8 mg/dl (8.5-10.1); Creatinine Clr Calc Pharmacy 33.4 ml/min; Est GFR (African American) 34.3; Est GFR (Non-African American) 29.6; Magnesium 2.4 mg/dl (1.8-2.4); Potassium 3.8 mmol/L (3.5-5.1)
[2020-10-06 08:50] LABS: Bilirubin,Total 2.6 mg/dl (0.2-1); Total Protein 6.4 gm/dl (6.4-8.2)
--- NOTE | 2020-10-06 08:55 | Anesthesiology Consultation ---
Date of Service October 06, 2020 Assessment & Plan Chart Review Chart Review: Acceptable Risk for Surgery and Patient NOT seen in Pre Admission Testing Consults Requested none ASA ASA4 Proposed Anesthesia Anesthesia Type: MAC History Surgery Operation Date: 10/06/20 15:30 Proposed Procedures p Esophagogastroduodenoscopy Dr Justino Cobian Case, DO Height/Weight Height: 5 ft 4 in Weight: 96.4 kg Allergies Allergy/AdvReac Type Severity Reaction Status Date / Time naproxen Allergy Intermediate Hives Verified 10/04/20 19:16 adhesive AdvReac Mild SKIN Verified 10/04/20 19:16 IRRITATION ciprofloxacin AdvReac Mild Nausea Verified 10/04/20 19:16 Medications Home Medications Medication Instructions Recorded Confirmed Last Taken Unobtainable 10/04/20 10/04/20 Unknown Active Medications Generic Name Dose Route Start Last Admin Trade Name Freq PRN Reason Stop Dose Admin Pantoprazole Sodium 40 mg/ 100 mls @ 20 mls/hr 10/04/20 22:00 10/06/20 04:56 Dextrose IV 11/03/20 21:59 8 mg/hr Q5H RAJI 20 mls/hr Administration 8 MG/HR Octreotide Acetate 500 mcg/ 105 mls @ 10.5 mls/hr 10/04/20 22:00 10/06/20 00:27 Sodium Chloride IV 11/03/20 21:59 50 mcg/hr .Q10H RAJI 10.5 mls/hr Administration 50 MCG/HR Ceftriaxone Sodium 2,000 mg/ 70 mls @ 100 mls/hr 10/04/20 22:00 10/05/20 21:40 Dextrose IV 10/11/20 21:59 Infused Q24H RAJI Infusion Protocol Past Medical History Medical History Anemia Anxiety Anxiety Aortic stenosis Moderate per 03/2020 echo Ascites Asthma USED INHALER YESTERDAY Breast cancer Cardiac murmur Moderate Chronic idiopathic thrombocytopenia Chronic kidney disease, stage III (moderate) Chronic leukopenia Chronic liver disease GERD (gastroesophageal reflux disease) Gout Hyperlipidemia Hypertension Multiple pulmonary nodules Neurologic gait dysfunction Non-alcoholic cirrhosis Obesity Osteoarthritis Osteoporosis Palliative care encounter Peripheral neuropathy Restless leg syndrome Secondary hyperparathyroidism Spinal stenosis Exercise / Class Metabolic Activity III < 4 Walking/Shop/Light housework Past Family History Family History Grandmother (Maternal) , Passed age 66 of Stomach Cancer No problems noted. Grandfather (Maternal) , Passed in 70's of Stomach Cancer No problems noted. Mother , Passed age 76 of Alzheimer's Disease Complications Family history of diabetes mellitus Father , Passed in 90's of Alzheimer's Disease Complications No problems noted. Daughter No problems noted. Son No problems noted. Son No problems noted. Past Surgical History Surgical History History of breast biopsy + CANCER History of delivery X 1 History of cholecystectomy History of dilatation and curettage History of hysterectomy History of surgery CYST REMOVED LEFT WRIST History of tooth extraction Past Anesthesia History No Hx of Anesthesia Complications and No Family Hx of Anesthesia Complications History of PONV No Hx of PONV and No Hx of Motion Sickness Social History Smoking Status: Never smoker Hx Alcohol Use: No Hx Substance Use: No substance use type: does not use Physical Exam Vital Signs Last Vital Signs Temp 37.0 C 10/06/20 07:51 Pulse 84 10/06/20 07:51 Resp 16 10/06/20 07:51 BP 115/66 10/06/20 07:51 Pulse Ox 95 10/06/20 07:51 Testing Laboratory Results 10/06/20 07:45 10/06/20 07:45 PT 13.7 Seconds (9.0-12.0) H 10/06/20 07:45 INR 1.3 (0.9-1.1) H 10/06/20 07:45 Urine Color Yellow 10/04/20 18:30 Urine Appearance Clear (Clear) 10/04/20 18:30 Urine pH 7.5 (4.5-7.5) 10/04/20 18:30 Ur Specific [place] 1.010 (1.000-1.030) 10/04/20 18:30 Urine Protein Negative (Negative) 10/04/20 18:30 Urine Glucose (UA) Negative (Negative) 10/04/20 18:30 Urine Ketones Negative (Negative) 10/04/20 18:30 Urine Nitrite Negative (Negative) 10/04/20 18:30 Ur Leukocyte Esterase 1+ (Negative) H 10/04/20 18:30 Urine WBC (Auto) 10-30 /hpf (0-5) H 10/04/20 18:30 Urine RBC (Auto) 0-4 /hpf (0-4) 10/04/20 18:30 U Hyaline Cast (Auto) 1-5 /lpf (0-5) 10/04/20 18:30 U Epithel Cells (Auto) >30 /lpf (0-5) H 10/04/20 18:30 Urine Bacteria (Auto) 1+ (Negative) H 10/04/20 18:30 Blood Type A Positive 10/04/20 22:49 Antibody Screen NEGATIVE 10/04/20 22:49 10/04/20 18:30 Urine Culture - Preliminary Urine,Straight Cath Escherichia coli Electrocardiogram Date: 10/04/20 Findings: + NSR @ (at 80) and + RBBB Chest X-Ray Date: 10/04/20 Findings: + NAD Echocardiogram Date: 04/18/20 EF: 60 LV Function: normal RWMA: + none Other Findings: + diastolic dysfunction (grade 2) Valvular Disease: + (moderate /AVarea 1.2 cm2)
--- NOTE | 2020-10-06 09:31 | History & Physical Bridge Note ---
Date of Service October 06, 2020 History & Physical Bridge Note I have examined the patient, reviewed the History & Physical and in the interval since the performance of the History & Physical I have noted the following changes of clinical significance: no changes noted No further evidence of bleeding. H/H is 10.0/30.5. Patient reports she has been NPO since 10 AM. Proceed with EGD today. Supervising Physician Co-Signing Physician Notes Agree with ROBEL Sunshine as above Abd: Soft, NT, ND, +BS Continue current therapy Proceed with EGD
[2020-10-06] MEDS ORDERED: ATROPINE SULFATE 0.1 MG/ML 10ML SYR IV PRN (10:10)
[2020-10-06] MEDS ORDERED: ePHEDrine sulfate 50 MG/ML AMP IV PRN (10:10)
[2020-10-06] MEDS ORDERED: ONDANSETRON INJ 2 MG/ML 2 ML VIAL ONE (10:31)
[2020-10-06] MEDS ORDERED: PROPOFOL IV EMULSION 10 MG/ML 20 ML VIAL IV ONE (10:31)
[2020-10-06] MEDS ORDERED: LIDOCAINE HCL 2% 2 ML VIAL/AMP(20MG/ML) INFIL ONE (10:31)
[2020-10-06] MEDS ORDERED: GLYCOPYRROLATE 0.2 MG/ML VIAL ONE (10:31)
--- NOTE | 2020-10-06 10:41 | GI REPORT ---
Patient Name: Angelica Calabrese Procedure Date: 10/06/2020 10:23 AM Date of : 1945 Admit Type: Inpatient Age: 75 Gender: Female Attending MD: Bobby Badillo DO Procedure: Upper GI endoscopy Providers: Bobby Badillo DO Referring MD: Audrey Schulz Md Indications: Melena Medicines: Monitored Anesthesia Care Complications: No immediate complications. Estimated Blood Loss: Estimated blood loss: none. Procedure: Pre-Anesthesia Assessment: - Prior to the procedure, a History and Physical was performed, and patient medications and allergies were reviewed. The patient's tolerance of previous anesthesia was also reviewed. The risks and benefits of the procedure and the sedation options and risks were discussed with the patient. All questions were answered, and informed consent was obtained. Prior Anticoagulants: The patient has taken Coumadin (warfarin), last dose was 3 days prior to procedure. ASA Grade Assessment: IV - A patient with severe systemic disease that is a constant threat to life. After reviewing the risks and benefits, the patient was deemed in satisfactory condition to undergo the procedure. After obtaining informed consent, the endoscope was passed under direct vision. Throughout the procedure, the patient's blood pressure, pulse, and oxygen saturations were monitored continuously. The Endoscope was introduced through the mouth, and advanced to the second part of duodenum. The upper GI endoscopy was accomplished without difficulty. The patient tolerated the procedure well. Findings: The examined esophagus was normal. A small hiatal hernia was present. Diffuse moderately erythematous mucosa without bleeding consistent with Portal Hypertensive Gastropathy was found in the stomach. The examined duodenum was normal. Impression: - Normal esophagus. - Small hiatal hernia. - Erythematous mucosa in the stomach. - Normal examined duodenum. - No specimens collected. Recommendation: - Return patient to hospital [facility] for ongoing care. - Use Protonix (pantoprazole) 40 mg PO daily. - Stop Octreotide gtt. - Continue to hold coumadin indefinitely - Advance diet as tolerated Bobby Badillo DO 10/06/2020 10:40:54 AM This report has been signed electronically. Note Initiated On: 10/06/2020 10:23 AM Number of Addenda: 0 I attest to the content of the Intraoperative Record and orders documented therein, exceptions below {[id number]}
--- NOTE | 2020-10-06 10:48 | Anesthesiology Progress Note ---
Date of Service October 06, 2020 Anesthesia Post Procedure Vital Signs Vital Signs: Temp Pulse Pulse Pulse Resp BP BP 10/06/20 09:48 36.6 C 96 H 16 10/06/20 07:51 37.0 C 84 16 115/66 10/06/20 04:01 36.3 C L 90 18 108/66 10/06/20 00:00 79 10/05/20 23:31 36.6 C 84 18 105/68 10/05/20 19:34 36.3 C L 85 18 106/66 10/05/20 15:00 36.5 C 79 20 113/68 10/05/20 12:23 36.5 C 83 14 103/67 10/05/20 11:39 36.6 C 77 16 90/58 L 10/05/20 11:10 36.5 C 76 16 99/59 L BP Pulse Ox 10/06/20 09:48 129/66 98 10/06/20 07:51 95 10/06/20 04:01 96 10/06/20 00:00 10/05/20 23:31 98 10/05/20 19:34 95 10/05/20 15:00 98 10/05/20 12:23 95 10/05/20 11:39 96 10/05/20 11:10 Pain Intensity Abdomen: Pain Intensity: 6 Bilateral Leg: Pain Intensity: 6 Transfer of Care Handoff Completed per policy Notes Mental Status: alert / awake / arousable Patient Amnestic to Procedure: Yes Nausea / Vomiting: adequately controlled Pain: adequately controlled Airway Patency, RR, SpO2: stable & adequate BP & HR: stable & adequate Hydration State: stable & adequate Anesthetic Complications: no major complications apparent
--- NOTE | 2020-10-06 13:57 | Hospitalist Progress Note ---
Date of Service October 06, 2020 Assessment & Plan (1) Rectus sheath hematoma: CT a/p on 10/04 showed development of an 11.8 x 5.0 x 3.4 cm left rectus sheath hematoma. Occurred possibly secondary to being lifted by die cutter apprentice at home versus retching from vomiting 2 days prior to admission - Hgb down from 9.9 to 6.8. 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 She is not a candidate for liver transplant which she was asking about She follows with Dr. Badillo of [facility] who is consulted today -Restart Spironolactone 25 mg p.o. twice daily which is lower than home dose - restart furosemide 40 mg p.o. twice daily which is lower than her usual dose Follow BMP -Consider adding on rifaximin or lactulose EGD without varices, with portal hypertensive gastropathy in the stomach (3) Anasarca: With massive lower extremity edema and anasarca in the abdomen as well Restart diuretics as above, watch for hypotension and follow renal function Encouraged p.o. intake of high protein diet (4) Acute blood loss anemia: Hemorrhagic discord due to intrinsic circulating anticoagulants in the setting of coumadin use and vitamin K reversal agent Hemoglobin drop as above down to 6.8 secondary to GI bleeding with hematemesis as well as rectus sheath hematoma with INR 9.6 on admission With hypotension now resolved Transfused 2 units PRBCs on 10/05 Repeat hemoglobin up to 10.0 which is a good improvement Coumadin reversed with vitamin K and Kcentra on admission, INR 1.3 again today Follow CBC in the morning EGD with portal hypertensive gastropathy, no evidence of acute bleeding (5) Hematemesis: Stools have been darker over the last few days, and daughter reports a single episode of possible coffee-ground emesis (dark emesis, but not black and they did not notice specks per se). With hx of cirrhosis, concern for variceal bleed versus PUD No further hematemesis or melena Hemoglobin did drop as above which could be combination of GI bleeding and rectus sheath hematoma convert PPI drip to oral Protonix once daily -discontinue octreotide gtt - EGD as above - Close hemoglobin monitoring (6) AMS (altered mental status): Acute metabolic encephalopathy upon admission likely due to hypotension from acute blood loss anemia - Ammonia only 19. Now resolved with volume resuscitation (7) Acute kidney failure: Baseline Cr ~1.4, CKD Stage III. - with Cr up to 1.9 on admission, likely from overdiuresis. Creatinine down to 1.6 today with IV fluids DCd IV fluids, received 2 units PRBCs restart diuretics (8) Supratherapeutic INR: INR was 3.1 on 09/29, but then >9.7 upon admission Family brought in medication list from home and as per nursing report, Coumadin was listed as being taken twice daily-this may have been the reason for the significant elevation in INR - Vitamin K oral and IV given by the ED - PCC given - Monitor INR-down to 1.3 and stable Follow INR in the morning (9) Hyponatremia: Baseline normal Na. Hypovolemic hyponatremia. Likely due to diuretic use or low-solute. Sodium improved with volume resuscitation 132 Follow BMP (10) Left leg cellulitis: Left heel has a small ulcer with broken skin. Left ankle and puri are warmer and tender to palpation along with mild erythema-improving -Continue ceftriaxone for cellulitis; given no purulence will defer MRSA coverage at this time. (11) Pulmonary emboli: CTA chest in 08/2020 showed RLL PE. -As above, reversed warfarin due to rectus sheath hematoma and GI bleeding - Vascular surgery consult for possible IVC filter-recommends only placing filter if has evidence of DVTs-Doppler negative for DVT of the lower extremities We will consider restarting anticoagulation given that she has PE and portal vein thrombosis as well as splenic vein thrombosis-will wait at least several days due to rectus sheath hematoma (12) Splenic vein thrombosis: Also diagnosed in 08/2020. - As above, anticoagulation on hold (13) Aortic stenosis: Moderate on echocardiogram Follow as an outpatient (14) Portal vein thrombosis: Anticoagulation on hold as above (15) Pancytopenia: Pancytopenia secondary to cirrhosis and splenomegaly Follow CBC (16) DVT prophylaxis: SCDs - Must defer heparin or anticoagulation at this time due to bleeding. Restart therapeutic anticoagulation when stable. Patient is conditional code -previously confirmed with patient with daughter present and & son on the phone. Would like compressions and shocks, but no intubation or breathing tube. Palliative care consultation appreciated Disposition-continued stay on PCU Admission and Anticipated Discharge Date Admission Date: October 04, 2020 Subjective Had EGD today feels better. Still some pain in the left abdomen. No nausea or vomiting, no bowel movement at all since admission. No chest pain or shortness of breath. Legs feel very heavy. Telemetry with normal sinus rhythm rate 70s to 90s, PVCs Review of Systems Review of Systems: All systems reviewed & are unremarkable except as noted in HPI & below Physical Exam Constitutional: WD/WN, vitals as above + obese Eyes: + anicteric sclerae Neck: trachea midline, no thyromegaly Respiratory: normal respiratory effort, lungs clear to auscultation Cardiovascular: Rate/Rhythm: regular rate and regular rhythm Heart Sounds: + murmur (3/6 at the RUSB systolic) Extremities: + edema (Massive lower extremity edema bilaterally 4+) Chest (Breasts): Chest: normal inspection of chest Gastrointestinal (Abdomen): Inspection/Auscultation: + abdomen distended (Mild) and normal bowel sounds Percussion/Palpation: + abdomen tender (Mild in the left lower quadrant); no guarding (No rebound tenderness) Musculoskeletal: Extremities: no cyanosis and no clubbing Skin: + erythema (Mild erythema and warmth of the left leg from the knee down) Neurologic: moves all extremities and awake; no focal motor deficits Psychiatric: A+Ox3, euthymic affect Results & Data Results & Data ([facility]) Vital Signs (Past 12 Hours) Vital Signs Temp Pulse Pulse Resp BP BP Pulse Ox 10/06/20 12:00 36.8 C 106 H 20 130/70 98 10/06/20 11:09 100 H 16 103/61 98 10/06/20 10:50 99 H 16 128/63 97 10/06/20 10:35 94 H 16 109/49 L 97 10/06/20 09:48 36.6 C 96 H 16 129/66 98 10/06/20 07:51 37.0 C 84 16 115/66 95 10/06/20 04:01 36.3 C L 90 18 108/66 96 Laboratory Results 10/06/20 10/06/20 10/06/20 Range/Units 07:45 07:45 07:45 WBC 3.47 L (4.8-10.8) K/uL RBC 3.68 L (4.2-5.4) M/uL Hgb 10.0 L (12.0-16.0) g/dL Hct 30.5 L (37-47) % MCV 82.9 (80-100) fL MCH 27.2 (25-34) pg MCHC 32.8 (32-36) g/dL RDW Std Deviation 58.9 H (36.4-46.3) fL RDW Coeff of Flower 20.5 H (11.5-14.5) % Plt Count 91 L (130-400) K/uL MPV 9.4 (7.4-10.4) fL Immature Gran % (Auto) 1.2 % Neut % (Auto) 78.0 % Lymph % (Auto) 11.8 % [place] % (Auto) 7.8 % Eos % (Auto) 0.9 % Baso % (Auto) 0.3 % Neut # (Auto) 2.71 (1.4-6.5) K/uL Lymph # (Auto) 0.41 L (1.2-3.4) K/uL [place] # (Auto) 0.27 (0.11-0.59) K/uL Eos # (Auto) 0.03 (0-0.5) K/uL Baso # (Auto) 0.01 (0-0.2) K/uL Immature Gran # (Auto) 0.04 H (0.00-0.02) K/uL Anisocytosis Present PT 13.7 H (9.0-12.0) Seconds INR 1.3 H (0.9-1.1) Sodium 132 L (136-145) mmol/L Potassium 3.8 (3.5-5.1) mmol/L Chloride 98 (98-107) mmol/L Carbon Dioxide 27 (21-32) mmol/L Anion Gap 7.0 (3-11) BUN 45 H (7-18) mg/dl Creatinine 1.69 H (0.6-1.2) mg/dl Est Cr Clr Drug Dosing 33.4 ml/min Est GFR ( Amer) 34.3 Est GFR (Non-Af Amer) 29.6 BUN/Creatinine Ratio 26.9 H (10-20) Glucose 107 H (70-99) mg/dl Calcium 7.8 L (8.5-10.1) mg/dl Magnesium 2.4 (1.8-2.4) mg/dl Total Bilirubin 2.6 H (0.2-1) mg/dl Direct Bilirubin 1.2 H (0-0.2) mg/dl AST 35 (15-37) U/L ALT 18 (12-78) U/L Alkaline Phosphatase 97 (45-117) U/L Total Protein 6.4 (6.4-8.2) gm/dl Albumin 1.7 L (3.4-5.0) gm/dl PG Care Time/CCT Total # of Minutes Spent Total Time Spent with Patient: Total time spent is greater than 50% in coordination of care (as documented) at patient's floor/unit and/or counseling patient: Coding Level of Care Code 77229 Subseq Hosp Care Lvl 3 Diagnoses Rectus sheath hematoma S30.1XXA Non-alcoholic cirrhosis K74.60 Anasarca R60.1 Acute blood loss anemia D62 Hematemesis K92.0 Nausea presence: without nausea AMS (altered mental status) R41.82 Acute kidney failure N17.9 Supratherapeutic INR R79.1 Hyponatremia E87.1 Left leg cellulitis L03.116 Pulmonary emboli I26.99 Acute cor pulmonale presence: unspecified Chronicity: acute Pulmonary embolism type: other Splenic vein thrombosis I82.890 Aortic stenosis I35.0 Portal vein thrombosis I81 Pancytopenia D61.818 DVT prophylaxis Z29.9 (1) Pulmonary emboli Acute cor pulmonale presence: unspecified Chronicity: acute Pulmonary embolism type: other Qualified Code(s): I26.99 - Other pulmonary embolism without acute cor pulmonale (2) Hematemesis Nausea presence: without nausea Qualified Code(s): K92.0 - Hematemesis
[2020-10-06] MEDS: PANTOprazole 40 MG TAB PO SCH (15:10)
[2020-10-06] MEDS: FUROSEMIDE 40 MG TAB PO SCH (17:14)
[2020-10-06] MEDS: SPIRONOLACTONE 25 MG TAB PO SCH (17:14)
[2020-10-06] MEDS ORDERED: hydrALAZINE HCL 20 MG/ML VIAL IV PRN (20:37)
[2020-10-06] MEDS ORDERED: POLYETHYLENE (MIRALAX) 17 GM PACK PO PRN (20:39)
[2020-10-06] MEDS: cefTRIAXone SODIUM 2,000 MG in DEXTROSE 5% 50 ML IV SCH (21:09)
[2020-10-07] MEDS ORDERED: MICONAZOLE NITRATE POWDER 43 GM EXT PRN (05:53)
[2020-10-07 08:10] LABS: Hemoglobin 9.9 g/dL (12.0-16.0); Mean Corpuscular Hemoglobin 27.5 pg (25-34); Mean Corpuscular Volume 83.3 fL (80-100); RDW Coefficient of Variation 20.4 % (11.5-14.5); RDW Standard Deviation 60.1 fL (36.4-46.3); White Blood Count 3.92 K/uL (4.8-10.8)
[2020-10-07 08:18] LABS: Mean Platelet Volume 9.3 fL (7.4-10.4); Platelet Count 97 K/uL (130-400)
[2020-10-07 08:39] LABS: Basophils # (auto) 0.02 K/uL (0-0.2); Basophils % (auto) 0.5 %; Eosinophils # (auto) 0.05 K/uL (0-0.5); Eosinophils % (auto) 1.3 %; Immature Granulocytes # (auto) 0.04 K/uL (0.00-0.02); Lymphocytes # (auto) 0.55 K/uL (1.2-3.4); Monocytes # (auto) 0.22 K/uL (0.11-0.59); Monocytes % (auto) 5.6 %; Neutrophils # (auto) 3.04 K/uL (1.4-6.5); Neutrophils % (auto) 77.6 %
[2020-10-07 08:45] LABS: Albumin Level 1.7 gm/dl (3.4-5.0); BUN Creatinine Ratio 22.7 (10-20); Calcium 7.7 mg/dl (8.5-10.1); Creatinine Clr Calc Pharmacy 34.8 ml/min; Est GFR (African American) 36.1; Est GFR (Non-African American) 31.2; Magnesium 2.3 mg/dl (1.8-2.4); Potassium 4.1 mmol/L (3.5-5.1)
[2020-10-07 09:04] LABS: Albumin Globulin Ratio 0.3 (0.9-2); Bilirubin,Total 2.4 mg/dl (0.2-1); Globulin 4.9 gm/dl (2.5-4.0); Total Protein 6.6 gm/dl (6.4-8.2)
[2020-10-07] MEDS: PANTOprazole 40 MG TAB PO SCH (09:58)
[2020-10-07] MEDS: FUROSEMIDE 40 MG TAB PO SCH ×2 (09:58→17:33)
[2020-10-07] MEDS: SPIRONOLACTONE 25 MG TAB PO SCH ×2 (09:58→17:33)
--- NOTE | 2020-10-07 15:55 | Hospitalist Progress Note ---
Date of Service October 07, 2020 Assessment & Plan (1) Rectus sheath hematoma: CT a/p on 10/04 showed development of an 11.8 x 5.0 x 3.4 cm left rectus sheath hematoma. Occurred possibly secondary to being lifted by eligibility counselor at home versus retching from vomiting 2 days prior to admission - Hgb dropped down from 9.9 to 6.8 morning after admission. Received transfusion of 2 units PRBCs and now hemoglobin up to 9.9 and stable x48 hours BP soft initially at 80/50s, but now improved Transfused 2 units PRBCs on 10/05 Monitor for signs of infection of hematoma No need for surgical intervention unless signs of infection or enlargement Remains off anticoagulation (2) Non-alcoholic cirrhosis: Recently admitted for anasarca/volume overload. She is not a candidate for liver transplant She [facility] with [facility] who is consulted -Restarted Spironolactone 25 mg p.o. twice daily which is lower than home dose - restarted furosemide 40 mg p.o. twice daily which is lower than her usual dose -Continue current diuretic doses for now as a seem to be working and her creatinine is holding stable at 1.6 Follow BMP -Consider adding on rifaximin or lactulose EGD without varices, but with portal hypertensive gastropathy in the stomach Continue to follow-up as an outpatient with GI for her cirrhosis (3) Anasarca: With massive lower extremity edema and anasarca in the abdomen as well Restart diuretics as above, watch for hypotension and follow renal function Encouraged p.o. intake of high protein diet (4) Acute blood loss anemia: Hemorrhagic discord due to intrinsic circulating anticoagulants in the setting of coumadin use and vitamin K reversal agent Hemoglobin drop as above down to 6.8 secondary to GI bleeding with hematemesis as well as rectus sheath hematoma with INR 9.7 on admission With hypotension now resolved Transfused 2 units PRBCs on 10/05 Hemoglobin remained stable at 9.9 x 48 hours Coumadin reversed with vitamin K and Kcentra on admission, INR 1.3 Follow CBC, INR in the morning EGD with portal hypertensive gastropathy, no evidence of acute bleeding-on Protonix GI recommends holding anticoagulation indefinitely, but after discussion with him, he defers to hospitalist service to make final decision Given that she has a PE, splenic vein thrombosis, portal vein thrombosis, I feel that she should restart on the Coumadin at a much lower dose with great caution and watch for bleeding. Will wait another 24 hours to ensure stability of hemoglobin before starting Coumadin again. (5) Hematemesis: With one episode of suspected hematemesis With hx of cirrhosis, concern for variceal bleed versus PUD No further hematemesis or melena Hemoglobin did drop as above which could be combination of GI bleeding and rectus sheath hematoma Was initially on PPI drip and octreotide drip EGD as above -Continue Protonix already MG p.o. once daily - Close hemoglobin monitoring (6) AMS (altered mental status): Acute metabolic encephalopathy upon admission likely due to hypotension from acute blood loss anemia as well as possibly from UTI and kidney failure - Ammonia only 19. Now resolved with volume resuscitation and blood transfusion (7) Acute kidney failure: Baseline Cr ~1.4, CKD Stage III. - with Cr up to 1.9 on admission, likely from overdiuresis. Creatinine down to 1.6 today and stable DCd IV fluids, received 2 units PRBCs restarted diuretics (8) Supratherapeutic INR: INR was 3.1 on 09/29, but then >9.7 upon admission Family brought in medication list from home and as per nursing report, Coumadin was listed as being taken twice daily-this may have been the reason for the significant elevation in INR - Vitamin K oral and IV given by the ED - PCC given - Monitor INR-down to 1.3 and stable Follow INR in the morning (9) Hyponatremia: Baseline normal Na. Hypovolemic hyponatremia. Likely due to diuretic use or low-solute. Sodium improved with volume resuscitation Now further improved with restarting diuretics for volume overload from cirrhosis Follow BMP (10) Left leg cellulitis: Left heel has a small ulcer with broken skin. Left ankle and puri are warmer and tender to palpation along with mild erythema-improving -Continue ceftriaxone for cellulitis; given no purulence will defer MRSA coverage at this time. (11) Pulmonary emboli: CTA chest in 08/2020 showed RLL PE. -As above, reversed warfarin due to rectus sheath hematoma and GI bleeding - Vascular surgery consult for possible IVC filter-recommends only placing filter if has evidence of DVTs-Doppler negative for DVT of the lower extremities We will consider restarting anticoagulation given that she has PE and portal vein thrombosis as well as splenic vein thrombosis-will wait at least several days due to rectus sheath hematoma (12) Splenic vein thrombosis: Also diagnosed in 08/2020. - As above, anticoagulation on hold (13) Aortic stenosis: Moderate on echocardiogram Follow as an outpatient (14) Portal vein thrombosis: Anticoagulation on hold as above (15) Pancytopenia: Pancytopenia secondary to cirrhosis and splenomegaly Follow CBC (16) UTI (urinary tract infection): Abnormal urinalysis on admission with pansensitive E. coli growing in urine Continue ceftriaxone for now also for cellulitis and convert to p.o. cephalexin on discharge (17) DVT prophylaxis: SCDs - Must defer heparin or anticoagulation at this time due to bleeding. Restart therapeutic anticoagulation when stable. Patient is conditional code -previously confirmed with patient with daughter present and & son on the phone. Would like compressions and shocks, but no intubation or breathing tube. Palliative care consultation appreciated Disposition-continued stay on PCU, awaiting PT/OT evaluations, patient would like to go to rehab-[facility] and second choice would be somewhere in [place] such as [facility] or [facility] Admission and Anticipated Discharge Date Admission Date: October 04, 2020 Subjective Patient still having some pain in the left side of the abdomen and pain in her legs. She refused to work with PT as she was tired. She is eating drinking well and has no other concerns. She definitely thinks that she is too weak to go home and needs to go to rehab. Telemetry with sinus rhythm, PVCs, short burst of atrial tachycardia, rates mostly in the 90s to low 100s. Review of Systems Review of Systems: All systems reviewed & are unremarkable except as noted in HPI & below Physical Exam Constitutional: WD/WN, vitals as above + obese Eyes: + anicteric sclerae Neck: trachea midline, no thyromegaly Respiratory: normal respiratory effort, lungs clear to auscultation Cardiovascular: Rate/Rhythm: regular rate and regular rhythm Heart Sounds: + murmur (3/6 at the RUSB systolic) Extremities: + edema (Massive lower extremity edema bilaterally 3+, slightly improved ) Chest (Breasts): Chest: normal inspection of chest Gastrointestinal (Abdomen): Inspection/Auscultation: normal bowel sounds Percussion/Palpation: + abdomen tender (Mild in the left lower quadrant); no guarding (No rebound tenderness) Musculoskeletal: Extremities: no cyanosis and no clubbing Skin: + erythema (Mild erythema and warmth of the left leg from the knee down improved) Neurologic: moves all extremities and awake; no focal motor deficits Psychiatric: A+Ox3, euthymic affect Results & Data Results & Data ([facility]) Vital Signs (Past 12 Hours) Vital Signs Temp Pulse Resp BP Pulse Ox 10/07/20 12:20 36.8 C 86 18 139/64 95 10/07/20 08:08 36.7 C 100 H 20 131/74 96 10/07/20 03:54 36.8 C 101 H 19 135/64 94 Laboratory Results 10/07/20 10/07/20 Range/Units 07:29 07:29 WBC 3.92 L (4.8-10.8) K/uL RBC 3.60 L (4.2-5.4) M/uL Hgb 9.9 L (12.0-16.0) g/dL Hct 30.0 L (37-47) % MCV 83.3 (80-100) fL MCH 27.5 (25-34) pg MCHC 33.0 (32-36) g/dL RDW Std Deviation 60.1 H (36.4-46.3) fL RDW Coeff of Flower 20.4 H (11.5-14.5) % Plt Count 97 L (130-400) K/uL MPV 9.3 (7.4-10.4) fL Immature Gran % (Auto) 1.0 % Neut % (Auto) 77.6 % Lymph % (Auto) 14.0 % [place] % (Auto) 5.6 % Eos % (Auto) 1.3 % Baso % (Auto) 0.5 % Neut # (Auto) 3.04 (1.4-6.5) K/uL Lymph # (Auto) 0.55 L (1.2-3.4) K/uL [place] # (Auto) 0.22 (0.11-0.59) K/uL Eos # (Auto) 0.05 (0-0.5) K/uL Baso # (Auto) 0.02 (0-0.2) K/uL Immature Gran # (Auto) 0.04 H (0.00-0.02) K/uL Sodium 134 L (136-145) mmol/L Potassium 4.1 (3.5-5.1) mmol/L Chloride 97 L (98-107) mmol/L Carbon Dioxide 28 (21-32) mmol/L Anion Gap 8.0 (3-11) BUN 37 H (7-18) mg/dl Creatinine 1.62 H (0.6-1.2) mg/dl Est Cr Clr Drug Dosing 34.8 ml/min Est GFR ( Amer) 36.1 Est GFR (Non-Af Amer) 31.2 BUN/Creatinine Ratio 22.7 H (10-20) Glucose 96 (70-99) mg/dl Calcium 7.7 L (8.5-10.1) mg/dl Magnesium 2.3 (1.8-2.4) mg/dl Total Bilirubin 2.4 H (0.2-1) mg/dl AST 41 H (15-37) U/L ALT 19 (12-78) U/L Alkaline Phosphatase 100 (45-117) U/L Total Protein 6.6 (6.4-8.2) gm/dl Albumin 1.7 L (3.4-5.0) gm/dl Globulin 4.9 H (2.5-4.0) gm/dl Albumin/Globulin Ratio 0.3 L (0.9-2) Specimen Hemolysis PG Care Time/CCT Total # of Minutes Spent Total Time Spent with Patient: Total time spent is greater than 50% in coor dination of care (as documented) at patient's floor/unit and/or counseling patient: Coding Level of Care Code 20466 Subseq Hosp Care Lvl 3 Diagnoses Rectus sheath hematoma S30.1XXA Non-alcoholic cirrhosis K74.60 Anasarca R60.1 Acute blood loss anemia D62 Hematemesis K92.0 Nausea presence: without nausea AMS (altered mental status) R41.82 Acute kidney failure N17.9 Supratherapeutic INR R79.1 Hyponatremia E87.1 Left leg cellulitis L03.116 Pulmonary emboli I26.99 Acute cor pulmonale presence: unspecified Chronicity: acute Pulmonary embolism type: other Splenic vein thrombosis I82.890 Aortic stenosis I35.0 Portal vein thrombosis I81 Pancytopenia D61.818 UTI (urinary tract infection) N39.0 DVT prophylaxis Z29.9 (1) Hematemesis Nausea presence: without nausea Qualified Code(s): K92.0 - Hematemesis (2) Pulmonary emboli Acute cor pulmonale presence: unspecified Chronicity: acute Pulmonary embolism type: other Qualified Code(s): I26.99 - Other pulmonary embolism without acute cor pulmonale
[2020-10-07] MEDS: cefTRIAXone SODIUM 2,000 MG in DEXTROSE 5% 50 ML IV SCH (22:03)
[2020-10-08 07:59] LABS: Hematocrit (blood only) 29.6 % (37-47); Hemoglobin 9.5 g/dL (12.0-16.0); Mean Corpuscular Hemoglobin 27.5 pg (25-34); Mean Corpuscular Hgb Conc 32.1 g/dL (32-36); Mean Corpuscular Volume 85.5 fL (80-100); RDW Coefficient of Variation 20.9 % (11.5-14.5); Red Blood Count 3.46 M/uL (4.2-5.4); White Blood Count 3.87 K/uL (4.8-10.8)
[2020-10-08 08:05] LABS: INR 1.8 (0.9-1.1); Prothrombin Time 18.8 Seconds (9.0-12.0)
[2020-10-08 08:20] LABS: Mean Platelet Volume 9.3 fL (7.4-10.4); Platelet Count 98 K/uL (130-400)
[2020-10-08 08:21] LABS: Anisocytosis Present; Basophils # (auto) 0.02 K/uL (0-0.2); Basophils % (auto) 0.5 %; Eosinophils # (auto) 0.03 K/uL (0-0.5); Eosinophils % (auto) 0.8 %; Immature Granulocytes # (auto) 0.04 K/uL (0.00-0.02); Lymphocytes # (auto) 0.57 K/uL (1.2-3.4); Lymphocytes % (auto) 14.7 %; Monocytes # (auto) 0.32 K/uL (0.11-0.59); Monocytes % (auto) 8.3 %; Neutrophils # (auto) 2.89 K/uL (1.4-6.5); Neutrophils % (auto) 74.7 %
[2020-10-08 08:22] LABS: Albumin Level 1.7 gm/dl (3.4-5.0); Calcium 7.8 mg/dl (8.5-10.1); Creatinine Clr Calc Pharmacy 37.5 ml/min; Est GFR (Non-African American) 34.5; Magnesium 2.2 mg/dl (1.8-2.4); Potassium 3.7 mmol/L (3.5-5.1)
[2020-10-08 08:25] LABS: Bilirubin,Total 2.5 mg/dl (0.2-1); Total Protein 6.5 gm/dl (6.4-8.2)
[2020-10-08] MEDS: SPIRONOLACTONE 25 MG TAB PO SCH ×2 (09:27→17:31)
[2020-10-08] MEDS: FUROSEMIDE 40 MG TAB PO SCH ×2 (09:27→17:30)
[2020-10-08] MEDS: PANTOprazole 40 MG TAB PO SCH (09:27)
[2020-10-08] MEDS: ACETAMINOPHEN 325 MG TAB PO PRN (14:37)
--- NOTE | 2020-10-08 15:48 | Hospitalist Progress Note ---
Date of Service October 08, 2020 Assessment & Plan (1) Rectus sheath hematoma: CT a/p on 10/04 showed development of an 11.8 x 5.0 x 3.4 cm left rectus sheath hematoma. Occurred possibly secondary to being lifted by self contained behavior unit teacher at home versus retching from vomiting 2 days prior to admission - Hgb dropped down from 9.9 to 6.8 morning after admission. Received transfusion of 2 units PRBCs and now hemoglobin up to 9.5 and stable for several days BP soft initially at 80/50s, but now is actually elevated Transfused 2 units PRBCs on 10/05 Monitor for signs of infection of hematoma No need for surgical intervention unless signs of infection or enlargement Remains off anticoagulation for now (2) Non-alcoholic cirrhosis: Recently admitted for anasarca/volume overload. She is not a candidate for liver transplant She follows with Dr. Badillo of [facility] who is consulted -Restarted Spironolactone and will now increase to 50 mg p.o. twice daily - restarted furosemide 40 mg p.o. twice daily which is lower than her usual dose-continue the same for now -Continue current diuretic doses for now as a seem to be working and her creatinine is improved at 1.4 Follow BMP -Consider adding on rifaximin or lactulose EGD without varices, but with portal hypertensive gastropathy in the stomach Continue to follow-up as an outpatient with GI for her cirrhosis (3) Anasarca: With massive lower extremity edema and anasarca in the abdomen as well, slightly improved since restarting diuretics Albumin only 1.7-severely low Encouraged p.o. intake of high protein diet -Increasing spironolactone back to home dose of 50 mg p.o. twice daily Continue Lasix at 40 mg p.o. twice daily which is lower than usual dose due to creatinine being significantly elevated upon admission (4) Acute blood loss anemia: Hemorrhagic discord due to intrinsic circulating anticoagulants in the setting of coumadin use and vitamin K reversal agent Hemoglobin drop as above down to 6.8 secondary to GI bleeding with hematemesis as well as rectus sheath hematoma with INR 9.7 on admission With hypotension now resolved Transfused 2 units PRBCs on 10/05 Hemoglobin remained stable at 9.5 for several days Coumadin reversed with vitamin K and Kcentra on admission, INR now trending back upward today to 1.8 possibly secondary to liver disease as well as residual Coumadin and on antibiotics Follow CBC, INR in the morning EGD with portal hypertensive gastropathy, no evidence of acute bleeding-on Protonix GI recommends holding anticoagulation indefinitely, but after discussion with him, he defers to hospitalist service to make final decision Given that she has a PE, splenic vein thrombosis, portal vein thrombosis, I feel that she should restart on the Coumadin at a much lower dose with great caution and watch for bleeding. Will not restart yet as INR trending upward on its own at this time (5) Hematemesis: With one episode of suspected hematemesis prior to admission With hx of cirrhosis, there was initial concern for variceal bleed versus PUD No further hematemesis or melena since admission Hemoglobin did drop as above which could be combination of GI bleeding and rectus sheath hematoma Was initially on PPI drip and octreotide drip EGD as above -Continue Protonix already MG p.o. once daily - Close hemoglobin monitoring (6) AMS (altered mental status): Acute metabolic encephalopathy upon admission likely due to hypotension from acute blood loss anemia as well as possibly from UTI and kidney failure - Ammonia only 19. Now resolved with volume resuscitation and blood transfusion (7) Acute kidney failure: Baseline Cr ~1.4, CKD Stage III. - with Cr up to 1.9 on admission, likely from overdiuresis. Was given gentle IV fluids initially and 2 units PRBCs Have since restarted diuretics Creatinine down to 1.4 today Follow BMP (8) Supratherapeutic INR: INR was 3.1 on 09/29, but then >9.7 upon admission Family brought in medication list from home and as per nursing report, Coumadin was listed as being taken twice daily-this may have been the reason for the significant elevation in INR - Vitamin K oral and IV given by the ED - PCC given - Monitor INR was down to 1.3 but now increasing on its own again up to 1.8 as above Follow INR in the morning Continue to hold Coumadin for now, but will likely restart at 0.5 mg once daily within the next week (9) Hyponatremia: Baseline normal Na. Hypovolemic hyponatremia. Likely due to diuretic use or low-solute. Sodium improved with volume resuscitation Now further improved with restarting diuretics for volume overload from cirrhosis Follow BMP (10) Left leg cellulitis: Left heel has a small ulcer with broken skin. Left ankle and puri are warmer and tender to palpation along with mild erythema-improving -Remains on ceftriaxone for cellulitis; given no purulence will defer MRSA coverage at this time. -We will convert to p.o. Keflex 500 mg p.o. 3 times daily times total 7-day course-last dose will be 10/11/2020 (11) Pulmonary emboli: CTA chest in 08/2020 showed RLL PE. -As above, reversed warfarin due to rectus sheath hematoma and GI bleeding - Vascular surgery consult for possible IVC filter-recommends only placing filter if has evidence of DVTs-Doppler negative for DVT of the lower extremities We will consider restarting anticoagulation given that she has PE and portal vein thrombosis as well as splenic vein thrombosis-will wait at least several days due to rectus sheath hematoma (12) Splenic vein thrombosis: Also diagnosed in 08/2020. - As above, anticoagulation on hold (13) Aortic stenosis: Moderate on echocardiogram Follow as an outpatient (14) Portal vein thrombosis: Anticoagulation on hold as above (15) Pancytopenia: Pancytopenia secondary to cirrhosis and splenomegaly Follow CBC (16) UTI (urinary tract infection): Abnormal urinalysis on admission with pansensitive E. coli growing in urine Received ceftriaxone and convert to p.o. cephalexin now for UTI and cellulitis as above (17) DVT prophylaxis: SCDs - Must defer heparin or anticoagulation at this time due to bleeding. Restart therapeutic anticoagulation when stable. Patient is conditional code -previously confirmed with patient with daughter present and & son on the phone. Would like compressions and shocks, but no intubation or breathing tube. Palliative care consultation appreciated Disposition-continued stay on PCU, appreciate PT/OT evaluations, patient would like to go to rehab-her first choice is [facility] and second choice would be somewhere in [place] such as [facility] or [facility] Referrals have been made to these places, however her insurance is closed over the weekend Hopeful for discharge to rehab on Friday or Friday Admission and Anticipated Discharge Date Admission Date: October 04, 2020 Subjective Patient feels less pain in the abdomen today. Stopping some pain in her legs which is improved with Tylenol. She was out of bed to chair today. She feels like she wants to take a nap but did well so far today. No chest pain or shortness of breath. Her hemoglobin remained stable. Telemetry with normal sinus rhythm, sinus tachycardia, IVCD, rates in the 100s. Review of Systems Review of Systems: All systems reviewed & are unremarkable except as noted in HPI & below Physical Exam Constitutional: WD/WN, vitals as above + obese Eyes: + anicteric sclerae Neck: trachea midline, no thyromegaly Respiratory: normal respiratory effort, lungs clear to auscultation Cardiovascular: Rate/Rhythm: regular rate and regular rhythm Heart Sounds: + murmur (3/6 at the RUSB systolic) Extremities: + edema (Massive lower extremity edema bilaterally 3+, slightly improved ) Chest (Breasts): Chest: normal inspection of chest Gastrointestinal (Abdomen): Inspection/Auscultation: normal bowel sounds Percussion/Palpation: + abdomen tender (Mild in the left lower quadrant, improved from previous); no guarding (No rebound tenderness) Musculoskeletal: Extremities: no cyanosis and no clubbing Skin: + erythema (Mild erythema and warmth of the left leg from the knee down improved) Neurologic: moves all extremities and awake; no focal motor deficits Psychiatric: A+Ox3, euthymic affect Results & Data Results & Data ([facility]) Vital Signs (Past 12 Hours) Vital Signs Temp Pulse Pulse Resp BP Pulse Ox 10/08/20 11:10 36.6 C 109 H 18 151/85 H 96 10/08/20 07:58 103 H 10/08/20 07:23 36.3 C L 101 H 18 133/68 95 Laboratory Results 10/08/20 10/08/20 10/08/20 Range/Units 07:03 07:03 07:03 WBC 3.87 L (4.8-10.8) K/uL RBC 3.46 L (4.2-5.4) M/uL Hgb 9.5 L (12.0-16.0) g/dL Hct 29.6 L (37-47) % MCV 85.5 (80-100) fL MCH 27.5 (25-34) pg MCHC 32.1 (32-36) g/dL RDW Std Deviation 64.0 H (36.4-46.3) fL RDW Coeff of [place]lower 20.9 H (11.5-14.5) % Plt Count 98 L (130-400) K/uL MPV 9.3 (7.4-10.4) fL Immature Gran % (Auto) 1.0 % Neut % (Auto) 74.7 % Lymph % (Auto) 14.7 % [place] % (Auto) 8.3 % Eos % (Auto) 0.8 % Baso % (Auto) 0.5 % Neut # (Auto) 2.89 (1.4-6.5) K/uL Lymph # (Auto) 0.57 L (1.2-3.4) K/uL [place] # (Auto) 0.32 (0.11-0.59) K/uL Eos # (Auto) 0.03 (0-0.5) K/uL Baso # (Auto) 0.02 (0-0.2) K/uL Immature Gran # (Auto) 0.04 H (0.00-0.02) K/uL Anisocytosis Present PT 18.8 H (9.0-12.0) Seconds INR 1.8 H (0.9-1.1) Sodium 133 L (136-145) mmol/L Potassium 3.7 (3.5-5.1) mmol/L Chloride 97 L (98-107) mmol/L Carbon Dioxide 29 (21-32) mmol/L Anion Gap 7.0 (3-11) BUN 31 H (7-18) mg/dl Creatinine 1.49 H (0.6-1.2) mg/dl Est Cr Clr Drug Dosing 37.5 ml/min Est GFR ( Amer) 40.0 Est GFR (Non-Af Amer) 34.5 BUN/Creatinine Ratio 21.0 H (10-20) Glucose 86 (70-99) mg/dl Calcium 7.8 L (8.5-10.1) mg/dl Magnesium 2.2 (1.8-2.4) mg/dl Total Bilirubin 2.5 H (0.2-1) mg/dl Direct Bilirubin 1.0 H (0-0.2) mg/dl AST 35 (15-37) U/L ALT 17 (12-78) U/L Alkaline Phosphatase 93 (45-117) U/L Total Protein 6.5 (6.4-8.2) gm/dl Albumin 1.7 L (3.4-5.0) gm/dl PG Care Time/CCT Total # of Minutes Spent Total Time Spent with Patient: Total time spent is greater than 50% in coordination of care (as documented) at patient's floor/unit and/or counseling patient: Coding Level of Care Code 89692 Subseq Hosp Care Lvl 3 Diagnoses Rectus sheath hematoma S30.1XXA Non-alcoholic cirrhosis K74.60 Anasarca R60.1 Acute blood loss anemia D62 Hematemesis K92.0 Nausea presence: without nausea AMS (altered mental status) R41.82 Acute kidney failure N17.9 Supratherapeutic INR R79.1 Hyponatremia E87.1 Left leg cellulitis L03.116 Pulmonary emboli I26.99 Acute cor pulmonale presence: unspecified Chronicity: acute Pulmonary embolism type: other Splenic vein thrombosis I82.890 Aortic stenosis I35.0 Portal vein thrombosis I81 Pancytopenia D61.818 UTI (urinary tract infection) N39.0 DVT prophylaxis Z29.9 (1) Hematemesis Nausea presence: without nausea Qualified Code(s): K92.0 - Hematemesis (2) Pulmonary emboli Acute cor pulmonale presence: unspecified Chronicity: acute Pulmonary embolism type: other Qualified Code(s): I26.99 - Other pulmonary embolism without acute cor pulmonale
[2020-10-08] MEDS: cephALEXin 500 MG CAP PO SCH (22:08)
[2020-10-08] MEDS ORDERED: LORazepam 0.5 MG TAB PO PRN (23:50)
[2020-10-09 08:03] LABS: Hematocrit (blood only) 29.7 % (37-47); Hemoglobin 9.7 g/dL (12.0-16.0); Mean Corpuscular Hemoglobin 27.4 pg (25-34); Mean Corpuscular Hgb Conc 32.7 g/dL (32-36); Mean Corpuscular Volume 83.9 fL (80-100); RDW Coefficient of Variation 20.8 % (11.5-14.5); RDW Standard Deviation 64.1 fL (36.4-46.3); Red Blood Count 3.54 M/uL (4.2-5.4); White Blood Count 3.85 K/uL (4.8-10.8)
[2020-10-09 08:09] LABS: Mean Platelet Volume 9.2 fL (7.4-10.4); Platelet Count 88 K/uL (130-400)
[2020-10-09 08:12] LABS: INR 2.1 (0.9-1.1); Prothrombin Time 21.1 Seconds (9.0-12.0)
[2020-10-09] MEDS: FLUTICASONE/VILANTEROL 200/25MCG 14 PUFFS/INHALER INH SCH (08:34)
[2020-10-09] MEDS: SPIRONOLACTONE 25 MG TAB PO SCH ×2 (08:35→16:37)
[2020-10-09] MEDS: FUROSEMIDE 40 MG TAB PO SCH ×2 (08:35→16:37)
[2020-10-09] MEDS: cephALEXin 500 MG CAP PO SCH ×2 (08:36→21:53)
[2020-10-09] MEDS: PANTOprazole 40 MG TAB PO SCH (08:36)
[2020-10-09 08:37] LABS: Albumin Level 1.7 gm/dl (3.4-5.0); BUN Creatinine Ratio 20.3 (10-20); Calcium 7.9 mg/dl (8.5-10.1); Creatinine Clr Calc Pharmacy 37.7 ml/min; Est GFR (Non-African American) 34.5; Magnesium 2.3 mg/dl (1.8-2.4); Potassium 3.6 mmol/L (3.5-5.1)
[2020-10-09] MEDS: METOPROLOL TARTRATE 25 MG TAB PO SCH ×2 (08:39→21:53)
[2020-10-09 08:40] LABS: Anisocytosis Present; Basophils # (auto) 0.02 K/uL (0-0.2); Basophils % (auto) 0.5 %; Bilirubin,Total 2.4 mg/dl (0.2-1); Eosinophils # (auto) 0.03 K/uL (0-0.5); Eosinophils % (auto) 0.8 %; Immature Granulocytes # (auto) 0.03 K/uL (0.00-0.02); Immature Granulocytes % (auto) 0.8 %; Lymphocytes # (auto) 0.58 K/uL (1.2-3.4); Lymphocytes % (auto) 15.1 %; Monocytes # (auto) 0.21 K/uL (0.11-0.59); Monocytes % (auto) 5.5 %; Neutrophils # (auto) 2.98 K/uL (1.4-6.5); Neutrophils % (auto) 77.3 %; Ovalocytes 1+; Total Protein 6.4 gm/dl (6.4-8.2)
[2020-10-09] MEDS: ACETAMINOPHEN 325 MG TAB PO PRN (08:45)
--- NOTE | 2020-10-09 15:20 | Hospitalist Progress Note ---
Date of Service October 09, 2020 Assessment & Plan (1) Rectus sheath hematoma: CT a/p on 10/04 showed development of an 11.8 x 5.0 x 3.4 cm left rectus sheath hematoma. Occurred possibly secondary to being lifted by clinical documentation manager at home versus retching from vomiting 2 days prior to admission - Hgb dropped down from 9.9 to 6.8 morning after admission. Received transfusion of 2 units PRBCs and now hemoglobin stable. Transfused 2 units PRBCs on 10/05 No need for surgical intervention unless signs of infection or enlargement Remains off Coumadin since she is auto anticoagulated from cirrhosis. (2) Non-alcoholic cirrhosis: She is not a candidate for liver transplant She follows with Dr. Badillo of [facility] who is consulted -Restarted Spironolactone and uptitrated to 50 mg p.o. twice daily - restarted furosemide 40 mg p.o. twice daily which is lower than her usual dose -Continue current diuretic doses for now as a seem to be working and her creatinine is improved at 1.4 Follow BMP -Consider adding on rifaximin or lactulose EGD without varices, but with portal hypertensive gastropathy in the stomach Continue to follow-up as an outpatient with GI for her cirrhosis (3) Anasarca: With massive lower extremity edema and ascites in the abdomen as well. Slightly improved since restarting diuretics Albumin only 1.7-severely low Encouraged p.o. intake of high protein diet -Increasing spironolactone back to home dose of 50 mg p.o. twice daily Continue Lasix at 40 mg p.o. twice daily which is lower than usual dose due to creatinine being significantly elevated upon admission (4) Acute blood loss anemia: Hemorrhagic discord due to intrinsic circulating anticoagulants in the setting of coumadin use and vitamin K reversal agent Hemoglobin drop as above down to 6.8 secondary to GI bleeding with hematemesis as well as rectus sheath hematoma with INR 9.7 on admission Transfused 2 units PRBCs on 10/05 Hemoglobin now stable. Coumadin reversed with vitamin K and Kcentra on admission. INR now elevated due to auto anticoagulation from underlying cirrhosis. Coumadin discontinued indefinitely. EGD with portal hypertensive gastropathy, no evidence of acute bleeding-on Protonix GI recommends holding anticoagulation indefinitely. She is now auto anticoagulated due to underlying cirrhosis. (5) Hematemesis: With one episode of suspected hematemesis prior to admission With hx of cirrhosis, there was initial concern for variceal bleed versus PUD No further hematemesis or melena since admission Hemoglobin did drop due to a combination of GI bleeding and rectus sheath hematoma Was initially on PPI drip and octreotide drip EGD completed. No active bleeding. Portal hypertensive gastropathy noted. As above -Continue Protonix (6) AMS (altered mental status): Acute metabolic encephalopathy upon admission likely due to hypotension f rom acute blood loss anemia as well as possibly from UTI and kidney failure - Ammonia only 19. Now resolved with volume resuscitation and blood transfusion (7) Acute kidney failure: Baseline Cr ~1.4, CKD Stage III. - with Cr up to 1.9 on admission, likely from overdiuresis. Was given gentle IV fluids initially and 2 units PRBCs Have since restarted diuretics Creatinine improving. Follow BMP (8) Supratherapeutic INR: INR was 3.1 on 09/29, but then >9.7 upon admission Family brought in medication list from home and as per nursing report, Coumadin was listed as being taken twice daily-this may have been the reason for the significant elevation in INR - Vitamin K oral and IV given by the ED - PCC given - Monitor INR was down to 1.3 but now increasing on its own again up to 1.8 as above Follow INR daily Coumadin discontinued indefinitely (9) Hyponatremia: Baseline normal Na. Hypovolemic hyponatremia. Likely due to diuretic use . Sodium improved with volume resuscitation Now further improved with restarting diuretics for volume overload from cirrhos is Follow BMP (10) Left leg cellulitis: Left heel has a small ulcer with broken skin. Left ankle and puri are warmer and tender to palpation along with mild erythema-improving -Treated with ceftriaxone. Now on p.o. Keflex 500 mg p.o. 3 times daily times total 7-day course-last dose will be 10/11/2020 (11) Pulmonary emboli: CTA chest in 08/2020 showed RLL PE. 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 -Coumadin discontinued. She is auto anticoagulated due to cirrhosis. (13) Aortic stenosis: Moderate on echocardiogram Follow as an outpatient (14) Portal vein thrombosis: Coumadin discontinued. Auto anticoagulated due to cirrhosis. (15) Pancytopenia: Pancytopenia secondary to cirrhosis and splenomegaly Follow CBC (16) UTI (urinary tract infection): Abnormal urinalysis on admission with pansensitive E. coli growing in urine Received ceftriaxone and converted to p.o. cephalexin for UTI and cellulitis (17) DVT prophylaxis: Auto anticoagulated due to cirrhosis . Patient is conditional code -previously confirmed with patient with daughter present and & son on the phone. Would like compressions and shocks, but no intubation Palliative care consultation appreciated Disposition- appreciate PT/OT evaluations, patient would like to go to rehab. Her first choice is [facility] and second choice would be somewhere in [place] such as [facility] or [facility]. Hopeful for discharge to rehab on Friday or Friday Admission and Anticipated Discharge Date Admission Date: October 04, 2020 Subjective Alert. She is auto anticoagulated due to underlying cirrhosis. INR 2.1. No further Coumadin required. OT and PT assessments requested. She will need drew ab or SNF placement at discharge. EGD done October 06 reveals portal hypertensive gastropathy but no evidence of acute bleeding. Hemoglobin now 9.7 after blood transfusion earlier this admission. Review of Systems Review of Systems: Constitutional-no fever or chills ENT-no blurred vision, no double vision, no epistaxis, no sore throat Respiratory-no cough, no wheezing, no shortness of breath Cardiac-no palpitations, no chest pain, no syncope GI-no nausea, vomiting, diarrhea, melena, hematochezia -no urinary retention, no urinary incontinence, no dysuria, no hematuria Musculoskeletal-no joint pain, no muscle tenderness. Chronic bilateral lower extremity edema Skin-scattered ecchymoses on all extremities. Neuro-generalized weakness Psych-no depression, no anxiety Physical Exam Physical Exam: General-alert and oriented x3. Morbidly obese HEENT-head atraumatic and normocephalic, TMs intact bilaterally, pupils equal and reactive to light, extraocular muscles intact Neck-no lymphadenopathy or thyromegaly, trachea midline Chest-clear to auscultation percussion. No rales wheezing or rhonchi Cardiac-regular rate and rhythm, normal S1 and S2, no murmurs Abdomen-normal bowel sounds, nontender. Moderately distended Extremities-no cyanosis, clubbing. Chronic bilateral lower extremity edema Neuro-cranial nerves II through XII intact, motor and sensory function within normal limits, strength symmetrical 5/5, no focal deficits Psych-normal affect, normal mood Results & Data Results & Data ([facility]) Vital Signs (Past 12 Hours) Vital Signs Temp Pulse Pulse Pulse Resp BP Pulse Ox 10/09/20 15:01 78 10/09/20 11:13 36.9 C 78 19 96/58 L 96 10/09/20 08:39 114 H 116/60 10/09/20 08:12 109 H 10/09/20 07:07 36.8 C 107 H 18 98/57 L 92 10/09/20 04:57 37.0 C 100 H 19 106/61 95 Laboratory Results 10/09/20 07:47 10/09/20 07:47 PG Care Time/CCT Total # of Minutes Spent Total Time Spent with Patient: Total time spent is greater than 50% in coordination of care (as documented) at patient's floor/unit and/or counseling patient: Coding Level of Care Code 28968 Subseq Hosp Care Lvl 3 Diagnoses Rectus sheath hematoma S30.1XXA Non-alcoholic cirrhosis K74.60 Anasarca R60.1 Acute blood loss anemia D62 Hematemesis K92.0 Nausea presence: without nausea AMS (altered mental status) R41.82 Acute kidney failure N17.9 Supratherapeutic INR R79.1 Hyponatremia E87.1 Left leg cellulitis L03.116 Pulmonary emboli I26.99 Acute cor pulmonale presence: unspecified Chronicity: acute Pulmonary embolism type: other Splenic vein thrombosis I82.890 Aortic stenosis I35.0 Portal vein thrombosis I81 Pancytopenia D61.818 UTI (urinary tract infection) N39.0 DVT prophylaxis Z29.9 (1) Hematemesis Nausea presence: without nausea Qualified Code(s): K92.0 - Hematemesis (2) Pulmonary emboli Acute cor pulmonale presence: unspecified Chronicity: acute Pulmonary embolism type: other Qualified Code(s): I26.99 - Other pulmonary embolism without acute cor pulmonale
[2020-10-09] MEDS: PRAMIPEXOLE DIHYDROCHLO 0.25 MG TAB PO SCH (21:53)
[2020-10-09] MEDS: PRAVASTATIN SOD 20 MG TAB PO SCH (21:53)
[2020-10-10 07:51] LABS: Basophils # (auto) 0.02 K/uL (0-0.2); Basophils % (auto) 0.5 %; Eosinophils # (auto) 0.05 K/uL (0-0.5); Eosinophils % (auto) 1.3 %; Hematocrit (blood only) 28.2 % (37-47); Hemoglobin 9.1 g/dL (12.0-16.0); Immature Granulocytes # (auto) 0.04 K/uL (0.00-0.02); Lymphocytes # (auto) 0.53 K/uL (1.2-3.4); Lymphocytes % (auto) 13.3 %; Mean Corpuscular Hemoglobin 27.2 pg (25-34); Mean Corpuscular Hgb Conc 32.3 g/dL (32-36); Mean Corpuscular Volume 84.4 fL (80-100); Mean Platelet Volume 9.8 fL (7.4-10.4); Monocytes # (auto) 0.23 K/uL (0.11-0.59); Monocytes % (auto) 5.8 %; Neutrophils # (auto) 3.13 K/uL (1.4-6.5); Neutrophils % (auto) 78.1 %; Platelet Count 117 K/uL (130-400); RDW Standard Deviation 64.2 fL (36.4-46.3); Red Blood Count 3.34 M/uL (4.2-5.4)
[2020-10-10 07:59] LABS: INR 2.1 (0.9-1.1)
[2020-10-10 08:23] LABS: Anisocytosis Present; Echinocytes 1+
[2020-10-10 08:30] LABS: Calcium 7.9 mg/dl (8.5-10.1); Creatinine Clr Calc Pharmacy 33.9 ml/min; Est GFR (African American) 35.1; Est GFR (Non-African American) 30.3; Potassium 3.8 mmol/L (3.5-5.1)
[2020-10-10] MEDS: FLUTICASONE/VILANTEROL 200/25MCG 14 PUFFS/INHALER INH SCH (08:45)
[2020-10-10] MEDS: SPIRONOLACTONE 25 MG TAB PO SCH ×2 (08:46→16:13)
[2020-10-10] MEDS: PANTOprazole 40 MG TAB PO SCH (08:46)
[2020-10-10] MEDS: cephALEXin 500 MG CAP PO SCH ×2 (08:46→20:18)
[2020-10-10] MEDS: FUROSEMIDE 40 MG TAB PO SCH ×2 (08:46→16:13)
[2020-10-10] MEDS: METOPROLOL TARTRATE 25 MG TAB PO SCH ×2 (08:47→20:17)
[2020-10-10] MEDS: ACETAMINOPHEN 325 MG TAB PO PRN (08:50)
--- NOTE | 2020-10-10 13:31 | Hospitalist Progress Note ---
Date of Service October 10, 2020 Assessment & Plan (1) Rectus sheath hematoma: CT a/p on 10/04 showed development of an 11.8 x 5.0 x 3.4 cm left rectus sheath hematoma. Occurred possibly secondary to being lifted by offal baler at home versus retching from vomiting 2 days prior to admission - Hgb dropped down from 9.9 to 6.8 morning after admission. Received transfusion of 2 units PRBCs and now hemoglobin stable. Transfused 2 units PRBCs on 10/05 No need for surgical intervention unless signs of infection or enlargement Remains off Coumadin since she is auto anticoagulated from cirrhosis. 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 Badillo of [facility] who is consulted -Restarted Spironolactone and uptitrated to 50 mg p.o. twice daily - restarted furosemide 40 mg p.o. twice daily which is lower than her usual dose -Continue current diuretic doses for now as a seem to be working and her creatinine is improved at 1.4 Follow BMP -Consider adding on rifaximin or lactulose EGD without varices, but with portal hypertensive gastropathy in the stomach Continue to follow-up as an outpatient with GI for her cirrhosis (3) Anasarca: With massive lower extremity edema and ascites in the abdomen as well. Slightly improved since restarting diuretics Albumin only 1.7-severely low Encouraged p.o. intake of high protein diet -Increasing spironolactone back to home dose of 50 mg p.o. twice daily Continue Lasix at 40 mg p.o. twice daily which is lower than usual dose due to creatinine being significantly elevated upon admission (4) Acute blood loss anemia: Hemorrhagic discord due to intrinsic circulating anticoagulants in the setting of coumadin use and vitamin K reversal agent Hemoglobin drop as above down to 6.8 secondary to GI bleeding with hematemesis as well as rectus sheath hematoma with INR 9.7 on admission Transfused 2 units PRBCs on 10/05 Hemoglobin now stable. Coumadin reversed with vitamin K and Kcentra on admission. INR now elevated due to auto anticoagulation from underlying cirrhosis. Coumadin discontinued indefinitely. EGD with portal hypertensive gastropathy, no evidence of acute bleeding-on Protonix GI recommends holding anticoagulation indefinitely. She is now auto anticoagulated due to underlying cirrhosis. (5) Hematemesis: With one episode of suspected hematemesis prior to admission With hx of cirrhosis, there was initial concern for variceal bleed versus PUD No further hematemesis or melena since admission Hemoglobin did drop due to a combination of GI bleeding and rectus sheath hematoma Was initially on PPI drip and octreotide drip EGD completed. No active bleeding. Portal hypertensive gastropathy noted. As above -Continue Protonix (6) AMS (altered mental status): Acute metabolic encephalopathy upon admission likely due to hypotension from acute blood loss anemia as well as possibly from UTI and kidney failure - Ammonia only 19. Now resolved with volume resuscitation and blood transfusion (7) Acute kidney failure: Baseline Cr ~1.4, CKD Stage III. - with Cr up to 1.9 on admission, likely from overdiuresis. Was given gentle IV fluids initially and 2 units PRBCs Have since restarted diuretics Creatinine improving. Follow BMP (8) Supratherapeutic INR: INR was 3.1 on 09/29, but then >9.7 upon admission Family brought in medication list from home and as per nursing report, Coumadin was listed as being taken twice daily-this may have been the reason for the significant elevation in INR - Vitamin K oral and IV given by the ED - PCC given - Monitor INR was down to 1.3 but now increased without Coumadin due to underlying liver disease. Follow INR daily Coumadin discontinued indefinitely (9) Hyponatremia: Baseline normal Na. Hypovolemic hyponatremia. Likely due to diuretic use . Sodium improved with volume resuscitation Now further improved with restarting diuretics for volume overload from cirrhosis Follow BMP (10) Left leg cellulitis: Left heel has a small ulcer with broken skin. Left ankle and puri are w armer and tender to palpation along with mild erythema-improving -Treated with ceftriaxone. Now on p.o. Keflex 500 mg p.o. 3 times daily times total 7-day course-last dose will be 10/11/2020 (11) Pulmonary emboli: CTA chest in 08/2020 showed RLL PE. 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 -Coumadin discontinued. She is auto anticoagulated due to cirrhosis. (13) Aortic stenosis: Moderate on echocardiogram Follow as an outpatient (14) Portal vein thrombosis: Coumadin discontinued. Auto anticoagulated due to cirrhosis. (15) Pancytopenia: Pancytopenia secondary to cirrhosis and splenomegaly Follow CBC (16) UTI (urinary tract infection): Abnormal urinalysis on admission with pansensitive E. coli growing in urine Received ceftriaxone and converted to p.o. cephalexin for UTI and cellulitis (17) DVT prophylaxis: Auto anticoagulated due to cirrhosis . Patient is conditional code -previously confirmed with patient with daughter yimi mccray and & son on the phone. Would like compressions and shocks, but no intubation Palliative care consultation appreciated Disposition- appreciate PT/OT evaluations, patient would like to go to rehab. Her first choice is [facility] and second choice would be somewhere in [place] such as [facility] or [facility]. Awaiting final placement approval Admission and Anticipated Discharge Date Admission Date: October 04, 2020 Subjective Alert. Some abdominal discomfort from the rectus sheath hematoma. Will use tramadol prn Review of Systems Review of Systems: Constitutional-no fever or chills ENT-no blurred vision, no double vision, no epistaxis, no sore throat Respiratory-no cough, no wheezing, no shortness of breath Cardiac-no palpitations, no chest pain, no syncope GI-no nausea, vomiting, diarrhea, melena, hematochezia -no urinary retention, no urinary incontinence, no dysuria, no hematuria Musculoskeletal-no joint pain, no muscle tenderness Skin-no bruising, no rashes, no pruritus Neuro-no isolated weakness, no paresthesia, no weakness Psych-no depression, no anxiety Physical Exam Physical Exam: General-alert and oriented x3. Morbidly obese HEENT-head atraumatic and normocephalic, TMs intact bilaterally, pupils equal and reactive to light, extraocular muscles intact Neck-no lymphadenopathy or thyromegaly, trachea midline Chest-clear to auscultation percussion. No rales wheezing or rhonchi Cardiac-regular rate and rhythm, normal S1 and S2, no murmurs Abdomen-normal bowel sounds. Moderately distended. Mild superficial abdominal wall tenderness Extremities-no cyanosis, clubbing. Chronic bilateral lower extremity edema Neuro-cranial nerves II through XII intact, motor and sensory function within normal limits, strength symmetrical 5/5, no focal deficits Psych-normal affect, normal mood Results & Data Results & Data ([facility]) Vital Signs (Past 12 Hours) Vital Signs Temp Pulse Pulse Resp BP Pulse Ox 10/10/20 11:39 36.3 C L 66 18 133/77 96 10/10/20 08:32 36.8 C 82 19 93/61 L 96 10/10/20 07:15 81 10/10/20 03:19 36.8 C 80 19 119/70 93 Laboratory Results 10/10/20 07:28 10/10/20 07:28 PG Care Time/CCT Total # of Minutes Spent Total Time Spent with Patient: Total time spent is greater than 50% in coordination of care (as documented) at patient's floor/unit and/or counseling patient: Coding Level of Care Code 56093 Subseq Hosp Care Lvl 3 Diagnoses Rectus sheath hematoma S30.1XXA Non-alcoholic cirrhosis K74.60 Anasarca R60.1 Acute blood loss anemia D62 Hematemesis K92.0 Nausea presence: without nausea AMS (altered mental status) R41.82 Acute kidney failure N17.9 Supratherapeutic INR R79.1 Hyponatremia E87.1 Left leg cellulitis L03.116 Pulmonary emboli I26.99 Acute cor pulmonale presence: unspecified Chronicity: acute Pulmonary embolism type: other Splenic vein thrombosis I82.890 Aortic stenosis I35.0 Portal vein thrombosis I81 Pancytopenia D61.818 UTI (urinary tract infection) N39.0 DVT prophylaxis Z29.9 (1) Pulmonary emboli Acute cor pulmonale presence: unspecified Chronicity: acute Pulmonary embolism type: other Qualified Code(s): I26.99 - Other pulmonary embolism without acute cor pulmonale (2) Hematemesis Nausea presence: without nausea Qualified Code(s): K92.0 - Hematemesis
[2020-10-10] MEDS: PRAVASTATIN SOD 20 MG TAB PO SCH (20:16)
[2020-10-10] MEDS: PRAMIPEXOLE DIHYDROCHLO 0.25 MG TAB PO SCH (20:17)
[2020-10-11 07:28] LABS: Hematocrit (blood only) 28.6 % (37-47); Hemoglobin 9.4 g/dL (12.0-16.0); Mean Corpuscular Hemoglobin 27.5 pg (25-34); Mean Corpuscular Hgb Conc 32.9 g/dL (32-36); Mean Corpuscular Volume 83.6 fL (80-100); RDW Coefficient of Variation 21.1 % (11.5-14.5); RDW Standard Deviation 62.8 fL (36.4-46.3); Red Blood Count 3.42 M/uL (4.2-5.4); White Blood Count 3.37 K/uL (4.8-10.8)
[2020-10-11 07:37] LABS: Mean Platelet Volume 9.2 fL (7.4-10.4); Platelet Count 85 K/uL (130-400)
[2020-10-11 07:41] LABS: Prothrombin Time 20.3 Seconds (9.0-12.0)
[2020-10-11 07:55] LABS: BUN Creatinine Ratio 21.7 (10-20); Calcium 8.1 mg/dl (8.5-10.1); Creatinine Clr Calc Pharmacy 31.2 ml/min; Est GFR (African American) 32.2; Est GFR (Non-African American) 27.8; Potassium 3.8 mmol/L (3.5-5.1)
[2020-10-11 07:58] LABS: Anisocytosis Present; Basophils # (auto) 0.03 K/uL (0-0.2); Basophils % (auto) 0.9 %; Eosinophils # (auto) 0.03 K/uL (0-0.5); Eosinophils % (auto) 0.9 %; Immature Granulocytes # (auto) 0.02 K/uL (0.00-0.02); Immature Granulocytes % (auto) 0.6 %; Lymphocytes % (auto) 14.8 %; Monocytes # (auto) 0.25 K/uL (0.11-0.59); Monocytes % (auto) 7.4 %; Neutrophils # (auto) 2.54 K/uL (1.4-6.5); Neutrophils % (auto) 75.4 %; Ovalocytes 1+
[2020-10-11] MEDS: FLUTICASONE/VILANTEROL 200/25MCG 14 PUFFS/INHALER INH SCH (08:25)
[2020-10-11] MEDS: cephALEXin 500 MG CAP PO SCH ×2 (08:31→20:51)
[2020-10-11] MEDS: SPIRONOLACTONE 25 MG TAB PO SCH ×2 (08:31→16:11)
[2020-10-11] MEDS: FUROSEMIDE 40 MG TAB PO SCH ×2 (08:32→16:10)
[2020-10-11] MEDS: METOPROLOL TARTRATE 25 MG TAB PO SCH ×2 (08:32→20:51)
[2020-10-11] MEDS: PANTOprazole 40 MG TAB PO SCH (08:32)
--- NOTE | 2020-10-11 17:25 | Hospitalist Progress Note ---
Date of Service October 11, 2020 Assessment & Plan (1) Rectus sheath hematoma: CT a/p on 10/04 showed development of an 11.8 x 5.0 x 3.4 cm left rectus sheath hematoma. Occurred possibly secondary to being lifted by relief mate at home versus retching from vomiting 2 days prior to admission - Hgb dropped down from 9.9 to 6.8 morning after admission. Received transfusion of 2 units PRBCs and now hemoglobin stable. 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 Badillo of [facility] who is consulted -Restarted Spironolactone and uptitrated to 50 mg p.o. twice daily - restarted furosemide 40 mg p.o. twice daily which is lower than her usual dose -Continue current diuretic doses for now as a seem to be working and her creatinine is improved at 1.4 Follow BMP -Consider adding on rifaximin or lactulose EGD without varices, but with portal hypertensive gastropathy in the stomach Continue to follow-up as an outpatient with GI for her cirrhosis (3) Hyponatremia: Baseline normal Na. Sodium improved initially with volume resuscitation Trending back down Follow BMP (4) Anasarca: With massive lower extremity edema and ascites in the abdomen as well. Slightly improved since restarting diuretics Albumin only 1.7-severely low Encouraged p.o. intake of high protein diet Creatinine increased -- will decrease spironolactone to 50mg po daily, decrease lasix to 40 mg p.o. daily start Kenneth hose (5) Left leg cellulitis: Left heel has a small ulcer with broken skin. Left ankle and puri are warmer and tender to palpation along with mild erythema-improving -Treated with ceftriaxone. Completed Keflex 500 mg p.o. TID 7 days on 10-11 (6) Complicated UTI (urinary tract infection): 10-04 urine culture with > 100,000 CFU e. coli pansensitive received 7 days keflex (7) Acute blood loss anemia: Hemorrhagic discord due to intrinsic circulating anticoagulants in the setting of coumadin use and vitamin K reversal agent Hemoglobin drop as above down to 6.8 secondary to GI bleeding with hematemesis as well as rectus sheath hematoma with INR 9.7 on admission Transfused 2 units PRBCs on 10/05 Hemoglobin now stable. Coumadin reversed with vitamin K and Kcentra on admission. INR now elevated due to auto anticoagulation from underlying cirrhosis. Coumadin discontinued indefinitely. EGD with portal hypertensive gastropathy, no evidence of acute bleeding-on Protonix GI recommends holding anticoagulation indefinitely. She is now auto anticoagulated due to underlying cirrhosis. (8) Acute kidney failure: Baseline Cr ~1.4, CKD Stage III. - with Cr up to 1.9 on admission, likely from overdiuresis. Was given gentle IV fluids initially and 2 units PRBCs Have since restarted diuretics 10-11 Creatinine up again will decrease lasix to daily and aldactone to daily dosing give albumin Follow BMP (9) Supratherapeutic INR: INR was 3.1 on 09/29, but then >9.7 upon admission Family brought in medication list from home and as per nursing report, Coumadin was listed as being taken twice daily-this may have been the reason for the significant elevation in INR - Vitamin K oral and IV given by the ED - PCC given - Monitor INR was down to 1.3 but now increased without Coumadin due to underlying liver disease. Follow INR daily Coumadin discontinued indefinitely (10) Hematemesis: With one episode of suspected hematemesis prior to admission With hx of cirrhosis, there was initial concern for variceal bleed versus PUD No further hematemesis or melena since admission Hemoglobin did drop due to a combination of GI bleeding and rectus sheath hematoma Was initially on PPI drip and octreotide drip EGD completed. No active bleeding. Portal hypertensive gastropathy noted -Continue Protonix -GI rec'd to stay off coumadin indefinitely (11) Pulmonary emboli: CTA chest in 08/2020 showed RLL PE. 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 -Coumadin discontinued in setting of rectus sheath hematoma (13) Portal vein thrombosis: Coumadin discontinued by GI (14) AMS (altered mental status): Acute metabolic encephalopathy upon admission likely due to hypotension from acute blood loss anemia as well as possibly from UTI and kidney failure - Ammonia only 19. Now resolved with volume resuscitation and blood transfusion (15) Aortic stenosis: Moderate on echocardiogram Follow as an outpatient (16) Pancytopenia: Pancytopenia secondary to cirrhosis and splenomegaly Follow CBC (17) DVT prophylaxis: Auto anticoagulated due to cirrhosis . Patient is conditional code -previously confirmed with patient with daughter present and & son on the phone. Would like compressions and shocks, but no intubation Palliative care consultation appreciated Disposition- appreciate PT/OT evaluations, patient would like to go to rehab. Her first choice is [facility] and second choice would be somewhere in [facility] such as [place] or [facility]. Awaiting final placement approval Admission and Anticipated Discharge Date Admission Date: October 04, 2020 Subjective Patient doing well. Reports dropping her medications in her lap this morning, so not sure if she got them all. Eating well, but doesn't like the hospital food. Endorses lower extremity swelling. Denies sob, chest pain, nausea or vomiting. Review of Systems Constitutional: no fever, no chills, no fatigue, no weakness, no anorexia, no weight loss and no weight gain Ear, Nose, Mouth, Throat: no nasal congestion, no sore throat and no dysphagia Respiratory: no cough and no dyspnea Cardiovascular: + edema; no chest pain, no dyspnea on exertion, no orthopnea and no palpitations Gastrointestinal: no abdominal pain, no nausea, no vomiting, no hematemesis, no dysphagia, no constipation, no diarrhea/loose stools, no blood in stools and no melena Genitourinary: no dysuria, no urinary frequency, no hematuria and no flank pain Musculoskeletal: no back pain, no joint pain, no myalgia and no muscle weakness Integumentary: no rash, no lesions, no skin ulcer, no erythema, no dry skin and no pruritus Neurologic: no falls, no localized weakness, no generalized weakness, no numbness, no paresthesia, no tremor(s) and no headache(s) Psychiatric: no depression, no suicidal ideation, no homicidal ideation and no anxiety Endocrine: no cold intolerance and no heat intolerance Hematologic / Lymphatic: no easy bleeding and no easy bruising Physical Exam Constitutional: well developed and well nourished; no acute distress Eyes: PERRL, conjunctivae normal, anicteric sclerae ENMT: Mouth: oral mucous membranes not dry Respiratory: normal respiratory effort; no respiratory distress and no labored breathing Auscultation: lungs clear to auscultation bilaterally; no crackles, no rales, no rhonchi and no wheezes Cardiovascular: Rate/Rhythm: regular rate and regular rhythm Heart Sounds: no murmur and no cardiac rub Vessels: normal peripheral pulses and radial pulses present; no JVD Extremities: + edema Gastrointestinal (Abdomen): Inspection/Auscultation: abdomen normal to inspection and normal bowel sounds; abdomen not distended Percussion/Palpation: abdomen soft; abdomen nontender, no guarding, abdomen not rigid and no hepatosplenomegaly Musculoskeletal: Head/Neck/Chest: normocephalic and head atraumatic Spine: no cervical spinal tenderness, no cervical muscular tenderness, no thoracic spinal tenderness and no lumbar spinal tenderness Skin: no rashes, warm and dry Neurologic: CN's II-XI intact bilaterally and moves all extremities Mo tor/Sensory: no tremor and no sensory deficit Psychiatric: Orientation: alert, oriented to person, oriented to place and oriented to time Apperance: appropriately groomed; not disheveled Affect: euthymic affect; no anxious affect and no tearful affect Genitourinary: no CVA tenderness no Amor catheter Results & Data Results & Data ([facility]) Vital Signs (Past 12 Hours) Vital Signs Temp Pulse Resp BP BP Pulse Ox 10/11/20 15:38 36.3 C L 81 20 99/64 L 99 10/11/20 11:49 36.9 C 71 16 114/69 124/76 95 10/11/20 08:13 36.8 C 68 16 118/69 99 Laboratory Results Abnormal lab results 10/11/20 10/11/20 10/11/20 Range/Units 07:06 07:06 07:06 WBC 3.37 L (4.8-10.8) K/uL RBC 3.42 L (4.2-5.4) M/uL Hgb 9.4 L (12.0-16.0) g/dL Hct 28.6 L (37-47) % RDW Std Deviation 62.8 H (36.4-46.3) fL RDW Coeff of Flower 21.1 H (11.5-14.5) % Plt Count 85 L (130-400) K/uL Lymph # (Auto) 0.50 L (1.2-3.4) K/uL PT 20.3 H (9.0-12.0) Seconds INR 2.0 H (0.9-1.1) Sodium 129 L (136-145) mmol/L Chloride 94 L (98-107) mmol/L BUN 39 H (7-18) mg/dl Creatinine 1.78 H (0.6-1.2) mg/dl BUN/Creatinine Ratio 21.7 H (10-20) Calcium 8.1 L (8.5-10.1) mg/dl Medications Administered Current Inpatient Medications Acetaminophen (Acetaminophen 325 Mg Tab) 650 mg PO Q6H PRN PRN Reason: pain/fever Stop: 11/03/20 21:33 Last Admin: 10/10/20 08:50 Dose: 650 mg Documented by: Cephalexin HCl (Cephalexin 500 Mg Cap) 500 mg PO BID [facility]; Protocol Stop: 10/15/20 20:59 Last Admin: 10/11/20 08:31 Dose: 500 mg Documented by: Fluticasone/Vilanterol (Fluticasone/Vilanterol 200/25mcg 14 Puffs/Inhaler) 1 puffs INH DAILY [facility] Stop: 11/08/20 08:59 Last Admin: 10/11/20 08:25 Dose: 1 puffs Documented by: Furosemide (Furosemide 40 Mg Tab) 40 mg PO BID17 [facility] Stop: 11/05/20 16:59 Last Admin: 10/11/20 16:10 Dose: 40 mg Documented by: Lorazepam (Lorazepam 0.5 Mg Tab) 0.5 mg PO BID PRN PRN Reason: Anxiety Stop: 11/07/20 23:49 Metoprolol Tartrate (Metoprolol Tartrate 25 Mg Tab) 25 mg PO BID [facility] Stop: 11/08/20 08:59 Last Admin: 10/11/20 08:32 Dose: 25 mg Documented by: Miconazole Nitrate (Miconazole Nitrate Powder 43 Gm) 1 appln EXT PRN PRN PRN Reason: Affected Skin Folds Stop: 11/06/20 05:52 Last Admin: 10/09/20 10:47 Dose: 1 appln Documented by: Ondansetron HCl (Ondansetron Inj 2 Mg/Ml 2 Ml Vial) 4 mg IV Q4H PRN PRN Reason: Nausea Stop: 11/03/20 21:33 Pantoprazole Sodium (Pantoprazole 40 Mg Tab) 40 mg PO QAM [facility] Stop: 11/05/20 13:44 Last Admin: 10/11/20 08:32 Dose: 40 mg Documented by: Polyethylene Glycol (Polyethylene (Miralax) 17 Gm Pack) 17 gm PO DAILY PRN PRN Reason: Constipation Stop: 11/05/20 20:38 Last Admin: 10/06/20 21:41 Dose: 17 gm Documented by: Pramipexole Dihydrochloride (Pramipexole Dihydrochlo 0.25 Mg Tab) 0.25 mg PO HS [facility] Stop: 11/08/20 20:59 Last Admin: 10/10/20 20:17 Dose: 0.25 mg Documented by: Pravastatin Sodium (Pravastatin Sod 20 Mg Tab) 20 mg PO HS [facility] Stop: 11/08/20 20:59 Last Admin: 10/10/20 20:16 Dose: 20 mg Documented by: Spironolactone (Spironolactone 25 Mg Tab) 50 mg PO BID17 [facility] Stop: 11/07/20 16:59 Last Admin: 10/11/20 16:11 Dose: 50 mg Documented by: Tramadol HCl (Tramadol Hcl 50 Mg Tablet) 50 mg PO Q6H PRN PRN Reason: Pain Stop: 11/09/20 13:14 PG Care Time/CCT Total # of Minutes Spent Total Time Spent with Patient: Total time spent is greater than 50% in coordination of care (as documented) at patient's floor/unit and/or counseling patient: Coding Level of Care Code 21719 Subseq Hosp Care Lvl 3 Diagnoses Rectus sheath hematoma S30.1XXA Non-alcoholic cirrhosis K74.60 Hyponatremia E87.1 Anasarca R60.1 Left leg cellulitis L03.116 Complicated UTI (urinary tract infection) N39.0 Acute blood loss anemia D62 Acute kidney failure N17.9 Acute renal failure type: unspecified Supratherapeutic INR R79.1 Hematemesis K92.0 Nausea presence: without nausea Pulmonary emboli I26.99 Acute cor pulmonale presence: unspecified Chronicity: acute Pulmonary embolism type: other Splenic vein thrombosis I82.890 Portal vein thrombosis I81 AMS (altered mental status) R41.82 Altered mental status type: unspecified Aortic stenosis I35.0 Cardiac valve disease etiology: etiology unspecified Pancytopenia D61.818 DVT prophylaxis Z29.9 (1) Hematemesis Nausea presence: without nausea Qualified Code(s): K92.0 - Hematemesis (2) AMS (altered mental status) Altered mental status type: unspecified Qualified Code(s): R41.82 - Altered mental status, unspecified (3) Acute kidney failure Acute renal failure type: unspecified Qualified Code(s): N17.9 - Acute kidney failure, unspecified (4) Pulmonary emboli Acute cor pulmonale presence: unspecified Chronicity: acute Pulmonary embolism type: other Qualified Code(s): I26.99 - Other pulmonary embolism without acute cor pulmonale (5) Aortic stenosis Cardiac valve disease etiology: etiology unspecified Qualified Code(s): I35.0 - Nonrheumatic aortic (valve) stenosis
[2020-10-11] MEDS: ALBUMIN 25% 12.5 GM/50 ML VIAL IV SCH ×3 (19:30→22:00)
[2020-10-11] MEDS: PRAMIPEXOLE DIHYDROCHLO 0.25 MG TAB PO SCH (20:51)
[2020-10-11] MEDS: PRAVASTATIN SOD 20 MG TAB PO SCH (20:51)
[2020-10-11] MEDS: traMADol HCL 50 MG TABLET PO PRN (20:55)
[2020-10-12] MEDS: ALBUMIN 25% 12.5 GM/50 ML VIAL IV SCH (00:17)
[2020-10-12 07:12] LABS: Hematocrit (blood only) 25.3 % (37-47); Hemoglobin 8.2 g/dL (12.0-16.0); Mean Corpuscular Hemoglobin 27.2 pg (25-34); Mean Corpuscular Hgb Conc 32.4 g/dL (32-36); Mean Corpuscular Volume 83.8 fL (80-100); RDW Coefficient of Variation 20.7 % (11.5-14.5); Red Blood Count 3.02 M/uL (4.2-5.4); White Blood Count 2.39 K/uL (4.8-10.8)
[2020-10-12 07:31] LABS: INR 1.9 (0.9-1.1); Prothrombin Time 19.2 Seconds (9.0-12.0)
[2020-10-12 07:33] LABS: Mean Platelet Volume 9.1 fL (7.4-10.4); Platelet Count 68 K/uL (130-400)
[2020-10-12 07:40] LABS: BUN Creatinine Ratio 27.8 (10-20); Calcium 7.7 mg/dl (8.5-10.1); Creatinine Clr Calc Pharmacy 36.4 ml/min; Est GFR (African American) 37.5; Est GFR (Non-African American) 32.4; Potassium 3.7 mmol/L (3.5-5.1)
[2020-10-12 07:58] LABS: Anisocytosis Present; Basophils # (auto) 0.02 K/uL (0-0.2); Basophils % (auto) 0.8 %; Eosinophils # (auto) 0.02 K/uL (0-0.5); Eosinophils % (auto) 0.8 %; Immature Granulocytes # (auto) 0.01 K/uL (0.00-0.02); Immature Granulocytes % (auto) 0.4 %; Lymphocytes # (auto) 0.52 K/uL (1.2-3.4); Lymphocytes % (auto) 21.8 %; Monocytes # (auto) 0.28 K/uL (0.11-0.59); Monocytes % (auto) 11.7 %; Neutrophils # (auto) 1.54 K/uL (1.4-6.5); Neutrophils % (auto) 64.5 %
[2020-10-12] MEDS ORDERED: FUROSEMIDE 40 MG in SYRINGE 0 ML IV ONE (08:12)
[2020-10-12] MEDS ORDERED: FUROSEMIDE 40 MG TAB PO SCH ×2 (09:00)
--- NOTE | 2020-10-12 09:50 | Palliative Care Progress Note ---
Date of Service October 12, 2020 Assessment & Plan (1) Palliative care encounter: Patient was sitting upright in her bed in no apparent distress. Her was at her bedside. The patient has not experienced bleeding since her admission and Hgb has remained steady in the 9 range. At current time, the plan is for her to proceed with rehabilitation at [facility], which is being arranged for her to be discharged today or tomorrow. She is in the process of being downgraded to a medical bed. I still feel goals are important to be established as this individual has a chronic condition that likely may present further symptoms in the future. I presented a POLST form to her and her . They will discuss and complete this between themselves as a family. Patient to remain a condition code; however, patient is thinking she may want to be a DNR moving forward. She wants to discuss with her and kids. For now, as patient is being discharged; palliative will follow peripherally. Please contact us should she decline clinically or be receptive to further discussions. Thanks for allowing us to be involved with her care. (2) Non-alcoholic cirrhosis: (3) Supratherapeutic INR: (4) Rectus sheath hematoma: (5) Splenomegaly: Admission and Anticipated Discharge Date Admission Date: October 04, 2020 Review of Systems Review of Systems: [place] Symptom Assessment System Revised (ESAS-r) Pain: 1/3 Lack of Appetite: 0/3 SOB: 0/3 Depression: 0/3 Anxiety: 0/3 Nausea: 0/3 Physical Exam Constitutional: + ill appearing, cooperative and comfortable; no acute distress Respiratory: normal respiratory effort; no labored breathing and does not use accessory muscles Auscultation: + diminished lung sounds Cardiovascular: Rate/Rhythm: regular rate and regular rhythm Heart Sounds: normal S1 and normal S2 Vessels: dorsalis pedis pulses present and radial pulses present Extremities: normal capillary refill and + edema Gastrointestinal (Abdomen): Percussion/Palpation: + abdomen tender, abdomen soft and + hepatosplenomegaly Musculoskeletal: L> R extremity Skin: + skin tightening, + jaundice and + brittle hair Psychiatric: A+Ox3, euthymic affect Insight: good insight Judgement: good judgement Results & Data ([facility]) Vital Signs (Past 12 Hours) Vital Signs Temp Pulse Pulse Resp BP Pulse Ox 10/12/20 08:02 36.5 C 69 18 105/60 96 10/12/20 03:17 36.3 C L 69 18 106/63 96 10/12/20 00:00 72 10/11/20 23:50 36.3 C L 71 18 97/60 L 96 PG Care Time/CCT Total # of Minutes Spent Total Time Spent with Patient: Total time spent is greater than 50% in coordination of care (as documented) at patient's floor/unit and/or counseling patient: 35 Coding Level of Care Code 75813 Subseq Hosp Care Lvl 3 Diagnoses Palliative care encounter Z51.5 Non-alcoholic cirrhosis K74.60 Supratherapeutic INR R79.1 Rectus sheath hematoma S30.1XXA Splenomegaly R16.1 Time Spent (min) 35 Time Spent Midlevel Total time spent 35 minutes with > 50% of that time spent assessing the patient, discussing goals of care and providing a POLST form to the family.
[2020-10-12] MEDS: METOPROLOL TARTRATE 25 MG TAB PO SCH ×2 (10:06→21:14)
[2020-10-12] MEDS: SPIRONOLACTONE 25 MG TAB PO SCH (10:06)
[2020-10-12] MEDS: cephALEXin 500 MG CAP PO SCH (10:08)
[2020-10-12] MEDS: FLUTICASONE/VILANTEROL 200/25MCG 14 PUFFS/INHALER INH SCH (10:08)
[2020-10-12] MEDS: PANTOprazole 40 MG TAB PO SCH (10:08)
[2020-10-12] MEDS: TORSEMIDE 10 MG TAB PO SCH ×2 (11:30→16:56)
--- NOTE | 2020-10-12 19:40 | Hospitalist Progress Note ---
Date of Service October 12, 2020 Assessment & Plan (1) Anasarca: With massive lower extremity edema and ascites in the abdomen as well. Slightly improved since restarting diuretics Albumin only 1.7-severely low 10-11 gave albumin infusion Encouraged p.o. intake of high protein diet start Kenneth hose Diuresing (2) Grade II diastolic dysfunction: lower extremity edema likely 2' to cirrhosis, hypoalbuminemia and HFpEF, stage 2 diastolic 10-12 switch from lasix 40mg daily to torsemide 20mg BID for better absorption strict ins and outs daily weights 10-12 98.7kg (3) Hyponatremia: Baseline normal Na. Sodium improved initially with volume resuscitation On aldactone 50mg and lasix 40mg, sodium trending back down likely combination of poor PO intake as well as hypervolemia Attempt to diurese Follow BMP (4) Non-alcoholic cirrhosis: She is not a candidate for liver transplant She follows with Dr. Badillo of [facility] who is consulted -Restarted Spironolactone 50mg daily, Loop diuretic as well -Could consider adding on rifaximin or lactulose as needed EGD without varices, but with portal hypertensive gastropathy in the stomach Continue to follow-up as an outpatient with GI for her cirrhosis (5) Rectus sheath hematoma: CT a/p on 10/04 showed development of an 11.8 x 5.0 x 3.4 cm left rectus sheath hematoma. Occurred possibly secondary to being lifted by election clerk at home versus retching from vomiting 2 days prior to admission - Hgb dropped down from 9.9 to 6.8 morning after admission. Received transfusion of 2 units PRBCs and now hemoglobin stable. 10-05 Transfused 2 units PRBCs Hg stable since 10-05 Remains off Coumadin No need for surgical intervention unless signs of infection or enlargement Tramadol as needed discomfort (6) Complicated UTI (urinary tract infection): 10-04 urine culture with > 100,000 CFU e. coli pansensitive 10-04 started rocephin 10-08 narrowed coverage to keflex 10-11 completed 7 days antibx 10-12 stop keflex (7) Left leg cellulitis: Left heel has a small ulcer with broken skin. Left ankle and puri are warmer and tender to palpation along with mild erythema-improving Treated with ceftriaxone and keflex 7 days (8) Acute blood loss anemia: Hemorrhagic discord due to intrinsic circulating anticoagulants in the setting of coumadin use and vitamin K reversal agent Hemoglobin drop as above down to 6.8 secondary to GI bleeding with hematemesis as well as rectus sheath hematoma with INR 9.7 on admission Transfused 2 units PRBCs on 10/05 Hemoglobin now stable. Coumadin reversed with vitamin K and Kcentra on admission. INR now elevated due to auto anticoagulation from underlying cirrhosis. Coumadin discontinued indefinitely. EGD with portal hypertensive gastropathy, no evidence of acute bleeding-on Protonix GI recommends holding anticoagulation indefinitely. She is now auto anticoagulated due to underlying cirrhosis. (9) Acute kidney failure: Baseline Cr ~1.4, CKD Stage III. - with Cr up to 1.9 on admission, likely from overdiuresis. Was given gentle IV fluids initially and 2 units PRBCs Have since restarted diuretics 11-11 Creatinine up again, give albumin Follow BMP (10) Supratherapeutic INR: INR was 3.1 on 09/29, but then >9.7 upon admission Family brought in medication list from home and as per nursing report, Coumadin was listed as being taken twice daily-this may have been the reason for the significant elevation in INR - Vitamin K oral and IV given by the ED - PCC given - Monitor INR was down to 1.3 but now increased without Coumadin due to underlying liver disease. Follow INR daily Coumadin discontinued indefinitely (11) Hematemesis: With one episode of suspected hematemesis prior to admission With hx of cirrhosis, there was initial concern for variceal bleed versus PUD No further hematemesis or melena since admission Hemoglobin did drop due to a combination of GI bleeding and rectus sheath hematoma Was initially on PPI drip and octreotide drip EGD completed. No active bleeding. Portal hypertensive gastropathy noted -Continue Protonix -GI rec'd to stay off coumadin indefinitely (12) Pulmonary emboli: CTA chest in 08/2020 showed RLL PE. 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 -Coumadin discontinued in setting of rectus sheath hematoma (14) Portal vein thrombosis: Coumadin discontinued by GI (15) AMS (altered mental status): Acute metabolic encephalopathy upon admission likely due to hypotension from acute blood loss anemia as well as possibly from UTI and kidney failure - Ammonia only 19. Now resolved with volume resuscitation and blood transfusion (16) Aortic stenosis: Moderate on echocardiogram Follow as an outpatient (17) Pancytopenia: Pancytopenia secondary to cirrhosis and splenomegaly Follow CBC (18) DVT prophylaxis: Auto anticoagulated due to cirrhosis . Patient is conditional code -previously confirmed with patient with daughter present and & son on the phone. Would like compressions and shocks, but no intubation Palliative care consultation appreciated Disposition- appreciate PT/OT evaluations, patient would like to go to rehab. Her first choice is [facility] and [facility]. Awaiting final placement approval Admission and Anticipated Discharge Date Admission Date: October 04, 2020 Subjective Patient endorsing persistent lower extremity edema. No SOB, no cough. Did not sleep well due to nursing coming in for frequent vital signs. Denies headache. Is tolerating PO intake, but not enjoying the food. Denies abd pain, vomiting, diarrhea. Agreeable to discharge to rehab once medically stable. Understands her sodium is low again -- agreeable to staying in hospital until sodium improves. Review of Systems Constitutional: no fever, no chills, no fatigue, no weakness, no anorexia, no weight loss and no weight gain Ear, Nose, Mouth, Throat: no nasal congestion, no sore throat and no dysphagia Respiratory: no cough and no dyspnea Cardiovascular: + edema; no chest pain, no dyspnea on exertion, no orthopnea and no palpitations Gastrointestinal: no abdominal pain, no nausea, no vomiting, no hematemesis, no dysphagia, no constipation, no diarrhea/loose stools, no blood in stools and no melena Genitourinary: no dysuria, no urinary frequency, no hematuria and no flank pain Musculoskeletal: no back pain, no joint pain, no myalgia and no muscle weakness Integumentary: no rash, no lesions, no skin ulcer, no erythema, no dry skin and no pruritus Neurologic: no falls, no localized weakness, no generalized weakness, no numbness, no paresthesia, no tremor(s) and no headache(s) Psychiatric: no depression, no suicidal ideation, no homicidal ideation and no anxiety Endocrine: no cold intolerance and no heat intolerance Hematologic / Lymphatic: no easy bleeding and no easy bruising Physical Exam Constitutional: well developed and well nourished; no acute distress Eyes: PERRL, conjunctivae normal, anicteric sclerae ENMT: Mouth: oral mucous membranes not dry Respiratory: normal respiratory effort; no respiratory distress and no labored breathing Auscultation: lungs clear to auscultation bilaterally; no crackles, no rales, no rhonchi and no wheezes Cardiovascular: Rate/Rhythm: regular rate and regular rhythm Heart Sounds: no murmur and no cardiac rub Vessels: normal peripheral pulses and radial pulses present; no JVD Extremities: + edema Gastrointestinal (Abdomen): Inspection/Auscultation: abdomen normal to inspection and normal bowel sounds; abdomen not distended Percussion/Palpation: abdomen soft; abdomen nontender, no guarding, abdomen not rigid and no hepatosplenomegaly Musculoskeletal: Head/Neck/Chest: normocephalic and head atraumatic Spine: no cervical spinal tenderness, no cervical muscular tenderness, no thoracic spinal tenderness and no lumbar spinal tenderness Skin: no rashes, warm and dry Neurologic: CN's II-XI intact bilaterally and moves all extremities Motor/Sensory: no tremor and no sensory deficit Psychiatric: Orientation: alert, oriented to person, oriented to place and oriented to time Apperance: appropriately groomed; not disheveled Affect: euthymic affect; no anxious affect and no tearful affect Genitourinary: no CVA tenderness Results & Data Results & Data ([facility]) Vital Signs (Past 12 Hours) Vital Signs Temp Pulse Resp BP BP Pulse Ox 10/12/20 17:10 36.4 C L 72 95/59 L 98 10/12/20 15:16 36.4 C L 73 18 91/54 L 97 10/12/20 11:24 36.5 C 74 16 115/60 96 10/12/20 08:02 36.5 C 69 18 105/60 96 Laboratory Results Abnormal lab results 10/12/20 10/12/20 10/12/20 Range/Units 06:49 06:49 06:49 WBC 2.39 L (4.8-10.8) K/uL RBC 3.02 L (4.2-5.4) M/uL Hgb 8.2 L (12.0-16.0) g/dL Hct 25.3 L (37-47) % RDW Std Deviation 63.0 H (36.4-46.3) fL RDW Coeff of Flower 20.7 H (11.5-14.5) % Plt Count 68 L (130-400) K/uL Lymph # (Auto) 0.52 L (1.2-3.4) K/uL PT 19.2 H (9.0-12.0) Seconds INR 1.9 H (0.9-1.1) Sodium 128 L (136-145) mmol/L Chloride 95 L (98-107) mmol/L BUN 44 H (7-18) mg/dl Creatinine 1.57 H (0.6-1.2) mg/dl BUN/Creatinine Ratio 27.8 H (10-20) Calcium 7.7 L (8.5-10.1) mg/dl Medications Administered Current Inpatient Medications Acetaminophen (Acetaminophen 325 Mg Tab) 650 mg PO Q6H PRN PRN Reason: pain/fever Stop: 11/03/20 21:33 Last Admin: 10/10/20 08:50 Dose: 650 mg Documented by: Cephalexin HCl (Cephalexin 500 Mg Cap) 500 mg PO BID [facility]; Protocol Stop: 10/15/20 20:59 Last Admin: 10/12/20 10:08 Dose: 500 mg Documented by: Fluticasone/Vilanterol (Fluticasone/Vilanterol 200/25mcg 14 Puffs/Inhaler) 1 puffs INH DAILY [facility] Stop: 11/08/20 08:59 Last Admin: 10/12/20 10:08 Dose: 1 puffs Documented by: Lorazepam (Lorazepam 0.5 Mg Tab) 0.5 mg PO BID PRN PRN Reason: Anxiety Stop: 11/07/20 23:49 Metoprolol Tartrate (Metoprolol Tartrate 25 Mg Tab) 25 mg PO BID [facility] Stop: 11/08/20 08:59 Last Admin: 10/12/20 10:06 Dose: 25 mg Documented by: Miconazole Nitrate (Miconazole Nitrate Powder 43 Gm) 1 appln EXT PRN PRN PRN Reason: Affected Skin Folds Stop: 11/06/20 05:52 Last Admin: 10/09/20 10:47 Dose: 1 appln Documented by: Ondansetron HCl (Ondansetron Inj 2 Mg/Ml 2 Ml Vial) 4 mg IV Q4H PRN PRN Reason: Nausea Stop: 11/03/20 21:33 Pantoprazole Sodium (Pantoprazole 40 Mg Tab) 40 mg PO QAM RAJI Stop: 11/05/20 13:44 Last Admin: 10/12/20 10:08 Dose: 40 mg Documented by: Polyethylene Glycol (Polyethylene (Miralax) 17 Gm Pack) 17 gm PO DAILY PRN PRN Reason: Constipation Stop: 11/05/20 20:38 Last Admin: 10/06/20 21:41 Dose: 17 gm Documented by: Pramipexole Dihydrochloride (Pramipexole Dihydrochlo 0.25 Mg Tab) 0.25 mg PO HS [facility] Stop: 11/08/20 20:59 Last Admin: 10/11/20 20:51 Dose: 0.25 mg Documented by: Pravastatin Sodium (Pravastatin Sod 20 Mg Tab) 20 mg PO HS RAJI Stop: 11/08/20 20:59 Last Admin: 10/11/20 20:51 Dose: 20 mg Documented by: Spironolactone (Spironolactone 25 Mg Tab) 50 mg PO DAILY RAJI Stop: 11/11/20 08:59 Last Admin: 10/12/20 10:06 Dose: 50 mg Documented by: Torsemide (Torsemide 10 Mg Tab) 20 mg PO BID17 RAJI Stop: 11/11/20 08:59 Last Admin: 10/12/20 16:56 Dose: 20 mg Documented by: Tramadol HCl (Tramadol Hcl 50 Mg Tablet) 50 mg PO Q6H PRN PRN Reason: Pain Stop: 11/09/20 13:14 Last Admin: 10/11/20 20:55 Dose: 50 mg Documented by: PG Care Time/CCT Total # of Minutes Spent Total Time Spent with Patient: Total time spent is greater than 50% in coordination of care (as documented) at patient's floor/unit and/or counseling patient: Coding Level of Care Code 36670 Subseq Hosp Care Lvl 3 Diagnoses Anasarca R60.1 Grade II diastolic dysfunction I51.9 Hyponatremia E87.1 Non-alcoholic cirrhosis K74.60 Rectus sheath hematoma S30.1XXD Encounter type: subsequent encounter Complicated UTI (urinary tract infection) N39.0 Left leg cellulitis L03.116 Acute blood loss anemia D62 Acute kidney failure N17.9 Acute renal failure type: unspecified Supratherapeutic INR R79.1 Hematemesis K92.0 Nausea presence: without nausea Pulmonary emboli I26.99 Acute cor pulmonale presence: unspecified Chronicity: acute Pulmonary embolism type: other Splenic vein thrombosis I82.890 Portal vein thrombosis I81 AMS (altered mental status) R41.82 Altered mental status type: unspecified Aortic stenosis I35.0 Cardiac valve disease etiology: etiology unspecified Pancytopenia D61.818 DVT prophylaxis Z29.9 (1) Rectus sheath hematoma Encounter type: subsequent encounter Qualified Code(s): S30.1XXD - Contusion of abdominal wall, subsequent encounter (2) Acute kidney failure Acute renal failure type: unspecified Qualified Code(s): N17.9 - Acute kidney failure, unspecified (3) Hematemesis Nausea presence: without nausea Qualified Code(s): K92.0 - Hematemesis (4) Pulmonary emboli Acute cor pulmonale presence: unspecified Chronicity: acute Pulmonary embolism type: other Qualified Code(s): I26.99 - Other pulmonary embolism without acute cor pulmonale (5) AMS (altered mental status) Altered mental status type: unspecified Qualified Code(s): R41.82 - Altered mental status, unspecified (6) Aortic stenosis Cardiac valve disease etiology: etiology unspecified Qualified Code(s): I35.0 - Nonrheumatic aortic (valve) stenosis
[2020-10-12] MEDS: PRAMIPEXOLE DIHYDROCHLO 0.25 MG TAB PO SCH (21:14)
[2020-10-12] MEDS: PRAVASTATIN SOD 20 MG TAB PO SCH (21:14)
[2020-10-12] MEDS: traMADol HCL 50 MG TABLET PO PRN (22:10)
[2020-10-13 06:28] LABS: Hematocrit (blood only) 25.2 % (37-47); Hemoglobin 8.1 g/dL (12.0-16.0); Mean Corpuscular Hgb Conc 32.1 g/dL (32-36); RDW Coefficient of Variation 20.9 % (11.5-14.5); RDW Standard Deviation 63.4 fL (36.4-46.3); White Blood Count 3.14 K/uL (4.8-10.8)
[2020-10-13 06:32] LABS: Mean Platelet Volume 9.8 fL (7.4-10.4); Platelet Count 92 K/uL (130-400)
[2020-10-13 07:03] LABS: Anisocytosis Present; Basophils # (auto) 0.02 K/uL (0-0.2); Basophils % (auto) 0.6 %; Calcium 7.4 mg/dl (8.5-10.1); Creatinine Clr Calc Pharmacy 32.8 ml/min; Eosinophils # (auto) 0.02 K/uL (0-0.5); Eosinophils % (auto) 0.6 %; Est GFR (African American) 32.7; Est GFR (Non-African American) 28.2; Immature Granulocytes # (auto) 0.01 K/uL (0.00-0.02); Immature Granulocytes % (auto) 0.3 %; Lymphocytes # (auto) 0.65 K/uL (1.2-3.4); Lymphocytes % (auto) 20.7 %; Magnesium 2.5 mg/dl (1.8-2.4); Monocytes # (auto) 0.25 K/uL (0.11-0.59); Neutrophils # (auto) 2.19 K/uL (1.4-6.5); Neutrophils % (auto) 69.8 %; Phosphorus 3.4 mg/dl (2.5-4.9)
--- NOTE | 2020-10-13 08:34 | Hospitalist Progress Note ---
Date of Service October 13, 2020 Assessment & Plan (1) Anasarca: With massive lower extremity edema and ascites in the abdomen as well. Slightly improved since restarting diuretics Albumin only 1.7-severely low 10-11 gave albumin infusion Encouraged p.o. intake of high protein diet Diuresing (2) Grade II diastolic dysfunction: lower extremity edema likely 2' to cirrhosis, hypoalbuminemia and HFpEF, stage 2 diastolic 10-12 switch from lasix 40mg daily to torsemide 20mg BID for better absorption strict ins and outs daily weights 10-12 98.7kg 10-13 100.6kg! (3) Hyponatremia: Baseline normal Na. 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 Badillo of [facility] who is consulted -Restarted Spironolactone 50mg daily, Loop diuretic as well -Could consider adding on rifaximin or lactulose as needed EGD without varices, but with portal hypertensive gastropathy in the stomach Continue to follow-up as an outpatient with GI for her cirrhosis (5) Rectus sheath hematoma: CT a/p on 10/04 showed development of an 11.8 x 5.0 x 3.4 cm left rectus sheath hematoma. Occurred possibly secondary to being lifted by lining strap closer at home versus retching from vomiting 2 days prior to admission - Hgb dropped down from 9.9 to 6.8 morning after admission. Received transfusion of 2 units PRBCs and now hemoglobin stable. 10-05 Transfused 2 units PRBCs Hg stable since 10-05 Remains off Coumadin No need for surgical intervention unless signs of infection or enlargement Tramadol as needed discomfort (6) Complicated UTI (urinary tract infection): 10-04 urine culture with > 100,000 CFU e. coli pansensitive 10-04 started rocephin 10-08 narrowed coverage to keflex 10-11 completed 7 days antibx 10-12 stop keflex (7) Left leg cellulitis: Left heel has a small ulcer with broken skin. Left ankle and puri are warmer and tender to palpation along with mild erythema-improving Treated with ceftriaxone and keflex 7 days (8) Acute blood loss anemia: Hemorrhagic discord due to intrinsic circulating anticoagulants in the setting of coumadin use and vitamin K reversal agent Hemoglobin drop as above down to 6.8 secondary to GI bleeding with hematemesis as well as rectus sheath hematoma with INR 9.7 on admission Transfused 2 units PRBCs on 10/05 Hemoglobin now stable. Coumadin reversed with vitamin K and Kcentra on admission. INR now elevated due to auto anticoagulation from underlying cirrhosis. Coumadin discontinued indefinitely. EGD with portal hypertensive gastropathy, no evidence of acute bleeding-on Protonix GI recommends holding anticoagulation indefinitely. She is now auto anticoagulated due to underlying cirrhosis. (9) Acute kidney failure: Baseline Cr ~1.4, CKD Stage III. - with Cr up to 1.9 on admission, likely from overdiuresis. Was given gentle IV fluids initially and 2 units PRBCs Have since restarted diuretics 11-11 Creatinine up again, give albumin Follow BMP (10) Supratherapeutic INR: INR was 3.1 on 09/29, but then >9.7 upon admission Family brought in medication list from home and as per nursing report, Coumadin was listed as being taken twice daily-this may have been the reason for the significant elevation in INR - Vitamin K oral and IV given by the ED - PCC given - Monitor INR was down to 1.3 but now increased without Coumadin due to underlying liver disease. Follow INR daily Coumadin discontinued indefinitely (11) Hematemesis: With one episode of suspected hematemesis prior to admission With hx of cirrhosis, there was initial concern for variceal bleed versus PUD No further hematemesis or melena since admission Hemoglobin did drop due to a combination of GI bleeding and rectus sheath hematoma Was initially on PPI drip and octreotide drip EGD completed. No active bleeding. Portal hypertensive gastropathy noted -Continue Protonix -GI rec'd to stay off coumadin indefinitely (12) Pulmonary emboli: CTA chest in 08/2020 showed RLL PE. -As above, reversed warfarin due to rectus sheath hematoma and GI bleeding - Vascular surgery consult for possible IVC filter-recommends only placing f ilter if has evidence of DVTs-Doppler negative for DVT of the lower extremities (13) Splenic vein thrombosis: Also diagnosed in 08/2020. -Coumadin discontinued in setting of rectus sheath hematoma (14) Portal vein thrombosis: Coumadin discontinued by GI (15) AMS (altered mental status): Acute metabolic encephalopathy upon admission likely due to hypotension from acute blood loss anemia as well as possibly from UTI and kidney failure - Ammonia only 19. Now resolved with volume resuscitation and blood transfusion (16) Aortic stenosis: Moderate on echocardiogram Follow as an outpatient (17) Pancytopenia: Pancytopenia secondary to cirrhosis and splenomegaly Follow CBC (18) DVT prophylaxis: Auto anticoagulated due to cirrhosis . Patient is conditional code -previously confirmed with patient with daughter present and & son on the phone. Would like compressions and shocks, but no intubation Palliative care consultation appreciated Disposition- appreciate PT/OT evaluations, patient would like to go to rehab. Her first choice is [facility] and second choice would be somewhere in [place] such as [facility] or [facility]. Awaiting final placement approval Admission and Anticipated Discharge Date Admission Date: October 04, 2020 Subjective Patient still having lower extremity edema. Denies shortness of breath. Denies cough. Not eating well -- says food does not taste good. No other complaints. Review of Systems Constitutional: no fever, no chills, no fatigue, no weakness, no anorexia, no weight loss and no weight gain Ear, Nose, Mouth, Throat: no nasal congestion, no sore throat and no dysphagia Respiratory: no cough and no dyspnea Cardiovascular: + edema; no chest pain, no dyspnea on exertion, no orthopnea and no palpitations Gastrointestinal: no abdominal pain, no nausea, no vomiting, no hematemesis, no dysphagia, no constipation, no diarrhea/loose stools, no blood in stools and no melena Genitourinary: no dysuria, no urinary frequency, no hematuria and no flank pain Musculoskeletal: no back pain, no joint pain, no myalgia and no muscle weakness Integumentary: no rash, no lesions, no skin ulcer, no erythema, no dry skin and no pruritus Neurologic: no falls, no localized weakness, no generalized weakness, no numbness, no paresthesia, no tremor(s) and no headache(s) Psychiatric: no depression, no suicidal ideation, no homicidal ideation and no anxiety Endocrine: no cold intolerance and no heat intolerance Hematologic / Lymphatic: no easy bleeding and no easy bruising Physical Exam Constitutional: well developed and well nourished; no acute distress Eyes: PERRL, conjunctivae normal, anicteric sclerae ENMT: Mouth: oral mucous membranes not dry Respiratory: normal respiratory effort; no respiratory distress and no labored breathing Auscultation: lungs clear to auscultation bilaterally; no crackles, no rales, no rhonchi and no wheezes Cardiovascular: Rate/Rhythm: regular rate and regular rhythm Heart Sounds: no murmur and no cardiac rub Vessels: normal peripheral pulses and radial pulses present; no JVD Extremities: + edema Gastrointestinal (Abdomen): Inspection/Auscultation: abdomen normal to inspection and normal bowel sounds; abdomen not distended Percussion/Palpatio n: abdomen soft; abdomen nontender, no guarding, abdomen not rigid and no hepatosplenomegaly Musculoskeletal: Head/Neck/Chest: normocephalic and head atraumatic Spine: no cervical spinal tenderness, no cervical muscular tenderness, no thoracic spinal tenderness and no lumbar spinal tenderness Skin: no rashes, warm and dry Neurologic: CN's II-XI intact bilaterally and moves all extremities Motor/Sensory: no tremor and no sensory deficit Psychiatric: Orientation: alert, oriented to person, oriented to place and ed ented to time Apperance: appropriately groomed; not disheveled Affect: euthymic affect; no anxious affect and no tearful affect Genitourinary: no CVA tenderness Results & Data Results & Data ([facility]) Vital Signs (Past 12 Hours) Vital Signs Temp Pulse Resp BP Pulse Ox 10/13/20 07:11 36.6 C 79 16 100/58 L 94 10/12/20 23:16 36.3 C L 75 19 91/54 L 95 10/12/20 21:16 36.4 C L 96 H 18 105/64 96 10/12/20 21:15 86 Laboratory Results Abnormal lab results 10/13/20 10/13/20 Range/Units 05:49 05:49 WBC 3.14 L (4.8-10.8) K/uL RBC 3.00 L (4.2-5.4) M/uL Hgb 8.1 L (12.0-16.0) g/dL Hct 25.2 L (37-47) % RDW Std Deviation 63.4 H (36.4-46.3) fL RDW Coeff of Flower 20.9 H (11.5-14.5) % Plt Count 92 L (130-400) K/uL Lymph # (Auto) 0.65 L (1.2-3.4) K/uL Sodium 127 L (136-145) mmol/L Chloride 94 L (98-107) mmol/L BUN 48 H (7-18) mg/dl Creatinine 1.76 H (0.6-1.2) mg/dl BUN/Creatinine Ratio 27.0 H (10-20) Calcium 7.4 L (8.5-10.1) mg/dl Magnesium 2.5 H (1.8-2.4) mg/dl Medications Administered Current Inpatient Medications Acetaminophen (Acetaminophen 325 Mg Tab) 650 mg PO Q6H PRN PRN Reason: pain/fever Stop: 11/03/20 21:33 Last Admin: 10/10/20 08:50 Dose: 650 mg Documented by: Fluticasone/Vilanterol (Fluticasone/Vilanterol 200/25mcg 14 Puffs/Inhaler) 1 puffs INH DAILY [facility] Stop: 11/08/20 08:59 Last Admin: 10/12/20 10:08 Dose: 1 puffs Documented by: Lorazepam (Lorazepam 0.5 Mg Tab) 0.5 mg PO BID PRN PRN Reason: Anxiety Stop: 11/07/20 23:49 Metoprolol Tartrate (Metoprolol Tartrate 25 Mg Tab) 25 mg PO BID [facility] Stop: 11/08/20 08:59 Last Admin: 10/12/20 21:14 Dose: Not Given Documented by: Miconazole Nitrate (Miconazole Nitrate Powder 43 Gm) 1 appln EXT PRN PRN PRN Reason: Affected Skin Folds Stop: 11/06/20 05:52 Last Admin: 10/09/20 10:47 Dose: 1 appln Documented by: Ondansetron HCl (Ondansetron Inj 2 Mg/Ml 2 Ml Vial) 4 mg IV Q4H PRN PRN Reason: Nausea Stop: 11/03/20 21:33 Pantoprazole Sodium (Pantoprazole 40 Mg Tab) 40 mg PO QAM [facility] Stop: 11/05/20 13:44 Last Admin: 10/12/20 10:08 Dose: 40 mg Documented by: Polyethylene Glycol (Polyethylene (Miralax) 17 Gm Pack) 17 gm PO DAILY PRN PRN Reason: Constipation Stop: 11/05/20 20:38 Last Admin: 10/06/20 21:41 Dose: 17 gm Documented by: Pramipexole Dihydrochloride (Pramipexole Dihydrochlo 0.25 Mg Tab) 0.25 mg PO HS RAJI Stop: 11/08/20 20:59 Last Admin: 10/12/20 21:14 Dose: 0.25 mg Documented by: Pravastatin Sodium (Pravastatin Sod 20 Mg Tab) 20 mg PO HS RAJI Stop: 11/08/20 20:59 Last Admin: 10/12/20 21:14 Dose: 20 mg Documented by: Torsemide (Torsemide 20 Mg Tab) 20 mg PO DAILY RAJI Stop: 11/12/20 08:59 Tramadol HCl (Tramadol Hcl 50 Mg Tablet) 50 mg PO Q6H PRN PRN Reason: Pain Stop: 11/09/20 13:14 Last Admin: 10/12/20 22:10 Dose: 50 mg Documented by: PG Care Time/CCT Total # of Minutes Spent Total Time Spent with Patient: Total time spent is greater than 50% in coordination of care (as documented) at patient's floor/unit and/or counseling patient: Coding Level of Care Code 32116 Subseq Hosp Care Lvl 3 Diagnoses Anasarca R60.1 Grade II diastolic dysfunction I51.9 Hyponatremia E87.1 Non-alcoholic cirrhosis K74.60 Rectus sheath hematoma S30.1XXD Encounter type: subsequent encounter Complicated UTI (urinary tract infection) N39.0 Left leg cellulitis L03.116 Acute blood loss anemia D62 Acute kidney failure N17.9 Acute renal failure type: unspecified Supratherapeutic INR R79.1 Hematemesis K92.0 Nausea presence: without nausea Pulmonary emboli I26.99 Acute cor pulmonale presence: unspecified Chronicity: acute Pulmonary embolism type: other Splenic vein thrombosis I82.890 Portal vein thrombosis I81 AMS (altered mental status) R41.82 Altered mental status type: unspecified Aortic stenosis I35.0 Cardiac valve disease etiology: etiology unspecified Pancytopenia D61.818 DVT prophylaxis Z29.9 (1) Acute kidney failure Acute renal failure type: unspecified Qualified Code(s): N17.9 - Acute kidney failure, unspecified (2) Aortic stenosis Cardiac valve disease etiology: etiology unspecified Qualified Code(s): I35.0 - Nonrheumatic aortic (valve) stenosis (3) AMS (altered mental status) Altered mental status type: unspecified Qualified Code(s): R41.82 - Altered mental status, unspecified (4) Pulmonary emboli Acute cor pulmonale presence: unspecified Chronicity: acute Pulmonary embolism type: other Qualified Code(s): I26.99 - Other pulmonary embolism without acute cor pulmonale (5) Hematemesis Nausea presence: without nausea Qualified Code(s): K92.0 - Hematemesis (6) Rectus sheath hematoma Encounter type: subsequent encounter Qualified Code(s): S30.1XXD - Contusion of abdominal wall, subsequent encounter
[2020-10-13] MEDS: FLUTICASONE/VILANTEROL 200/25MCG 14 PUFFS/INHALER INH SCH (09:21)
[2020-10-13] MEDS: METOPROLOL TARTRATE 25 MG TAB PO SCH ×2 (09:21→15:42)
[2020-10-13] MEDS: PANTOprazole 40 MG TAB PO SCH (09:21)
[2020-10-13] MEDS: TORSEMIDE 20 MG TAB PO SCH (09:21)
[2020-10-13] MEDS ORDERED: TORSEMIDE 10 MG TAB PO ONE (14:42)
[2020-10-13 15:42] LABS: BUN Creatinine Ratio 25.3 (10-20); Calcium 7.5 mg/dl (8.5-10.1); Creatinine Clr Calc Pharmacy 31.8 ml/min; Est GFR (African American) 31.4; Est GFR (Non-African American) 27.1; Potassium 4.1 mmol/L (3.5-5.1)
[2020-10-13] MEDS: PRAMIPEXOLE DIHYDROCHLO 0.25 MG TAB PO SCH (20:04)
[2020-10-13] MEDS: PRAVASTATIN SOD 20 MG TAB PO SCH (20:05)
[2020-10-13] MEDS: traMADol HCL 50 MG TABLET PO PRN (23:19)
[2020-10-14 06:25] LABS: Hematocrit (blood only) 25.2 % (37-47); Hemoglobin 8.3 g/dL (12.0-16.0); Mean Corpuscular Hemoglobin 27.6 pg (25-34); Mean Corpuscular Hgb Conc 32.9 g/dL (32-36); Mean Corpuscular Volume 83.7 fL (80-100); RDW Coefficient of Variation 21.3 % (11.5-14.5); RDW Standard Deviation 63.5 fL (36.4-46.3); Red Blood Count 3.01 M/uL (4.2-5.4)
[2020-10-14 06:29] LABS: Mean Platelet Volume 9.2 fL (7.4-10.4); Platelet Count 92 K/uL (130-400)
[2020-10-14 07:08] LABS: Calcium 7.5 mg/dl (8.5-10.1); Creatinine Clr Calc Pharmacy 33.1 ml/min; Est GFR (African American) 33.4; Est GFR (Non-African American) 28.8; Potassium 3.9 mmol/L (3.5-5.1)
--- NOTE | 2020-10-14 07:25 | Hospitalist Progress Note ---
Date of Service October 14, 2020 Assessment & Plan (1) Anasarca: With massive lower extremity edema and ascites in the abdomen as well. Slightly improved since restarting diuretics Albumin only 1.7-severely low 10-11 gave albumin infusion Encouraged p.o. intake of high protein diet Diuresing torsemide 20mg BID, off aldactone (2) Grade II diastolic dysfunction: lower extremity edema likely 2' to cirrhosis, hypoalbuminemia and HFpEF, stage 2 diastolic 10-12 switch from lasix 40mg daily to torsemide 20mg BID for better absorption strict ins and outs daily weights 10-12 98.7kg 10-13 100.6kg! 10-14 98.8kg (3) Hyponatremia: Baseline normal Na. Sodium improved initially with volume resuscitation Initially on aldactone 50mg and lasix 40mg, sodium trending back down likely combination of poor PO intake as well as hypervolemia Attempting to diurese 10-13 sodium worse 127 stopping aldactone due to hyponatremia, cont torsemide 20mg bid 10-14 sodium 128, not much improvement. 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 Badillo of [facility] who is consulted -Restarted Spironolactone 50mg daily, Loop diuretic as well -Could consider adding on rifaximin or lactulose as needed EGD without varices, but with portal hypertensive gastropathy in the stomach Continue to follow-up as an outpatient with GI for her cirrhosis (5) Rectus sheath hematoma: CT a/p on 10/04 showed development of an 11.8 x 5.0 x 3.4 cm left rectus sheath hematoma. Occurred possibly secondary to being lifted by ore grader at home versus retching from vomiting 2 days prior to admission - Hgb dropped down from 9.9 to 6.8 morning after admission. Received transfusion of 2 units PRBCs and now hemoglobin stable. 10-05 Transfused 2 units PRBCs Hg stable since 10-05 Remains off Coumadin No need for surgical intervention unless signs of infection or enlargement Tramadol as needed discomfort (6) Complicated UTI (urinary tract infection): 10-04 urine culture with > 100,000 CFU e. coli pansensitive 10-04 started rocephin 10-08 narrowed coverage to keflex - completed 7 days antibx 10-12 stop keflex (7) Left leg cellulitis: Left heel has a small ulcer with broken skin. Left ankle and puri are warmer and tender to palpation along with mild erythema-improving Treated with ceftriaxone and keflex 7 days (8) Acute blood loss anemia: Hemorrhagic discord due to intrinsic circulating anticoagulants in the setting of coumadin use and vitamin K reversal agent Hemoglobin drop as above down to 6.8 secondary to GI bleeding with hematemesis as well as rectus sheath hematoma with INR 9.7 on admission Transfused 2 units PRBCs on 10/05 Hemoglobin now stable. Coumadin reversed with vitamin K and Kcentra on admission. INR now elevated due to auto anticoagulation from underlying cirrhosis. Coumadin discontinued indefinitely. EGD with portal hypertensive gastropathy, no evidence of acute bleeding-on Protonix GI recommends holding anticoagulation indefinitely. She is now auto anticoagulated due to underlying cirrhosis. (9) Acute kidney failure: Baseline Cr ~1.4, CKD Stage III. - with Cr up to 1.9 on admission, likely from overdiuresis. Was given gentle IV fluids initially and 2 units PRBCs Have since restarted diuretics - Creatinine up again, give albumin Follow BMP (10) Supratherapeutic INR: INR was 3.1 on 09/29, but then >9.7 upon admission Family brought in medication list from home and as per nursing report, Coumadin was listed as being taken twice daily-this may have been the reason for the significant elevation in INR - Vitamin K oral and IV given by the ED - PCC given - Monitor INR was down to 1.3 but now increased without Coumadin due to underlying liver disease. Follow INR daily Coumadin discontinued indefinitely (11) Hematemesis: With one episode of suspected hematemesis prior to admission With hx of cirrhosis, there was initial concern for variceal bleed versus PUD No further hematemesis or melena since admission Hemoglobin did drop due to a combination of GI bleeding and rectus sheath hematoma Was initially on PPI drip and octreotide drip EGD completed. No active bleeding. Portal hypertensive gastropathy noted -Continue Protonix -GI rec'd to stay off coumadin indefinitely (12) Pulmonary emboli: CTA chest in 08/2020 showed RLL PE. 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 -Coumadin discontinued in setting of rectus sheath hematoma (14) Portal vein thrombosis: Coumadin discontinued by GI (15) AMS (altered mental status): Acute metabolic encephalopathy upon admission likely due to hypotension from acute blood loss anemia as well as possibly from UTI and kidney failure - Ammonia only 19. Now resolved with volume resuscitation and blood transfusion (16) Aortic stenosis: Moderate on echocardiogram Follow as an outpatient (17) Pancytopenia: Pancytopenia secondary to cirrhosis and splenomegaly Follow CBC (18) DVT prophylaxis: Auto anticoagulated due to cirrhosis . Patient is conditional code -previously confirmed with patient with daughter present and & son on the phone. Would like compressions and shocks, but no intubation Palliative care consultation appreciated Disposition- appreciate PT/OT evaluations, patient would like to go to rehab. Was accepted at [facility] Admission and Anticipated Discharge Date Admission Date: October 04, 2020 Subjective Patient doing well, eager for discharge. No abdominal pain. No nausea or vomiting. Enjoyed her breakfast. Happy to be off the sodium restricted diet. Denies sob, denies dizziness. Feels her LE edema is improving minimally. Making plenty of urine. Does not feel her ascites are reaccumulating. Review of Systems Constitutional: no fever, no chills, no fatigue, no weakness, no anorexia, no weight loss and no weight gain Ear, Nose, Mouth, Throat: no nasal congestion, no sore throat and no dysphagia Respiratory: no cough and no dyspnea Cardiovascular: + edema; no chest pain, no dyspnea on exertion, no orthopnea and no palpitations Gastrointestinal: no abdominal pain, no nausea, no vomiting, no hematemesis, no dysphagia, no constipation, no diarrhea/loose stools, no blood in stools and no melena Genitourinary: no dysuria, no urinary frequency, no hematuria and no flank pain Musculoskeletal: no back pain, no joint pain, no myalgia and no muscle weakness Integumentary: no rash, no lesions, no skin ulcer, no erythema, no dry skin and no pruritus Neurologic: no falls, no localized weakness, no generalized weakness, no numbness, no paresthesia, no tremor(s) and no headache(s) Psychiatric: no depression, no suicidal ideation, no homicidal ideation and no anxiety Endocrine: no cold intolerance and no heat intolerance Hematologic / Lymphatic: no easy bleeding and no easy bruising Physical Exam Constitutional: well developed and well nourished; no acute distress Eyes: PERRL, conjunctivae normal, anicteric sclerae ENMT: Mouth: oral mucous membranes not dry Respiratory: normal respiratory effort; no respiratory distress and no labored breathing Auscultation: lungs clear to auscultation bilaterally; no crackles, no rales, no rhonchi and no wheezes Cardiovascular: Rate/Rhythm: regular rate and regular rhythm Heart Sounds: no murmur and no cardiac rub Vessels: normal peripheral pulses and radial pulses present; no JVD Extremities: + edema Gastrointestinal (Abdomen): Inspection/Auscultation: abdomen normal to inspection and normal bowel sounds; abdomen not distended Percussion/Palpation: abdomen soft; abdomen nontender, no guarding, abdomen not rigid and no hepatosplenomegaly Musculoskeletal: Head/Neck/Chest: normocephalic and head atraumatic Spine: no cervical spinal tenderness, no cervical muscular tenderness, no thoracic spinal tenderness and no lumbar spinal tenderness Skin: no rashes, warm and dry Neurologic: CN's II-XI intact bilaterally and moves all extremities Motor/Sensory: no tremor and no sensory deficit Psychiatric: Orientation: alert, oriented to person, oriented to place and oriented to time Apperance: appropriately groomed; not disheveled Affect: euthymic affect; no anxious affect and no tearful affect Genitourinary: no CVA tenderness Results & Data Results & Data ([facility]) Vital Signs (Past 12 Hours) Vital Signs Temp Pulse Resp BP Pulse Ox 10/14/20 07:05 36.5 C 79 18 104/60 95 10/14/20 00:08 36.6 C 80 14 101/61 94 Laboratory Results Abnormal lab results 10/13/20 10/14/20 10/14/20 Range/Units 14:46 05:36 05:36 WBC 2.80 L (4.8-10.8) K/uL RBC 3.01 L (4.2-5.4) M/uL Hgb 8.3 L (12.0-16.0) g/dL Hct 25.2 L (37-47) % RDW Std Deviation 63.5 H (36.4-46.3) fL RDW Coeff of Flower 21.3 H (11.5-14.5) % Plt Count 92 L (130-400) K/uL Sodium 128 L 128 L (136-145) mmol/L Chloride 96 L 95 L (98-107) mmol/L BUN 46 H 50 H (7-18) mg/dl Creatinine 1.82 H 1.73 H (0.6-1.2) mg/dl BUN/Creatinine Ratio 25.3 H 29.0 H (10-20) Glucose 126 H (70-99) mg/dl Calcium 7.5 L 7.5 L (8.5-10.1) mg/dl Medications Administered Current Inpatient Medications Acetaminophen (Acetaminophen 325 Mg Tab) 650 mg PO Q6H PRN PRN Reason: pain/fever Stop: 11/03/20 21:33 Last Admin: 10/10/20 08:50 Dose: 650 mg Documented by: Fluticasone/Vilanterol (Fluticasone/Vilanterol 200/25mcg 14 Puffs/Inhaler) 1 puffs INH DAILY [facility] Stop: 11/08/20 08:59 Last Admin: 10/13/20 09:21 Dose: 1 puffs Documented by: Lorazepam (Lorazepam 0.5 Mg Tab) 0.5 mg PO BID PRN PRN Reason: Anxiety Stop: 11/07/20 23:49 Last Admin: 10/13/20 23:19 Dose: 0.5 mg Documented by: Metoprolol Tartrate (Metoprolol Tartrate 25 Mg Tab) 25 mg PO BID [facility] Stop: 11/08/20 08:59 Last Admin: 10/13/20 15:42 Dose: Not Given Documented by: Miconazole Nitrate (Miconazole Nitrate Powder 43 Gm) 1 appln EXT PRN PRN PRN Reason: Affected Skin Folds Stop: 11/06/20 05:52 Last Admin: 10/09/20 10:47 Dose: 1 appln Documented by: Ondansetron HCl (Ondansetron Inj 2 Mg/Ml 2 Ml Vial) 4 mg IV Q4H PRN PRN Reason: Nausea Stop: 11/03/20 21:33 Pantoprazole Sodium (Pantoprazole 40 Mg Tab) 40 mg PO QAM RAJI Stop: 11/05/20 13:44 Last Admin: 10/13/20 09:21 Dose: 40 mg Documented by: Polyethylene Glycol (Polyethylene (Miralax) 17 Gm Pack) 17 gm PO DAILY PRN PRN Reason: Constipation Stop: 11/05/20 20:38 Last Admin: 10/06/20 21:41 Dose: 17 gm Documented by: Pramipexole Dihydrochloride (Pramipexole Dihydrochlo 0.25 Mg Tab) 0.25 mg PO HS RAJI Stop: 11/08/20 20:59 Last Admin: 10/13/20 20:04 Dose: 0.25 mg Documented by: Pravastatin Sodium (Pravastatin Sod 20 Mg Tab) 20 mg PO HS RAJI Stop: 11/08/20 20:59 Last Admin: 10/13/20 20:05 Dose: 20 mg Documented by: Torsemide (Torsemide 20 Mg Tab) 20 mg PO DAILY RAJI Stop: 11/12/20 08:59 Last Admin: 10/13/20 09:21 Dose: 20 mg Documented by: Tramadol HCl (Tramadol Hcl 50 Mg Tablet) 50 mg PO Q6H PRN PRN Reason: Pain Stop: 11/09/20 13:14 Last Admin: 10/13/20 23:19 Dose: 50 mg Documented by: PG Care Time/CCT Total # of Minutes Spent Total Time Spent with Patient: Total time spent is greater than 50% in coordination of care (as documented) at patient's floor/unit and/or counseling patient: Coding Level of Care Code 26803 Subseq Hosp Care Lvl 3 Diagnoses Anasarca R60.1 Grade II diastolic dysfunction I51.9 Hyponatremia E87.1 Non-alcoholic cirrhosis K74.60 Rectus sheath hematoma S30.1XXD Encounter type: subsequent encounter Complicated UTI (urinary tract infection) N39.0 Left leg cellulitis L03.116 Acute blood loss anemia D62 Acute kidney failure N17.9 Acute renal failure type: unspecified Supratherapeutic INR R79.1 Hematemesis K92.0 Nausea presence: without nausea Pulmonary emboli I26.99 Acute cor pulmonale presence: unspecified Chronicity: acute Pulmonary embolism type: other Splenic vein thrombosis I82.890 Portal vein thrombosis I81 AMS (altered mental status) R41.82 Altered mental status type: unspecified Aortic stenosis I35.0 Cardiac valve disease etiology: etiology unspecified Pancytopenia D61.818 DVT prophylaxis Z29.9 (1) Acute kidney failure Acute renal failure type: unspecified Qualified Code(s): N17.9 - Acute kidney failure, unspecified (2) Aortic stenosis Cardiac valve disease etiology: etiology unspecified Qualified Code(s): I35.0 - Nonrheumatic aortic (valve) stenosis (3) AMS (altered mental status) Altered mental status type: unspecified Qualified Code(s): R41.82 - Altered mental status, unspecified (4) Pulmonary emboli Acute cor pulmonale presence: unspecified Chronicity: acute Pulmonary embolism type: other Qualified Code(s): I26.99 - Other pulmonary embolism without acute cor pulmonale (5) Hematemesis Nausea presence: without nausea Qualified Code(s): K92.0 - Hematemesis (6) Rectus sheath hematoma Encounter type: subsequent encounter Qualified Code(s): S30.1XXD - Contusion of abdominal wall, subsequent encounter
[2020-10-14] MEDS: TORSEMIDE 20 MG TAB PO SCH (08:03)
[2020-10-14] MEDS: FLUTICASONE/VILANTEROL 200/25MCG 14 PUFFS/INHALER INH SCH (08:03)
[2020-10-14] MEDS: PANTOprazole 40 MG TAB PO SCH (08:03)
[2020-10-14] MEDS: METOPROLOL TARTRATE 25 MG TAB PO SCH ×2 (08:03→20:42)
[2020-10-14] MEDS ORDERED: TORSEMIDE 10 MG TAB PO ONE (14:00)
[2020-10-14] MEDS: PRAVASTATIN SOD 20 MG TAB PO SCH (20:42)
[2020-10-14] MEDS: PRAMIPEXOLE DIHYDROCHLO 0.25 MG TAB PO SCH (20:42)
[2020-10-15 06:25] LABS: Hematocrit (blood only) 25.2 % (37-47); Hemoglobin 8.4 g/dL (12.0-16.0); Mean Corpuscular Hemoglobin 27.8 pg (25-34); Mean Corpuscular Hgb Conc 33.3 g/dL (32-36); Mean Corpuscular Volume 83.4 fL (80-100); Mean Platelet Volume 9.5 fL (7.4-10.4); Platelet Count 100 K/uL (130-400); RDW Coefficient of Variation 21.4 % (11.5-14.5); RDW Standard Deviation 65.1 fL (36.4-46.3); Red Blood Count 3.02 M/uL (4.2-5.4); White Blood Count 3.52 K/uL (4.8-10.8)
[2020-10-15 06:56] LABS: BUN Creatinine Ratio 31.3 (10-20); Calcium 7.4 mg/dl (8.5-10.1); Creatinine Clr Calc Pharmacy 34.4 ml/min; Est GFR (African American) 35.1; Est GFR (Non-African American) 30.3; Magnesium 2.7 mg/dl (1.8-2.4); Phosphorus 3.5 mg/dl (2.5-4.9); Potassium 4.3 mmol/L (3.5-5.1)
[2020-10-15] MEDS: FLUTICASONE/VILANTEROL 200/25MCG 14 PUFFS/INHALER INH SCH (09:41)
[2020-10-15] MEDS: TORSEMIDE 20 MG TAB PO SCH (09:41)
[2020-10-15] MEDS: PANTOprazole 40 MG TAB PO SCH (09:41)
[2020-10-15] MEDS: METOPROLOL TARTRATE 25 MG TAB PO SCH ×2 (09:42→20:01)
[2020-10-15] MEDS ORDERED: TORSEMIDE 10 MG TAB PO ONE (10:04)
--- NOTE | 2020-10-15 10:04 | Hospitalist Progress Note ---
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 Badillo EGD without varices, but with portal hypertensive gastropathy in the stomach Continue to follow-up as an outpatient with GI for her cirrhosis (2) Ascites: 10-15 massive ascites with abdominal pain ordered US guided para for morning not on anticoagulants due to rectus sheath hematoma (see below) stopped aldactone due to hyponatremia, cont torsemide regimen (3) Anasarca: With massive lower extremity edema and ascites in the abdomen as well. Slightly improved since restarting diuretics Albumin only 1.7-severely low 10-11 gave albumin infusion 10-15 Diuresing with torsemide 40mg am, 20mg pm, off aldactone due to hyponatremia (4) Grade II diastolic dysfunction: lower extremity edema likely 2' to cirrhosis, hypoalbuminemia and HFpEF, stage 2 diastolic 10-12 switch from lasix 40mg daily to torsemide 20mg BID for better absorption strict ins and outs daily weights 10-12 98.7kg 10-13 100.6kg! 10-14 98.8kg 10-15 98.7kg, NO improvement torsemide 20mg PO BID would be a good discharge regimen to maintain her weight once at dry weight for now increase to torsemide 40mg at 9am, torsemide 20mg at 3pm (5) Hyponatremia: 09-18-20 Baseline sodium 136 11--20 sodium 128 likely combination of poor PO intake as well as hypervolemia, so attempting to diurese aldactone 50mg and lasix 40mg 10-13 sodium worse 127 stopping aldactone due to hyponatremia, cont torsemide 20mg bid 10-14 sodium 128, not much improvement. stop low sodium diet, start 1500ml fluid restrictions 10-15 sodium 130, increasing torsemide 40mg am, 20mg pm Follow BMP (6) Rectus sheath hematoma: CT a/p on 10/04 showed development of an 11.8 x 5.0 x 3.4 cm left rectus sheath hematoma. Occurred possibly secondary to being lifted by interior plant caretaker at home versus retching from vomiting 2 days prior to admission - Hgb dropped down from 9.9 to 6.8 morning after admission. Received transfusion of 2 units PRBCs and now hemoglobin stable. 10-05 Transfused 2 units PRBCs Hg stable since 10-05 Remains off Coumadin No need for surgical intervention unless signs of infection or enlargement Tramadol as needed discomfort (7) Complicated UTI (urinary tract infection): 10-04 urine culture with > 100,000 CFU e. coli pansensitive - started rocephin 10-08 narrowed coverage to keflex - completed 7 days antibx - stop keflex (8) Left leg cellulitis: Left heel has a small ulcer with broken skin. Left ankle and puri are warmer and tender to palpation along with mild erythema-improving Treated with ceftriaxone and keflex 7 days (9) Acute blood loss anemia: Hemorrhagic discord due to intrinsic circulating anticoagulants in the setting of coumadin use and vitamin K reversal agent Hemoglobin drop as above down to 6.8 secondary to GI bleeding with hematemesis as well as rectus sheath hematoma with INR 9.7 on admission Transfused 2 units PRBCs on 10/05 Hemoglobin now stable. Coumadin reversed with vitamin K and Kcentra on admission. INR now elevated due to auto anticoagulation from underlying cirrhosis. Coumadin discontinued indefinitely. EGD with portal hypertensive gastropathy, no evidence of acute bleeding-on Protonix GI recommends holding anticoagulation indefinitely. She is now auto anticoagulated due to underlying cirrhosis. (10) Acute kidney failure: Baseline Cr ~1.4, CKD Stage III. - with Cr up to 1.9 on admission, likely from overdiuresis. Was given gentle IV fluids initially and 2 units PRBCs Have since restarted diuretics 10-11 Creatinine up again, give albumin Follow BMP (11) Supratherapeutic INR: INR was 3.1 on 09/29, but then >9.7 upon admission Family brought in medication list from home and as per nursing report, Coumadin was listed as being taken twice daily-this may have been the reason for the significant elevation in INR - Vitamin K oral and IV given by the ED - PCC given - Monitor INR was down to 1.3 but now increased without Coumadin due to underlying liver disease. Follow INR daily Coumadin discontinued indefinitely (12) Hematemesis: With one episode of suspected hematemesis prior to admission With hx of cirrhosis, there was initial concern for variceal bleed versus PUD No further hematemesis or melena since admission Hemoglobin did drop due to a combination of GI bleeding and rectus sheath hematoma Was initially on PPI drip and octreotide drip EGD completed. No active bleeding. Portal hypertensive gastropathy noted -Continue Protonix -GI rec'd to stay off coumadin indefinitely (13) Pulmonary emboli: CTA chest in 08/2020 showed RLL PE. -As above, reversed warfarin due to rectus sheath hematoma and GI bleeding - Vascular surgery consult for possible IVC filter-recommends only placing filter if has evidence of DVTs-Doppler negative for DVT of the lower extremities (14) Splenic vein thrombosis: Also diagnosed in 08/2020. -Coumadin discontinued in setting of rectus sheath hematoma (15) Portal vein thrombosis: Coumadin discontinued by GI (16) AMS (altered mental status): Acute metabolic encephalopathy upon admission likely due to hypotension from acute blood loss anemia as well as possibly from UTI and kidney failure - Ammonia only 19. Now resolved with volume resuscitation and blood transfusion (17) Aortic stenosis: Moderate on echocardiogram Follow as an outpatient (18) Pancytopenia: Pancytopenia secondary to cirrhosis and splenomegaly Follow CBC (19) DVT prophylaxis: Auto anticoagulated due to cirrhosis . Patient is conditional code -previously confirmed with patient with daughter present and & son on the phone. Would like compressions and shocks, but no intubation Palliative care consultation appreciated Disposition- appreciate PT/OT evaluations, patient would like to go to rehab. Was accepted at [facility] Admission and Anticipated Discharge Date Admission Date: October 04, 2020 Subjective Angelica happy with change to regular diet -- she is eating more. She is having abdominal pain, worse over the past couple days. Endorses abdominal swelling worse than before. Leg swelling has not improved. Difficulty standing up. States she feels "disgusted" over all. Review of Systems Constitutional: no fever, no chills, no fatigue, no weakness, no anorexia, no weight loss and no weight gain Ear, Nose, Mouth, Throat: no nasal congestion, no sore throat and no dysphagia Respiratory: no cough and no dyspnea Cardiovascular: + edema; no chest pain, no dyspnea on exertion, no orthopnea and no palpitations Gastrointestinal: + abdominal pain; no nausea, no vomiting, no hematemesis, no dysphagia, no constipation, no diarrhea/loose stools, no blood in stools and no melena Genitourinary: no dysuria, no urinary frequency, no hematuria and no flank pain Musculoskeletal: no back pain, no joint pain, no myalgia and no muscle weakness Integumentary: no rash, no lesions, no skin ulcer, no erythema, no dry skin and no pruritus Neurologic: no falls, no localized weakness, no generalized weakness, no numbness, no paresthesia, no tremor(s) and no headache(s) Psychiatric: no depression, no suicidal ideation, no homicidal ideation and no anxiety Endocrine: no cold intolerance and no heat intolerance Hematologic / Lymphatic: no easy bleeding and no easy bruising Physical Exam Constitutional: well developed and well nourished; no acute distress Eyes: PERRL, conjunctivae normal, anicteric sclerae ENMT: Mouth: oral mucous membranes not dry Respiratory: normal respiratory effort; no respiratory distress and no labored breathing Auscultation: lungs clear to auscultation bilaterally; no crackles, no rales, no rhonchi and no wheezes Cardiovascular: Rate/Rhythm: regular rate and regular rhythm Heart Sounds: no murmur and no cardiac rub Vessels: normal peripheral pulses and radial pulses present; no JVD Extremities: + edema Gastrointestinal (Abdomen): Inspection/Auscultation: + abdomen distended and normal bowel sounds; + abdomen abnormal to inspection Percussion/Palpation: abdomen soft, + ascites and + fluid wave; abdomen nontender, no guarding, abdomen not rigid and no hepatosplenomegaly Musculoskeletal: Head/Neck/Chest: normocephalic and head atraumatic Spine: no cervical spinal tenderness, no cervical muscular tenderness, no thoracic spinal tenderness and no lumbar spinal tenderness Skin: no rashes, warm and dry Neurologic: CN's II-XI intact bilaterally and moves all extremities Motor/Sensory: no tremor and no sensory deficit Psychiatric: Orientation: alert, oriented to person, oriented to place and oriented to time Apperance: appropriately groomed; not disheveled Affect: euthymic affect; no anxious affect and no tearful affect Genitourinary: no CVA tenderness Results & Data Results & Data ([facility]) Vital Signs (Past 12 Hours) Vital Signs Temp Pulse Resp BP Pulse Ox 10/15/20 07:17 36.4 C L 82 18 119/68 95 10/14/20 23:14 36.5 C 84 14 102/64 96 Laboratory Results Abnormal lab results 10/15/20 10/15/20 Range/Units 05:29 05:29 WBC 3.52 L (4.8-10.8) K/uL RBC 3.02 L (4.2-5.4) M/uL Hgb 8.4 L (12.0-16.0) g/dL Hct 25.2 L (37-47) % RDW Std Deviation 65.1 H (36.4-46.3) fL RDW Coeff of Flwoer 21.4 H (11.5-14.5) % Plt Count 100 L (130-400) K/uL Sodium 130 L (136-145) mmol/L Chloride 97 L (98-107) mmol/L BUN 52 H (7-18) mg/dl Creatinine 1.66 H (0.6-1.2) mg/dl BUN/Creatinine Ratio 31.3 H (10-20) Calcium 7.4 L (8.5-10.1) mg/dl Magnesium 2.7 H (1.8-2.4) mg/dl Medications Administered Current Inpatient Medications Acetaminophen (Acetaminophen 325 Mg Tab) 650 mg PO Q6H PRN PRN Reason: pain/fever Stop: 11/03/20 21:33 Last Admin: 10/10/20 08:50 Dose: 650 mg Documented by: Fluticasone/Vilanterol (Fluticasone/Vilanterol 200/25mcg 14 Puffs/Inhaler) 1 puffs INH DAILY [facility] Stop: 11/08/20 08:59 Last Admin: 10/15/20 09:41 Dose: 1 puffs Documented by: Lorazepam (Lorazepam 0.5 Mg Tab) 0.5 mg PO BID PRN PRN Reason: Anxiety Stop: 11/07/20 23:49 Last Admin: 10/13/20 23:19 Dose: 0.5 mg Documented by: Metoprolol Tartrate (Metoprolol Tartrate 25 Mg Tab) 25 mg PO BID [facility] Stop: 11/08/20 08:59 Last Admin: 10/15/20 09:42 Dose: 25 mg Documented by: Miconazole Nitrate (Miconazole Nitrate Powder 43 Gm) 1 appln EXT PRN PRN PRN Reason: Affected Skin Folds Stop: 11/06/20 05:52 Last Admin: 10/09/20 10:47 Dose: 1 appln Documented by: Ondansetron HCl (Ondansetron Inj 2 Mg/Ml 2 Ml Vial) 4 mg IV Q4H PRN PRN Reason: Nausea Stop: 11/03/20 21:33 Pantoprazole Sodium (Pantoprazole 40 Mg Tab) 40 mg PO QAM RAJI Stop: 11/05/20 13:44 Last Admin: 10/15/20 09:41 Dose: 40 mg Documented by: Polyethylene Glycol (Polyethylene (Miralax) 17 Gm Pack) 17 gm PO DAILY PRN PRN Reason: Constipation Stop: 11/05/20 20:38 Last Admin: 10/06/20 21:41 Dose: 17 gm Documented by: Pramipexole Dihydrochloride (Pramipexole Dihydrochlo 0.25 Mg Tab) 0.25 mg PO HS RAJI Stop: 11/08/20 20:59 Last Admin: 10/14/20 20:42 Dose: 0.25 mg Documented by: Pravastatin Sodium (Pravastatin Sod 20 Mg Tab) 20 mg PO HS [facility] Stop: 11/08/20 20:59 Last Admin: 10/14/20 20:42 Dose: 20 mg Documented by: Torsemide (Torsemide 20 Mg Tab) 20 mg PO DAILY [facility] Stop: 11/12/20 08:59 Last Admin: 10/15/20 09:41 Dose: 20 mg Documented by: Tramadol HCl (Tramadol Hcl 50 Mg Tablet) 50 mg PO Q6H PRN PRN Reason: Pain Stop: 11/09/20 13:14 Last Admin: 10/13/20 23:19 Dose: 50 mg Documented by: PG Care Time/CCT Total # of Minutes Spent Total Time Spent with Patient: Total time spent is greater than 50% in coordination of care (as documented) at patient's floor/unit and/or counseling patient: Coding Level of Care Code 75201 Subseq Hosp Care Lvl 3 Diagnoses Non-alcoholic cirrhosis K74.60 Ascites K70.31 Ascites type: due to alcoholic cirrhosis Anasarca R60.1 Grade II diastolic dysfunction I51.9 Hyponatremia E87.1 Rectus sheath hematoma S30.1XXD Encounter type: subsequent encounter Complicated UTI (urinary tract infection) N39.0 Left leg cellulitis L03.116 Acute blood loss anemia D62 Acute kidney failure N17.9 Acute renal failure type: unspecified Supratherapeutic INR R79.1 Hematemesis K92.0 Nausea presence: without nausea Pulmonary emboli I26.99 Acute cor pulmonale presence: unspecified Chronicity: acute Pulmonary embolism type: other Splenic vein thrombosis I82.890 Portal vein thrombosis I81 AMS (altered mental status) R41.82 Altered mental status type: unspecified Aortic stenosis I35.0 Cardiac valve disease etiology: etiology unspecified Pancytopenia D61.818 DVT prophylaxis Z29.9 (1) Acute kidney failure Acute renal failure type: unspecified Qualified Code(s): N17.9 - Acute kidney failure, unspecified (2) Aortic stenosis Cardiac valve disease etiology: etiology unspecified Qualified Code(s): I35.0 - Nonrheumatic aortic (valve) stenosis (3) AMS (altered mental status) Altered mental status type: unspecified Qualified Code(s): R41.82 - Altered mental status, unspecified (4) Pulmonary emboli Acute cor pulmonale presence: unspecified Chronicity: acute Pulmonary embolism type: other Qualified Code(s): I26.99 - Other pulmonary embolism without acute cor pulmonale (5) Hematemesis Nausea presence: without nausea Qualified Code(s): K92.0 - Hematemesis (6) Rectus sheath hematoma Encounter type: subsequent encounter Qualified Code(s): S30.1XXD - Contusion of abdominal wall, subsequent encounter (7) Ascites Ascites type: due to alcoholic cirrhosis Qualified Code(s): K70.31 - Alcoholic cirrhosis of liver with ascites
[2020-10-15] MEDS ORDERED: TORSEMIDE 10 MG TAB PO SCH (15:00)
[2020-10-15] MEDS: PRAMIPEXOLE DIHYDROCHLO 0.25 MG TAB PO SCH (20:01)
[2020-10-15] MEDS: PRAVASTATIN SOD 20 MG TAB PO SCH (20:01)
[2020-10-16 07:05] LABS: Hemoglobin 8.6 g/dL (12.0-16.0); Mean Corpuscular Hemoglobin 27.8 pg (25-34); Mean Corpuscular Hgb Conc 33.1 g/dL (32-36); Mean Corpuscular Volume 84.1 fL (80-100); Mean Platelet Volume 9.4 fL (7.4-10.4); Platelet Count 106 K/uL (130-400); RDW Coefficient of Variation 21.7 % (11.5-14.5); RDW Standard Deviation 66.8 fL (36.4-46.3); Red Blood Count 3.09 M/uL (4.2-5.4); White Blood Count 3.14 K/uL (4.8-10.8)
[2020-10-16 07:38] LABS: BUN Creatinine Ratio 29.9 (10-20); Calcium 7.8 mg/dl (8.5-10.1); Creatinine Clr Calc Pharmacy 33.2 ml/min; Est GFR (African American) 33.1; Est GFR (Non-African American) 28.6; Magnesium 2.6 mg/dl (1.8-2.4); Phosphorus 3.5 mg/dl (2.5-4.9); Potassium 4.3 mmol/L (3.5-5.1)
[2020-10-16 08:59] LABS: INR 1.4 (0.9-1.1)
[2020-10-16] MEDS: FLUTICASONE/VILANTEROL 200/25MCG 14 PUFFS/INHALER INH SCH (09:26)
[2020-10-16] MEDS: METOPROLOL TARTRATE 25 MG TAB PO SCH ×2 (09:45→21:01)
[2020-10-16] MEDS: PANTOprazole 40 MG TAB PO SCH (09:46)
[2020-10-16] MEDS: TORSEMIDE 20 MG TAB PO SCH (09:46)
--- NOTE | 2020-10-16 11:21 | Hospitalist Progress Note ---
Date of Service October 16, 2020 Assessment & Plan (1) Non-alcoholic cirrhosis: * Not a candidate for liver transplant * Follows with Dr. Badillo * EGD without varices, but with portal hypertensive gastropathy in the stomach * Continue to follow-up as an outpatient with GI for her cirrhosis (2) Ascites: 10-15 massive ascites with abdominal pain * ordered US guided para for today * not on anticoagulants due to rectus sheath hematoma (see below) * stopped aldactone due to hyponatremia, cont torsemide regimen (increased to 40mg BID). could consider bumex for abd edema? --> Will add 1mg daily bumex given patient on that previous admission and unclear when discontinued (3) Anasarca: * With massive lower extremity edema and ascites in the abdomen as well. * Slightly improved since restarting diuretics * Albumin severely low * 10-11 gave albumin infusion * 10-15 Diuresing with torsemide 40mg am, 20mg pm, off aldactone due to hyponatremia * Increased torsemide to 40mg twice daily (will hold this evening's dose and given 1mg bumex as above, to be continued) (4) Grade II diastolic dysfunction: * lower extremity edema likely 2' to cirrhosis, hypoalbuminemia and HFpEF, stage 2 diastolic * 10-12 switch from lasix 40mg daily to torsemide 20mg BID for better absorption -- increased to 40mg BID * strict ins and outs * daily weights * -12 98.7kg * 11-13 100.6kg! * -14 98.8kg * -15 98.7kg, NO improvement * -16 weight 100.3kg! --> see torsemide/bumex as above * Continue to monitor -- torsemide 20mg PO BID would be a good discharge regimen to maintain her weight once at dry weight (5) Hyponatremia: * 09-18-20 with baseline sodium 136 * 11-4 Na 128 -- combination poor PO intake/hypervolemia * Aldactone has been discontinued due to such * Na low again today at 129 but will need to continue to monitor given increased diuresis as above * Continue 1500ml fluid restriction * BMP in AM (6) Rectus sheath hematoma: * CT a/p on 10/04 showed development of an 11.8 x 5.0 x 3.4 cm left rectus sheath hematoma. Occurred possibly secondary to being lifted by anesthetist at home versus retching from vomiting 2 days prior to admission * - Hgb dropped down from 9.9 to 6.8 morning after admission. Received transfusion of 2 units PRBCs and now hemoglobin stable. * Transfused 2 units PRBCs on 10/05 * H/h improved to 8.6 * Continues to remain off coumadin * No pain reported * Tramadol prn * CBC in AM (7) Complicated UTI (urinary tract infection): * 10-04 urine culture with > 100,000 CFU e. coli pansensitive * Started rocephin and transitioned to keflex 10/08 to complete 7 day course by 10/12 (8) Left leg cellulitis: * Left heel has a small ulcer with broken skin. Left ankle and puri are warmer and tender to palpation along with mild erythema-improving * Treated with ceftriaxone and keflex 7 days (9) Acute blood loss anemia: * Hemorrhagic discord due to intrinsic circulating anticoagulants in the setting of coumadin use and vitamin K reversal agent * Hemoglobin drop as above down to 6.8 secondary to GI bleeding with hematemesis as well as rectus sheath hematoma with INR 9.7 on admission * Transfused 2 units PRBCs on 10/05 * Hemoglobin now stable. * Coumadin reversed with vitamin K and Kcentra on admission. INR now elevated due to auto anticoagulation from underlying cirrhosis. Coumadin discontinued indefinitely. * EGD with portal hypertensive gastropathy, no evidence of acute bleeding-on Protonix * GI recommends holding anticoagulation indefinitely. She is now auto anticoagulated due to underlying cirrhosis (although INR only 1.4) * Will reach out to Dr. Webb given recent PE/clots in cancer patient * CBC/INR in AM (10) Acute kidney failure: * Baseline Cr ~1.4, CKD Stage III. * - with Cr up to 1.9 on admission, likely from overdiuresis. Was given gentle IV fluids initially and 2 units PRBCs * Have since restarted diuretics * Cr 1.74 athoughh continues to be hypervolemic on examination * Follow BMP (11) Supratherapeutic INR: INR was 3.1 on 09/29, but then >9.7 upon admission * Family brought in medication list from home and as per nursing report, Coumadin was listed as being taken twice daily-this may have been the reason for the significant elevation in INR * - Vitamin K oral and IV given by the ED * - PCC given * - Monitor INR was down to 1.3 but now increased without Coumadin due to underlying liver disease. * Follow INR daily -- currently 1.4. If able to restart (although GI rec not restarting, PE RLL Aug 2020) would need to follow closely with coag clinic at lower doses * Will reach out to Dr. Webb as above (12) Hematemesis: * With one episode of suspected hematemesis prior to admission * With hx of cirrhosis, there was initial concern for variceal bleed versus PUD * No further hematemesis or melena since admission * Hemoglobin did drop due to a combination of GI bleeding and rectus sheath hematoma * Was initially on PPI drip and octreotide drip * EGD completed. No active bleeding. Portal hypertensive gastropathy noted * -Continue Protonix * -GI rec'd to stay off coumadin indefinitely -- see above (13) Pulmonary emboli: * CTA chest in 08/2020 showed RLL PE. 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 * -Coumadin discontinued in setting of rectus sheath hematoma (15) Portal vein thrombosis: * Coumadin discontinued by GI (16) AMS (altered mental status): * Acute metabolic encephalopathy upon admission likely due to hypotension from acute blood loss anemia as well as possibly from UTI and kidney failure * - Ammonia only 19. * Now resolved with volume resuscitation and blood transfusion (17) Aortic stenosis: * Moderate on echocardiogram * Follow as an outpatient (18) Pancytopenia: * Pancytopenia secondary to cirrhosis and splenomegaly * Follow CBC (19) DVT prophylaxis: * Auto anticoagulated due to cirrhosis although INR subtherapeutic. INR in AM Patient is conditional code -previously confirmed with patient with daughter present and & son on the phone. Would like compressions and shocks, but no intubation Palliative care consultation appreciated Disposition- appreciate PT/OT evaluations, patient would like to go to rehab. Ref to [facility] for auth tomorrow Admission and Anticipated Discharge Date Admission Date: October 04, 2020 Subjective Patient evaluated this morning. Main complaint today is that her legs "feel like bricks" and are difficult to move around due to weight. She also is very thirsty and hungry for meatballs and spaghetti. We will continue diuretics. Per nursing, pt unable to tolerate SCDs due to pain. Currently awaiting paracentesis and we will order diet as soon as that completed. Belly less distended today and she did have a bowel movement this morning. No fever, chills, chest pain, shortness of breath, abdominal pain, nausea, vomiting, dysuria at this time. Review of Systems Review of Systems: All systems reviewed & are unremarkable except as noted in HPI & below Physical Exam Constitutional: well developed, well nourished, + ill appearing, + obese, cooperative and comfortable; no acute distress Eyes: PERRL, conjunctivae normal, anicteric sclerae + anicteric sclerae and EOM intact bilaterally; no conjunctival abnormality ENMT: Mouth: + dentition abnormality, + edentulous and + poor dentition Mallampati Class: II Neck: normal visual inspection and trachea midline; neck extension not limited Respiratory: normal respiratory effort, lungs clear to auscultation no labored breathing Auscultation: + diminished lung sounds Cardiovascular: Rate/Rhythm: regular rate and regular rhythm Heart Sounds: no murmur Vessels: normal peripheral pulses, dorsalis pedis pulses present an d radial pulses present; no JVD and no carotid bruit Extremities: normal capillary refill and + edema (2+ b/l LE) Chest (Breasts): Chest: normal inspection of chest Gastrointestinal (Abdomen): Inspection/Auscultation: + abdomen distended (less by report) and normal bowel sounds; + abdomen abnormal to inspection Percussion/Palpation: abdomen soft, + ascites and + fluid wave; abdomen nonte nder, no guarding, abdomen not rigid and no hepatosplenomegaly Musculoskeletal: Head/Neck/Chest: normocephalic and head atraumatic Extremities: extremities normal to inspection; no cyanosis and no clubbing Skin: no rashes, warm and dry + skin tightening, + jaundice, + erythema (Mild erythema and warmth of the left leg from the knee down improved) and + brittle hair Neurologic: CN's II-XI intact bilaterally, moves all extremities and awake; no focal motor deficits Psychiatric: A+Ox3, euthymic affect Apperance: appropriately groomed; not disheveled Affect: euthymic affect; no anxious affect and no tearful affect Insight: good insight Judgement: good judgement Genitourinary: no CVA tenderness Results & Data Results & Data ([facility]) Vital Signs (Past 12 Hours) Vital Signs Temp Pulse Resp BP Pulse Ox 10/16/20 09:20 80 96/59 L 10/16/20 07:11 36.4 C L 81 16 100/62 95 Laboratory Results 10/16/20 10/16/20 10/16/20 Range/Units 08:26 06:29 06:29 WBC 3.14 L (4.8-10.8) K/uL RBC 3.09 L (4.2-5.4) M/uL Hgb 8.6 L (12.0-16.0) g/dL Hct 26.0 L (37-47) % MCV 84.1 (80-100) fL MCH 27.8 (25-34) pg MCHC 33.1 (32-36) g/dL RDW Std Deviation 66.8 H (36.4-46.3) fL RDW Coeff of Flower 21.7 H (11.5-14.5) % Plt Count 106 L (130-400) K/uL MPV 9.4 (7.4-10.4) fL PT 15.0 H (9.0-12.0) Seconds INR 1.4 H (0.9-1.1) Sodium 129 L (136-145) mmol/L Potassium 4.3 (3.5-5.1) mmol/L Chloride 99 (98-107) mmol/L Carbon Dioxide 28 (21-32) mmol/L Anion Gap 2.0 L (3-11) BUN 52 H (7-18) mg/dl Creatinine 1.74 H (0.6-1.2) mg/dl Est Cr Clr Drug Dosing 33.2 ml/min Est GFR ( Amer) 33.1 Est GFR (Non-Af Amer) 28.6 BUN/Creatinine Ratio 29.9 H (10-20) Glucose 84 (70-99) mg/dl Calcium 7.8 L (8.5-10.1) mg/dl Phosphorus 3.5 (2.5-4.9) mg/dl Magnesium 2.6 H (1.8-2.4) mg/dl PG Care Time/CCT Total # of Minutes Spent Total Time Spent with Patient: Total time spent is greater than 50% in coordination of care (as documented) at patient's floor/unit and/or counseling patient: Coding Level of Care Code 47547 Subseq Hosp Care Lvl 3 Diagnoses Non-alcoholic cirrhosis K74.60 Ascites K70.31 Ascites type: due to alcoholic cirrhosis Anasarca R60.1 Grade II diastolic dysfunction I51.9 Hyponatremia E87.1 Rectus sheath hematoma S30.1XXD Encounter type: subsequent encounter Complicated UTI (urinary tract infection) N39.0 Left leg cellulitis L03.116 Acute blood loss anemia D62 Acute kidney failure N17.9 Acute renal failure type: unspecified Supratherapeutic INR R79.1 Hematemesis K92.0 Nausea presence: without nausea Pulmonary emboli I26.99 Acute cor pulmonale presence: unspecified Chronicity: acute Pulmonary embolism type: other Splenic vein thrombosis I82.890 Portal vein thrombosis I81 AMS (altered mental status) R41.82 Altered mental status type: unspecified Aortic stenosis I35.0 Cardiac valve disease etiology: etiology unspecified Pancytopenia D61.818 DVT prophylaxis Z29.9 (1) Ascites Ascites type: due to alcoholic cirrhosis Qualified Code(s): K70.31 - Alcoholic cirrhosis of liver with ascites (2) Rectus sheath hematoma Encounter type: subsequent encounter Qualified Code(s): S30.1XXD - Contusion of abdominal wall, subsequent encounter (3) Acute kidney failure Acute renal failure type: unspecified Qualified Code(s): N17.9 - Acute kidney failure, unspecified (4) Hematemesis Nausea presence: without nausea Qualified Code(s): K92.0 - Hematemesis (5) Pulmonary emboli Acute cor pulmonale presence: unspecified Chronicity: acute Pulmonary embolism type: other Qualified Code(s): I26.99 - Other pulmonary embolism without acute cor pulmonale (6) AMS (altered mental status) Altered mental status type: unspecified Qualified Code(s): R41.82 - Altered mental status, unspecified (7) Aortic stenosis Cardiac valve disease etiology: etiology unspecified Qualified Code(s): I35.0 - Nonrheumatic aortic (valve) stenosis
--- NOTE | 2020-10-16 15:22 | Ultrasound Report ---
US paracentesis abd w/image CLINICAL HISTORY: 75 years-old Female with fluid removal. Recurrent ascites COMPARISON: CT abdomen and pelvis 10/04/2020 PROCEDURE: The procedure was explained to the patient in the care including the benefits and possible risks/complications. The patient gave verbal understanding and written consent was obtained. A time -out was performed prior to the start of the procedure. The patient was placed on the ultrasound table in the supine position. Using ultrasound guidance, an appropriate procedure site in the left lower abdomen was marked. This area was then prepped and drape d in the usual sterile fashion. Local anesthesia was achieved within 1% lidocaine. An [employer] is catheter was then inserted. Approximately 3.0 liters of clear, yellowish fluid was removed and sen t to the lab for analysis. The catheter was removed and external pressure was held to achieve hemostasis. A sterile dressing was applied to the procedure site. The patient tolerated the procedure well without immediate complicati ons. IMPRESSION: Successful ultrasound-guided paracentesis with removal of 3.0 L ascitic fluid ACT 112: Negative or not required by law. The above report was generated using voice recognition software. It may contain grammatical, syntax o r spelling errors. Electronically signed by: Dwayne Manley M.D. 10/16/2020 3:21 PM
[2020-10-16] MEDS: BUMETANIDE 1 MG TAB PO SCH (15:52)
[2020-10-16] MEDS ORDERED: TORSEMIDE 10 MG TAB PO SCH (16:00)
[2020-10-16] MEDS: ENOXAPARIN 100 MG/1ML SYR SQ SCH (18:42)
[2020-10-16] MEDS: PRAVASTATIN SOD 20 MG TAB PO SCH (21:01)
[2020-10-16] MEDS: PRAMIPEXOLE DIHYDROCHLO 0.25 MG TAB PO SCH (21:01)
[2020-10-17 07:30] LABS: Hematocrit (blood only) 25.9 % (37-47); Hemoglobin 8.3 g/dL (12.0-16.0); Mean Corpuscular Hemoglobin 27.4 pg (25-34); Mean Corpuscular Volume 85.5 fL (80-100); RDW Coefficient of Variation 21.7 % (11.5-14.5); Red Blood Count 3.03 M/uL (4.2-5.4); White Blood Count 2.38 K/uL (4.8-10.8)
[2020-10-17 07:36] LABS: INR 1.4 (0.9-1.1)
[2020-10-17 07:53] LABS: Mean Platelet Volume 9.5 fL (7.4-10.4); Platelet Count 93 K/uL (130-400)
[2020-10-17 08:04] LABS: Anisocytosis Present; Basophils # (auto) 0.02 K/uL (0-0.2); Basophils % (auto) 0.8 %; Eosinophils # (auto) 0.06 K/uL (0-0.5); Eosinophils % (auto) 2.5 %; Lymphocytes # (auto) 0.76 K/uL (1.2-3.4); Lymphocytes % (auto) 31.9 %; Monocytes # (auto) 0.26 K/uL (0.11-0.59); Monocytes % (auto) 10.9 %; Neutrophils # (auto) 1.28 K/uL (1.4-6.5); Neutrophils % (auto) 53.9 %; Ovalocytes 1+
[2020-10-17 08:24] LABS: Albumin Globulin Ratio 0.5 (0.9-2); BUN Creatinine Ratio 33.1 (10-20); Bilirubin,Total 2.8 mg/dl (0.2-1); Calcium 8.3 mg/dl (8.5-10.1); Creatinine Clr Calc Pharmacy 33.7 ml/min; Est GFR (African American) 34.8
[2020-10-17] MEDS: METOPROLOL TARTRATE 25 MG TAB PO SCH ×2 (08:38→20:33)
[2020-10-17] MEDS: TORSEMIDE 20 MG TAB PO SCH (08:38)
[2020-10-17] MEDS: BUMETANIDE 1 MG TAB PO SCH (08:39)
[2020-10-17] MEDS: PANTOprazole 40 MG TAB PO SCH (08:39)
[2020-10-17] MEDS: FLUTICASONE/VILANTEROL 200/25MCG 14 PUFFS/INHALER INH SCH (08:40)
[2020-10-17 09:39] LABS: Partial Thromboplastin Ratio 1.6; Partial Thromboplastin Time 43.4 Seconds (21.0-31.0)
--- NOTE | 2020-10-17 10:50 | Discharge Summary ---
Date of Service October 18, 2020 Admission HPI Per Admitting Provider 75yo w/ hx of MOBLEY cirrhosis and pulmonary emboli who presents with rectus sheath hematoma and supratherapeutic INR. Per the patient and daughter, she has been a bit "off" over the last few days. She also has had some abdominal pain. She was discharged from the hospital on 09/18/2020 and saw her PCP shortly afterward. She had volume overload from her cirrhosis and had been put on diuretics. She also had a PE and was put on warfarin. She went to her anticoagulation clinic visit on 09/29 with an INR of 3.1. Her warfarin was kept the same at that time to try to keep things straightforward; however, today her INR is >9. Admission Exam Per Admitting Provider Constitutional: WD/WN, vitals as above + acute distress and + obese Eyes: EOM intact bilaterally; no conjunctival abnormality ENMT: external ear and nose normal, oropharynx normal Neck: trachea midline, no thyromegaly normal visual inspection Respiratory: normal respiratory effort, lungs clear to auscultation no respiratory distress Cardiovascular: RRR, no murmur, no edema Gastrointestinal (Abdomen): Inspection/Auscultation: normal bowel sounds; + abdomen abnormal to inspection and abdomen not distended Percussion/Palpation: + abdomen tender and abdomen soft; no guarding and abdomen not rigid Musculoskeletal: no cyanosis or clubbing, extremities motor strength 5/5 Skin: no rashes, warm and dry Neurologic: moves all extremities and awake Psychiatric: Orientation: alert, oriented to person and cooperative Principal Diagnosis Rectus Sheath Hematoma with supratherapeutic INR, Non-Alcoholic Cirrhosis Discharge Exam Constitutional well developed, + obese, cooperative and comfortable; no acute distress Eyes + anicteric sclerae and EOM intact bilaterally; no conjunctival abnormality ENMT Mouth: + poor dentition Mallampati Class: II mmm Neck normal visual inspection and trachea midline Respiratory normal respiratory effort, lungs clear to auscultation no labored breathing Auscultation: + diminished lung sounds Cardiovascular Rate/Rhythm: regular rate and regular rhythm Heart Sounds: no murmur Vessels: normal peripheral pulses, dorsalis pedis pulses present and radial pulses present; no JVD and no carotid bruit Extremities: normal capillary refill and + edema (2+ b/l LE) Gastrointestinal (Abdomen) Inspection/Auscultation: + abdomen distended (less) and normal bowel sounds; + abdomen abnormal to inspection Percussion/Palpation: abdomen soft and + ascites (minimal); abdomen nontender, no guarding and abdomen not rigid Musculoskeletal Head/Neck/Chest: normocephalic and head atraumatic Spine: normal cervical ROM, no cervical spinal tenderness, no cervical muscular tenderness, no thoracic spinal tenderness and no lumbar spinal tenderness Extremities: no cyanosis and no clubbing Skin + jaundice, + erythema (Mild erythema and warmth of the left leg from the knee down improved) and + brittle hair Neurologic CN's II-XI intact bilaterally, moves all extremities and awake; no focal motor deficits Motor/Sensory: no tremor and no sensory deficit Psychiatric Orientation: alert, oriented x 3, oriented to person, oriented to place, oriented to time and cooperative Apperance: appropriately groomed; not disheveled Affect: + anxious affect (anxious for discharge); no tearful affect Genitourinary no CVA tenderness Discharge Data Allergies Allergy/AdvReac Type Severity Reaction Status Date / Time naproxen Allergy Intermediate Hives Verified 10/06/20 09:47 adhesive AdvReac Mild SKIN Verified 10/06/20 09:47 IRRITATION ciprofloxacin AdvReac Mild Nausea Verified 10/06/20 09:47 Consultations 10/04/20 18:43 ED Decision to Admit Stat 10/04/20 21:34 Consult Gastroenterology Routine Consult Vascular Surgery Routine 10/05/20 11:38 Consult Palliative Care Routine Procedures Performed Operation Date: 10/06/20 15:30 Actual Procedures p Esophagogastroduodenoscopy - Bobby Cobian Case, DO Ordered Studies 10/04/20 15:33 CT head/brain wo con Stat CXR 10/04/20 15:34 CT abd pelvis wo con Stat 10/05/20 18:32 US venous doppler LE BI Routine Forearm Xray CXR US Venous Doppler 10/16/20 13:00 US paracentesis abd w/image Routine 10/18 CT Abd pelvis wo con Hospital Course (1) Non-alcoholic cirrhosis: * Not a candidate for liver transplant * Follows with Dr. Badillo * EGD without varices, but with portal hypertensive gastropathy in the stomach * Continue to follow-up as an outpatient with GI for her cirrhosis and possible repeat paracentesis as she has needed one in 1 month from prior (2) Ascites: 10-15 massive ascites with abdominal pain * 10/16 US guided paracentesis for removal of 3L fluid * stopped aldactone due to hyponatremia, cont torsemide regimen and added bumex 1mg daily. Could consider increasing torsemide to BID if BPs tolerate/Cr stable (3) Anasarca: * With massive lower extremity edema and ascites in the abdomen as well. * Slightly improved since restarting diuretics * Albumin severely low and was given infusion on 10/11 * Continued diuresis but changed to torsemide 40mg daily and added bumex 1mg -- per previous d/c instructions appears she was to be on bumex but have not been taking this. Can be further titrated as tolerated, although does have CKD as well * Paracentesis for 3L with radiology on 10/16 -- of note previous paracentesis for 3.5L month prior and will need close follow up and possibly monthly paracentesis moving forward given CKD/cirrhosis * Discharged with bumex 1mg daily, torsemide 40mg * No further Aldactone due to hyponatremia (4) Grade II diastolic dysfunction: * lower extremity edema likely 2' to cirrhosis, hypoalbuminemia and HFpEF, stage 2 diastolic. Spironlactone discontinued d/t hyponatremia * 10-12 switch from lasix 40mg to torsemide 20mg BID for better absorption -- increased to 40mg daily in addition to 1mg bumex as above * Wt 92.9kg from max 100.6kg although did have paracentesis for 3L on 10/16 * Continued daily diuresis as above and will need continued daily weights with possible increase bumex to BID dosing if patient able to tolerate given CKD (5) Hyponatremia: * 09-18-20 with baseline sodium 136 * - Na 128 -- combination poor PO intake/hypervolemia * Aldactone has been discontinued due to such * Continue 1.5L fluid restriction * Na improved to 134 (6) Rectus sheath hematoma: * CT a/p on 10/04 showed development of an 11.8 x 5.0 x 3.4 cm left rectus sheath hematoma. Occurred possibly secondary to being lifted by hardware manager at home versus retching from vomiting 2 days prior to admission * Hgb dropped down from 9.9 to 6.8 morning after admission. Received transfusion of 2 units PRBCs and now hemoglobin stable. * Transfused 2 units PRBCs on 10/05 * Transfused 1 unit PRBC prior to d/c for hgb 7.8. * Repeat h/h 9.4/29.1 * As patient on anticoagulation again and no plans for IVC filter patient may need repeat transfusions and will have CBC drawn in next 1-2 days at [facility] to ensure stability * Repeat CT done prior to d/c given drop in h/h and showed decrease in size of hematoma to 4.7x2.4x6.4cm from 11.8x5x3.4cm (7) Complicated UTI (urinary tract infection): * 10-04 urine culture with > 100,000 CFU e. coli pansensitive * Started rocephin and transitioned to keflex 10/08 to complete 7 day course by 10/12 (8) Left leg cellulitis: * Left heel has a small ulcer with broken skin. Left ankle and puri are warmer and tender to palpation along with mild erythema-improving * Treated with ceftriaxone and keflex 7 days (9) Acute blood loss anemia: * Hemorrhagic discord due to intrinsic circulating anticoagulants in the setting of coumadin use and vitamin K reversal agent * Hemoglobin drop as above down to 6.8 secondary to GI bleeding with hematemesis as well as rectus sheath hematoma with INR 9.7 on admission. Coumadin reversed with vitamin K and Kcentra on admission. * Transfused 2 units PRBCs on 10/05 and hemoglobin has remained stable * EGD with portal hypertensive gastropathy, no evidence of acute bleeding-on Protonix * GI recommends holding anticoagulation indefinitely although I did discuss with Dr. Badillo given recent PE in cancer patient and OK to move forward with Lovenox for treatment * Reached out to Dr. Webb given recent PE/clots (August 2020) in cancer patient --> will move forward with Lovenox SQ 100 daily for total duration 3 months from August proph dosing. On daily dosing given CKD * Transfused additional 1u PRBC 10/18 for hgb 7.8 and improved to 9.4 on repeat. Iron studies/B12/Folate pending and added to AM blood prior to discharge given decreased size of hematoma and continued anemia (10) Acute kidney failure: * Baseline Cr ~1.4, CKD Stage III prior to progression of cirrhosis. Appears new baseline to be closer to 1.6-1.7 * Did elevated up to 1.82 from overdiuresis LVN * Resumed diuretics for hypervolemia and Cr improved to 1.61 with diuresis * To have repeat chemistries at rehab in next day or two at [facility] (11) Supratherapeutic INR: INR was 3.1 on 09/29, but then >9.7 upon admission * Family brought in medication list from home and as per nursing report, Coumadin was listed as being taken twice daily-this may have been the reason for the significant elevation in INR * Vitamin K oral and IV given by the ED * PCC given * Monitor INR was down to 1.3 but now increased without due to underlying liver disease, however in patient with recent PE (August 2020) not therapeutic * Discussed with Dr. Webb as above and will continue with Lovenox 100mg SQ daily given renal function and will lower to prophylactic dose after (12) Hematemesis: * With one episode of suspected hematemesis prior to admission * With hx of cirrhosis, there was initial concern for variceal bleed versus PUD * No further hematemesis or melena since admission * Hemoglobin did drop due to a combination of GI bleeding and rectus sheath hematoma * Was initially on PPI drip and octreotide drip * EGD completed. No active bleeding. Portal hypertensive gastropathy noted * Continued Protonix (13) Pulmonary emboli: * CTA chest in 08/2020 showed RLL PE. * As above, reversed warfarin due to rectus sheath hematoma and GI bleeding * Vascular surgery consult for possible IVC filter-recommends only placing filter if has evidence of DVTs * U/S Doppler negative for DVT of the lower extremities * See above with regards to anticoagulation therapy as patient will now be on Lovenox. (14) Splenic vein thrombosis: * Also diagnosed in 08/2020. * Coumadin discontinued in setting of rectus sheath hematoma (15) Portal vein thrombosis: * Coumadin discontinued by GI (16) AMS (altered mental status): * Acute metabolic encephalopathy upon admission likely due to hypotension from acute blood loss anemia as well as possibly from UTI and kidney failure * Ammonia only 19. * Now resolved with volume resuscitation and blood transfusion (17) Aortic stenosis: * Moderate on echocardiogram * Follow as an outpatient (18) Pancytopenia: * Pancytopenia secondary to cirrhosis and splenomegaly (19) DVT prophylaxis: * Auto anticoagulated due to cirrhosis although INR subtherapeutic and will continue with Lovenox as above at discharge Patient is conditional code -previously confirmed with patient with daughter present and & son on the phone. Would like compressions and shocks, but no intubation Patient ready for discharge to [facility] for rehab and will need to have further discussion with palliative care in future regarding progressive disease and possible decision to proceed with palliate care Total Time Total Time Spent Total Time Spent (In Minutes): 120 Discharge Plan Discharge Items Patient Disposition: Transfer Inpatient Rehab Fac Reason For Visit: AB PAIN, LEG EDEMA, URINARY SX Discharge Diagnosis: 1. rectus sheath hematoma 2. anasarca 3. diastolic CHF, grade 2 4. hyponatremia (low sodium) 5. non-alcoholic cirrhosis 6. anemia Goals: You have been hospitalized for an acute medical problem. During your stay at [facility], we have made an effort to correct the problem that brought you to the hospital while keeping you as comfortable as possible. Medications were used to bring your condition under control and your discharge instructions will include directions for any medications you should take after leaving the hospital. Please make sure you see your Primary Care Provider as part of your follow up plan. Activity: Resume your previous activity Non-emergency contact: Primary Care Provider and Quality Measurement Specialist Call non-emergency contact if: you have any medication questions, your symptoms worsen and your pain is not controlled Follow-up/Referrals: Bobby Badillo DO [Physician] - (2 weeks) Kvng Pereira III, MD [Primary Care Provider] - Carmen Webb MD, PhD [Pathologist] - (2 weeks) Diet: Heart Healthy and Low Sodium (2gm) Fluids: 1500ml (6 cups) Diet Texture: Dental soft (bite-sized) Addtl Attending Provider Instructions: You have been hospitalized for a rectus sheath hematoma and an elevated INR while on coumadin for your blood clots in your lungs and coumadin was reversed with Vitamin K. Stop taking Coumadin (warfarin) -- we have spoken to Dr eWbb from anticoagulation clinic and we have decided to continue to use Lovenox SQ injections at 100mg DAILY (due to your renal function) to treat your blood clots as they were just found in August and should be treated for 3 months but you may need continued prophylaxis dosing following that given your cancer history. Your blood count dropped <8 today and you were given a unit of blood cells. Given your need for continued anticoagulation and not able to place IVC filter as decided by vascular surgery, you may need continued transfusions if your counts remain low while on this thinning agent. The good news is, that repeat abdominal imaging showed a decreased in the size of the hematoma even whilst on Lovenox therapy. Please have a Xa level drawn after 3 more doses to ensure no over coagulation and you will need to follow up with the coag clinic for further titrations. Your spironolactone was stopped due to low sodium levels and they have improved. You should adhere to a 1500mL fluid restriction/low sodium diet. You will continue on bumex 1mg by mouth daily and torsemide 40mg by mouth daily to help with swelling/edema. This may be increased to 40mg twice daily if you are able to tolerate with your blood pressure if kidney function remains stable, which it has actually improved with diuretics. You should have your weights checked daily. Please follow up with Dr. Badillo in the next two weeks as you may need continued paracentesis to full fluid off your abdomen given your liver cirrhosis and low albumin state/poor nutrition. You have been set up for rehab at discharge to help improve your strength to return home. You should continue to discuss palliative care based on how you progress at rehab given your cirrhosis, kidney disease and poor overall nutrition. Please follow up with your primary care provider, Dr. Badillo, and anticoagulation clinic in the next 1-2 weeks. You should have repeat blood counts and chemistry profile in the next day or two to ensure hemoglobin stable and creatinine remains acceptable. Please return to the emergency department with any worsening pain, shortness of breath, increased abdominal pain or for any other symptoms that are concerning for you. It has been a pleasure being a part of the medical team providing for you while you have been in the hospital. Take care! Pending Studies at Discharge: No Stand-Alone Forms: My [facility] Skilled Items Patient informed of condition?: Yes DNR: No Discharge Level of Care: Skilled Communicable Disease: No Discharge Prognosis: Stable Lines: None Urinary Catheter: No Medications and DC Order Prescriptions: New bumetanide 1 mg Tablet 1 mg PO QAM 30 Days Qty: 30 RF: 0 enoxaparin 100 mg/mL syringe 100 mg subcut DAILY Qty: 10 RF: 0 torsemide 20 mg tablet 40 mg PO DAILY Qty: 60 RF: 0 tramadol 50 mg Tablet 25 mg PO Q6H PRNQty: 0 RF: 0 pantoprazole 40 mg Tablet,Delayed Release (Dr/Ec) 40 mg PO QAM Qty: 0 RF: 0 Continued fluticasone propion-salmeterol [Wixela Inhub] 250-50 mcg/dose blister with device 1 inh INHALATION BID RF: 0 albuterol sulfate 2.5 mg /3 mL (0.083 %) solution for nebulization 2.5 mg inhalation BID PRN (Reason: shortness of breath) RF: 0 lorazepam 0.5 mg tablet 0.5 mg PO BID PRN (Reason: Anxiety) RF: 0 pramipexole 0.25 mg tablet 0.25 mg PO HS RF: 0 pravastatin 20 mg tablet 20 mg PO HS RF: 0 ketoconazole 2 % Cream 1 applic TOPICAL BID RF: 0 metoprolol tartrate 25 mg tablet 25 mg PO BID RF: 0 Discontinued potassium chloride 20 mEq/15 mL liquid 20 meq PO BID RF: 0 warfarin 3 mg tablet 1.5 mg PO QPM RF: 0 furosemide 80 mg tablet 80 mg PO BID RF: 0 omeprazole 20 mg capsule,delayed release(DR/EC) 20 mg PO QAM RF: 0 spironolactone 50 mg tablet 50 mg PO BID RF: 0 Discharge Orders: Discharge Order (Routine); Ordered 10/18/20 Ordered By: Ladi Atkinson/Other Patient Handouts: Low-Salt Choices, Low Salt Diet Dc Admission Data Admit Date/Time: 10/04/20 20:06 Attending Provider: Ezequiel Bentley Admit Provider: Kevin Gambino Primary Care Provider: Kvng Pereira III Other Providers: [facility] ; [facility] ; Kevin Gambino ; Pool Tobar ; Koffi Martinez ; Elenita Ayala Other Interventions: Discharge Summary Assessment (RN) Last Done: 10/06/20 11:09 Coding Level of Care Code D/C Day Management >30 mins Diagnoses Non-alcoholic cirrhosis K74.60 Ascites K70.31 Ascites type: due to alcoholic cirrhosis Anasarca R60.1 Grade II diastolic dysfunction I51.9 Hyponatremia E87.1 Rectus sheath hematoma S30.1XXD Encounter type: subsequent encounter Complicated UTI (urinary tract infection) N39.0 Left leg cellulitis L03.116 Acute blood loss anemia D62 Acute kidney failure N17.9 Acute renal failure type: unspecified Supratherapeutic INR R79.1 Hematemesis K92.0 Nausea presence: without nausea Pulmonary emboli I26.99 Acute cor pulmonale presence: unspecified Chronicity: acute Pulmonary embolism type: other Splenic vein thrombosis I82.890 Portal vein thrombosis I81 AMS (altered mental status) R41.82 Altered mental status type: unspecified Aortic stenosis I35.0 Cardiac valve disease etiology: etiology unspecified Pancytopenia D61.818 DVT prophylaxis Z29.9
--- NOTE | 2020-10-17 16:07 | Hospitalist Progress Note ---
Date of Service October 17, 2020 Assessment & Plan (1) Non-alcoholic cirrhosis: * Not a candidate for liver transplant * Follows with Dr. Badillo * EGD without varices, but with portal hypertensive gastropathy in the stomach * Continue to follow-up as an outpatient with GI for her cirrhosis (2) Ascites: * 10-15 massive ascites with abdominal pain * ordered US guided paracentesis and removed 3L peritoneal fluid * not on anticoagulants due to rectus sheath hematoma (see below) * stopped Aldactone due to hyponatremia, cont torsemide regimen (increased to 40mg BID). could consider bumex for abd edema? --> Will add 1mg daily bumex given patient on that previous admission and unclear when discontinued (3) Anasarca: * With massive lower extremity edema and ascites in the abdomen as well. * Slightly improved since restarting diuretics * Albumin severely low and was given infusion on 10/11 * Continued diuresis but changed to torsemide 40mg daily and added bumex 1mg -- per previous d/c instructions appears she was to be on bumex but have not been taking this. Can be further titrated as tolerated, although does have CKD as well * Paracentesis for 3L with radiology on 10/16 -- of note previous paracentesis for 3.5L month prior and will need close follow up and possibly monthly paracentesis moving forward given CKD/cirrhosis * Discharged with bumex 1mg daily, torsemide 40mg * No further Aldactone due to hyponatremia (4) Grade II diastolic dysfunction: * lower extremity edema likely 2' to cirrhosis, hypoalbuminemia and HFpEF, stage 2 diastolic. Spironolactone discontinued d/t hyponatremia * 10/12 switch from lasix 40mg to torsemide 20mg BID for better absorption -- increased to 40mg daily in addition to 1mg bumex as above * Wt 95.8kg from max 100.6kg although did have paracentesis for 3L on 10/16 * Continued daily diuresis as above and will need continued daily weights with possible increase bumex to BID dosing if patient able to tolerate given CKD (5) Hyponatremia: * 10/04 Na 128 -- combination poor PO intake/hypervolemia * Aldactone has been discontinued due to such * Continue 1.5L fluid restriction * Na improved to 133 (6) Rectus sheath hematoma: * CT a/p on 10/04 showed development of an 11.8 x 5.0 x 3.4 cm left rectus sheath hematoma. Occurred possibly secondary to being lifted by performance improvement coordinator at home versus retching from vomiting 2 days prior to admission * Hgb dropped down from 9.9 to 6.8 morning after admission. Received transfusion of 2 units PRBCs and now hemoglobin stable. * Transfused 2 units PRBCs on 10/05 * H/h stable and continued to hold coumadin (7) Complicated UTI (urinary tract infection): * 10-04 urine culture with > 100,000 CFU e. coli pansensitive * Started rocephin and transitioned to keflex 10/08 to complete 7 day course by 10/12 (8) Left leg cellulitis: * Left heel has a small ulcer with broken skin. Left ankle and puri are warmer and tender to palpation along with mild erythema-improving * Treated with ceftriaxone and keflex 7 days (9) Acute blood loss anemia: * Hemorrhagic discord due to intrinsic circulating anticoagulants in the setting of coumadin use and vitamin K reversal agent * Hemorrhagic discord due to intrinsic circulating anticoagulants in the setting of coumadin use and vitamin K reversal agent * Hemoglobin drop as above down to 6.8 secondary to GI bleeding with hematemesis as well as rectus sheath hematoma with INR 9.7 on admission. Coumadin reversed with vitamin K and Kcentra on admission. * Transfused 2 units PRBCs on 10/05 and hemoglobin has remained stable * EGD with portal hypertensive gastropathy, no evidence of acute bleeding-on Protonix * GI recommends holding anticoagulation indefinitely although I did discuss with Dr. Badillo given recent PE in cancer patient and OK to move forward with Lovenox for treatment * Reached out to Dr. Webb given recent PE/clots (August 2020) in cancer patient --> will move forward with Lovenox SQ 100 daily for total duration 3 months from August proph dosing. On daily dosing given CKD (10) Acute kidney failure: * Baseline Cr ~1.4, CKD Stage III prior to progression of cirrhosis. Appears new baseline to be closer to 1.6-1.7 * Did elevated up to 1.82 from overdiuresis [employer] * Resumed diuretics for hypervolemia and Cr improved from 1.74 to 1.67 prior to discharge. To have repeat chemistries at rehab in next day or two at [facility] (11) Supratherapeutic INR: * INR was 3.1 on 09/29, but then >9.7 upon admission * Family brought in medication list from home and as per nursing report, Coumadin was listed as being taken twice daily-this may have been the reason for the significant elevation in INR * Vitamin K oral and IV given by the ED * PCC given * Monitor INR was down to 1.3 but now increased without due to underlying liver disease, however in patient with recent PE (August 2020) not therapeutic * Discussed with Dr. Webb as above and will continue with Lovenox 100mg SQ daily given renal function and will lower to prophylactic dose after (12) Hematemesis: * With one episode of suspected hematemesis prior to admission * With hx of cirrhosis, there was initial concern for variceal bleed versus PUD * No further hematemesis or melena since admission * Hemoglobin did drop due to a combination of GI bleeding and rectus sheath hematoma * Was initially on PPI drip and octreotide drip * EGD completed. No active bleeding. Portal hypertensive gastropathy noted * Continued Protonix (13) Pulmonary emboli: * CTA chest in 08/2020 showed RLL PE. * As above, reversed warfarin due to rectus sheath hematoma and GI bleeding * Vascular surgery consult for possible IVC filter-recommends only placing filter if has evidence of DVTs * U/S Doppler negative for DVT of the lower extremities * See above with regards to anticoagulation therapy as patient now on Lovenox. (14) Splenic vein thrombosis: * Also diagnosed in 08/2020. * Coumadin discontinued in setting of rectus sheath hematoma (15) Portal vein thrombosis: * Coumadin discontinued by GI -- on Lovenox started 10/16 (16) AMS (altered mental status): * Acute metabolic encephalopathy upon admission likely due to hypotension from acute blood loss anemia as well as possibly from UTI and kidney failure * Ammonia only 19. * Now resolved with volume resuscitation and blood transfusion (17) Aortic stenosis: * Moderate on echocardiogram * Follow as an outpatient (18) Pancytopenia: * Pancytopenia secondary to cirrhosis and splenomegaly * Follow CBC (19) DVT prophylaxis: * Auto anticoagulated due to cirrhosis although INR subtherapeutic for treatment of PE/splenic thrombus as above diagnosed Aug 2020 * Lovenox as above Patient is conditional code -previously confirmed with patient with daughter present and & son on the phone. Would like compressions and shocks, but no intubation Patient ready for discharge to [facility] for rehab but still awaiting insurance auth at this time. If not obtained tonight, will plan on discharge tomorrow morning. Admission and Anticipated Discharge Date Admission Date: October 04, 2020 Subjective Evaluated this morning. Feeling much better. Abdomen less distended but does have minimal pain present. Legs easier to move today and denies same "feeling like bricks" that she endorsed yesterday. Discussed anticoagulation with Lovenox after discussion with Dr. Webb. She states she does have a neighbor that is CARE PROGRAM DIRECTOR at locally facility who could help with administration once discharged from rehab. Eating/drinking without difficulty. Improving slowly with therapy. Plans for discharge this afternoon if insurance auth received. Currently still pending at 4pm although [facility] at [facility] still hopeful they will hear back today. Review of Systems Review of Systems: All systems reviewed & are unremarkable except as noted in HPI & below Physical Exam Constitutional: well developed, + obese, cooperative and comfortable; no acute distress Eyes: + anicteric sclerae; no conjunctival abnormality ENMT: Mouth: + dentition abnormality and + poor dentition Mallampati Class: II Neck: normal visual inspection and trachea midline Respiratory: normal respiratory effort, lungs clear to auscultation no labored breathing Auscultation: + diminished lung sounds Cardiovascular: Rate/Rhythm: regular rate and regular rhythm Heart Sounds: no murmur Vessels: normal peripheral pulses, dorsalis pedis pulses present and radial pulses present; no JVD and no carotid bruit Extremities: normal capillary refill and + edema (2+ b/l LE, slightly improved) Gastrointestinal (Abdomen): Inspection/Auscultation: + abdomen distended (significantly less) and normal bowel sounds; + abdomen abnormal to inspection Percussion/Palpation: abdomen soft; abdomen nontender, no guarding, abdomen not rigid and no hepatosplenomegaly Musculoskeletal: Head/Neck/Chest: normocephalic and head atraumatic Extremities: extremities normal to inspection; no cyanosis and no clubbing Skin: + jaundice, + erythema (Mild erythema and warmth of the left leg from the knee down improved) and + brittle hair Neurologic: CN's II-XI intact bilaterally, moves all extremities and awake; no focal motor deficits Motor/Sensory: no tremor and no sensory deficit Psychiatric: Orientation: alert, oriented x 3 and cooperative Apperance: appropriately groomed Affect: + anxious affect (anxious for discharge) Genitourinary: no CVA tenderness Results & Data Results & Data ([facility]) Vital Signs (Past 12 Hours) Vital Signs Temp Pulse Resp BP Pulse Ox 10/17/20 15:13 36.8 C 90 18 111/64 97 10/17/20 07:18 36.5 C 75 16 93/55 L 98 Laboratory Results 10/17/20 10/17/20 10/17/20 Range/Units 09:19 06:35 06:35 WBC (4.8-10.8) K/uL RBC (4.2-5.4) M/uL Hgb (12.0-16.0) g/dL Hct (37-47) % MCV (80-100) fL MCH (25-34) pg MCHC (32-36) g/dL RDW Std Deviation (36.4-46.3) fL RDW Coeff of Flower (11.5-14.5) % Plt Count (130-400) K/uL MPV (7.4-10.4) fL Immature Gran % (Auto) % Neut % (Auto) % Lymph % (Auto) % [facility] % (Auto) % Eos % (Auto) % Baso % (Auto) % Neut # (Auto) (1.4-6.5) K/uL Lymph # (Auto) (1.2-3.4) K/uL [facility] # (Auto) (0.11-0.59) K/uL Eos # (Auto) (0-0.5) K/uL Baso # (Auto) (0-0.2) K/uL Immature Gran # (Auto) (0.00-0.02) K/uL Anisocytosis Ovalocytes PT 15.0 H (9.0-12.0) Seconds INR 1.4 H (0.9-1.1) APTT 43.4 H (21.0-31.0) Seconds PTT Ratio 1.6 Sodium 133 L (136-145) mmol/L Potassium 4.0 (3.5-5.1) mmol/L Chloride 98 (98-107) mmol/L Carbon Dioxide 28 (21-32) mmol/L Anion Gap 7.0 (3-11) BUN 55 H (7-18) mg/dl Creatinine 1.67 H (0.6-1.2) mg/dl Est Cr Clr Drug Dosing 33.7 ml/min Est GFR ( Amer) 34.8 Est GFR (Non-Af Amer) 30.0 BUN/Creatinine Ratio 33.1 H (10-20) Glucose 71 (70-99) mg/dl Osmolality (280-300) mOsm/kg Calcium 8.3 L (8.5-10.1) mg/dl Total Bilirubin 2.8 H (0.2-1) mg/dl AST 38 H (15-37) U/L ALT 19 (12-78) U/L Alkaline Phosphatase 113 (45-117) U/L Total Protein 6.0 L (6.4-8.2) gm/dl Albumin 2.0 L (3.4-5.0) gm/dl Globulin 4.0 (2.5-4.0) gm/dl Albumin/Globulin Ratio 0.5 L (0.9-2) Urine Osmolality (500-800) mOsm/kg Ur Random Sodium mmol/L 10/17/20 10/16/20 10/16/20 Range/Units 06:35 16:30 16:17 WBC 2.38 L (4.8-10.8) K/uL RBC 3.03 L (4.2-5.4) M/uL Hgb 8.3 L (12.0-16.0) g/dL Hct 25.9 L (37-47) % MCV 85.5 (80-100) fL MCH 27.4 (25-34) pg MCHC 32.0 (32-36) g/dL RDW Std Deviation 68.0 H (36.4-46.3) fL RDW Coeff of Flower 21.7 H (11.5-14.5) % Plt Count 93 L (130-400) K/uL MPV 9.5 (7.4-10.4) fL Immature Gran % (Auto) 0.0 % Neut % (Auto) 53.9 % Lymph % (Auto) 31.9 % [facility] % (Auto) 10.9 % Eos % (Auto) 2.5 % Baso % (Auto) 0.8 % Neut # (Auto) 1.28 L (1.4-6.5) K/uL Lymph # (Auto) 0.76 L (1.2-3.4) K/uL [facility] # (Auto) 0.26 (0.11-0.59) K/uL Eos # (Auto) 0.06 (0-0.5) K/uL Baso # (Auto) 0.02 (0-0.2) K/uL Immature Gran # (Auto) 0.00 (0.00-0.02) K/uL Anisocytosis Present Ovalocytes 1+ PT (9.0-12.0) Seconds INR (0.9-1.1) APTT (21.0-31.0) Seconds PTT Ratio Sodium (136-145) mmol/L Potassium (3.5-5.1) mmol/L Chloride (98-107) mmol/L Carbon Dioxide (21-32) mmol/L Anion Gap (3-11) BUN (7-18) mg/dl Creatinine (0.6-1.2) mg/dl Est Cr Clr Drug Dosing ml/min Est GFR ( Amer) Est GFR (Non-Af Amer) BUN/Creatinine Ratio (10-20) Glucose (70-99) mg/dl Osmolality 295 (280-300) mOsm/kg Calcium (8.5-10.1) mg/dl Total Bilirubin (0.2-1) mg/dl AST (15-37) U/L ALT (12-78) U/L Alkaline Phosphatase (45-117) U/L Total Protein (6.4-8.2) gm/dl Albumin (3.4-5.0) gm/dl Globulin (2.5-4.0) gm/dl Albumin/Globulin Ratio (0.9-2) Urine Osmolality (500-800) mOsm/kg Ur Random Sodium 73 mmol/L 10/16/20 Range/Units 16:17 WBC (4.8-10.8) K/uL RBC (4.2-5.4) M/uL Hgb (12.0-16.0) g/dL Hct (37-47) % MCV (80-100) fL MCH (25-34) pg MCHC (32-36) g/dL RDW Std Deviation (36.4-46.3) fL RDW Coeff of Flower (11.5-14.5) % Plt Count (130-400) K/uL MPV (7.4-10.4) fL Immature Gran % (Auto) % Neut % (Auto) % Lymph % (Auto) % [facility] % (Auto) % Eos % (Auto) % Baso % (Auto) % Neut # (Auto) (1.4-6.5) K/uL Lymph # (Auto) (1.2-3.4) K/uL [facility] # (Auto) (0.11-0.59) K/uL Eos # (Auto) (0-0.5) K/uL Baso # (Auto) (0-0.2) K/uL Immature Gran # (Auto) (0.00-0.02) K/uL Anisocytosis Ovalocytes PT (9.0-12.0) Seconds INR (0.9-1.1) APTT (21.0-31.0) Seconds PTT Ratio Sodium (136-145) mmol/L Potassium (3.5-5.1) mmol/L Chloride (98-107) mmol/L Carbon Dioxide (21-32) mmol/L Anion Gap (3-11) BUN (7-18) mg/dl Creatinine (0.6-1.2) mg/dl Est Cr Clr Drug Dosing ml/min Est GFR ( Amer) Est GFR (Non-Af Amer) BUN/Creatinine Ratio (10-20) Glucose (70-99) mg/dl Osmolality (280-300) mOsm/kg Calcium (8.5-10.1) mg/dl Total Bilirubin (0.2-1) mg/dl AST (15-37) U/L ALT (12-78) U/L Alkaline Phosphatase (45-117) U/L Total Protein (6.4-8.2) gm/dl Albumin (3.4-5.0) gm/dl Globulin (2.5-4.0) gm/dl Albumin/Globulin Ratio (0.9-2) Urine Osmolality 283 L (500-800) mOsm/kg Ur Random Sodium mmol/L PG Care Time/CCT Total # of Minutes Spent Total Time Spent with Patient: Total time spent is greater than 50% in coordination of care (as documented) at patient's floor/unit and/or counseling patient: Coding Level of Care Code 23056 Subseq Hosp Care Lvl 3 Diagnoses Non-alcoholic cirrhosis K74.60 Ascites K70.31 Ascites type: due to alcoholic cirrhosis Anasarca R60.1 Grade II diastolic dysfunction I51.9 Hyponatremia E87.1 Rectus sheath hematoma S30.1XXD Encounter type: subsequent encounter Complicated UTI (urinary tract infection) N39.0 Left leg cellulitis L03.116 Acute blood loss anemia D62 Acute kidney failure N17.9 Acute renal failure type: unspecified Supratherapeutic INR R79.1 Hematemesis K92.0 Nausea presence: without nausea Pulmonary emboli I26.99 Acute cor pulmonale presence: unspecified Chronicity: acute Pulmonary embolism type: other Splenic vein thrombosis I82.890 Portal vein thrombosis I81 AMS (altered mental status) R41.82 Altered mental status type: unspecified Aortic stenosis I35.0 Cardiac valve disease etiology: etiology unspecified Pancytopenia D61.818 DVT prophylaxis Z29.9 (1) Ascites Ascites type: due to alcoholic cirrhosis Qualified Code(s): K70.31 - Alcoholic cirrhosis of liver with ascites (2) Acute kidney failure Acute renal failure type: unspecified Qualified Code(s): N17.9 - Acute kidney failure, unspecified (3) Aortic stenosis Cardiac valve disease etiology: etiology unspecified Qualified Code(s): I35.0 - Nonrheumatic aortic (valve) stenosis (4) AMS (altered mental status) Altered mental status type: unspecified Qualified Code(s): R41.82 - Altered mental status, unspecified (5) Pulmonary emboli Acute cor pulmonale presence: unspecified Chronicity: acute Pulmonary embolism type: other Qualified Code(s): I26.99 - Other pulmonary embolism w ithout acute cor pulmonale (6) Hematemesis Nausea presence: without nausea Qualified Code(s): K92.0 - Hematemesis (7) Rectus sheath hematoma Encounter type: subsequent encounter Qualified Code(s): S30.1XXD - Contusion of abdominal wall, subsequent encounter
[2020-10-17] MEDS: ENOXAPARIN 100 MG/1ML SYR SQ SCH (17:28)
[2020-10-17] MEDS: PRAMIPEXOLE DIHYDROCHLO 0.25 MG TAB PO SCH (21:48)
[2020-10-17] MEDS: PRAVASTATIN SOD 20 MG TAB PO SCH (21:48)
[2020-10-17] MEDS: traMADol HCL 50 MG TABLET PO PRN (22:30)
[2020-10-18 08:44] LABS: Hematocrit (blood only) 23.8 % (37-47); Hemoglobin 7.8 g/dL (12.0-16.0); Mean Corpuscular Hemoglobin 28.1 pg (25-34); Mean Corpuscular Hgb Conc 32.8 g/dL (32-36); Mean Corpuscular Volume 85.6 fL (80-100); RDW Coefficient of Variation 21.3 % (11.5-14.5); RDW Standard Deviation 67.3 fL (36.4-46.3); Red Blood Count 2.78 M/uL (4.2-5.4); White Blood Count 1.73 K/uL (4.8-10.8)
[2020-10-18 08:55] LABS: INR 1.4 (0.9-1.1); Partial Thromboplastin Ratio 1.6; Prothrombin Time 14.7 Seconds (9.0-12.0)
[2020-10-18 09:00] LABS: Mean Platelet Volume 9.3 fL (7.4-10.4); Platelet Count 72 K/uL (130-400)
[2020-10-18 09:03] LABS: BUN Creatinine Ratio 31.3 (10-20); Calcium 8.3 mg/dl (8.5-10.1); Creatinine Clr Calc Pharmacy 34.4 ml/min; Est GFR (African American) 36.4; Est GFR (Non-African American) 31.4; Potassium 3.6 mmol/L (3.5-5.1)
[2020-10-18] MEDS: METOPROLOL TARTRATE 25 MG TAB PO SCH (09:42)
[2020-10-18] MEDS: FLUTICASONE/VILANTEROL 200/25MCG 14 PUFFS/INHALER INH SCH (09:43)
[2020-10-18] MEDS: PANTOprazole 40 MG TAB PO SCH (09:44)
[2020-10-18] MEDS: BUMETANIDE 1 MG TAB PO SCH (09:44)
[2020-10-18 10:44] LABS: Anisocytosis Present; Basophils # (auto) 0.01 K/uL (0-0.2); Basophils % (auto) 0.6 %; Eosinophils # (auto) 0.05 K/uL (0-0.5); Eosinophils % (auto) 3.1 %; Hypochromasia Present; Lymphocytes # (auto) 0.55 K/uL (1.2-3.4); Lymphocytes % (auto) 34.2 %; Monocytes # (auto) 0.17 K/uL (0.11-0.59); Monocytes % (auto) 10.6 %; Neutrophils # (auto) 0.83 K/uL (1.4-6.5); Neutrophils % (auto) 51.5 %
--- NOTE | 2020-10-18 10:44 | CT Scan Report ---
ABDOMEN AND PELVIS CT WITHOUT CONTRAST CT DOSE: 1472.68 mGy.cm HISTORY: Follow up study in a patient with rectus sheath hematoma f/u rectus shealth hematoma, ?retr operitoneal blee TECHNIQUE: Multiaxial CT images of the abdomen and pelvis were performed without contrast. A dose lo wering technique was utilized adhering to the principles of ALARA. COMPARISON STUDY: CT abdomen and pelvis 10/04/2020. FINDINGS: Coronary artery calcifications. Mild cardiomegaly. Trace pleural effusions. There are numerous unchan ged bibasilar solid pulmonary nodules redemonstrated measuring up to approximately 4 mm. Bibasilar at electasis/scarring. Limited exam without the use of IV contrast and upper extremity positioning. No p neumatosis or pneumoperitoneum. Splenomegaly measures up to 14.3 cm in length. There is mild to moder ate generalized pancreatic atrophy. Unremarkable left adrenal gland. Unchanged 2.2 cm right adrenal g land adenoma. Cholecystectomy. Cirrhotic morphology of the liver with small to moderate volume of abd ominopelvic ascites. Abdominal varices. Mildly atrophic kidneys. No hydronephrosis. Mild wall thickening of the urinary bladder which is part ially decompressed. Hysterectomy. Calcified plaque the abdominal aorta. No adenopathy. Small hiatal hernia. Duodenal diverticulum. Moderate rectal fecal retention. Mild wall thickening of the cecum and ascending colon is redemonstrated. The visualized appendix appears normal. Diffuse body wall and mesenteric edema. Decreased size of the left rectus sheath hematoma, now measuring 4.7 x 2. 4 cm, previously 5.9 x 3.4 cm. There is now measures 6.4 cm in length, previously 11.8 cm. No retrope ritoneal hematoma. Bones appear intact. Degenerative changes of the spine, pelvis and hips. No acute fracture. Grade 1 anterolisthesis L4 on L5 is likely secondary to chronic facet arthrosis. IMPRESSION: 1. Moderately decreased size of the subacute left rectus sheath hematoma now measuring 4.7 x 2.4 x 6. 4 cm. No retroperitoneal hematoma. 2. Cirrhotic liver disease with stigmata of portal venous hypertension including splenomegaly with sm all to moderate abdominal pelvic ascites. 3. Wall thickening of the cecum and proximal ascending colon redemonstrated suggestive of probable po rtal colopathy. No bowel obstruction. 4. Additional findings as above. ACT 112: Negative or not required by law. The above report was generated using voice recognition software. It may contain grammatical, syntax o r spelling errors. Electronically signed by: Dwayne Manley M.D. 10/18/2020 10:43 AM
[2020-10-18] MEDS ORDERED: SODIUM CHLORIDE 0.9% 250 ML IV PRN (11:43)
[2020-10-18] MEDS ORDERED: TORSEMIDE 10 MG TAB PO SCH (12:15)
[2020-10-18] MEDS: traMADol HCL 50 MG TABLET PO PRN (15:38)
[2020-10-18 17:02] VITALS: TEMP 98.2; O2SAT 97
[2020-10-18] MEDS: ENOXAPARIN 100 MG/1ML SYR SQ SCH (17:06)
[2020-10-18 18:13] LABS: Hematocrit (blood only) 29.1 % (37-47); Hemoglobin 9.4 g/dL (12.0-16.0); Mean Corpuscular Hemoglobin 27.7 pg (25-34); Mean Corpuscular Hgb Conc 32.3 g/dL (32-36); Mean Corpuscular Volume 85.8 fL (80-100); RDW Coefficient of Variation 20.9 % (11.5-14.5); RDW Standard Deviation 66.3 fL (36.4-46.3); Red Blood Count 3.39 M/uL (4.2-5.4); White Blood Count 2.32 K/uL (4.8-10.8)
[2020-10-18 18:42] LABS: Ferritin 511.2 ng/ml (8-388)
[2020-10-18 18:48] LABS: Mean Platelet Volume 9.3 fL (7.4-10.4); Platelet Count 89 K/uL (130-400)
[2020-10-18 19:17] LABS: Folate (Folic Acid) 4.9 ng/ml (>5.38)
[2020-10-18 19:33] VITALS: BP 107/63; PULSE 82
== END 2020-10-18 21:34 | DRG 813 ==
LOC: ED 15:06 → SUATTDRO 20:06 → 2S 20:06 → 3W 10-12 10:54